=== PATIENT | female | born 1950 | race Caucasian/White ===

== ENCOUNTER 2018-03-18 13:23 | Inpatient (IN) | payer OTHER ==
[~2018-03-18] VITALS: Ht 162.6 cm; Wt 73.0 kg
[2018-03-18 13:26] VITALS: Ht 162.6 cm; Wt 73.0 kg
[2018-03-18] MEDS ORDERED: ASPI-903 PO (14:13)
[2018-03-18] MEDS ORDERED: ISOS5TAB2 PO (14:13)
[2018-03-18] MEDS ORDERED: CLOP75TA27 PO (14:14)
[2018-03-18] MEDS ORDERED: CARV3.12 PO (14:14)
[2018-03-18] MEDS ORDERED: ATOR40TA68 PO (14:14)
[2018-03-18] MEDS ORDERED: ALDS PO (14:15)
[2018-03-18] MEDS ORDERED: LISI-313 PO (14:15)
[2018-03-18] MEDS ORDERED: NITR0.4T32 SL (14:15)
[2018-03-18] MEDS ORDERED: FURO40TA4 PO (14:16)
[2018-03-18] MEDS ORDERED: CEFTRIAXONE 1 GM/50 ML (PMX) 50 ML IVPB STA (14:26)
[2018-03-18] MEDS ORDERED: SODIUM CHLORIDE 0.9% 1L BAG IV* STA (14:26)
[2018-03-18] MEDS ORDERED: ASPIRIN 300 MG SUPP PR ONE ×2 (15:25→15:30)
[2018-03-18] MEDS ORDERED: ONDANSETRON 4 MG INJ IV PRN ×2 (16:30→17:00)
[2018-03-18] MEDS ORDERED: NITROGLYCERIN (SL) 0.4 MG TAB SL PRN (16:30)
[2018-03-18] MEDS ORDERED: ACETAMINOPHEN 325 MG TAB PO PRN ×2 (16:30→17:00)
[2018-03-18] MEDS ORDERED: MAGNESIUM HYDROXIDE 30ML CUP PO PRN (17:00)
[2018-03-18] MEDS ORDERED: NACL 0.9% 3 ML SYG IV SCH (17:00)
[2018-03-18] MEDS ORDERED: DOCUSATE SODIUM 100 MG CAP PO PRN (17:00)
--- NOTE | 2018-03-18 17:08 | HP ---
Date/Time of Note Date/Time of Note DATE: 03/18/18 TIME: 16:50 Assessment/Plan VTE Prophylaxis SCD applied (from Nsg): Yes Pharmacological prophylaxis: LMWH Lines/Catheters IV Catheter Type (from Nrsg): Saline Lock Assessment/Plan Assessment/Plan 1. Acute encephalopathy - unsure etiology at this time. Will workup for infectious cause given lactic acid elevated but urine studies negative for UTI. pancultures ordered - Neurology consulted for recommendations - CT head with chronic changes as well as central volume loss vs NPH - Will order MRI/MRA brain to further assess - will check speech evaluation 2. Chest pain - Noted per daughter but patient unable to express if currently experiencing - Cardiology consult placed given elevated troponin - Will continue trending trops - will place on full dose lovenox for now - EKG negative for acute ST changes - ECHO ordered 3. CHF - ECHO to assess EF - on lasix and spironolactone as outpatient - will check BNP - CXR with cardiomegaly 4. CAD s/p PCI 09/2017 - continue all medications as tolerated 5. DM - initial sugar elevated - will check A1c - ISS and accuchecks - no DM on med rec 6. Diet - NPO until more awake 7. DVT ppx - LMWH 8. Code status - Full 9. Disposition - Admit for workup of acute chest pain and altered mental status Result Diagram: 03/18/18 1414 03/18/18 1414 Results 24hrs Laboratory Tests Test 03/18/18 14:00 03/18/18 14:14 03/18/18 14:16 Urine Color TRAVIS Urine Clarity SLIGHTLY CLOUDY A Urine pH 5.0 Urine Specific [place] 1.030 Urine Ketones TRACE A Urine Nitrite NEGATIVE Urine Bilirubin NEGATIVE Urine Urobilinogen 1+ H Urine Leukocyte Esterase NEGATIVE Urine Microscopic RBC 1 Urine Microscopic WBC 2 Urine Squamous Epithelial Cells FEW Urine Bacteria FEW A Urine Hyaline Casts FEW A Urine Hemoglobin 2+ H Urine Glucose 3+ H Urine Total Protein 3+ H White Blood Count 6.0 Red Blood Count 5.11 Hemoglobin 13.6 Hematocrit 43.3 Mean Corpuscular Volume 84.7 Mean Corpuscular Hemoglobin 26.6 L Mean Corpuscular 31.4 L Hemoglobin Concent Red Cell Distribution Width 14.1 Platelet Count 277 Mean Platelet Volume 11.1 H Immature Granulocytes % 0.300 Neutrophils % 64.7 Lymphocytes % 25.6 Monocytes % 7.9 Eosinophils % 0.7 Basophils % 0.8 Nucleated Red Blood Cells % 0.0 Immature Granulocytes # 0.020 Neutrophils # 3.9 Lymphocytes # 1.5 Monocytes # 0.5 Eosinophils # 0.0 Basophils # 0.1 Nucleated Red Blood Cells # 0.0 Sodium Level 138 Potassium Level 4.3 Chloride Level 101 Carbon Dioxide Level 24 Anion Gap 13 Blood Urea Nitrogen 15 Creatinine 0.85 Est Glomerular Filtrat > 60 Rate mL/min Glucose Level 328 H Calcium Level 9.1 Troponin I 0.262 *H POC Venous Lactate 3.0 *H HPI/ROS Admit Date/Time Admit Date/Time 03/18/18 at 1600 Hx of Present Illness 67 yo F with PMH Diabetes mellitus, CAD s/p PCI 09/2017, dementia, and CHF presented to ED due to chest pain and altered mental status. Patient is currently nonverbal and history obtained from ED physician and patients daughter. Per daughter, patient was in her normal state of health 2 days ago but has not been talking, moving, or eating for the past 2 days. Patient usually is able to ambulate and feeds herself. Daughter recently moved patient out to [place] from [place] and has not established care with a physician yet. She has not been complaining of any shortness of breath, urinary, or GI issues. No evidence of recent illness and no sick contact. In ED, patient found with elevated trop 0.26 but no signs of distress of pain. ROS All 12 systems reviewed and pertinent positives as per HPI. All others negative. Unable to obtain full ROS given patients altered mental status. Subjective hx not possible: pt non-verbal Constitutional: disoriented Psychological: confusion PMH/Family/Social Past Medical History Medical History: congestive heart failure, coronary artery disease, diabetes, other (dementia) Medications Current Medications Ondansetron HCl (Zofran Inj) 4 mg ER BRIDGE PRN IV NAUSEA/VOMITING; Start 03/18/18 at 16:30; Stop 03/19/18 at 16:29 Acetaminophen (Tylenol Tab) 650 mg ER BRIDGE PRN PO .MILD PAIN 1-3 OR TEMP; Start 03/18/18 at 16:30; Stop 03/19/18 at 16:29 Coded Allergies: No Known Allergy (Unverified , 03/18/18) Past Surgical History Past Surgical Hx: cholecystectomy Family History Significant Family History: no pertinent family hx Social History Alcohol Use: none Smoking Status: Never smoker Drug Use: none Exam/Review of Systems Vital Signs Vitals Vital Signs Date Temp Pulse Resp B/P (MAP) Pulse Ox O2 O2 Flow FiO2 Time Delivery Rate 03/18/18 91 16 117/102 99 Room Air 15:37 (107) 03/18/18 2 14:22 03/18/18 98.3 13:26 Exam Exam General: Patient is currently lying in bed, no acute distress, moving around but not opening eyes or responding to commands HEENT: Atraumatic, normocephalic. The pupils are equal, round and reactive. Extraocular motor are intact Neck: Supple with full range of motion. No rigidity or meningismus Chest: Nontender Lungs: Clear to auscultation bilaterally, diminished, no wheezing appreciated Heart: Normal S1-S2, Regular rhythm and rate. No murmur, S3, or S4 Abdomen: Soft , nontender, nondistended , bowel sounds are present. No guarding no rebound tenderness , No masses or organomegaly. No costovertebral temporal angle mass Extremities: Normal to inspection, no edema no cyanosis Neurologic:unable to assess but moving all extremities Skin: no rashes or lesions appreciated Additional Comments Home medications reviewed. Imaging PROCEDURE: CT Brain without contrast. CLINICAL INDICATION: Acute mental status changes TECHNIQUE: A CT of the brain was performed on a [employer] CT scanner utilizing axial imaging from the skull base through the vertex without IV contrast. Multiplanar reformatted images were made. Images were reviewed on a PACS workstation. The CTDIvol is 48.02 mGy and the DLP is 819.37 mGycm. DICOM images are available. One of the following 3 dose reduction techniques were used during this CT examination: 1) Automated exposure control 2) Adjustment of the mA +/- kV according to patient size or 3) Use of iterative reconstruction technique COMPARISON: None available FINDINGS: There is no intracranial hemorrhage, mass effect, or midline shift. No extra- axial fluid collection is seen. The ventricles and sulci are age appropriate. Mild to moderate diffuse volume loss is present. Decreased attenuation is noted in the bilateral subcortical white matter, bilateral centrum semiovale and bilateral periventricular white matter compatible with mild to moderate chronic microvascular ischemic disease. Ventricular dilatation is present with the bifrontal horn diameter approximately 4.1 cm. This may be secondary to central volume loss however mild ventriculomegaly may reflect normal pressure hydrocephalus. Moderate vascular calcifications are present of the intracranial internal carotid arteries. The visualized scalp and calvarium are normal. The bilateral orbits are normal. The bilateral paranasal sinuses, mastoid air cells and middle ear cavities are clear. IMPRESSION: 1. No evidence of acute intracranial hemorrhage, infarcts, or acute intracranial pathology. 2. Mild to moderate chronic microvascular ischemic disease and diffuse volume loss. 3. Mild to moderate ventriculomegaly. While this most likely represent central volume loss normal pressure hydrocephalus is a consideration . 4. Moderate atherosclerotic vascular disease RPTAT: HDC .Kate Warren MD, MD Date Time Electronically viewed and signed by .Kate Warren MD, on 03/18/2018 14:44 PROCEDURE: XR Chest. CLINICAL INDICATION: Chest pain TECHNIQUE: Single portable view of the chest was obtained COMPARISON: None FINDINGS: The heart is enlarged. There are left lower lobe linear atelectatic changes. There is no pleural effusion or pneumothorax. RPTAT: AA IMPRESSION: Moderate to marked Cardiomegaly. Left lower lobe linear atelectatic changes. .Demarcus Santos MD, Date Time Electronically viewed and signed by .Demarcus Santos MD, on 03/18/2018 14:17 WARREN BUTLER MD Mar 18, 2018 17:08
--- NOTE | 2018-03-18 17:49 | ERD ---
ER Documentation Chief Complaint Chief Complaint DEMENTIA PT WITH FAMILY REPORTS PT GRIMACING & TACHYPNIA, HX OF STENTS HPI Patient is a 67-year-old female with coronary disease, dementia, and asthma as well as diabetes who presents with altered mental status. Please note the history and physical exam is limited secondary to the patient's altered mental status. The patient has been altered for the past 48 hours per the daughter. She is grimacing with chest pain and is having shortness of breath. The patient started acting differently yesterday but it was worse today. This is an acute change per her daughter who said that she normally is able to answer questions and ambulate on her own. She is not responding to questions today and is not getting out of bed. Upon review of old medical records this is the patient's fi rst visit to the emergency department. She does not currently have a primary doctor. ROS All systems reviewed and are negative except as per history of present illness. Medications Home Meds Reported Medications Furosemide* (Furosemide*) 40 Mg Tablet, 40 MG PO BID, TAB 03/18/18 Nitroglycerin* (Nitroglycerin* SL) 0.4 Mg Tab.subl, 0.4 MG SL Q5MIN PRN for CHEST PAIN, BOTTLE 03/18/18 Spironolactone* (Aldactone*) 5 Mg/Ml (COMPOUNDED) Susp, 12.5 MG PO DAILY for 30 Days, ML (COMPOUNDED) 03/18/18 Lisinopril* (Lisinopril*) 5 Mg Tablet, 5 MG PO DAILY, #30 TAB 03/18/18 Clopidogrel Bisulfate (Clopidogrel) 75 Mg Tablet, 75 MG PO DAILY, #30 TAB 03/18/18 Atorvastatin* (Atorvastatin*) 40 Mg Tablet, 40 MG PO QHS, #30 TAB 03/18/18 Carvedilol* (Coreg*) 3.125 Mg Tablet, 3.125 MG PO BID, #60 TAB 03/18/18 Aspirin* (Aspirin* Chew) 81 Mg Tab.chew, 81 MG PO DAILY, TAB.CHEW 03/18/18 Isosorbide Dinitrate* (Isosorbide Dinitrate*) 5 Mg Tablet, 5 MG PO BID, TAB 03/18/18 Allergies Allergies: Coded Allergies: No Known Allergy (Unverified , 03/18/18) PMhx/Soc Hx Psychiatric Problems: Yes (DEMTENTIA) Hx Alcohol Use: No Hx Substance Use: No Hx Tobacco Use: No Smoking Status: Never smoker FmHx Family History: No diabetes Physical Exam Vitals Vital Signs Date Temp Pulse Resp B/P (MAP) Pulse Ox O2 O2 Flow FiO2 Time Delivery Rate 03/18/18 97.3 83 17 157/89 100 Room Air 17:08 (111) 03/18/18 91 16 117/102 99 Room Air 15:37 (107) 03/18/18 Nasal 2 14:22 Cannula 03/18/18 98.3 91 18 154/102 94 13:26 (119) Physical Exam Const: Altered Head: Atraumatic Eyes: Normal Conjunctiva ENT: Normal External Ears, Nose and Mouth. Neck: Full range of motion. No meningismus. Resp: Tachypnea with shallow breathing Cardio: Regular rate and rhythm, no murmurs Abd: Soft, non tender, non distended. Normal bowel sounds Skin: No petechiae or rashes Back: No midline or flank tenderness Ext: No cyanosis, or edema Neur: Awake but not answering questions Result Diagram: 03/18/18 1414 03/18/18 1414 Results 24 hrs Laboratory Tests Test 03/18/18 14:00 03/18/18 14:14 03/18/18 14:16 Urine Color TRAVIS Urine Clarity SLIGHTLY CLOUDY Urine pH 5.0 Urine Specific [place] 1.030 Urine Ketones TRACE mg/dL Urine Nitrite NEGATIVE mg/dL Urine Bilirubin NEGATIVE mg/dL Urine Urobilinogen 1+ mg/dL Urine Leukocyte Esterase NEGATIVE Daphnie/ul Urine Microscopic RBC 1 /HPF Urine Microscopic WBC 2 /HPF Urine Squamous Epithelial Cells FEW /HPF Urine Bacteria FEW /HPF Urine Hyaline Casts FEW /HPF Urine Hemoglobin 2+ mg/dL Urine Glucose 3+ mg/dL Urine Total Protein 3+ mg/dl White Blood Count 6.0 10^3/ul Red Blood Count 5.11 10^6/ul Hemoglobin 13.6 g/dl Hematocrit 43.3 % Mean Corpuscular Volume 84.7 fl Mean Corpuscular Hemoglobin 26.6 pg Mean Corpuscular 31.4 g/dl Hemoglobin Concent Red Cell Distribution Width 14.1 % Platelet Count 277 10^3/UL Mean Platelet Volume 11.1 fl Immature Granulocytes % 0.300 % Neutrophils % 64.7 % Lymphocytes % 25.6 % Monocytes % 7.9 % Eosinophils % 0.7 % Basophils % 0.8 % Nucleated Red Blood Cells % 0.0 /100WBC Immature Granulocytes # 0.020 10^3/ul Neutrophils # 3.9 10^3/ul Lymphocytes # 1.5 10^3/ul Monocytes # 0.5 10^3/ul Eosinophils # 0.0 10^3/ul Basophils # 0.1 10^3/ul Nucleated Red Blood Cells # 0.0 10^3/ul Sodium Level 138 mmol/L Potassium Level 4.3 mmol/L Chloride Level 101 mmol/L Carbon Dioxide Level 24 mmol/L Anion Gap 13 Blood Urea Nitrogen 15 mg/dl Creatinine 0.85 mg/dl Est Glomerular Filtrat > 60 mL/min Rate mL/min Glucose Level 328 mg/dl Calcium Level 9.1 mg/dl Troponin I 0.262 ng/ml B-Type Natriuretic Peptide 06780 PG/ML POC Venous Lactate 3.0 mmol/L Current Medications Medications Dose Sig/Chivo Start Time Status Last (Trade) Ordered Route PRN Stop Time Admin Dose Reason Admin Sodium 2,180 ml BOLUS OVER 2 03/18/18 DC 03/18/18 Chloride HOURS STAT 14:26 03/18/18 14:36 (NS) IV* 14:27 Ceftriaxone 50 ml @ ONCE STAT 03/18/18 DC 03/18/18 Sodium 100 mls/hr IVPB 14:26 03/18/18 14:35 14:56 Aspirin 300 mg STK-MED 03/18/18 DC (Aspirin) ONCE NE 15:25 03/18/18 15:26 Aspirin 300 mg ONCE ONCE 03/18/18 DC 03/18/18 (Aspirin) NE 15:30 03/18/18 15:35 15:31 Ondansetron 4 mg ER BRIDGE 03/18/18 HCl (Zofran PRN IV 16:30 03/19/18 Inj) NAUSEA/VOMITI 16:29 NG 650 mg ER BRIDGE 03/18/18 Acetaminophen PRN PO 16:30 03/19/18 (Tylenol .MILD PAIN 16:29 Tab) 1-3 OR TEMP Aspirin 81 mg DAILY PO 03/19/18 (Aspirin) 09:00 40 mg QHS PO 03/18/18 UNV Atorvastatin 21:00 Calcium (Lipitor) Carvedilol 3.125 mg BID PO 03/18/18 UNV (Coreg) 21:00 Clopidogrel 75 mg DAILY PO 03/19/18 Bisulfate 09:00 (plaVIX) Isosorbide 5 mg BID PO 03/18/18 UNV Dinitrate 21:00 (Isordil) Lisinopril 5 mg DAILY PO 03/19/18 UNV (Zestril) 09:00 1 tab [id number] 03/18/18 Nitroglycerin PRN SL 16:30 CHEST PAIN (Nitroglyceri n (Sl Tab) 0.4 Mg) 12.5 mg DAILY PO 03/19/18 DC Spironolacton 09:00 03/19/18 e 09:00 (Aldactone Susp (Ped)) Furosemide 20 mg DAILY IV 03/19/18 (Lasix) 09:00 IV Flush 3 ml PER 03/18/18 (NS 3 ml) PROTOCOL IV 17:00 Ondansetron 4 mg Q6H PRN 03/18/18 HCl (Zofran IV 17:00 Inj) NAUSEA/VOMITI NG 650 mg Q6H PRN 03/18/18 Acetaminophen PO .PAIN 1-3 17:00 (Tylenol OR TEMP Tab) Docusate 100 mg Q12H PRN 03/18/18 Sodium PO 17:00 (Colace) .CONSTIPATION Magnesium 30 ml DAILY PRN 03/18/18 Hydroxide PO 17:00 (Milk Of Mag) .CONSTIPATION Enoxaparin 75 mg Q12 SC 03/18/18 DC Sodium 21:00 03/18/18 (Lovenox) 21:00 Discontinue ONCE ONCE 03/18/18 UNV Miscellaneous current oral XX 17:30 03/18/18 sulfonylur... 17:31 Information (* Miscellaneous Pharmacy Order) ONCE ONCE 03/18/18 UNV Miscellaneous HYPOGLYCEMIA XX 17:30 03/18/18 PROTOCOL 17:31 Information w... (* Miscellaneous Pharmacy Order) Insulin NOVOLOG Q4 SC 03/18/18 UNV Aspart *MILD* 21:00 (Novolog ALGORI... Insulin Pen) Discontinue ONCE ONCE 03/18/18 UNV Miscellaneous all previ... XX 17:30 03/18/18 17:31 Information (* Miscellaneous Pharmacy Order) Enoxaparin 75 mg Q12 SC 03/18/18 UNV Sodium 21:00 (Lovenox) 12.5 mg DAILY PO 03/19/18 UNV Spironolacton 09:00 e (Aldactone) Procedures/MDM EKG #1 read by me: Rate/Rhythm: Regular rate and rhythm at a normal rate Intervals: Normal Impression: LVH EKG #2 read by me: Rate/Rhythm: Regular rate and rhythm at a normal rate Intervals: Normal Impression: LVH Chest x-ray read by radiology. CT brain read by radiology. Patient is a 67-year-old female who presents altered. She was found to have a positive troponin. Her lactic acid was elevated as well and she was initially given ceftriaxone empirically after cultures were done. However there is no infection at this time and I doubt sepsis. I believe her symptoms may be related to NSTEMI. The patient will be admitted to the care of Dr. Gamboa from the panel team. Prognosis is poor given her age and comorbidities. I discussed with family regarding goals of care may be appropriate. I doubt intra-cranial hemorrhage or mass. I doubt stroke at this time. The patient was given aspirin per rectum. Critical Care: Time: 35 minutes excluding all billable procedures. Treatments/Evaluations: Close monitoring and treatment of unstable vital signs, cardiorespiratory, and neurologic status, while maintaining tight balance of fluid, respiratory, and cardiac interventions. Departure Diagnosis: Primary Impression: NSTEMI (non-ST elevated myocardial infarction) Additional Impressions: Delirium Chest pain Chest pain type: unspecified Qualified Codes: R07.9 - Chest pain, unspecified Condition: Serious FATEMEH RUBIN MD Mar 18, 2018 17:48
[2018-03-18 18:15] VITALS: BP 148/96; PULSE 89; RESP 18
[2018-03-18] MEDS ORDERED: DEXTROSE 50% 50 ML SYRINGE IV PRN ×2 (18:30)
[2018-03-18] MEDS ORDERED: GLUCOSE GEL 15 GRAM TUBE PO PRN ×2 (18:30)
[2018-03-18] MEDS ORDERED: GLUCAGON 1 MG INJ IM PRN (18:30)
--- NOTE | 2018-03-18 19:08 | CONS ---
DATE OF ADMISSION: 03/18/2018 DATE OF CONSULTATION: 03/18/2018 REASON FOR CONSULTATION: Positive troponin. REQUESTING PHYSICIAN: Dr. Gamboa from the hospitalist service HISTORY OF PRESENT ILLNESS: Ms. 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 Upon arrival, temperature 98.3, blood pressure 154/102, pulse 91, respiratory rate 18, satting 94%. The patient's labs are notable for white cell count of 6, hemoglobin of 13.6, platelet count of 277; sodium 138, potassium 4.3, creatinine 0.85, BU N of 15; troponin 0.262, BNP of 18,100; UA borderline. The patient underwent a chest x-ray revealing moderate to marked cardiomegaly, left lower lobe linear atelectatic changes, and a head CT that reve aled no evidence of acute intracranial hemorrhage, infarcts or acute intracranial pathology, mild to moderate chronic microvascular ischemic disease, and diffuse volume loss. The patient's electrocardi ogram revealed sinus rhythm at a rate of 86, left axis deviation, left ventricular hypertrophy, secon zeenat repolarization abnormalities. The patient subsequently at this time awaits [facility] or and does not respond to questions pertaining to chest pain or shortness of breath. PAST MEDICAL HISTORY: As above in the HPI with the patient having a history of stent 09/2017 per rep ort. MEDICATIONS CURRENTLY IN THE HOSPITAL: 1. Aspirin 81 mg daily. 2. Plavix 75 mg daily. 3. Zestril 5 mg daily. 4. Lasix 20 mg IV daily. 5. Aldactone 12.5 mg daily. 6. Lipitor 40 mg at bedtime . 7. Carvedilol 3.125 mg p.o. b.i.d. 8. Isordil 5 mg b.i.d. 9. Lovenox 75 mg subQ q.12. 10. PRN Tylenol. 11. PRN Colace. 12. PRN Zofran. ALLERGIES: NO KNOWN DRUG ALLERGIES. SOCIAL HISTORY: No current tobacco, EtOH, illicit drug use. FAMILY HISTORY: No history of sudden cardiac or early CAD. REVIEW OF SYSTEMS: As above in the HPI. CONSTITUTIONAL: No fevers or chills. PULMONARY: No current shortness of breath. CARDIOVASCULAR: No current signs of chest pain. GASTROINTESTINAL: No vomiting. GENITOURINARY: No hematuria. MUSCULOSKELETAL: Degenerative joint disease. PSYCHIATRIC: No documented psych history. NEUROLOGIC: Encephalopathy. PHYSICAL EXAMINATION: VITAL SIGNS: Temperature 97.3, blood pressure most recently 157/89, pulse 83, respiratory rate 17, s atting 100%. GENERAL: The patient is alert, awake, noncommunicative. NECK: JVP of approximately 8 to 9 cm of water. CHEST: Fair air movement throughout. Mildly decreased breath sounds at bases bilaterally. HEART: Regular rate and rhythm. Normal S1, S2. A I/ systolic murmur. Nondisplaced PMI. ABDOMEN: Positive bowel sounds. Soft. EXTREMITIES: No significant pitting edema. With 1+ pulses bilateral posterior tibial. LABORATORY DATA: As above in the HPI. No further labs for my review at this time. IMAGING STUDIES: As above in the HPI. No further imaging studies for my review at this time. ELECTROCARDIOGRAM: As above in the HPI. No further electrocardiograms for review at this time. IMPRESSION: 1. Positive troponin, assess significance. Patient not able to comment on chest pain. 2. Abnormal electrocardiogram, nonspecific ST-T abnormalities, borderline intraventricular conductio n delay. 3. Hypertension, uncontrolled. 4. History of stent placement 09/2017. 5. Encephalopathy. 6. Dyslipidemia. RECOMMENDATIONS: 1. At this time, we would admit the patient to telemetry monitoring to follow rhythm and rate contro l closely. 2. Check a 2D echo to further assess patient's ejection fraction, wall motion or any major abnormali ties. 3. We will continue to trend the patient's cardiac enzymes and assess for any significant ongoing ca rdiac damage. 4. We will continue the patient's dual antiplatelet therapy with aspirin and Plavix at this time. 5. Okay to continue the patient's Lovenox at this time, but if the patient's troponins all trend up, then we will change the patient's Lovenox back to prophylactic doses for DVT. 6. Continue the patient's current statin. 7. Continue the patient's current carvedilol and Zestril with up-titration as necessary. We will co ntinue the patient's Isordil at this time. 8. We will at this time continue to check serial EKGs to assess for any significant ongoing changes, thus, an EKG in the morning, EKG for any complaints of chest pain or change in rhythm. Thank you for allowing me to take part in the care of this patient. I will continue to follow very c losely with you, with further recommendations to be made as the patient progresses through her incritical access hospital hospital clinical course. Dictated By: JANEEN VILLAFUERTE/YESICA Conf#: [id number] DID#: [id number] CC: WARREN GAMBOA MD;*EndCC*
[2018-03-18 20:00] VITALS: BP 116/88; PULSE 78; PULSE 80; RESP 20
[2018-03-18] MEDS: ATORVASTATIN 40 MG TAB PO SCH ×2 (20:39→20:54)
[2018-03-18] MEDS: CEFEPIME 1GM/50 ML (PMX) 50 ML IVPB SCH (20:39)
[2018-03-18] MEDS: ISOSORBIDE DINITRATE 5 MG TAB PO SCH ×2 (20:40→20:54)
[2018-03-18] MEDS: INSULIN ASPART [NOVOLOG] 3 ML PEN SC SCH (20:50)
[2018-03-18] MEDS: ENOXAPARIN 80 MG/0.8 ML SYG SC SCH (20:50)
[2018-03-18] MEDS ORDERED: ENOXAPARIN 100 MG/ML SYG SC SCH (21:00)
[2018-03-18] MEDS ORDERED: LORAZEPAM 2 MG INJ IM ONE (22:30)
[2018-03-19] VITALS (10 sets, daily range): BP systolic 126–145; BP diastolic 75–89; PULSE 59–88; RESP 17–20
[2018-03-19] MEDS: INSULIN ASPART [NOVOLOG] 3 ML PEN SC SCH ×6 (01:21→23:51)
[2018-03-19] MEDS: CEFEPIME 1GM/50 ML (PMX) 50 ML IVPB SCH ×2 (08:42→23:50)
[2018-03-19] MEDS: FUROSEMIDE 20 MG INJ IV SCH (08:42)
[2018-03-19] MEDS: INSULIN GLARGINE [LANTus] (100 UNITS/ML) SYG SC SCH (08:48)
[2018-03-19] MEDS: ENOXAPARIN 80 MG/0.8 ML SYG SC SCH (08:59)
[2018-03-19] MEDS: CLOPIDOGREL 75 MG TAB PO SCH ×2 (09:00→11:51)
[2018-03-19] MEDS ORDERED: SPIRONOLACTONE (5 MG/ML PO SYG) PO SCH (09:00)
[2018-03-19] MEDS: SPIRONOLACTONE 25 MG TAB PO SCH ×2 (09:00→11:52)
[2018-03-19] MEDS: ISOSORBIDE DINITRATE 5 MG TAB PO SCH ×4 (09:00→23:51)
[2018-03-19] MEDS: ASPIRIN 81 MG TAB PO SCH ×2 (09:00→11:51)
[2018-03-19] MEDS: LISINOPRIL 5 MG TAB PO SCH ×2 (09:00→11:52)
[2018-03-19] MEDS ORDERED: MAGNESIUM SULFATE 4 GM/100 ML 100 ML IVPB ONE (09:30)
--- NOTE | 2018-03-19 15:49 | CONS ---
Assessment/Plan Assessment/Plan Hospital Course 67 yo F with hx of multiple cerebrovascular risk factors who presents with ams and other sx... for which neurology is consulted. STACIE + Most clinically consistent with an acute toxic-metabolic encephalopathy. Stroke is additionally considered. Seizure is unlikely. CTH is without acute intracranial pathology. P: Await MRI/MRA brain for further characterization Agree with antiplatelet therapy/lipitor pending the above Add UDS, B12, ammonia Cont medical management per primary Reorient as necessary Limit sedating medications where possible PT/OT/ST as necessary Will follow clinically Consultation Date/Type/Reason Admit Date/Time 03/18/18 at 1600 Type of Consult Neurology Reason for Consultation ams Requesting Provider: WARREN BUTLER MD Date/Time of Note DATE: 03/19/18 TIME: 15:49 Hx of Present Illness 67 yo F with hx of HTN, DM, and multiple other comorbidities who presented to the ED for evaluation of chest pain and ams. History was obtained from chart review as pt is a poor historian. It is elsewhere noted: Hx of Present Illness 67 yo F with PMH Diabetes mellitus, CAD s/p PCI 09/2017, dementia, and CHF presen pankaj to ED due to chest pain and altered mental status. Patient is currently nonverbal and history obtained from ED physician and patients daughter. Per daughter, patient was in her normal state of health 2 days ago but has not been talking, moving, or eating for the past 2 days. Patient usually is able to ambulate and feeds herself. Daughter recently moved patient out to [place] and has not established care with a physician yet. She has not been complaining of any shortness of breath, urinary, or GI issues. No evidence of recent illness and no sick contact. In ED, patient found with elevated trop 0.26 but no signs of distress of pain. unable to obtain d/t ams Exam/Review of Systems Exam Vitals Vital Signs Date Temp Pulse Resp B/P (MAP) Pulse Ox O2 O2 Flow FiO2 Time Delivery Rate 03/19/18 98.0 72 19 128/86 95 15:14 (100) 03/18/18 Room Air 18:15 03/18/18 2 14:22 Exam PE: Gen Appearance: No Apparent Distress HEENT: Normocephalic Cardiovascular: Regular rate Abdomen: Soft Extremities: Dry NE: The patient was lethargic, though arousable to light touch. Disoriented. Sparsely verbal. Speech clear. Very difficult to direct/redirect. Able to follow simple appendicular commands only. Cranial nerve examination was limited by mental status. Pupils were equal and reactive to light. There was no afferent pupillary defect. Funduscopic examination was limited. Face was grossly symmetric, w/ present corneal and cough reflexes. Tone was normal. Muscle bulk was normal. I did not see fasciculations. The patient had spontaneous and symmetric movement of her extremities. Coordination and gait testing was limited by mental status. Arm and leg reflexes were within normal limits and symmetric. Powell's sign was absent. Plantar responses were flexor. Results Result Diagram: 03/19/18 0702 03/19/18 0702 Results 24hrs Laboratory Tests Test 03/18/18 17:50 03/18/18 20:43 03/19/18 01:20 03/19/18 01:41 Lactic Acid Level 2.9 *H Creatine Kinase 93 77 Creatine Kinase Index 2.0 2.3 Creatinine Kinase MB 1.88 1.80 (Mass) Troponin I 0.252 *H 0.352 *H Bedside Glucose 228 H 169 Test 03/19/18 05:24 03/19/18 07:02 03/19/18 08:39 03/19/18 12:31 Bedside Glucose 155 146 126 White Blood Count 4.7 #L Red Blood Count 5.14 Hemoglobin 13.9 Hematocrit 43.8 Mean Corpuscular Volume 85.2 Mean Corpuscular 27.0 L Hemoglobin Mean Corpuscular 31.7 L Hemoglobin Concent Red Cell Distribution 14.1 Width Platelet Count 277 Mean Platelet Volume 10.9 H Immature Granulocytes % 0.200 Neutrophils % 52.8 Lymphocytes % 35.7 Monocytes % 9.1 Eosinophils % 1.1 Basophils % 1.1 Nucleated Red Blood 0.0 Cells % Immature Granulocytes # 0.010 Neutrophils # 2.5 Lymphocytes # 1.7 Monocytes # 0.4 Eosinophils # 0.1 Basophils # 0.1 Nucleated Red Blood 0.0 Cells # Sodium Level 143 Potassium Level 3.8 Chloride Level 109 Carbon Dioxide Level 25 Anion Gap 9 Blood Urea Nitrogen 16 Creatinine 1.02 H Est Glomerular Filtrat 54 L Rate mL/min Glucose Level 190 # Calcium Level 9.5 Magnesium Level 1.3 L Troponin I 0.360 *H Triglycerides Level 130 Cholesterol Level 257 H LDL Cholesterol, 175 Calculated HDL Cholesterol 56 Cholesterol/HDL Ratio 4.5 Medications Medication Current Medications Ondansetron HCl (Zofran Inj) 4 mg ER BRIDGE PRN IV NAUSEA/VOMITING; Start 03/18/18 at 16:30; Stop 03/19/18 at 16:29 Aspirin (Aspirin) 81 mg DAILY PO Last administered on 03/19/18 11:51; Admin Dose 81 MG; Start 03/19/18 at 09:00 Atorvastatin Calcium (Lipitor) 40 mg QHS PO ; Start 03/18/18 at 21:00 Carvedilol (Coreg) 3.125 mg BID PO Last administered on 03/19/18 11:52; Admin Dose 3.125 MG; Start 03/18/18 at 21:00 Clopidogrel Bisulfate (plaVIX) 75 mg DAILY PO Last administered on 03/19/18 11:51; Admin Dose 75 MG; Start 03/19/18 at 09:00 Isosorbide Dinitrate (Isordil) 5 mg BID PO Last administered on 03/19/18 11:51; Admin Dose 5 MG; Start 03/18/18 at 21:00 Lisinopril (Zestril) 5 mg DAILY PO Last administered on 03/19/18 11:52; Admin Dose 5 MG; Start 03/19/18 at 09:00 Nitroglycerin (Nitroglycerin (Sl Tab) 0.4 Mg) 1 tab [id number] PRN SL CHEST PAIN; Start 03/18/18 at 16:30 Furosemide (Lasix) 20 mg DAILY IV Last administered on 03/19/18at 08:42; Admin Dose 20 MG; Start 03/19/18 at 09:00 IV Flush (NS 3 ml) 3 ml PER PROTOCOL IV ; Start 03/18/18 at 17:00 Ondansetron HCl (Zofran Inj) 4 mg Q6H PRN IV NAUSEA/VOMITING; Start 03/18/18 at 17:00 Acetaminophen (Tylenol Tab) 650 mg Q6H PRN PO .PAIN 1-3 OR TEMP; Start 03/18/18 at 17:00 Docusate Sodium (Colace) 100 mg Q12H PRN PO .CONSTIPATION; Start 03/18/18 at 17:00 Magnesium Hydroxide (Milk Of Mag) 30 ml DAILY PRN PO .CONSTIPATION; Start 03/18/18 at 17:00 Insulin Aspart (Novolog Insulin Pen) NOVOLOG *MILD* ALGORI... Q4 SC Last administered on 03/19/18at 08:59; Admin Dose 1 UNIT; Start 03/18/18 at 21:00 Enoxaparin Sodium (Lovenox) 75 mg Q12 SC Last administered on 03/19/18at 08:59; Admin Dose 75 MG; Start 03/18/18 at 21:00 Spironolactone (Aldactone) 12.5 mg DAILY PO Last administered on 03/19/18at 11:52; Admin Dose 12.5 MG; Start 03/19/18 at 09:00 Miscellaneous Information 1 ea NOTE XX ; Start 03/18/18 at 18:30 Glucose (Glutose) 15 gm Q15M PRN PO DECREASED GLUCOSE; Start 03/18/18 at 18:30 Glucose (Glutose) 22.5 gm Q15M PRN PO DECREASED GLUCOSE; Start 03/18/18 at 18:30 Dextrose (D50w Syringe) 25 ml Q15M PRN IV DECREASED GLUCOSE; Start 03/18/18 at 18:30 Dextrose (D50w Syringe) 50 ml Q15M PRN IV DECREASED GLUCOSE; Start 03/18/18 at 18:30 Glucagon (Glucagen) 1 mg Q15M PRN IM DECREASED GLUCOSE; Start 03/18/18 at 18:30 Glucose (Glutose) 15 gm Q15M PRN BUCCAL DECREASED GLUCOSE; Start 03/18/18 at 18:30 Cefepime HCl 50 ml @ 100 mls/hr Q12 IVPB Last administered on 03/19/18at 08:42; Admin Dose 100 MLS/HR; Start 03/18/18 at 21:00 Insulin Glargine (Lantus) 18 units DAILY@0800 SC Last administered on 03/19/18at 08:48; Admin Dose 18 UNITS; Start 03/19/18 at 08:00 Lorazepam (Ativan) 0.5 mg DAILY PRN IV AGITATION/ANXIETY; Start 03/19/18 at 01:00 Past Medical History reviewed Medical History: congestive heart failure, coronary artery disease, diabetes, other (dementia) Home Meds Reported Medications Furosemide* (Furosemide*) 40 Mg Tablet, 40 MG PO BID, TAB 03/18/18 Nitroglycerin* (Nitroglycerin* SL) 0.4 Mg Tab.subl, 0.4 MG SL Q5MIN PRN for CHEST PAIN, BOTTLE 03/18/18 Spironolactone* (Aldactone*) 5 Mg/Ml (COMPOUNDED) Susp, 12.5 MG PO DAILY for 30 Days, ML (COMPOUNDED) 03/18/18 Lisinopril* (Lisinopril*) 5 Mg Tablet, 5 MG PO DAILY, #30 TAB 03/18/18 Clopidogrel Bisulfate (Clopidogrel) 75 Mg Tablet, 75 MG PO DAILY, #30 TAB 03/18/18 Atorvastatin* (Atorvastatin*) 40 Mg Tablet, 40 MG PO QHS, #30 TAB 03/18/18 Carvedilol* (Coreg*) 3.125 Mg Tablet, 3.125 MG PO BID, #60 TAB 03/18/18 Aspirin* (Aspirin* Chew) 81 Mg Tab.chew, 81 MG PO DAILY, TAB.CHEW 03/18/18 Isosorbide Dinitrate* (Isosorbide Dinitrate*) 5 Mg Tablet, 5 MG PO BID, TAB 03/18/18 Medications Current Medications Ondansetron HCl (Zofran Inj) 4 mg ER BRIDGE PRN IV NAUSEA/VOMITING; Start 03/18/18 at 16:30; Stop 03/19/18 at 16:29 Aspirin (Aspirin) 81 mg DAILY PO Last administered on 03/19/18 11:51; Admin Dose 81 MG; Start 03/19/18 at 09:00 Atorvastatin Calcium (Lipitor) 40 mg QHS PO ; Start 03/18/18 at 21:00 Carvedilol (Coreg) 3.125 mg BID PO Last administered on 03/19/18 11:52; Admin Dose 3.125 MG; Start 03/18/18 at 21:00 Clopidogrel Bisulfate (plaVIX) 75 mg DAILY PO Last administered on 03/19/18 11:51; Admin Dose 75 MG; Start 03/19/18 at 09:00 Isosorbide Dinitrate (Isordil) 5 mg BID PO Last administered on 03/19/18 11:51; Admin Dose 5 MG; Start 03/18/18 at 21:00 Lisinopril (Zestril) 5 mg DAILY PO Last administered on 03/19/18 11:52; Admin Dose 5 MG; Start 03/19/18 at 09:00 Nitroglycerin (Nitroglycerin (Sl Tab) 0.4 Mg) 1 tab [id number] PRN SL CHEST PAIN; Start 03/18/18 at 16:30 Furosemide (Lasix) 20 mg DAILY IV Last administered on 03/19/18at 08:42; Admin Dose 20 MG; Start 03/19/18 at 09:00 IV Flush (NS 3 ml) 3 ml PER PROTOCOL IV ; Start 03/18/18 at 17:00 Ondansetron HCl (Zofran Inj) 4 mg Q6H PRN IV NAUSEA/VOMITING; Start 03/18/18 at 17:00 Acetaminophen (Tylenol Tab) 650 mg Q6H PRN PO .PAIN 1-3 OR TEMP; Start 03/18/18 at 17:00 Docusate Sodium (Colace) 100 mg Q12H PRN PO .CONSTIPATION; Start 03/18/18 at 17:00 Magnesium Hydroxide (Milk Of Mag) 30 ml DAILY PRN PO .CONSTIPATION; Start 03/18/18 at 17:00 Insulin Aspart (Novolog Insulin Pen) NOVOLOG *MILD* ALGORI... Q4 SC Last administered on 03/19/18at 08:59; Admin Dose 1 UNIT; Start 03/18/18 at 21:00 Enoxaparin Sodium (Lovenox) 75 mg Q12 SC Last administered on 03/19/18at 08:59; Admin Dose 75 MG; Start 03/18/18 at 21:00 Spironolactone (Aldactone) 12.5 mg DAILY PO Last administered on 03/19/18at 11:52; Admin Dose 12.5 MG; Start 03/19/18 at 09:00 Miscellaneous Information 1 ea NOTE XX ; Start 03/18/18 at 18:30 Glucose (Glutose) 15 gm Q15M PRN PO DECREASED GLUCOSE; Start 03/18/18 at 18:30 Glucose (Glutose) 22.5 gm Q15M PRN PO DECREASED GLUCOSE; Start 03/18/18 at 18:30 Dextrose (D50w Syringe) 25 ml Q15M PRN IV DECREASED GLUCOSE; Start 03/18/18 at 18:30 Dextrose (D50w Syringe) 50 ml Q15M PRN IV DECREASED GLUCOSE; Start 03/18/18 at 18:30 Glucagon (Glucagen) 1 mg Q15M PRN IM DECREASED GLUCOSE; Start 03/18/18 at 18:30 Glucose (Glutose) 15 gm Q15M PRN BUCCAL DECREASED GLUCOSE; Start 03/18/18 at 18:30 Cefepime HCl 50 ml @ 100 mls/hr Q12 IVPB Last administered on 03/19/18at 08:42; Admin Dose 100 MLS/HR; Start 03/18/18 at 21:00 Insulin Glargine (Lantus) 18 units DAILY@0800 SC Last administered on 03/19/18at 08:48; Admin Dose 18 UNITS; Start 03/19/18 at 08:00 Lorazepam (Ativan) 0.5 mg DAILY PRN IV AGITATION/ANXIETY; Start 03/19/18 at 01:00 Allergies: Coded Allergies: No Known Allergy (Unverified , 03/18/18) Past Surgical History reviewed Past Surgical Hx: cholecystectomy Social History reviewed Alcohol Use: none Smoking Status: Unknown if ever smoked Drug Use: none SANDRA TORRES NP Mar 19, 2018 15:49
[2018-03-19] MEDS: LORAZEPAM 2 MG INJ IV PRN (16:04)
--- NOTE | 2018-03-19 16:27 | PN ---
Date/Time of Note Date/Time of Note DATE: 03/19/18 TIME: 16:21 Assessment/Plan VTE Prophylaxis Risk score (from Ns)>0 risk: 3 [place] [facility] [place] contraindicated: patient refusal Pharmacological prophylaxis: LMWH Lines/Catheters IV [facility]from [facility] Saline Lock Urinary Cath still in place: No Assessment/Plan Assessment/Plan 1. Acute encephalopathy - Patient more awake today and interactive. Follows commands but not verbalizi ng. - No signs of infection to cause AMS and MRI/MRA pending - Neurology consulted for recommendations - CT head with chronic changes as well as central volume loss vs NPH - Speech consulted 2. NSTEMI - Cardiology on board and appreciate recommendations. Trops still elevated and will continue LMWH. Concern is if patient did have stroke, will need to d/c due to risk of hemorrhagic conversion - EKG negative for acute ST changes - ECHO results pending 3. CHF - ECHO to assess EF - on lasix and spironolactone as outpatient - BNP elevated - CXR with cardiomegaly 4. CAD s/p PCI 09/2017 - continue all medications as tolerated 5. Uncontrolled DM - A1c noted - Diabetic education consultation placed - ISS and accuchecks 6. Disposition - Awaiting MRI/MRA and neurology input Result Diagram: 03/19/18 0702 03/19/18 0702 Results 24hrs Laboratory Tests Test 03/18/18 17:50 03/18/18 20:43 03/19/18 01:20 03/19/18 01:41 Lactic Acid Level 2.9 *H Creatine Kinase 93 77 Creatine Kinase Index 2.0 2.3 Creatinine Kinase MB 1.88 1.80 (Mass) Troponin I 0.252 *H 0.352 *H Bedside Glucose 228 H 169 Test 03/19/18 05:24 03/19/18 07:02 03/19/18 08:39 03/19/18 12:31 Bedside Glucose 155 146 126 White Blood Count 4.7 #L Red Blood Count 5.14 Hemoglobin 13.9 Hematocrit 43.8 Mean Corpuscular Volume 85.2 Mean Corpuscular 27.0 L Hemoglobin Mean Corpuscular 31.7 L Hemoglobin Concent Red Cell Distribution 14.1 Width Platelet Count 277 Mean Platelet Volume 10.9 H Immature Granulocytes % 0.200 Neutrophils % 52.8 Lymphocytes % 35.7 Monocytes % 9.1 Eosinophils % 1.1 Basophils % 1.1 Nucleated Red Blood 0.0 Cells % Immature Granulocytes # 0.010 Neutrophils # 2.5 Lymphocytes # 1.7 Monocytes # 0.4 Eosinophils # 0.1 Basophils # 0.1 Nucleated Red Blood 0.0 Cells # Sodium Level 143 Potassium Level 3.8 Chloride Level 109 Carbon Dioxide Level 25 Anion Gap 9 Blood Urea Nitrogen 16 Creatinine 1.02 H Est Glomerular Filtrat 54 L Rate mL/min Glucose Level 190 # Calcium Level 9.5 Magnesium Level 1.3 L Troponin I 0.360 *H Triglycerides Level 130 Cholesterol Level 257 H LDL Cholesterol, 175 Calculated HDL Cholesterol 56 Cholesterol/HDL Ratio 4.5 Subjective 24 Hr Interval Summary Free Text/Dictation Patient more interactive this am and able to follow commands but not verbally responding to questions. Per nursing patient continues to try to get out of bed. Exam/Review of Systems Exam Vitals Vital Signs Date Temp Pulse Resp B/P (MAP) Pulse Ox O2 O2 Flow FiO2 Time Delivery Rate 03/19/18 98.0 72 19 128/86 95 15:14 (100) 03/18/18 Room Air 18:15 03/18/18 2 14:22 Exam General: Patient sitting up in bed. following commands. not responding to questions Neck: Supple Chest: Nontender Lungs: Clear to auscultation bilaterally, diminished, no wheezing appreciated Heart: Normal S1-S2, Regular rhythm and rate. No murmur, S3, or S4 Abdomen: Soft , nontender, nondistended , bowel sounds are present. No guarding no rebound tenderness Extremities: Normal to inspection, no edema no cyanosis Neurologic: following command, strength intact. not verbalizing Results Results 24hrs Laboratory Tests Test 03/18/18 17:50 03/18/18 20:43 03/19/18 01:20 03/19/18 01:41 Lactic Acid Level 2.9 *H Creatine Kinase 93 77 Creatine Kinase Index 2.0 2.3 Creatinine Kinase MB 1.88 1.80 (Mass) Troponin I 0.252 *H 0.352 *H Bedside Glucose 228 H 169 Test 03/19/18 05:24 03/19/18 07:02 03/19/18 08:39 03/19/18 12:31 Bedside Glucose 155 146 126 White Blood Count 4.7 #L Red Blood Count 5.14 Hemoglobin 13.9 Hematocrit 43.8 Mean Corpuscular Volume 85.2 Mean Corpuscular 27.0 L Hemoglobin Mean Corpuscular 31.7 L Hemoglobin Concent Red Cell Distribution 14.1 Width Platelet Count 277 Mean Platelet Volume 10.9 H Immature Granulocytes % 0.200 Neutrophils % 52.8 Lymphocytes % 35.7 Monocytes % 9.1 Eosinophils % 1.1 Basophils % 1.1 Nucleated Red Blood 0.0 Cells % Immature Granulocytes # 0.010 Neutrophils # 2.5 Lymphocytes # 1.7 Monocytes # 0.4 Eosinophils # 0.1 Basophils # 0.1 Nucleated Red Blood 0.0 Cells # Sodium Level 143 Potassium Level 3.8 Chloride Level 109 Carbon Dioxide Level 25 Anion Gap 9 Blood Urea Nitrogen 16 Creatinine 1.02 H Est Glomerular Filtrat 54 L Rate mL/min Glucose Level 190 # Calcium Level 9.5 Magnesium Level 1.3 L Troponin I 0.360 *H Triglycerides Level 130 Cholesterol Level 257 H LDL Cholesterol, 175 Calculated HDL Cholesterol 56 Cholesterol/HDL Ratio 4.5 Medications Medication Current Medications Ondansetron HCl (Zofran Inj) 4 mg ER BRIDGE PRN IV NAUSEA/VOMITING; Start 03/18/18 at 16:30; Stop 03/19/18 at 16:29 Aspirin (Aspirin) 81 mg DAILY PO Last administered on 03/19/18 11:51; Admin Dose 81 MG; Start 03/19/18 at 09:00 Atorvastatin Calcium (Lipitor) 40 mg QHS PO ; Start 03/18/18 at 21:00 Carvedilol (Coreg) 3.125 mg BID PO Last administered on 03/19/18 11:52; Admin Dose 3.125 MG; Start 03/18/18 at 21:00 Clopidogrel Bisulfate (plaVIX) 75 mg DAILY PO Last administered on 03/19/18 11:51; Admin Dose 75 MG; Start 03/19/18 at 09:00 Isosorbide Dinitrate (Isordil) 5 mg BID PO Last administered on 03/19/18 11:51; Admin Dose 5 MG; Start 03/18/18 at 21:00 Lisinopril (Zestril) 5 mg DAILY PO Last administered on 03/19/18 11:52; Admin Dose 5 MG; Start 03/19/18 at 09:00 Nitroglycerin (Nitroglycerin (Sl Tab) 0.4 Mg) 1 tab [id number] PRN SL CHEST PAIN; Start 03/18/18 at 16:30 Furosemide (Lasix) 20 mg DAILY IV Last administered on 03/19/18at 08:42; Admin Dose 20 MG; Start 03/19/18 at 09:00 IV Flush (NS 3 ml) 3 ml PER PROTOCOL IV ; Start 03/18/18 at 17:00 Ondansetron HCl (Zofran Inj) 4 mg Q6H PRN IV NAUSEA/VOMITING; Start 03/18/18 at 17:00 Acetaminophen (Tylenol Tab) 650 mg Q6H PRN PO .PAIN 1-3 OR TEMP; Start 03/18/18 at 17:00 Docusate Sodium (Colace) 100 mg Q12H PRN PO .CONSTIPATION; Start 03/18/18 at 17:00 Magnesium Hydroxide (Milk Of Mag) 30 ml DAILY PRN PO .CONSTIPATION; Start 03/18/18 at 17:00 Insulin Aspart (Novolog Insulin Pen) NOVOLOG *MILD* ALGORI... Q4 SC Last administered on 03/19/18at 08:59; Admin Dose 1 UNIT; Start 03/18/18 at 21:00 Enoxaparin Sodium (Lovenox) 75 mg Q12 SC Last administered on 03/19/18at 08:59; Admin Dose 75 MG; Start 03/18/18 at 21:00 Spironolactone (Aldactone) 12.5 mg DAILY PO Last administered on 03/19/18at 11:52; Admin Dose 12.5 MG; Start 03/19/18 at 09:00 Miscellaneous Information 1 ea NOTE XX ; Start 03/18/18 at 18:30 Glucose (Glutose) 15 gm Q15M PRN PO DECREASED GLUCOSE; Start 03/18/18 at 18:30 Glucose (Glutose) 22.5 gm Q15M PRN PO DECREASED GLUCOSE; Start 03/18/18 at 18:30 Dextrose (D50w Syringe) 25 ml Q15M PRN IV DECREASED GLUCOSE; Start 03/18/18 at 18:30 Dextrose (D50w Syringe) 50 ml Q15M PRN IV DECREASED GLUCOSE; Start 03/18/18 at 18:30 Glucagon (Glucagen) 1 mg Q15M PRN IM DECREASED GLUCOSE; Start 03/18/18 at 18:30 Glucose (Glutose) 15 gm Q15M PRN BUCCAL DECREASED GLUCOSE; Start 03/18/18 at 18:30 Cefepime HCl 50 ml @ 100 mls/hr Q12 IVPB Last administered on 03/19/18 08:42; Admin Dose 100 MLS/HR; Start 03/18/18 at 21:00 Insulin Glargine (Lantus) 18 units DAILY@0800 SC Last administered on 03/19/18 08:48; Admin Dose 18 UNITS; Start 03/19/18 at 08:00 Lorazepam (Ativan) 0.5 mg DAILY PRN IV AGITATION/ANXIETY Last administered on 03/19/18 16:04; Admin Dose 0.5 MG; Start 03/19/18 at 01:00 WARREN BUTLER MD Mar 19, 2018 16:27
[2018-03-19] MEDS ORDERED: LORAZEPAM 2 MG INJ IV ONE (16:30)
--- NOTE | 2018-03-19 18:03 | CONS ---
Assessment/Plan Assessment/Plan Hospital Course (Demo Recall) IMPRESSION: 1. Positive troponin, assess significance. Patient not able to comment on chest pain.-mild uptrend in cardiac enzymes 2. Abnormal electrocardiogram, nonspecific ST-T abnormalities, borderline intraventricular conduction delay. 3. Hypertension, uncontrolled. 4. History of stent placement 09/2017. 5. Encephalopathy. 6. Dyslipidemia-LDL 175 HDL 56 Recc: -Tele -serial ecg's -Continmue asa/plavix -Continue coreg/zestril -continue isordil -Continue aldactone -decrease dose of lovenox to prohylaxis doses -will f/u echo -increase statin given significantly elevated LDL -ongoing neuro eval Consultation Date/Type/Reason Admit Date/Time Mar 18, 2018 at 16:08 Initial Consult Date 03/18/17 Type of Consult Cardiology Reason for Consultation poistive troponin Requesting Provider: WARREN BUTLER MD Date/Time of Note DATE: 03/19/18 TIME: 17:58 Exam/Review of Systems Vital Signs Vitals Vital Signs Date Temp Pulse Resp B/P (MAP) Pulse Ox O2 O2 Flow FiO2 Time Delivery Rate 03/19/18 74 16:29 03/19/18 98.0 19 128/86 95 15:14 (100) 03/18/18 Room Air 18:15 03/18/18 2 14:22 Exam Exam Review of Systems: CONSTITUTIONAL: No fevers, chills. PULMONARY: No sob CARDIOVASCULAR: No chest pain/palpitations GASTROINTESTINAL: No nausea/vomiting. GENITOURINARY: No hematuria/dysuria. MUSCULOSKELETAL: No myagias/arthalgias. PSYCHIATRIC: The patient denies depression. NEUROLOGIC: No weakness Constitutional: alert Psych: no complaints Head: normocephalic ENMT: mucosa pink and moist Neck: supple, jvd (9 cm water) Respiratory: diminished breath sounds Cardiovascular: regular rate and rhythm Gastrointestinal: soft, non-tender Musculoskeletal: muscle tone (normal) Extremities: edema (none) 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: confused Labs Result Diagram: 03/19/18 0702 03/19/18 0702 Results 24hrs Laboratory Tests Test 03/18/18 20:43 03/19/18 01:20 03/19/18 01:41 03/19/18 05:24 Bedside Glucose 228 H 169 155 Creatine Kinase 77 Creatine Kinase Index 2.3 Creatinine Kinase MB 1.80 (Mass) Troponin I 0.352 *H Test 03/19/18 07:02 03/19/18 08:39 03/19/18 12:31 03/19/18 17:15 White Blood Count 4.7 #L Red Blood Count 5.14 Hemoglobin 13.9 Hematocrit 43.8 Mean Corpuscular Volume 85.2 Mean Corpuscular 27.0 L Hemoglobin Mean Corpuscular 31.7 L Hemoglobin Concent Red Cell Distribution 14.1 Width Platelet Count 277 Mean Platelet Volume 10.9 H Immature Granulocytes % 0.200 Neutrophils % 52.8 Lymphocytes % 35.7 Monocytes % 9.1 Eosinophils % 1.1 Basophils % 1.1 Nucleated Red Blood 0.0 Cells % Immature Granulocytes # 0.010 Neutrophils # 2.5 Lymphocytes # 1.7 Monocytes # 0.4 Eosinophils # 0.1 Basophils # 0.1 Nucleated Red Blood 0.0 Cells # Sodium Level 143 Potassium Level 3.8 Chloride Level 109 Carbon Dioxide Level 25 Anion Gap 9 Blood Urea Nitrogen 16 Creatinine 1.02 H Est Glomerular Filtrat 54 L Rate mL/min Glucose Level 190 # Calcium Level 9.5 Magnesium Level 1.3 L Troponin I 0.360 *H Triglycerides Level 130 Cholesterol Level 257 H LDL Cholesterol, 175 Calculated HDL Cholesterol 56 Cholesterol/HDL Ratio 4.5 Bedside Glucose 146 126 127 Medications Medications Current Medications Aspirin (Aspirin) 81 mg DAILY PO Last administered on 03/19/18 11:51; Admin Do se 81 MG; Start 03/19/18 at 09:00 Atorvastatin Calcium (Lipitor) 40 mg QHS PO ; Start 03/18/18 at 21:00 Carvedilol (Coreg) 3.125 mg BID PO Last administered on 03/19/18 11:52; Admin Dose 3.125 MG; Start 03/18/18 at 21:00 Clopidogrel Bisulfate (plaVIX) 75 mg DAILY PO Last administered on 03/19/18 11:51; Admin Dose 75 MG; Start 03/19/18 at 09:00 Isosorbide Dinitrate (Isordil) 5 mg BID PO Last administered on 03/19/18 11:51; Admin Dose 5 MG; Start 03/18/18 at 21:00 Lisinopril (Zestril) 5 mg DAILY PO Last administered on 03/19/18 11:52; Admin Dose 5 MG; Start 03/19/18 at 09:00 Nitroglycerin (Nitroglycerin (Sl Tab) 0.4 Mg) 1 tab [id number] PRN SL CHEST PAIN; Start 03/18/18 at 16:30 Furosemide (Lasix) 20 mg DAILY IV Last administered on 03/19/18at 08:42; Admin Dose 20 MG; Start 03/19/18 at 09:00 IV Flush (NS 3 ml) 3 ml PER PROTOCOL IV ; Start 03/18/18 at 17:00 Ondansetron HCl (Zofran Inj) 4 mg Q6H PRN IV NAUSEA/VOMITING; Start 03/18/18 at 17:00 Acetaminophen (Tylenol Tab) 650 mg Q6H PRN PO .PAIN 1-3 OR TEMP; Start 03/18/18 at 17:00 Docusate Sodium (Colace) 100 mg Q12H PRN PO .CONSTIPATION; Start 03/18/18 at 17:00 Magnesium Hydroxide (Milk Of Mag) 30 ml DAILY PRN PO .CONSTIPATION; Start 03/18/18 at 17:00 Insulin Aspart (Novolog Insulin Pen) NOVOLOG *MILD* ALGORI... Q4 SC Last administered on 03/19/18at 08:59; Admin Dose 1 UNIT; Start 03/18/18 at 21:00 Enoxaparin Sodium (Lovenox) 75 mg Q12 SC Last administered on 03/19/18at 08:59; Admin Dose 75 MG; Start 03/18/18 at 21:00 Spironolactone (Aldactone) 12.5 mg DAILY PO Last administered on 03/19/18at 11:52; Admin Dose 12.5 MG; Start 03/19/18 at 09:00 Miscellaneous Information 1 ea NOTE XX ; Start 03/18/18 at 18:30 Glucose (Glutose) 15 gm Q15M PRN PO DECREASED GLUCOSE; Start 03/18/18 at 18:30 Glucose (Glutose) 22.5 gm Q15M PRN PO DECREASED GLUCOSE; Start 03/18/18 at 18:30 Dextrose (D50w Syringe) 25 ml Q15M PRN IV DECREASED GLUCOSE; Start 03/18/18 at 18:30 Dextrose (D50w Syringe) 50 ml Q15M PRN IV DECREASED GLUCOSE; Start 03/18/18 at 18:30 Glucagon (Glucagen) 1 mg Q15M PRN IM DECREASED GLUCOSE; Start 03/18/18 at 18:30 Glucose (Glutose) 15 gm Q15M PRN BUCCAL DECREASED GLUCOSE; Start 03/18/18 at 18:30 Cefepime HCl 50 ml @ 100 mls/hr Q12 IVPB Last administered on 03/19/18at 08:42; Admin Dose 100 MLS/HR; Start 03/18/18 at 21:00 Insulin Glargine (Lantus) 18 units DAILY@0800 SC Last administered on 03/19/18at 08:48; Admin Dose 18 UNITS; Start 03/19/18 at 08:00 Lorazepam (Ativan) 0.5 mg DAILY PRN IV AGITATION/ANXIETY Last administered on 03/19/18 16:04; Admin Dose 0.5 MG; Start 03/19/18 at 01:00 JANEEN KEENAN Mar 19, 2018 18:03
--- NOTE | 2018-03-19 20:57 | RADRPT ---
Echocardiogram Report Patient Name: CURTIS FLOODPatient ID: [id number] : 1950 (67y 11m)Study Date: 03/19/2018 8:58:44 AM Gender: FAccession #: [id number] Tech: TB Location: Ref.Physician: WARREN BUTLER Height(Cm): BSA: Weight(Kg): Quality: GoodAccount #: Procedures: Echocardiographic Report: Transthoracic echocardiogram with complete 2D, M-Mode, and doppler examination. Indications: Evaluate Left Ventricular function. Measurements: 2D/M Mode Doppler Measurement Value Normal Range Measurement Value Normal Range LVIDd 2D 5.7 [ 3.8 - 5.2 ] cm AV Mean Nickolas 0.7 [ 70.0 - 90.0 ] cm/sec LVIDs 2D 5.1 [ 2.2 - 3.5 ] cm AV Mean PG 3.0 [ 2.0 - 4.0 ] mmHg LVPWd 2D 1.3 [ 0.6 - 0.9 ] cm AV Peak Nickolas 1.2 [ 100.0 - 170.0 ] cm/se c IVSd 2D 1.7 [ 0.6 - 0.9 ] cm AV Peak PG 5.0 [ 2.0 - 9.0 ] mmHg AoR Diam 2D 3.2 [ 2.3 - 3.1 ] cm AV VTI 19.3 cm EF 2D 22.6 [ 54.0 - 74.0 ] percent AI Peak PG 71.0 mmHg LA Dimen 2D 2.9 [ 2.7 - 3.8 ] cm AI Peak Nickolas 4.2 cm/sec AI PHT 968.0 msec LVOT Mean Nickolas 0.4 [ 60.0 - 80.0 ] cm/sec LVOT Mean PG 1.0 [ 1.0 - 3.0 ] mmHg LVOT Peak Nickolas 0.6 [ 70.0 - 110.0 ] cm/sec LVOT Peak PG 1.0 [ 2.0 - 6.0 ] mmHg LVOT VTI 8.1 [ 20.0 - 30.0 ] cm MV E Peak Nickolas 0.8 [ 60.0 - 130.0 ] cm/sec MV A Peak Nickolas 0.4 [ 100.0 - 120.0 ] cm/se c MV E/A 1.9 [ 0.8 - 1.5 ] ratio MV PHT 50.0 [ 20.0 - 100.0 ] msec MV Decel Time 169 [ 104 - 258 ] msec MV Decel [place] 5 MV E/A 1.9 [ 0.8 - 1.5 ] ratio MVA PHT 4.4 [ 2.0 - 4.0 ] cm2 TR Peak Nickolas 3.3 [ 100.0 - 280.0 ] cm/se c TR Peak PG 44.0 mmHg RVSP 59.0 [ 10.0 - 36.0 ] mmHg RA Pressure 15.0 mmHg Findings: Left Ventricle: Normal left ventricular cavity size. Severe asymmetric septal hypertrophy. Severe global left ventricular systolic dysfunction. Ejection fraction is visually estimated at 20 %. Tissue Doppler/Mitral Doppler indices are consistent with restrictive physiology with markedly elevated left atrial pressure (Stage III-IV diastolic dysfunction). Right Ventricle: Normal right ventricular size. Moderate right ventricular systolic dysfunction. Left Atrium: The left atrium is normal in size. Right Atrium: The right atrium is normal in size. Mitral Valve: Mitral valve leaflets appear mildly thickened. Mild mitral annular calcification. Mild mitral valve regurgitation. Aortic Valve: No significant aortic stenosis or insufficiency. Aortic cusps appear mildly calcified. Mild aortic valve regurgitation. Tricuspid Valve: Normal appearance of the tricuspid valve. Estimated peak PA systolic pressure 59 mmHg. There is mild tricuspid regurgitation. Pulmonic Valve: Normal pulmonic valve appearance. There is trace pulmonic regurgitation. Pericardium: Normal pericardium with no significant pericardial effusion. Aorta: Normal aortic root. IVC: Normal size and normal respiratory collapse consistent with normal right atrial pressure. Dilated IVC without respiratory collapse consistent with elevated right atrial pressure. Conclusions: Normal left ventricular cavity size. Severe asymmetric septal hypertrophy. Severe global left ventricular systolic dysfunction. Ejection fraction is visually estimated at 20 %. Tissue Doppler/Mitral Doppler indices are consistent with restrictive physiology with markedly elevated left atrial pressure (Stage III-IV diastolic dysfunction). Normal right ventricular size. Moderate right ventricular systolic dysfunction. Mitral valve leaflets appear mildly thickened. Mild mitral annular calcification. Mild mitral valve regurgitation. No significant aortic stenosis or insufficiency. Aortic cusps appear mildly calcified. Mild aortic valve regurgitation. Normal appearance of the tricuspid valve. Estimated peak PA systolic pressure 59 mmHg. There is mild tricuspid regurgitation. Normal pulmonic valve appearance. There is trace pulmonic regurgitation. Electronically Signed By: Isiah Rowan 2018-03-19 20:56:52 PST
[2018-03-19] MEDS: ATORVASTATIN 20 MG TAB PO SCH (22:03)
[2018-03-20] VITALS (8 sets, daily range): BP systolic 122–146; BP diastolic 63–95; PULSE 53–75; RESP 17–22
[2018-03-20] MEDS ORDERED: SOD CHLORIDE 0.9% 1,000 ML IV SCH
[2018-03-20] MEDS: INSULIN ASPART [NOVOLOG] 3 ML PEN SC SCH ×6 (02:40→20:56)
[2018-03-20] MEDS: DEXTROSE 5%-0.45% NACL 1,000 ML IV SCH (05:59)
[2018-03-20] MEDS: GLUCOSE GEL 15 GRAM TUBE BUCCAL PRN (06:14)
[2018-03-20] MEDS: ASPIRIN 81 MG TAB PO SCH (09:00)
[2018-03-20] MEDS ORDERED: ENOXAPARIN 40 MG/0.4 ML SYG SC SCH (09:00)
[2018-03-20] MEDS: LISINOPRIL 5 MG TAB PO SCH (09:00)
[2018-03-20] MEDS ORDERED: POTASSIUM CHLORIDE 100 ML IVPB SCH ×2 (09:00→13:30)
[2018-03-20] MEDS: SPIRONOLACTONE 25 MG TAB PO SCH (09:00)
[2018-03-20] MEDS: CLOPIDOGREL 75 MG TAB PO SCH (09:00)
[2018-03-20] MEDS: FUROSEMIDE 20 MG INJ IV SCH ×2 (09:26→18:35)
[2018-03-20] MEDS: INSULIN GLARGINE [LANTus] (100 UNITS/ML) SYG SC SCH (09:48)
--- NOTE | 2018-03-20 14:28 | CONS ---
Assessment/Plan Assessment/Plan Hospital Course (Demo Recall) IMPRESSION: 1. Positive troponin, assess significance. Patient not able to comment on chest pain.- now downtrending and likely a marker of CV disease and not true Nstemi 2. Abnormal electrocardiogram, nonspecific ST-T abnormalities, borderline intraventricular conduction delay. 3. Hypertension, uncontrolled. 4. History of stent placement 09/2017. 5. Encephalopathy. 6. Dyslipidemia-LDL 175 HDL 56 7. Cardiomyopathy-severely depressed LVEF 20% Recc: -Tele -serial ecg's -Continmue asa/plavix -Continue coreg/zestril -continue isordil -Continue aldactone -Continue lovenox now at prophylaxis doses -Continue statin -Continue lasix and follow volume status -ongoing neuro eval Consultation Date/Type/Reason Admit Date/Time Mar 18, 2018 at 16:08 Initial Consult Date 03/18/17 Type of Consult Cardiology Reason for Consultation CHF Requesting Provider: WARREN BUTLER MD Date/Time of Note DATE: 03/20/18 TIME: 14:24 Exam/Review of Systems Vital Signs Vitals Vital Signs Date Temp Pulse Resp B/P (MAP) Pulse Ox O2 O2 Flow FiO2 Time Delivery Rate 03/20/18 97.6 75 22 136/83 96 Room Air 12:52 (100) 03/18/18 2 14:22 Intake and Output 03/19/18 03/19/18 03/20/18 1515:00 23:00 07:00 IntakeIntake Total 100 ml 220 ml 200 ml BalanceBalance 100 ml 220 ml 200 ml Exam Exam Review of Systems: CONSTITUTIONAL: No fevers, chills. PULMONARY: No sob CARDIOVASCULAR: No chest pain/palpitations GASTROINTESTINAL: No nausea/vomiting. GENITOURINARY: No hematuria/dysuria. MUSCULOSKELETAL: No myagias/arthalgias. PSYCHIATRIC: The patient denies depression. NEUROLOGIC: No weakness Constitutional: other (awake but noncommunicative) Psych: no complaints Head: normocephalic ENMT: mucosa pink and moist Neck: supple, jvd (9 cm water) Respiratory: diminished breath sounds (at bases/B) Cardiovascular: regular rate and rhythm Gastrointestinal: soft, non-tender Musculoskeletal: muscle weakness (generalized) Extremities: edema (none) Labs Result Diagram: 03/20/18 0554 03/20/18 0554 Results 24hrs Laboratory Tests Test 03/19/18 17:15 03/19/18 23:36 03/20/18 02:42 03/20/18 05:27 Bedside Glucose 127 85 79 60 L Test 03/20/18 05:54 03/20/18 06:48 03/20/18 07:10 03/20/18 09:15 White Blood Count 3.9 L Red Blood Count 4.51 Hemoglobin 12.0 Hematocrit 38.2 Mean Corpuscular Volume 84.7 Mean Corpuscular 26.6 L Hemoglobin Mean Corpuscular 31.4 L Hemoglobin Concent Red Cell Distribution 14.0 Width Platelet Count 219 # Mean Platelet Volume 10.8 H Immature Granulocytes % 0.500 H Neutrophils % 46.1 Lymphocytes % 38.1 Monocytes % 10.5 Eosinophils % 3.3 Basophils % 1.5 Nucleated Red Blood 0.0 Cells % Immature Granulocytes # 0.020 Neutrophils # 1.8 Lymphocytes # 1.5 Monocytes # 0.4 Eosinophils # 0.1 Basophils # 0.1 Nucleated Red Blood 0.0 Cells # Sodium Level 141 Potassium Level 3.2 L Chloride Level 108 Carbon Dioxide Level 27 Anion Gap 6 Blood Urea Nitrogen 17 Creatinine 1.11 H Glucose Level 65 #L Lactic Acid Level 1.3 Calcium Level 8.9 Phosphorus Level 4.6 Magnesium Level 2.2 Ammonia < 9 L Creatine Kinase 61 Creatine Kinase Index 3.1 Creatinine Kinase MB 1.87 (Mass) Troponin I 0.273 *H Albumin 2.8 #L Vitamin B12 Level 765 Bedside Glucose 142 125 116 Test 03/20/18 12:58 Bedside Glucose 89 Medications Medications Current Medications Aspirin (Aspirin) 81 mg DAILY PO Last administered on 03/19/18 11:51; Admin Dose 81 MG; Start 03/19/18 at 09:00 Carvedilol (Coreg) 3.125 mg BID PO Last administered on 03/19/18 23:51; Admin Dose 3.125 MG; Start 03/18/18 at 21:00 Clopidogrel Bisulfate (plaVIX) 75 mg DAILY PO Last administered on 03/19/18 11:51; Admin Dose 75 MG; Start 03/19/18 at 09:00 Isosorbide Dinitrate (Isordil) 5 mg BID PO Last administered on 03/19/18 23:51; Admin Dose 5 MG; Start 03/18/18 at 21:00 Lisinopril (Zestril) 5 mg DAILY PO Last administered on 03/19/18at 11:52; Admin Dose 5 MG; Start 03/19/18 at 09:00 Nitroglycerin (Nitroglycerin (Sl Tab) 0.4 Mg) 1 tab [id number] PRN SL CHEST PAIN; Start 03/18/18 at 16:30 Furosemide (Lasix) 20 mg DAILY IV Last administered on 03/20/18at 09:26; Admin Dose 20 MG; Start 03/19/18 at 09:00 IV Flush (NS 3 ml) 3 ml PER PROTOCOL IV ; Start 03/18/18 at 17:00 Ondansetron HCl (Zofran Inj) 4 mg Q6H PRN IV NAUSEA/VOMITING; Start 03/18/18 at 17:00 Acetaminophen (Tylenol Tab) 650 mg Q6H PRN PO .PAIN 1-3 OR TEMP; Start 03/18/18 at 17:00 Docusate Sodium (Colace) 100 mg Q12H PRN PO .CONSTIPATION; Start 03/18/18 at 17:00 Magnesium Hydroxide (Milk Of Mag) 30 ml DAILY PRN PO .CONSTIPATION; Start 03/18/18 at 17:00 Insulin Aspart (Novolog Insulin Pen) NOVOLOG *MILD* ALGORI... Q4 SC Last administered on 03/19/18at 08:59; Admin Dose 1 UNIT; Start 03/18/18 at 21:00 Spironolactone (Aldactone) 12.5 mg DAILY PO Last administered on 03/19/18at 11:52; Admin Dose 12.5 MG; Start 03/19/18 at 09:00 Miscellaneous Information 1 ea NOTE XX ; Start 03/18/18 at 18:30 Glucose (Glutose) 15 gm Q15M PRN PO DECREASED GLUCOSE; Start 03/18/18 at 18:30 Glucose (Glutose) 22.5 gm Q15M PRN PO DECREASED GLUCOSE; Start 03/18/18 at 18:30 Dextrose (D50w Syringe) 25 ml Q15M PRN IV DECREASED GLUCOSE; Start 03/18/18 at 18:30 Dextrose (D50w Syringe) 50 ml Q15M PRN IV DECREASED GLUCOSE; Start 03/18/18 at 18:30 Glucagon (Glucagen) 1 mg Q15M PRN IM DECREASED GLUCOSE; Start 03/18/18 at 18:30 Glucose (Glutose) 15 gm Q15M PRN BUCCAL DECREASED GLUCOSE Last administered on 03/20/18 06:14; Admin Dose 15 GM; Start 03/18/18 at 18:30 Insulin Glargine (Lantus) 18 units DAILY@0800 SC Last administered on 03/20/18 09:48; Admin Dose 18 UNITS; Start 03/19/18 at 08:00 Lorazepam (Ativan) 0.5 mg DAILY PRN IV AGITATION/ANXIETY Last administered on 03/19/18 16:04; Admin Dose 0.5 MG; Start 03/19/18 at 01:00 Atorvastatin Calcium (Lipitor) 60 mg QHS PO ; Start 03/19/18 at 21:00 Enoxaparin Sodium (Lovenox) 40 mg DAILY SC Last administered on 03/20/18 09:48; Admin Dose 40 MG; Start 03/20/18 at 09:00 Dextrose/Sodium Chloride 1,000 ml @ 60 mls/hr [id number] Last administered on 03/20/18 05:59; Admin Dose 60 MLS/HR; Start 03/20/18 at 06:00 Potassium Chloride 100 ml @ 50 mls/hr Q2H IVPB Last administered on 03/20/18 13:25; Admin Dose 50 MLS/HR; Start 03/20/18 at 13:30; Stop 03/20/18 at 15:29 JANEEN KEENAN Mar 20, 2018 14:28
--- NOTE | 2018-03-20 17:09 | PN ---
Date/Time of Note Date/Time of Note DATE: 03/20/18 TIME: 16:59 Assessment/Plan VTE Prophylaxis Risk score (from Ns)>0 risk: 4 SCD applied (from [facility]): No SCD contraindicated: patient refusal Pharmacological prophylaxis: NA/contraindicated Pharm contraindication: other Lines/Catheters IV [facility] Type [facility]from [facility] Saline Lock Urinary Cath still in place: No Assessment/Plan Assessment/Plan 1. 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 Discussed MRI/MRA findings and patient has occipital as well as R MINE TECHNICIAN strokes which is most likely etiology of AMS. Unable to determine patients deficits since she is not cooperating or verbalizing. - CT head with chronic changes as well as central volume loss vs NPH - Speech consulted and recommending to continue NPO status - anticoagulation d/c given risk for hemorrhagic conversion in setting of acute CVA 2. Acute on chronic severe systolic heart failure - Cardiology on board and appreciate recommendations. patient has a severely diminished EF. Discussed in setting of neurological deficits, pursuing full cardiac workup which includes stress, PCI, and evaluation for AICD may be more overwhelming than the patient may be able to tolerate at this time. Discussion was held with patients daughter regarding neurological and cardiac findings and perspective quality of life. She has not had a chance to come visit her mother in the hospital and would like to think about how to proceed in terms of goals of care - EKG negative for acute ST changes - ECHO results noted with EF 20% 3. CAD s/p PCI 09/2017 - continue all medications as tolerated 4. Uncontrolled DM - A1c noted - Diabetic education consultation placed - ISS and accuchecks 5. Dysphagia - speech on board and appreciate recommendations 6. Disposition - Continue current treatment and patients daughter updated regarding medical findings and overall prognosis. Would like to process all information and visit her mother before making any decisions - PT/OT/Speech on board for discharge planning Result Diagram: 03/20/18 0554 03/20/18 0554 Results 24hrs Laboratory Tests Test 03/19/18 17:15 03/19/18 23:36 03/20/18 02:42 03/20/18 05:27 Bedside Glucose 127 85 79 60 L Test 03/20/18 05:54 03/20/18 06:48 03/20/18 07:10 03/20/18 09:15 White Blood Count 3.9 L Red Blood Count 4.51 Hemoglobin 12.0 Hematocrit 38.2 Mean Corpuscular Volume 84.7 Mean Corpuscular 26.6 L Hemoglobin Mean Corpuscular 31.4 L Hemoglobin Concent Red Cell Distribution 14.0 Width Platelet Count 219 # Mean Platelet Volume 10.8 H Immature Granulocytes % 0.500 H Neutrophils % 46.1 Lymphocytes % 38.1 Monocytes % 10.5 Eosinophils % 3.3 Basophils % 1.5 Nucleated Red Blood 0.0 Cells % Immature Granulocytes # 0.020 Neutrophils # 1.8 Lymphocytes # 1.5 Monocytes # 0.4 Eosinophils # 0.1 Basophils # 0.1 Nucleated Red Blood 0.0 Cells # Sodium Level 141 Potassium Level 3.2 L Chloride Level 108 Carbon Dioxide Level 27 Anion Gap 6 Blood Urea Nitrogen 17 Creatinine 1.11 H Glucose Level 65 #L Lactic Acid Level 1.3 Calcium Level 8.9 Phosphorus Level 4.6 Magnesium Level 2.2 Ammonia < 9 L Creatine Kinase 61 Creatine Kinase Index 3.1 Creatinine Kinase MB 1.87 (Mass) Troponin I 0.273 *H Albumin 2.8 #L Vitamin B12 Level 765 Bedside Glucose 142 125 116 Test 03/20/18 12:58 03/20/18 16:53 Bedside Glucose 89 91 Subjective 24 Hr Interval Summary Free Text/Dictation Patient more awake and continues with restlessness. Trying to answer questions but still not verbalizes. Per nursing, she has been refusing food and therapy. Exam/Review of Systems Exam Vitals Vital Signs Date Temp Pulse Resp B/P (MAP) Pulse Ox O2 O2 Flow FiO2 Time Delivery Rate 03/20/18 97.6 75 22 136/83 96 Room Air 12:52 (100) 03/18/18 2 14:22 Intake and Output 03/19/18 03/19/18 03/20/18 1515:00 23:00 07:00 IntakeIntake Total 100 ml 220 ml 200 ml BalanceBalance 100 ml 220 ml 200 ml Exam General: Patient sitting up in bed. following some simple commands. not answering questions Neck: Supple Chest: Nontender Lungs: Clear to auscultation bilaterally, diminished, no wheezing appreciated Heart: Normal S1-S2, Regular rhythm and rate. No murmur, S3, or S4 Abdomen: Soft , nontender, nondistended , bowel sounds are present. No guarding no rebound tenderness Extremities: Normal to inspection, no edema no cyanosis Neurologic: following command, strength intact. not verbalizing Results Results 24hrs Laboratory Tests Test 03/19/18 17:15 03/19/18 23:36 03/20/18 02:42 03/20/18 05:27 Bedside Glucose 127 85 79 60 L Test 03/20/18 05:54 03/20/18 06:48 03/20/18 07:10 03/20/18 09:15 White Blood Count 3.9 L Red Blood Count 4.51 Hemoglobin 12.0 Hematocrit 38.2 Mean Corpuscular Volume 84.7 Mean Corpuscular 26.6 L Hemoglobin Mean Corpuscular 31.4 L Hemoglobin Concent Red Cell Distribution 14.0 Width Platelet Count 219 # Mean Platelet Volume 10.8 H Immature Granulocytes % 0.500 H Neutrophils % 46.1 Lymphocytes % 38.1 Monocytes % 10.5 Eosinophils % 3.3 Basophils % 1.5 Nucleated Red Blood 0.0 Cells % Immature Granulocytes # 0.020 Neutrophils # 1.8 Lymphocytes # 1.5 Monocytes # 0.4 Eosinophils # 0.1 Basophils # 0.1 Nucleated Red Blood 0.0 Cells # Sodium Level 141 Potassium Level 3.2 L Chloride Level 108 Carbon Dioxide Level 27 Anion Gap 6 Blood Urea Nitrogen 17 Creatinine 1.11 H Glucose Level 65 #L Lactic Acid Level 1.3 Calcium Level 8.9 Phosphorus Level 4.6 Magnesium Level 2.2 Ammonia < 9 L Creatine Kinase 61 Creatine Kinase Index 3.1 Creatinine Kinase MB 1.87 (Mass) Troponin I 0.273 *H Albumin 2.8 #L Vitamin B12 Level 765 Bedside Glucose 142 125 116 Test 03/20/18 12:58 03/20/18 16:53 Bedside Glucose 89 91 Medications Medication Current Medications Aspirin (Aspirin) 81 mg DAILY PO Last administered on 03/19/18at 11:51; Admin Dose 81 MG; Start 03/19/18 at 09:00 Carvedilol (Coreg) 3.125 mg BID PO Last administered on 03/19/18at 23:51; Admin Dose 3.125 MG; Start 03/18/18 at 21:00 Clopidogrel Bisulfate (plaVIX) 75 mg DAILY PO Last administered on 03/19/18at 11:51; Admin Dose 75 MG; Start 03/19/18 at 09:00 Isosorbide Dinitrate (Isordil) 5 mg BID PO Last administered on 03/19/18at 23:51; Admin Dose 5 MG; Start 03/18/18 at 21:00 Lisinopril (Zestril) 5 mg DAILY PO Last administered on 03/19/18at 11:52; Admin Dose 5 MG; Start 03/19/18 at 09:00 Nitroglycerin (Nitroglycerin (Sl Tab) 0.4 Mg) 1 tab [id number] PRN SL CHEST PAIN; Start 03/18/18 at 16:30 IV Flush (NS 3 ml) 3 ml PER PROTOCOL IV ; Start 03/18/18 at 17:00 Ondansetron HCl (Zofran Inj) 4 mg Q6H PRN IV NAUSEA/VOMITING; Start 03/18/18 at 17:00 Acetaminophen (Tylenol Tab) 650 mg Q6H PRN PO .PAIN 1-3 OR TEMP; Start 03/18/18 at 17:00 Docusate Sodium (Colace) 100 mg Q12H PRN PO .CONSTIPATION; Start 03/18/18 at 17:00 Magnesium Hydroxide (Milk Of Mag) 30 ml DAILY PRN PO .CONSTIPATION; Start 03/18/18 at 17:00 Insulin Aspart (Novolog Insulin Pen) NOVOLOG *MILD* ALGORI... Q4 SC Last administered on 03/19/18at 08:59; Admin Dose 1 UNIT; Start 03/18/18 at 21:00 Spironolactone (Aldactone) 12.5 mg DAILY PO Last administered on 03/19/18at 11:52; Admin Dose 12.5 MG; Start 03/19/18 at 09:00 Miscellaneous Information 1 ea NOTE XX ; Start 03/18/18 at 18:30 Glucose (Glutose) 15 gm Q15M PRN PO DECREASED GLUCOSE; Start 03/18/18 at 18:30 Glucose (Glutose) 22.5 gm Q15M PRN PO DECREASED GLUCOSE; Start 03/18/18 at 18:30 Dextrose (D50w Syringe) 25 ml Q15M PRN IV DECREASED GLUCOSE; Start 03/18/18 at 18:30 Dextrose (D50w Syringe) 50 ml Q15M PRN IV DECREASED GLUCOSE; Start 03/18/18 at 18:30 Glucagon (Glucagen) 1 mg Q15M PRN IM DECREASED GLUCOSE; Start 03/18/18 at 18:30 Glucose (Glutose) 15 gm Q15M PRN BUCCAL DECREASED GLUCOSE Last administered on 03/20/18 06:14; Admin Dose 15 GM; Start 03/18/18 at 18:30 Insulin Glargine (Lantus) 18 units DAILY@0800 SC Last administered on 03/20/18 09:48; Admin Dose 18 UNITS; Start 03/19/18 at 08:00 Lorazepam (Ativan) 0.5 mg DAILY PRN IV AGITATION/ANXIETY Last administered on 03/19/18at 16:04; Admin Dose 0.5 MG; Start 03/19/18 at 01:00 Atorvastatin Calcium (Lipitor) 60 mg QHS PO ; Start 03/19/18 at 21:00 Dextrose/Sodium Chloride 1,000 ml @ 60 mls/hr [id number] IV Last administered on 03/20/18at 05:59; Admin Dose 60 MLS/HR; Start 03/20/18 at 06:00 Furosemide (Lasix) 20 mg BID DIURETICS IV ; Start 03/20/18 at 18:00 WARREN BUTLER MD Mar 20, 2018 17:09
--- NOTE | 2018-03-20 17:51 | CONS ---
Assessment/Plan Assessment/Plan Hospital Course 67 yo F with hx of multiple cerebrovascular risk factors who presents with ams and other sx... for which neurology is consulted. MRI brain is most notable for small acute subcortical occipital strokes. A superimposed acute toxic-metabolic encephalopathy is additionally considered. Seizure is less likely, though not entirely excluded.. MRA brain is most notable for a 50% L P2 segment stenosis Echo is notable for EF 20% STACIE + P: Add EEG to evaluate for epileptiform activity Add ESR, RPR Cont antiplatelet therapy/lipitor Cont medical management per primary Reorient as necessary Limit sedating medications where possible PT/OT/ST as necessary Will follow clinically Consultation Date/Type/Reason Admit Date/Time Mar 18, 2018 at 16:08 Type of Consult Neurology Reason for Consultation ams Requesting Provider: WARREN BUTLER MD Date/Time of Note DATE: 03/20/18 TIME: 17:51 24 HR Interval Summary Free Text/Dictation Continues medsurg monitoring. S/p MRI, MRA H/N. Pt remains unable to contribute at this time. Subjective hx not possible: pt non-verbal Exam Vital Signs Vitals Vital Signs Date Temp Pulse Resp B/P (MAP) Pulse Ox O2 O2 Flow FiO2 Time Delivery Rate 03/20/18 97.6 75 22 136/83 96 Room Air 12:52 (100) 03/18/18 2 14:22 Intake and Output 03/19/18 03/19/18 03/20/18 1515:00 23:00 07:00 IntakeIntake Total 100 ml 220 ml 200 ml BalanceBalance 100 ml 220 ml 200 ml Exam PE: Gen Appearance: No Apparent Distress HEENT: Normocephalic Cardiovascular: Regular rate Abdomen: Soft Extremities: Dry NE: The patient was awake and alert. Nonverbal today. Very difficult to direct/redirect. Unable to follow any commands today. Cranial nerve examination was limited by mental status. Pupils were equal and reactive to light. There was no afferent pupillary defect. Funduscopic examination was limited. Face was grossly symmetric, w/ present corneal and cough reflexes. Tone was normal. Muscle bulk was normal. I did not see fasciculations. The patient had spontaneous and symmetric movement of her extremities. Coordination and gait testing was limited by mental status. Arm and leg reflexes were within normal limits and symmetric. Powell's sign was absent. Plantar responses were flexor. SANDRA TORRES NP Mar 20, 2018 17:51
[2018-03-20] MEDS: ATORVASTATIN 20 MG TAB PO SCH (20:54)
[2018-03-20] MEDS: ISOSORBIDE DINITRATE 5 MG TAB PO SCH (20:55)
[2018-03-21] MEDS: DEXTROSE 5%-0.45% NACL 1,000 ML IV SCH ×3 (00:30→18:27)
[2018-03-21] MEDS: INSULIN ASPART [NOVOLOG] 3 ML PEN SC SCH ×6 (01:00→20:49)
[2018-03-21] MEDS ORDERED: ACCU-CHEK XX SCH (02:00)
[2018-03-21 02:12] VITALS: BP 124/59; PULSE 59; RESP 19
[2018-03-21] MEDS: FUROSEMIDE 20 MG INJ IV SCH ×2 (05:21→17:04)
--- NOTE | 2018-03-21 07:27 | EEG ---
EEG NOTE Report Details DATE OF TEST: 03/20/18 HISTORY: The patient is a 67-year-old F who presents with altered mental status. This EEG is requested to rule out nonconvulsive status epilepticus. SEDATION: None. CONDITIONS OF RECORDING: This EEG was recorded digitally on the [employer] machine, using the [employer] 10-20 System of electrodes plus anterior temporals and [place]. STATES SAMPLED: Lethargic. FINDINGS: The background is continuous and grossly symmetric...predominated by polymorphic theta and delta activity. The normal [id number] frequency-amplitude gradient was absent. Photic stimulation does not elicit any definite driving responses or epileptiform discharges. Hyperventilation was not performed. No asymmetries, focal abnormalities or epileptiform discharges were seen. IMPRESSION: Abnormal electroencephalogram due to: severe diffuse slowing. COMMENT: The slowing of the background indicates severe, diffuse cortical dysfunction of nonspecific etiology. GARRY BURRELL Mar 21, 2018 07:27
[2018-03-21 08:00] VITALS: BP 138/97; PULSE 64; RESP 18
[2018-03-21] MEDS: ASPIRIN 81 MG TAB PO SCH (08:10)
[2018-03-21] MEDS: ISOSORBIDE DINITRATE 5 MG TAB PO SCH ×2 (08:11→20:46)
[2018-03-21] MEDS: CLOPIDOGREL 75 MG TAB PO SCH (08:11)
[2018-03-21] MEDS: LISINOPRIL 5 MG TAB PO SCH (08:11)
[2018-03-21] MEDS: SPIRONOLACTONE 25 MG TAB PO SCH (08:11)
--- NOTE | 2018-03-21 08:44 | PN ---
Date/Time of Note Date/Time of Note DATE: 03/21/18 TIME: 08:43 Assessment/Plan VTE Prophylaxis Risk score (from Ns)>0 risk: 4 SCD applied (from Ns): No SCD contraindicated: patient refusal Pharmacological prophylaxis: NA/contraindicated Pharm contraindication: other (risk of conversion) Lines/Catheters IV [facility]ter Type (from [email or web address] Peripheral IV Urinary Cath still in place: No Assessment/Plan Assessment/Plan 1. 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 Patient has occipital st rokes as well as R FAMILY MANAGER is affected. Patient more talkative this am but still limited with responses. - Pleasantly confused - CT head with chronic changes as well as central volume loss vs NPH. MRI/MRA brain results noted - Speech consulted and recommending to continue NPO status - hold off on all anticoagulation 2. Acute on chronic severe systolic heart failure - Cardiology on board and appreciate recommendations. Patient has a severely diminished EF 20%. Will need cardiac workup and evaluation for AICD placement, but will need to determine her chances for neurological recovery. - EKG negative for acute ST changes - ECHO results noted with EF 20% 3. CAD s/p PCI 09/2017 - continue all medications as tolerated 4. Uncontrolled DM - A1c noted - Diabetic education consultation placed - ISS and accuchecks 5. Dysphagia - speech on board and appreciate recommendations 6. Disposition - Continue current care with PT/OT/Speech for discharge planning - Will touch base with daughter to determine plan of care Result Diagram: 03/20/18 0554 03/20/18 0554 Results 24hrs Laboratory Tests Test 03/20/18 09:15 03/20/18 12:58 03/20/18 16:53 03/20/18 20:52 Bedside Glucose 116 89 91 104 Test 03/21/18 01:39 03/21/18 05:17 03/21/18 08:06 Bedside Glucose 92 77 89 Subjective 24 Hr Interval Summary Free Text/Dictation Patient is more communicative this am. States shes "doing good" and saying hello and good bye. She did nod her head when asked if she could see me as well as if she was hungry. She still has limited speech and with confusion since only following some simple commands. Exam/Review of Systems Exam Vitals Vital Signs Date Temp Pulse Resp B/P (MAP) Pulse Ox O2 O2 Flow FiO2 Time Delivery Rate 2/9/19 98.9 64 18 138/97 98 Room Air 08:00 (111) 03/18/18 2 14:22 Intake and Output 03/20/18 03/20/18 03/21/18 1515:00 23:00 07:00 IntakeIntake Total 1350 ml BalanceBalance 1350 ml Exam General: Moving around in bed, Only saying a limited amount of words, following a few simple commands Neck: Supple Chest: Nontender Lungs: Clear to auscultation bilaterally, diminished, no wheezing appreciated Heart: Normal S1-S2, Regular rhythm and rate. No murmur, S3, or S4 Abdomen: Soft , nontender, nondistended , bowel sounds are present. No guarding no rebound tenderness Extremities: Normal to inspection, no edema no cyanosis Neurologic: following command, strength intact. not verbalizing Results Results 24hrs Laboratory Tests Test 03/20/18 09:15 03/20/18 12:58 03/20/18 16:53 03/20/18 20:52 Bedside Glucose 116 89 91 104 Test 03/21/18 01:39 03/21/18 05:17 03/21/18 08:06 Bedside Glucose 92 77 89 Medications Medication Current Medications Aspirin (Aspirin) 81 mg DAILY PO Last administered on 03/21/18 08:10; Admin Dose 81 MG; Start 03/19/18 at 09:00 Carvedilol (Coreg) 3.125 mg BID PO Last administered on 03/21/18 08:11; Admin Dose 3.125 MG; Start 03/18/18 at 21:00 Clopidogrel Bisulfate (plaVIX) 75 mg DAILY PO Last administered on 03/21/18 08:11; Admin Dose 75 MG; Start 03/19/18 at 09:00 Isosorbide Dinitrate (Isordil) 5 mg BID PO Last administered on 03/21/18 08:11; Admin Dose 5 MG; Start 03/18/18 at 21:00 Lisinopril (Zestril) 5 mg DAILY PO Last administered on 03/21/18 08:11; Admin Dose 5 MG; Start 03/19/18 at 09:00 Nitroglycerin (Nitroglycerin (Sl Tab) 0.4 Mg) 1 tab [id number] PRN SL CHEST PAIN; Start 03/18/18 at 16:30 IV Flush (NS 3 ml) 3 ml PER PROTOCOL IV ; Start 03/18/18 at 17:00 Ondansetron HCl (Zofran Inj) 4 mg Q6H PRN IV NAUSEA/VOMITING; Start 03/18/18 at 17:00 Acetaminophen (Tylenol Tab) 650 mg Q6H PRN PO .PAIN 1-3 OR TEMP; Start 03/18/18 at 17:00 Docusate Sodium (Colace) 100 mg Q12H PRN PO .CONSTIPATION; Start 03/18/18 at 17:00 Magnesium Hydroxide (Milk Of Mag) 30 ml DAILY PRN PO .CONSTIPATION; Start 03/18/18 at 17:00 Insulin Aspart (Novolog Insulin Pen) NOVOLOG *MILD* ALGORI... Q4 SC Last administered on 03/19/18at 08:59; Admin Dose 1 UNIT; Start 03/18/18 at 21:00 Spironolactone (Aldactone) 12.5 mg DAILY PO Last administered on 03/21/18at 08:11; Admin Dose 12.5 MG; Start 03/19/18 at 09:00 Miscellaneous Information 1 ea NOTE XX ; Start 03/18/18 at 18:30 Glucose (Glutose) 15 gm Q15M PRN PO DECREASED GLUCOSE; Start 03/18/18 at 18:30 Glucose (Glutose) 22.5 gm Q15M PRN PO DECREASED GLUCOSE; Start 03/18/18 at 18:30 Dextrose (D50w Syringe) 25 ml Q15M PRN IV DECREASED GLUCOSE; Start 03/18/18 at 18:30 Dextrose (D50w Syringe) 50 ml Q15M PRN IV DECREASED GLUCOSE; Start 03/18/18 at 18:30 Glucagon (Glucagen) 1 mg Q15M PRN IM DECREASED GLUCOSE; Start 03/18/18 at 18:30 Glucose (Glutose) 15 gm Q15M PRN BUCCAL DECREASED GLUCOSE Last administered on 03/20/18at 06:14; Admin Dose 15 GM; Start 03/18/18 at 18:30 Insulin Glargine (Lantus) 18 units DAILY@0800 SC Last administered on 03/20/18at 09:48; Admin Dose 18 UNITS; Start 03/19/18 at 08:00 Lorazepam (Ativan) 0.5 mg DAILY PRN IV AGITATION/ANXIETY Last administered on 03/19/18 16:04; Admin Dose 0.5 MG; Start 03/19/18 at 01:00 Atorvastatin Calcium (Lipitor) 60 mg QHS PO Last administered on 03/20/18at 20:54; Admin Dose 60 MG; Start 03/19/18 at 21:00 Dextrose/Sodium Chloride 1,000 ml @ 60 mls/hr [id number] IV Last administered on 03/21/18 00:30; Admin Dose 60 MLS/HR; Start 03/20/18 at 06:00 Furosemide (Lasix) 20 mg BID DIURETICS IV Last administered on 03/21/18 05:21; Admin Dose 20 MG; Start 03/20/18 at 18:00 WARREN BUTLER MD Mar 21, 2018 08:44
[2018-03-21] MEDS: INSULIN GLARGINE [LANTus] (100 UNITS/ML) SYG SC SCH (11:07)
[2018-03-21 14:00] VITALS: BP 115/70; PULSE 61; RESP 18
--- NOTE | 2018-03-21 15:09 | CONS ---
Assessment/Plan Assessment/Plan Hospital Course 67 yo F with hx of multiple cerebrovascular risk factors who presents with ams and other sx... for which neurology is consulted. MRI brain is most notable for small acute subcortical occipital strokes. A superimposed acute toxic-metabolic encephalopathy is additionally considered. MRA brain is most notable for a 50% L P2 segment stenosis EEG is without epileptiform activity. Echo is notable for EF 20% STACIE + P: Add HIV, B1 Cont antiplatelet therapy/lipitor Cont medical management per primary Reorient as necessary Limit sedating medications where possible PT/OT/ST as necessary Will follow clinically Consultation Date/Type/Reason Admit Date/Time Mar 18, 2018 at 16:08 Type of Consult Neurology Reason for Consultation ams Requesting Provider: WARREN BUTLER MD Date/Time of Note DATE: 03/21/18 TIME: 15:09 24 HR Interval Summary Free Text/Dictation Continues medsurg monitoring. Pt reportedly doing better today. Daughter at bedside states that the pt is more alert today, able to say a few words and got up to walk and take a shower (with assistance). Stated that her baseline is awake, alert, and somewhat disoriented d/t her dementia. Able to walk slowly without assistance. Needs constant monitoring at home as pt frequently tries to leave the house Exam Vital Signs Vitals Vital Signs Date Temp Pulse Resp B/P (MAP) Pulse Ox O2 O2 Flow FiO2 Time Delivery Rate 03/21/18 98.0 61 18 115/70 98 Room Air 14:00 (85) 03/18/18 2 14:22 Intake and Output 03/20/18 03/20/18 03/21/18 1515:00 23:00 07:00 IntakeIntake Total 1350 ml BalanceBalance 1350 ml Exam PE: Gen Appearance: No Apparent Distress HEENT: Normocephalic Cardiovascular: Regular rate Abdomen: Soft Extremities: Dry NE: The patient was awake and alert, and oriented to self. Able to state her name only. Very difficult to direct/redirect. Able to intermittently follow simple appendicular commands today. Cranial nerve examination was limited by mental status. Pupils were equal and reactive to light. There was no afferent pupillary defect. Funduscopic examination was limited. Face was grossly symmetric, w/ present corneal and cough reflexes. Tone was normal. Muscle bulk was normal. I did not see fasciculations. The patient had spontaneous and symmetric movement of her extremities. Coordination and gait testing was limited by mental status. Arm and leg reflexes were within normal limits and symmetric. Powell's sign was absent. Plantar responses were flexor. SANDRA TORRES NP Mar 21, 2018 15:09 GARRY BURRELL Mar 22, 2018 06:35
--- NOTE | 2018-03-21 16:34 | CONS ---
Assessment/Plan Assessment/Plan Hospital Course (Demo Recall) IMPRESSION: 1. Positive troponin, assess significance. Patient not able to comment on chest pain.- now downtrending and likely a marker of CV disease and not true Nstemi 2. Abnormal electrocardiogram, nonspecific ST-T abnormalities, borderline intraventricular conduction delay. 3. Hypertension, uncontrolled. 4. History of stent placement 09/2017. 5. Encephalopathy. 6. Dyslipidemia-LDL 175 HDL 56 7. Cardiomyopathy-severely depressed LVEF 20% Recc: -Now on med-surg -serial ecg's -Continmue asa/plavix -Continue coreg/zestril -continue isordil -Continue aldactone -Continue statin -Continue lasix and follow volume status on D5 IVF -ongoing neuro eval -s/p D/C lovenox Consultation Date/Type/Reason Admit Date/Time Mar 18, 2018 at 16:08 Initial Consult Date 03/18/17 Type of Consult Cardiology Reason for Consultation positive troponin Requesting Provider: WARREN BUTLER MD Date/Time of Note DATE: 03/21/18 TIME: 16:31 Exam/Review of Systems Vital Signs Vitals Vital Signs Date Temp Pulse Resp B/P (MAP) Pulse Ox O2 O2 Flow FiO2 Time Delivery Rate 03/21/18 98.0 61 18 115/70 98 Room Air 14:00 (85) 03/18/18 2 14:22 Intake and Output 03/20/18 03/20/18 03/21/18 1515:00 23:00 07:00 IntakeIntake Total 1350 ml BalanceBalance 1350 ml Exam Exam Review of Systems: CONSTITUTIONAL: No fevers, chills. PULMONARY: No sob CARDIOVASCULAR: No chest pain/palpitations GASTROINTESTINAL: No nausea/vomiting. GENITOURINARY: No hematuria/dysuria. MUSCULOSKELETAL: No myagias/arthalgias. PSYCHIATRIC: The patient denies depression. NEUROLOGIC: lethargic Constitutional: alert, other (noncommunicative) ENMT: mucosa pink and moist Neck: supple, jvd (9 cm water) Respiratory: clear to auscultation Cardiovascular: regular rate and rhythm Gastrointestinal: soft, non-tender Musculoskeletal: muscle weakness (generalized) Extremities: other (None) Labs Result Diagram: 03/20/18 0554 03/20/18 0554 Results 24hrs Laboratory Tests Test 03/20/18 16:53 03/20/18 20:52 03/21/18 01:39 03/21/18 05:17 Bedside Glucose 91 104 92 77 Test 03/21/18 07:57 03/21/18 07:58 03/21/18 08:06 03/21/18 12:20 HIV (1&2) Antibody NEGATIVE Erythrocyte 10 Sedimentation Rate Bedside Glucose 89 72 Medications Medications Current Medications Aspirin (Aspirin) 81 mg DAILY PO Last administered on 03/21/18at 08:10; Admin Dose 81 MG; Start 03/19/18 at 09:00 Carvedilol (Coreg) 3.125 mg BID PO Last administered on 03/21/18at 08:11; Admin Dose 3.125 MG; Start 03/18/18 at 21:00 Clopidogrel Bisulfate (plaVIX) 75 mg DAILY PO Last administered on 03/21/18at 08:11; Admin Dose 75 MG; Start 03/19/18 at 09:00 Isosorbide Dinitrate (Isordil) 5 mg BID PO Last administered on 03/21/18at 08:11; Admin Dose 5 MG; Start 03/18/18 at 21:00 Lisinopril (Zestril) 5 mg DAILY PO Last administered on 03/21/18at 08:11; Admin Dose 5 MG; Start 03/19/18 at 09:00 Nitroglycerin (Nitroglycerin (Sl Tab) 0.4 Mg) 1 tab [id number] PRN SL CHEST PAIN; Start 03/18/18 at 16:30 IV Flush (NS 3 ml) 3 ml PER PROTOCOL IV ; Start 03/18/18 at 17:00 Ondansetron HCl (Zofran Inj) 4 mg Q6H PRN IV NAUSEA/VOMITING; Start 03/18/18 at 17:00 Acetaminophen (Tylenol Tab) 650 mg Q6H PRN PO .PAIN 1-3 OR TEMP; Start 03/18/18 at 17:00 Docusate Sodium (Colace) 100 mg Q12H PRN PO .CONSTIPATION; Start 03/18/18 at 17:00 Magnesium Hydroxide (Milk Of Mag) 30 ml DAILY PRN PO .CONSTIPATION; Start at 17:00 Insulin Aspart (Novolog Insulin Pen) NOVOLOG *MILD* ALGORI... Q4 SC Last administered on 03/19/18at 08:59; Admin Dose 1 UNIT; Start 03/18/18 at 21:00 Spironolactone (Aldactone) 12.5 mg DAILY PO Last administered on 03/21/18 08:11; Admin Dose 12.5 MG; Start 03/19/18 at 09:00 Miscellaneous Information 1 ea NOTE XX ; Start 03/18/18 at 18:30 Glucose (Glutose) 15 gm Q15M PRN PO DECREASED GLUCOSE; Start 03/18/18 at 18:30 Glucose (Glutose) 22.5 gm Q15M PRN PO DECREASED GLUCOSE; Start 03/18/18 at 18:30 Dextrose (D50w Syringe) 25 ml Q15M PRN IV DECREASED GLUCOSE; Start 03/18/18 at 18:30 Dextrose (D50w Syringe) 50 ml Q15M PRN IV DECREASED GLUCOSE; Start 03/18/18 at 18:30 Glucagon (Glucagen) 1 mg Q15M PRN IM DECREASED GLUCOSE; Start 03/18/18 at 18:30 Glucose (Glutose) 15 gm Q15M PRN BUCCAL DECREASED GLUCOSE Last administered on 03/20/18at 06:14; Admin Dose 15 GM; Start 03/18/18 at 18:30 Insulin Glargine (Lantus) 18 units DAILY@0800 SC Last administered on 03/21/18 11:07; Admin Dose 18 UNITS; Start 03/19/18 at 08:00 Lorazepam (Ativan) 0.5 mg DAILY PRN IV AGITATION/ANXIETY Last administered on 03/19/18 16:04; Admin Dose 0.5 MG; Start 03/19/18 at 01:00 Atorvastatin Calcium (Lipitor) 60 mg QHS PO Last administered on 03/20/18 20:54; Admin Dose 60 MG; Start 03/19/18 at 21:00 Dextrose/Sodium Chloride 1,000 ml @ 60 mls/hr [id number] IV Last administered on 03/21/18 00:30; Admin Dose 60 MLS/HR; Start 03/20/18 at 06:00 Furosemide (Lasix) 20 mg BID DIURETICS IV Last administered on 03/21/18 05:21; Admin Dose 20 MG; Start 03/20/18 at 18:00 JANEEN KEENAN Mar 21, 2018 16:34
[2018-03-21 19:28] VITALS: BP 120/78; PULSE 64; RESP 20
[2018-03-21] MEDS: ATORVASTATIN 20 MG TAB PO SCH (20:45)
[2018-03-22] MEDS: INSULIN ASPART [NOVOLOG] 3 ML PEN SC SCH ×3 (01:00→08:26)
[2018-03-22 02:43] VITALS: BP 140/79; PULSE 70; RESP 18
[2018-03-22] MEDS: FUROSEMIDE 20 MG INJ IV SCH ×2 (06:14→17:09)
[2018-03-22 07:30] VITALS: BP 133/68; PULSE 68; RESP 20
[2018-03-22] MEDS: DEXTROSE 5%-0.45% NACL 1,000 ML IV SCH (08:00)
[2018-03-22] MEDS: ASPIRIN 81 MG TAB PO SCH (08:37)
[2018-03-22] MEDS: CLOPIDOGREL 75 MG TAB PO SCH (08:37)
[2018-03-22] MEDS: ISOSORBIDE DINITRATE 5 MG TAB PO SCH ×2 (08:37→20:35)
[2018-03-22] MEDS: SPIRONOLACTONE 25 MG TAB PO SCH (08:37)
[2018-03-22] MEDS: LISINOPRIL 5 MG TAB PO SCH (08:38)
[2018-03-22] MEDS: INSULIN GLARGINE [LANTus] (100 UNITS/ML) SYG SC SCH (08:41)
--- NOTE | 2018-03-22 08:49 | PN ---
Date/Time of Note Date/Time of Note DATE: 03/22/18 TIME: 08:49 Assessment/Plan VTE Prophylaxis Risk score (from [facility])>0 risk: 5 SCD applied (from [facility]): No SCD contraindicated: patient refusal Pharmacological prophylaxis: NA/contraindicated Pharm contraindication: other (risk of hemorrhagic conversion given recent stroke) Lines/Catheters IV Catheter Type (from [facility]): Saline Lock Urinary Cath still in place: No Assessment/Plan Assessment/Plan 1. 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 Continue current treatment and limit sedating medications - CT head with chronic changes as well as central volume loss vs NPH. MRI/MRA brain results noted - Speech consulted and doing well on pureed diet - hold off on all anticoagulation 2. Acute on chronic severe systolic heart failure - Cardiology on board and appreciate recommendations. Continue current medical management - EKG negative for acute ST changes - ECHO results noted with EF 20% 3. CAD s/p PCI 09/2017 - continue all medications as tolerated 4. Uncontrolled DM - A1c noted - Diabetic education consultation placed - ISS and accuchecks 5. Dysphagia - speech on board and appreciate recommendations 6. Hypokalemia - replacing 7. Disposition - PT/OT for discharge planning - continue current management Result Diagram: 03/22/18 0646 03/22/18 0646 Results 24hrs Laboratory Tests Test 03/21/18 12:20 03/21/18 17:01 03/21/18 20:48 03/22/18 01:24 Bedside Glucose 72 101 154 119 Test 03/22/18 06:12 03/22/18 06:46 03/22/18 08:25 Bedside Glucose 94 113 White Blood Count 4.2 L Red Blood Count 4.65 Hemoglobin 12.2 Hematocrit 39.5 Mean Corpuscular 84.9 Volume Mean Corpuscular 26.2 L Hemoglobin Mean Corpuscular 30.9 L Hemoglobin Concent Red Cell 14.3 Distribution Width Platelet Count 251 Mean Platelet Volume 11.1 H Immature 0.200 Granulocytes % Neutrophils % 40.7 Lymphocytes % 44.3 Monocytes % 10.2 Eosinophils % 3.6 Basophils % 1.0 Nucleated Red Blood 0.0 Cells % Immature 0.010 Granulocytes # Neutrophils # 1.7 Lymphocytes # 1.9 Monocytes # 0.4 Eosinophils # 0.2 Basophils # 0.0 Nucleated Red Blood 0.0 Cells # Sodium Level 139 Potassium Level 2.9 *L Chloride Level 107 Carbon Dioxide Level 27 Anion Gap 5 Blood Urea Nitrogen 13 Creatinine 0.89 Est Glomerular > 60 Filtrat Rate mL/min Glucose Level 116 Calcium Level 8.5 Magnesium Level 1.4 L Total Bilirubin 1.1 Direct Bilirubin 0.00 Indirect Bilirubin 1.1 Aspartate Amino 46 Transf (AST/SGOT) Alanine 50 Aminotransferase (AL T/SGPT) Alkaline Phosphatase 149 H Total Protein 6.4 Albumin 3.1 L Globulin 3.30 H Albumin/Globulin 0.93 Ratio Subjective 24 Hr Interval Summary Free Text/Dictation Patient complaining of nasal congestion this am. Less talkative but still answering simple questions. Able to feed self and tolerating current diet. Exam/Review of Systems Exam Vitals Vital Signs Date Temp Pulse Resp B/P (MAP) Pulse Ox O2 O2 Flow FiO2 Time Delivery Rate 03/22/18 97.4 68 20 133/68 97 Room Air 07:30 (89) 03/18/18 2 14:22 Intake and Output 03/21/18 03/21/18 03/22/18 1515:00 23:00 07:00 IntakeIntake Total 1240 ml 700 ml BalanceBalance 1240 ml 700 ml Exam General: Restless, answering simple questions Neck: Supple Chest: Nontender Lungs: Clear to auscultation bilaterally, diminished, no wheezing appreciated Heart: Normal S1-S2, Regular rhythm and rate. No murmur, S3, or S4 Abdomen: Soft , nontender, nondistended , bowel sounds are present. No guarding no rebound tenderness Extremities: Normal to inspection, no edema no cyanosis Neurologic: following command, strength intact. Results Results 24hrs Laboratory Tests Test 03/21/18 12:20 03/21/18 17:01 03/21/18 20:48 03/22/18 01:24 Bedside Glucose 72 101 154 119 Test 03/22/18 06:12 03/22/18 06:46 03/22/18 08:25 Bedside Glucose 94 113 White Blood Count 4.2 L Red Blood Count 4.65 Hemoglobin 12.2 Hematocrit 39.5 Mean Corpuscular 84.9 Volume Mean Corpuscular 26.2 L Hemoglobin Mean Corpuscular 30.9 L Hemoglobin Concent Red Cell 14.3 Distribution Width Platelet Count 251 Mean Platelet Volume 11.1 H Immature 0.200 Granulocytes % Neutrophils % 40.7 Lymphocytes % 44.3 Monocytes % 10.2 Eosinophils % 3.6 Basophils % 1.0 Nucleated Red Blood 0.0 Cells % Immature 0.010 Granulocytes # Neutrophils # 1.7 Lymphocytes # 1.9 Monocytes # 0.4 Eosinophils # 0.2 Basophils # 0.0 Nucleated Red Blood 0.0 Cells # Sodium Level 139 Potassium Level 2.9 *L Chloride Level 107 Carbon Dioxide Level 27 Anion Gap 5 Blood Urea Nitrogen 13 Creatinine 0.89 Est Glomerular > 60 Filtrat Rate mL/min Glucose Level 116 Calcium Level 8.5 Magnesium Level 1.4 L Total Bilirubin 1.1 Direct Bilirubin 0.00 Indirect Bilirubin 1.1 Aspartate Amino 46 Transf (AST/SGOT) Alanine 50 Aminotransferase (AL T/SGPT) Alkaline Phosphatase 149 H Total Protein 6.4 Albumin 3.1 L Globulin 3.30 H Albumin/Globulin 0.93 Ratio Medications Medication Current Medications Aspirin (Aspirin) 81 mg DAILY PO Last administered on 03/22/18 08:37; Admin Dose 81 MG; Start 03/19/18 at 09:00 Carvedilol (Coreg) 3.125 mg BID PO Last administered on 03/22/18 08:38; Admin Dose 3.125 MG; Start 03/18/18 at 21:00 Clopidogrel Bisulfate (plaVIX) 75 mg DAILY PO Last administered on 03/22/18 08:37; Admin Dose 75 MG; Start 03/19/18 at 09:00 Isosorbide Dinitrate (Isordil) 5 mg BID PO Last administered on 03/22/18 08:37; Admin Dose 5 MG; Start 03/18/18 at 21:00 Lisinopril (Zestril) 5 mg DAILY PO Last administered on 03/22/18at 08:38; Admin Dose 5 MG; Start 03/19/18 at 09:00 Nitroglycerin (Nitroglycerin (Sl Tab) 0.4 Mg) 1 tab [id number] PRN SL CHEST PAIN; Start 03/18/18 at 16:30 IV Flush (NS 3 ml) 3 ml PER PROTOCOL IV ; Start 03/18/18 at 17:00 Ondansetron HCl (Zofran Inj) 4 mg Q6H PRN IV NAUSEA/VOMITING; Start 03/18/18 at 17:00 Acetaminophen (Tylenol Tab) 650 mg Q6H PRN PO .PAIN 1-3 OR TEMP; Start 03/18/18 at 17:00 Docusate Sodium (Colace) 100 mg Q12H PRN PO .CONSTIPATION; Start 03/18/18 at 17:00 Magnesium Hydroxide (Milk Of Mag) 30 ml DAILY PRN PO .CONSTIPATION; Start 03/18/18 at 17:00 Insulin Aspart (Novolog Insulin Pen) NOVOLOG *MILD* ALGORI... Q4 SC Last administered on 03/19/18at 08:59; Admin Dose 1 UNIT; Start 03/18/18 at 21:00 Spironolactone (Aldactone) 12.5 mg DAILY PO Last administered on 03/22/18 08 :37; Admin Dose 12.5 MG; Start 03/19/18 at 09:00 Miscellaneous Information 1 ea NOTE XX ; Start 03/18/18 at 18:30 Glucose (Glutose) 15 gm Q15M PRN PO DECREASED GLUCOSE; Start 03/18/18 at 18:30 Glucose (Glutose) 22.5 gm Q15M PRN PO DECREASED GLUCOSE; Start 03/18/18 at 18:30 Dextrose (D50w Syringe) 25 ml Q15M PRN IV DECREASED GLUCOSE; Start 03/18/18 at 18:30 Dextrose (D50w Syringe) 50 ml Q15M PRN IV DECREASED GLUCOSE; Start 03/18/18 at 18:30 Glucagon (Glucagen) 1 mg Q15M PRN IM DECREASED GLUCOSE; Start 03/18/18 at 18:30 Glucose (Glutose) 15 gm Q15M PRN BUCCAL DECREASED GLUCOSE Last administered on 03/20/18at 06:14; Admin Dose 15 GM; Start 03/18/18 at 18:30 Insulin Glargine (Lantus) 18 units DAILY@0800 SC Last administered on 03/22/18at 08:41; Admin Dose 18 UNITS; Start 03/19/18 at 08:00 Lorazepam (Ativan) 0.5 mg DAILY PRN IV AGITATION/ANXIETY Last administered on 03/19/18at 16:04; Admin Dose 0.5 MG; Start 03/19/18 at 01:00 Atorvastatin Calcium (Lipitor) 60 mg QHS PO Last administered on 03/21/18at 20:45; Admin Dose 60 MG; Start 03/19/18 at 21:00 Dextrose/Sodium Chloride 1,000 ml @ 60 mls/hr [id number] IV Last administered on 03/21/18at 18:27; Admin Dose 60 MLS/HR; Start 03/20/18 at 06:00 Furosemide (Lasix) 20 mg BID DIURETICS IV Last administered on 03/22/18at 06:14; Admin Dose 20 MG; Start 03/20/18 at 18:00 Potassium Chloride (Potassium Chloride Pwd/Soln) 40 meq ONCE ONCE PO ; Start 03/22/18 at 09:00; Stop 03/22/18 at 09:01; Status UNV Potassium Chloride 100 ml @ 50 mls/hr Q2H IVPB ; Start 03/22/18 at 09:00; Stop 03/22/18 at 12:59; Status UNV Magnesium Sulfate 50 ml @ 25 mls/hr ONCE ONCE IVPB ; Start 03/22/18 at 09:00; Stop 03/22/18 at 10:59; Status UNV WARREN BUTLER MD Mar 22, 2018 08:49
[2018-03-22] MEDS ORDERED: MAGNESIUM SULFATE 2 GM/50 ML 50 ML IVPB ONE (09:00)
[2018-03-22] MEDS ORDERED: POTASSIUM CHLORIDE 20 MEQ POWDER FOR ORAL SOLN PO ONE (09:00)
--- NOTE | 2018-03-22 09:59 | CONS ---
Assessment/Plan Assessment/Plan Hospital Course 67 yo F with hx of multiple cerebrovascular risk factors who presents with ams and other sx... for which neurology is consulted. MRI brain is most notable for small acute subcortical occipital strokes. A superimposed acute toxic-metabolic encephalopathy is additionally considered. MRA brain is most notable for a 50% L P2 segment stenosis EEG is without epileptiform activity. Echo is notable for EF 20% STACIE + P: Await B1 Cont antiplatelet therapy/lipitor Cont medical management per primary Reorient as necessary Limit sedating medications where possible PT/OT/ST as necessary Will follow clinically Consultation Date/Type/Reason Admit Date/Time Mar 18, 2018 at 16:08 Type of Consult Neurology Requesting Provider: WARREN BUTLER MD Date/Time of Note DATE: 03/22/18 TIME: 09:58 24 HR Interval Summary Free Text/Dictation Continues acute care Exam Vital Signs Vitals Vital Signs Date Temp Pulse Resp B/P (MAP) Pulse Ox O2 O2 Flow FiO2 Time Delivery Rate 03/22/18 97.4 68 20 133/68 97 Room Air 07:30 (89) 03/18/18 2 14:22 Intake and Output 03/21/18 03/21/18 03/22/18 1515:00 23:00 07:00 IntakeIntake Total 1240 ml 700 ml BalanceBalance 1240 ml 700 ml Exam Comprehensive completed; stable from prior GARRY BURRELL Mar 22, 2018 09:59
[2018-03-22] MEDS: POTASSIUM CHLORIDE 100 ML IVPB SCH ×2 (11:00→13:08)
[2018-03-22] MEDS: Insulin NOVOLOG SS MILD Algorithm (SS with meals and bedtime) SC SCH ×3 (11:30→20:40)
[2018-03-22] MEDS ORDERED: INSULIN ASPART [NOVOLOG] 3 ML PEN SC SCH (11:30)
[2018-03-22 14:00] VITALS: BP 121/83; PULSE 68; RESP 18
[2018-03-22] MEDS ORDERED: SALINE 0.65% 45 ML NAS SPRAY NASAL PRN (14:00)
[2018-03-22] MEDS: LORATADINE 10 MG TAB PO SCH (14:22)
--- NOTE | 2018-03-22 14:43 | CONS ---
Assessment/Plan Assessment/Plan Hospital Course (Demo Recall) IMPRESSION: 1. Positive troponin, assess significance. Patient not able to comment on chest pain.- now downtrending and likely a marker of CV disease and not true Nstemi 2. Abnormal electrocardiogram, nonspecific ST-T abnormalities, borderline intraventricular conduction delay. 3. Hypertension, uncontrolled. 4. History of stent placement 09/2017. 5. Encephalopathy. 6. Dyslipidemia-LDL 175 HDL 56 7. Cardiomyopathy-severely depressed LVEF 20% Recc: -Now on med-surg -serial ecg's -Continmue asa/plavix -Continue coreg/zestril -continue isordil -Continue aldactone -Continue statin -Continue lasix diuresis and follow volume status closely -ongoing neuro eval -s/p D/C lovenox Consultation Date/Type/Reason Admit Date/Time Mar 18, 2018 at 16:08 Initial Consult Date 03/18/17 Type of Consult Cardiology Reason for Consultation cardiomyopathy Requesting Provider: WARREN BUTLER MD Date/Time of Note DATE: 03/22/18 TIME: 14:41 Exam/Review of Systems Vital Signs Vitals Vital Signs Date Temp Pulse Resp B/P (MAP) Pulse Ox O2 O2 Flow FiO2 Time Delivery Rate 03/22/18 96.5 68 18 121/83 95 Room Air 14:00 (96) 03/18/18 2 14:22 Intake and Output 03/21/18 03/21/18 03/22/18 1515:00 23:00 07:00 IntakeIntake Total 1240 ml 700 ml BalanceBalance 1240 ml 700 ml Exam Exam Review of Systems: CONSTITUTIONAL: No fevers, chills. PULMONARY: No sob CARDIOVASCULAR: No chest pain/palpitations GASTROINTESTINAL: No nausea/vomiting. GENITOURINARY: No hematuria/dysuria. MUSCULOSKELETAL: No myagias/arthalgias. PSYCHIATRIC: no documented depression NEUROLOGIC: lethargic Constitutional: alert, other (minimally communicative) Head: normocephalic ENMT: mucosa pink and moist Neck: supple, jvd (9 cm water) Respiratory: clear to auscultation Cardiovascular: regular rate and rhythm Gastrointestinal: soft, non-tender Musculoskeletal: muscle weakness (generalized) Extremities: edema (none) 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: other (No focal deficicts) Labs Result Diagram: 03/22/1846 03/22/1846 Results 24hrs Laboratory Tests Test 03/21/18 17:01 03/21/18 20:48 03/22/18 01:24 03/22/18 06:12 Bedside Glucose 101 154 119 94 Test 03/22/18 06:46 03/22/18 08:25 03/22/18 12:32 White Blood Count 4.2 L Red Blood Count 4.65 Hemoglobin 12.2 Hematocrit 39.5 Mean Corpuscular 84.9 Volume Mean Corpuscular 26.2 L Hemoglobin Mean Corpuscular 30.9 L Hemoglobin Concent Red Cell 14.3 Distribution Width Platelet Count 251 Mean Platelet Volume 11.1 H Immature 0.200 Granulocytes % Neutrophils % 40.7 Lymphocytes % 44.3 Monocytes % 10.2 Eosinophils % 3.6 Basophils % 1.0 Nucleated Red Blood 0.0 Cells % Immature 0.010 Granulocytes # Neutrophils # 1.7 Lymphocytes # 1.9 Monocytes # 0.4 Eosinophils # 0.2 Basophils # 0.0 Nucleated Red Blood 0.0 Cells # Sodium Level 139 Potassium Level 2.9 *L Chloride Level 107 Carbon Dioxide Level 27 Anion Gap 5 Blood Urea Nitrogen 13 Creatinine 0.89 Est Glomerular > 60 Filtrat Rate mL/min Glucose Level 116 Calcium Level 8.5 Magnesium Level 1.4 L Total Bilirubin 1.1 Direct Bilirubin 0.00 Indirect Bilirubin 1.1 Aspartate Amino 46 Transf (AST/SGOT) Alanine 50 Aminotransferase (AL T/SGPT) Alkaline Phosphatase 149 H Total Protein 6.4 Albumin 3.1 L Globulin 3.30 H Albumin/Globulin 0.93 Ratio Bedside Glucose 113 130 Medications Medications Current Medications Aspirin (Aspirin) 81 mg DAILY PO Last administered on 03/22/18 08:37; Admin Dose 81 MG; Start 03/19/18 at 09:00 Carvedilol (Coreg) 3.125 mg BID PO Last administered on 03/22/18 08:38; Admin Dose 3.125 MG; Start 03/18/18 at 21:00 Clopidogrel Bisulfate (plaVIX) 75 mg DAILY PO Last administered on 03/22/18 08:37; Admin Dose 75 MG; Start 03/19/18 at 09:00 Isosorbide Dinitrate (Isordil) 5 mg BID PO Last administered on 03/22/18 08:37; Admin Dose 5 MG; Start 03/18/18 at 21:00 Lisinopril (Zestril) 5 mg DAILY PO Last administered on 03/22/18at 08:38; Admin Dose 5 MG; Start 03/19/18 at 09:00 Nitroglycerin (Nitroglycerin (Sl Tab) 0.4 Mg) 1 tab [id number] PRN SL CHEST PAIN; Start 03/18/18 at 16:30 IV Flush (NS 3 ml) 3 ml PER PROTOCOL IV ; Start 03/18/18 at 17:00 Ondansetron HCl (Zofran Inj) 4 mg Q6H PRN IV NAUSEA/VOMITING; Start 03/18/18 at 17:00 Acetaminophen (Tylenol Tab) 650 mg Q6H PRN PO .PAIN 1-3 OR TEMP; Start 03/18/18 at 17:00 Docusate Sodium (Colace) 100 mg Q12H PRN PO .CONSTIPATION; Start 03/18/18 at 17:00 Magnesium Hydroxide (Milk Of Mag) 30 ml DAILY PRN PO .CONSTIPATION; Start 03/18/18 at 17:00 Spironolactone (Aldactone) 12.5 mg DAILY PO Last administered on 03/22/18at 08:37; Admin Dose 12.5 MG; Start 03/19/18 at 09:00 Miscellaneous Information 1 ea NOTE XX ; Start 03/18/18 at 18:30 Glucose (Glutose) 15 gm Q15M PRN PO DECREASED GLUCOSE; Start 03/18/18 at 18:30 Glucose (Glutose) 22.5 gm Q15M PRN PO DECREASED GLUCOSE; Start 03/18/18 at 18:30 Dextrose (D50w Syringe) 25 ml Q15M PRN IV DECREASED GLUCOSE; Start 03/18/18 at 18:30 Dextrose (D50w Syringe) 50 ml Q15M PRN IV DECREASED GLUCOSE; Start 03/18/18 at 18:30 Glucagon (Glucagen) 1 mg Q15M PRN IM DECREASED GLUCOSE; Start 03/18/18 at 18:30 Glucose (Glutose) 15 gm Q15M PRN BUCCAL DECREASED GLUCOSE Last administered on 03/20/18at 06:14; Admin Dose 15 GM; Start 03/18/18 at 18:30 Insulin Glargine (Lantus) 18 units DAILY@0800 SC Last administered on 03/22/18at 08:41; Admin Dose 18 UNITS; Start 03/19/18 at 08:00 Lorazepam (Ativan) 0.5 mg DAILY PRN IV AGITATION/ANXIETY Last administered on 03/19/18at 16:04; Admin Dose 0.5 MG; Start 03/19/18 at 01:00 Atorvastatin Calcium (Lipitor) 60 mg QHS PO Last administered on 03/21/18at 20:45; Admin Dose 60 MG; Start 03/19/18 at 21:00 Furosemide (Lasix) 20 mg BID DIURETICS IV Last administered on 03/22/18at 06:14; Admin Dose 20 MG; Start 03/20/18 at 18:00 Insulin Aspart (Novolog Insulin Pen) (Adult SC Insulin - Mild Algorithm)... AC MEALS AND BEDTIME SC ; Start 03/22/18 at 11:30 Loratadine (Claritin) 10 mg DAILY PO Last administered on 03/22/18at 14:22; Admin Dose 10 MG; Start 03/22/18 at 14:00 Sodium Chloride (Deep Sea) 2 spray Q4H PRN NASAL congestion Last administered on 03/22/18at 14:25; Admin Dose 2 SPRAY; Start 03/22/18 at 14:00 JANEEN KEENAN Mar 22, 2018 14:43
[2018-03-22 19:44] VITALS: BP 128/83; PULSE 73; RESP 16
[2018-03-22] MEDS: ATORVASTATIN 20 MG TAB PO SCH (20:35)
[2018-03-23 01:36] VITALS: BP 133/84; PULSE 62; RESP 18
[2018-03-23] MEDS: FUROSEMIDE 20 MG INJ IV SCH (05:20)
[2018-03-23] MEDS: Insulin NOVOLOG SS MILD Algorithm (SS with meals and bedtime) SC SCH ×4 (07:00→20:39)
[2018-03-23 07:22] VITALS: BP 133/87; PULSE 71; RESP 20
[2018-03-23] MEDS: LORATADINE 10 MG TAB PO SCH (08:28)
[2018-03-23] MEDS: ASPIRIN 81 MG TAB PO SCH (08:28)
[2018-03-23] MEDS: SPIRONOLACTONE 25 MG TAB PO SCH (08:28)
[2018-03-23] MEDS: LISINOPRIL 5 MG TAB PO SCH (08:29)
[2018-03-23] MEDS: ISOSORBIDE DINITRATE 5 MG TAB PO SCH ×2 (08:29→20:39)
[2018-03-23] MEDS: CLOPIDOGREL 75 MG TAB PO SCH (08:29)
[2018-03-23] MEDS: INSULIN GLARGINE [LANTus] (100 UNITS/ML) SYG SC SCH (08:34)
--- NOTE | 2018-03-23 09:13 | PN ---
Date/Time of Note Date/Time of Note DATE: 03/23/18 TIME: 09:13 Assessment/Plan VTE Prophylaxis Risk score (from Ns)>0 risk: 4 SCD applied (from Ns): No SCD contraindicated: patient refusal Pharmacological prophylaxis: NA/contraindicated Pharm contraindication: other (risk for hemorrhagic conversion) Lines/Catheters [facility] Peripheral IV Urinary Cath still in place: No Assessment/Plan Assessment/Plan 1. 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 Continue current treatment and limit sedating medications - CT head with chronic changes as well as central volume loss vs NPH. MRI/MRA brain results noted - Speech consulted and doing well on pureed diet. will continue trials to see if able to advance - hold off on all anticoagulation due to risk of conversion following recent stroke 2. Acute on chronic severe systolic heart failure- stable - Cardiology on board and appreciate recommendations. Continue current medical management - EKG negative for acute ST changes - ECHO results noted with EF 20% 3. CAD s/p PCI 09/2017 - continue all medications as tolerated 4. Uncontrolled DM - A1c noted - Diabetic education consultation placed - ISS and accuchecks 5. Expressive aphasia - speech on board 6. STACIE - will decrease Lasix dose - monitor for improvement - avoid nephrotoxic agents and renally dose all medications 7. Disposition - PT/OT for discharge planning - continue current management - Monitor renal function given STACIE Result Diagram: 03/22/18 0646 03/23/18 0555 Results 24hrs Laboratory Tests Test 03/22/18 12:32 03/22/18 14:23 03/22/18 17:08 03/22/18 20:38 Bedside Glucose 130 158 150 Potassium Level 4.4 Test 03/23/18 05:55 03/23/18 08:30 Sodium Level 138 Potassium Level 4.1 Chloride Level 102 Carbon Dioxide Level 26 Anion Gap 10 # Blood Urea Nitrogen 22 H Creatinine 1.13 H Est Glomerular 48 L Filtrat Rate mL/min Glucose Level 115 Calcium Level 9.6 Total Bilirubin 0.7 Direct Bilirubin 0.00 Indirect Bilirubin 0.7 Aspartate Amino 60 H Transf (AST/SGOT) Alanine 53 Aminotransferase (AL T/SGPT) Alkaline Phosphatase 169 H Total Protein 6.9 Albumin 3.5 Globulin 3.40 H Albumin/Globulin 1.02 Ratio Bedside Glucose 98 Subjective 24 Hr Interval Summary Free Text/Dictation Patient found staring at the wall but in no acute distress. Still displaying expressive aphasia and per bedside sitter, she has been grabbing object in the air. No acute overnight events. Exam/Review of Systems Exam Vitals Vital Signs Date Temp Pulse Resp B/P (MAP) Pulse Ox O2 O2 Flow FiO2 Time Delivery Rate 03/23/18 97.4 71 20 133/87 96 07:22 (102) 03/22/18 Room Air 14:00 Intake and Output 03/22/18 03/22/18 03/23/18 1515:00 23:00 07:00 IntakeIntake Total 330 ml 940 ml 120 ml BalanceBalance 330 ml 940 ml 120 ml Exam General: No acute distress, expressive aphasia and trying to answer simple questions Neck: Supple Chest: Nontender Lungs: Clear to auscultation bilaterally, diminished, no wheezing appreciated Heart: Normal S1-S2, Regular rhythm and rate. No murmur, S3, or S4 Abdomen: Soft , nontender, nondistended , bowel sounds are present. No guarding no rebound tenderness Extremities: Normal to inspection, no edema no cyanosis Neurologic: following command, strength intact. Results Results 24hrs Laboratory Tests Test 03/22/18 12:32 03/22/18 14:23 03/22/18 17:08 03/22/18 20:38 Bedside Glucose 130 158 150 Potassium Level 4.4 Test 03/23/18 05:55 03/23/18 08:30 Sodium Level 138 Potassium Level 4.1 Chloride Level 102 Carbon Dioxide Level 26 Anion Gap 10 # Blood Urea Nitrogen 22 H Creatinine 1.13 H Est Glomerular 48 L Filtrat Rate mL/min Glucose Level 115 Calcium Level 9.6 Total Bilirubin 0.7 Direct Bilirubin 0.00 Indirect Bilirubin 0.7 Aspartate Amino 60 H Transf (AST/SGOT) Alanine 53 Aminotransferase (AL T/SGPT) Alkaline Phosphatase 169 H Total Protein 6.9 Albumin 3.5 Globulin 3.40 H Albumin/Globulin 1.02 Ratio Bedside Glucose 98 Medications Medication Current Medications Aspirin (Aspirin) 81 mg DAILY PO Last administered on 03/23/18at 08:28; Admin Dose 81 MG; Start 03/19/18 at 09:00 Carvedilol (Coreg) 3.125 mg BID PO Last administered on 03/23/18at 08:29; Admin Dose 3.125 MG; Start 03/18/18 at 21:00 Clopidogrel Bisulfate (plaVIX) 75 mg DAILY PO Last administered on 03/23/18at 08:29; Admin Dose 75 MG; Start 03/19/18 at 09:00 Isosorbide Dinitrate (Isordil) 5 mg BID PO Last administered on 03/23/18at 08:29; Admin Dose 5 MG; Start 03/18/18 at 21:00 Lisinopril (Zestril) 5 mg DAILY PO Last administered on 03/23/18at 08:29; Admin Dose 5 MG; Start 03/19/18 at 09:00 Nitroglycerin (Nitroglycerin (Sl Tab) 0.4 Mg) 1 tab [id number] PRN SL CHEST PAIN; Start 03/18/18 at 16:30 IV Flush (NS 3 ml) 3 ml PER PROTOCOL IV ; Start 03/18/18 at 17:00 Ondansetron HCl (Zofran Inj) 4 mg Q6H PRN IV NAUSEA/VOMITING; Start 03/18/18 at 17:00 Acetaminophen (Tylenol Tab) 650 mg Q6H PRN PO .PAIN 1-3 OR TEMP; Start 03/18/18 at 17:00 Docusate Sodium (Colace) 100 mg Q12H PRN PO .CONSTIPATION; Start 03/18/18 at 17:00 Magnesium Hydroxide (Milk Of Mag) 30 ml DAILY PRN PO .CONSTIPATION; Start 03/18/18 at 17:00 Spironolactone (Aldactone) 12.5 mg DAILY PO Last administered on 03/23/18at 08:28; Admin Dose 12.5 MG; Start 03/19/18 at 09:00 Miscellaneous Information 1 ea NOTE XX ; Start 03/18/18 at 18:30 Glucose (Glutose) 15 gm Q15M PRN PO DECREASED GLUCOSE; Start 03/18/18 at 18:30 Glucose (Glutose) 22.5 gm Q15M PRN PO DECREASED GLUCOSE; Start 03/18/18 at 18:30 Dextrose (D50w Syringe) 25 ml Q15M PRN IV DECREASED GLUCOSE; Start 03/18/18 at 18:30 Dextrose (D50w Syringe) 50 ml Q15M PRN IV DECREASED GLUCOSE; Start 03/18/18 at 18:30 Glucagon (Glucagen) 1 mg Q15M PRN IM DECREASED GLUCOSE; Start 03/18/18 at 18:30 Glucose (Glutose) 15 gm Q15M PRN BUCCAL DECREASED GLUCOSE Last administered on 03/20/18 06:14; Admin Dose 15 GM; Start 03/18/18 at 18:30 Insulin Glargine (Lantus) 18 units DAILY@0800 SC Last administered on 03/23/18 08:34; Admin Dose 18 UNITS; Start 03/19/18 at 08:00 Lorazepam (Ativan) 0.5 mg DAILY PRN IV AGITATION/ANXIETY Last administered on 03/19/18 16:04; Admin Dose 0.5 MG; Start 03/19/18 at 01:00 Atorvastatin Calcium (Lipitor) 60 mg QHS PO Last administered on 03/22/18 20:35; Admin Dose 60 MG; Start 03/19/18 at 21:00 Furosemide (Lasix) 20 mg BID DIURETICS IV Last administered on 03/23/18 05:20; Admin Dose 20 MG; Start 03/20/18 at 18:00 Insulin Aspart (Novolog Insulin Pen) (Adult SC Insulin - Mild Algorithm)... AC MEALS AND BEDTIME SC Last administered on 03/22/18 17:11; Admin Dose 1 UNIT; Start 03/22/18 at 11:30 Loratadine (Claritin) 10 mg DAILY PO Last administered on 03/23/18 08:28; Admin Dose 10 MG; Start 03/22/18 at 14:00 Sodium Chloride (Deep Sea) 2 spray Q4H PRN NASAL congestion Last administered on 03/22/18 14:25; Admin Dose 2 SPRAY; Start 03/22/18 at 14:00 WARREN BUTLER MD Mar 23, 2018 09:13
--- NOTE | 2018-03-23 13:36 | CONS ---
Assessment/Plan Assessment/Plan Hospital Course 67 yo F with hx of multiple cerebrovascular risk factors who presents with ams and other sx... for which neurology is consulted. MRI brain is most notable for 2 tiny acute R occipital infarcts.. A superimposed acute toxic-metabolic encephalopathy is additionally considered. MRA brain is most notable for a 50% L P2 segment stenosis EEG is without epileptiform activity. Echo is notable for EF 20% STACIE + P: Cont antiplatelet therapy/lipitor Cont medical management per primary Reorient as necessary Limit sedating medications where possible PT/OT/ST as necessary Will follow clinically Consultation Date/Type/Reason Admit Date/Time Mar 18, 2018 at 16:08 Type of Consult Neurology Requesting Provider: WARREN BUTLER MD Date/Time of Note DATE: 03/23/18 TIME: 13:34 24 HR Interval Summary Free Text/Dictation Continues acute care Exam Vital Signs Vitals Vital Signs Date Temp Pulse Resp B/P (MAP) Pulse Ox O2 O2 Flow FiO2 Time Delivery Rate 03/23/18 97.4 71 20 133/87 96 07:22 (102) 03/22/18 Room Air 14:00 Intake and Output 03/22/18 03/22/18 03/23/18 1515:00 23:00 07:00 IntakeIntake Total 330 ml 940 ml 120 ml BalanceBalance 330 ml 940 ml 120 ml Exam PE: Gen Appearance: No Apparent Distress; Some increased work of breathing HEENT: Normocephalic Cardiovascular: Regular rate Abdomen: Soft Extremities: Dry NE: The patient was alert, disoriented...slow to respond...though able to follow commands. Pupils were equal and reactive to light. There was no afferent pupillary defect. Visual linda were normal. Funduscopic examination was limited. Extra-ocular movements were full. Ptosis was absent. There was no nystagmus. Facial sensation was normal. Face was symmetric with normal strength. Hearing was intact. Palate movements were normal. Neck strength was normal. There was normal tongue bulk and speed of movement. Tone was normal. Muscle bulk was normal. I did not see fasciculations. Arms and legs were symmetric. Vibration sensation was reduced distally.. Temperature and pinprick sensation was normal. Rapid alternating movements were normal. There was no dysmetria. There was no intention tremor. Gait was deferred due to bedrest. Arm and leg reflexes were symmetric. Powell's sign was absent. Plantar responses were flexor. GARRY BURRELL Mar 23, 2018 13:36
--- NOTE | 2018-03-23 13:37 | CONS ---
Assessment/Plan Assessment/Plan Hospital Course (Demo Recall) IMPRESSION: 1. Positive troponin, assess significance. Patient not able to comment on chest pain.- now downtrending and likely a marker of CV disease and not true Nstemi 2. Abnormal electrocardiogram, nonspecific ST-T abnormalities, borderline intraventricular conduction delay. 3. Hypertension, uncontrolled. 4. History of stent placement 09/2017. 5. Encephalopathy. 6. Dyslipidemia-LDL 175 HDL 56 7. Cardiomyopathy-severely depressed LVEF 20% Recc: -Now on med-surg -serial ecg's -Continue asa/plavix -Continue coreg/zestril -continue isordil -Continue aldactone -Continue statin -Continue lasix diuresis and follow volume status closely -ongoing neuro eval with improving overall MS and more alert -s/p D/C lovenox -PT Consultation Date/Type/Reason Admit Date/Time Mar 18, 2018 at 16:08 Initial Consult Date 03/18/17 Type of Consult Cardiology Reason for Consultation positive troponin Requesting Provider: WARREN BUTLER MD Date/Time of Note DATE: 03/23/18 TIME: 13:36 Exam/Review of Systems Vital Signs Vitals Vital Signs Date Temp Pulse Resp B/P (MAP) Pulse Ox O2 O2 Flow FiO2 Time Delivery Rate 03/23/18 97.4 71 20 133/87 96 07:22 (102) 03/22/18 Room Air 14:00 Intake and Output 03/22/18 03/22/18 03/23/18 1515:00 23:00 07:00 IntakeIntake Total 330 ml 940 ml 120 ml BalanceBalance 330 ml 940 ml 120 ml Exam Exam Review of Systems: CONSTITUTIONAL: No fevers, chills. PULMONARY: No sob CARDIOVASCULAR: No chest pain/palpitations GASTROINTESTINAL: No nausea/vomiting. GENITOURINARY: No hematuria/dysuria. MUSCULOSKELETAL: No myagias/arthalgias. PSYCHIATRIC: The patient denies depression. NEUROLOGIC: No weakness Constitutional: alert Psych: no complaints Head: normocephalic ENMT: mucosa pink and moist Neck: supple, jvd (9 cm water) Respiratory: diminished breath sounds (at bases) Cardiovascular: regular rate and rhythm Gastrointestinal: soft, non-tender Musculoskeletal: muscle weakness (generalized) Extremities: edema (trace/B) 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: confused (but overall improving MS) Labs Result Diagram: 03/22/18 0646 03/23/18 0555 Results 24hrs Laboratory Tests Test 03/22/18 14:23 03/22/18 17:08 03/22/18 20:38 03/23/18 05:55 Potassium Level 4.4 4.1 Bedside Glucose 158 150 Sodium Level 138 Chloride Level 102 Carbon Dioxide Level 26 Anion Gap 10 # Blood Urea Nitrogen 22 H Creatinine 1.13 H Est Glomerular 48 L Filtrat Rate mL/min Glucose Level 115 Calcium Level 9.6 Total Bilirubin 0.7 Direct Bilirubin 0.00 Indirect Bilirubin 0.7 Aspartate Amino 60 H Transf (AST/SGOT) Alanine 53 Aminotransferase (AL T/SGPT) Alkaline Phosphatase 169 H Total Protein 6.9 Albumin 3.5 Globulin 3.40 H Albumin/Globulin 1.02 Ratio Test 03/23/18 08:30 03/23/18 12:44 Bedside Glucose 98 162 Medications Medications Current Medications Aspirin (Aspirin) 81 mg DAILY PO Last administered on 03/23/18 08:28; Admin Dose 81 MG; Start 03/19/18 at 09:00 Carvedilol (Coreg) 3.125 mg BID PO Last administered on 03/23/18at 08:29; Admin Dose 3.125 MG; Start 03/18/18 at 21:00 Clopidogrel Bisulfate (plaVIX) 75 mg DAILY PO Last administered on 03/23/18 08:29; Admin Dose 75 MG; Start 03/19/18 at 09:00 Isosorbide Dinitrate (Isordil) 5 mg BID PO Last administered on 03/23/18at 08:29; Admin Dose 5 MG; Start 03/18/18 at 21:00 Lisinopril (Zestril) 5 mg DAILY PO Last administered on 03/23/18at 08:29; Admin Dose 5 MG; Start 03/19/18 at 09:00 Nitroglycerin (Nitroglycerin (Sl Tab) 0.4 Mg) 1 tab [id number] PRN SL CHEST PAIN; Start 03/18/18 at 16:30 IV Flush (NS 3 ml) 3 ml PER PROTOCOL IV ; Start 03/18/18 at 17:00 Ondansetron HCl (Zofran Inj) 4 mg Q6H PRN IV NAUSEA/VOMITING; Start 03/18/18 at 17:00 Acetaminophen (Tylenol Tab) 650 mg Q6H PRN PO .PAIN 1-3 OR TEMP; Start 03/18/18 at 17:00 Docusate Sodium (Colace) 100 mg Q12H PRN PO .CONSTIPATION; Start 03/18/18 at 17:00 Magnesium Hydroxide (Milk Of Mag) 30 ml DAILY PRN PO .CONSTIPATION; Start 03/18/18 at 17:00 Spironolactone (Aldactone) 12.5 mg DAILY PO Last administered on 03/23/18at 08:28; Admin Dose 12.5 MG; Start 03/19/18 at 09:00 Miscellaneous Information 1 ea NOTE XX ; Start 03/18/18 at 18:30 Glucose (Glutose) 15 gm Q15M PRN PO DECREASED GLUCOSE; Start 03/18/18 at 18:30 Glucose (Glutose) 22.5 gm Q15M PRN PO DECREASED GLUCOSE; Start 03/18/18 at 18:30 Dextrose (D50w Syringe) 25 ml Q15M PRN IV DECREASED GLUCOSE; Start 03/18/18 at 18:30 Dextrose (D50w Syringe) 50 ml Q15M PRN IV DECREASED GLUCOSE; Start 03/18/18 at 18:30 Glucagon (Glucagen) 1 mg Q15M PRN IM DECREASED GLUCOSE; Start 03/18/18 at 18:30 Glucose (Glutose) 15 gm Q15M PRN BUCCAL DECREASED GLUCOSE Last administered on 03/20/18at 06:14; Admin Dose 15 GM; Start 03/18/18 at 18:30 Insulin Glargine (Lantus) 18 units DAILY@0800 SC Last administered on 03/23/18at 08:34; Admin Dose 18 UNITS; Start 03/19/18 at 08:00 Lorazepam (Ativan) 0.5 mg DAILY PRN IV AGITATION/ANXIETY Last administered on 03/19/18at 16:04; Admin Dose 0.5 MG; Start 03/19/18 at 01:00 Atorvastatin Calcium (Lipitor) 60 mg QHS PO Last administered on 03/22/18at 20:35; Admin Dose 60 MG; Start 03/19/18 at 21:00 Insulin Aspart (Novolog Insulin Pen) (Adult SC Insulin - Mild Algorithm)... AC MEALS AND BEDTIME SC Last administered on 03/23/18at 12:46; Admin Dose 1 UNIT; Start 03/22/18 at 11:30 Loratadine (Claritin) 10 mg DAILY PO Last administered on 03/23/18at 08:28; Admin Dose 10 MG; Start 03/22/18 at 14:00 Sodium Chloride (Deep Sea) 2 spray Q4H PRN NASAL congestion Last administered on 03/22/18at 14:25; Admin Dose 2 SPRAY; Start 03/22/18 at 14:00 Furosemide (Lasix) 20 mg DAILY IV ; Start 03/24/18 at 09:00 JANEEN KEENAN Mar 23, 2018 13:37
[2018-03-23 13:59] VITALS: BP 151/86; PULSE 64; RESP 20
[2018-03-23 19:29] VITALS: BP 134/83; PULSE 79; RESP 18
[2018-03-23] MEDS: ATORVASTATIN 20 MG TAB PO SCH (20:38)
[2018-03-24 02:20] VITALS: BP 128/75; PULSE 57; RESP 18
[2018-03-24] MEDS: Insulin NOVOLOG SS MILD Algorithm (SS with meals and bedtime) SC SCH ×4 (07:00→20:48)
[2018-03-24 08:00] VITALS: BP 120/70; PULSE 61; RESP 18
[2018-03-24] MEDS: CLOPIDOGREL 75 MG TAB PO SCH (08:16)
[2018-03-24] MEDS: ISOSORBIDE DINITRATE 5 MG TAB PO SCH ×2 (08:16→20:47)
[2018-03-24] MEDS: LORATADINE 10 MG TAB PO SCH (08:16)
[2018-03-24] MEDS: SPIRONOLACTONE 25 MG TAB PO SCH (08:16)
[2018-03-24] MEDS: ASPIRIN 81 MG TAB PO SCH (08:16)
[2018-03-24] MEDS: FUROSEMIDE 20 MG INJ IV SCH (08:17)
[2018-03-24] MEDS: LISINOPRIL 5 MG TAB PO SCH (08:17)
[2018-03-24] MEDS: INSULIN GLARGINE [LANTus] (100 UNITS/ML) SYG SC SCH (08:27)
--- NOTE | 2018-03-24 10:23 | PN ---
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 Continue current treatment and limit sedating medications - CT head with chronic changes as well as central volume loss vs NPH. MRI/MRA brain results noted - Speech consulted and doing well on pureed diet. will continue trials to see if able to advance - hold off on all anticoagulation due to risk of conversion following recent stroke 2. Acute on chronic severe systolic heart failure- stable - Cardiology on board and appreciate recommendations. Continue current medical management - EKG negative for acute ST changes - ECHO results noted with EF 20% 3. CAD s/p PCI 09/2017 - continue all medications as tolerated 4. Uncontrolled DM - A1c noted - Diabetic education consultation placed - ISS and accuchecks 5. Expressive aphasia - speech on board 6. STACIE - will decrease Lasix dose - monitor for improvement - avoid nephrotoxic agents and renally dose all medications 7. Disposition - PT/OT for discharge planning - continue current management - Monitor renal function given STACIE Result Diagram: 03/22/18 0646 03/24/18 0807 Results 24hrs Laboratory Tests Test 03/23/18 12:44 03/23/18 17:27 03/23/18 20:34 03/24/18 06:08 Bedside Glucose 162 101 118 70 Test 03/24/18 06:39 03/24/18 08:07 03/24/18 08:12 Bedside Glucose 91 89 Sodium Level 138 Potassium Level 4.0 Chloride Level 105 Carbon Dioxide Level 28 Anion Gap 5 Blood Urea Nitrogen 21 H Creatinine 1.03 H Est Glomerular 53 L Filtrat Rate mL/min Glucose Level 94 Calcium Level 9.0 Total Bilirubin 0.7 Direct Bilirubin 0.00 Indirect Bilirubin 0.7 Aspartate Amino 38 Transf (AST/SGOT) Alanine 47 Aminotransferase (AL T/SGPT) Alkaline Phosphatase 136 H Total Protein 6.5 Albumin 3.3 Globulin 3.20 Albumin/Globulin 1.03 Ratio Subjective 24 Hr Interval Summary Free Text/Dictation Working with PT/OT denies complaints Exam/Review of Systems Exam Vitals Vital Signs Date Temp Pulse Resp B/P (MAP) Pulse Ox O2 O2 Flow FiO2 Time Delivery Rate 03/24/18 97.9 61 18 120/70 98 08:00 (87) 03/22/18 Room Air 14:00 Intake and Output 03/23/18 03/23/18 03/24/18 1515:00 23:00 07:00 IntakeIntake Total 880 ml 480 ml BalanceBalance 880 ml 480 ml Results Results 24hrs Laboratory Tests Test 03/23/18 12:44 03/23/18 17:27 03/23/18 20:34 03/24/18 06:08 Bedside Glucose 162 101 118 70 Test 03/24/18 06:39 03/24/18 08:07 03/24/18 08:12 Bedside Glucose 91 89 Sodium Level 138 Potassium Level 4.0 Chloride Level 105 Carbon Dioxide Level 28 Anion Gap 5 Blood Urea Nitrogen 21 H Creatinine 1.03 H Est Glomerular 53 L Filtrat Rate mL/min Glucose Level 94 Calcium Level 9.0 Total Bilirubin 0.7 Direct Bilirubin 0.00 Indirect Bilirubin 0.7 Aspartate Amino 38 Transf (AST/SGOT) Alanine 47 Aminotransferase (AL T/SGPT) Alkaline Phosphatase 136 H Total Protein 6.5 Albumin 3.3 Globulin 3.20 Albumin/Globulin 1.03 Ratio Medications Medication Current Medications Aspirin (Aspirin) 81 mg DAILY PO Last administered on 03/24/18 08:16; Admin Dose 81 MG; Start 03/19/18 at 09:00 Carvedilol (Coreg) 3.125 mg BID PO Last administered on 03/24/18 08:17; Admin Dose 3.125 MG; Start 03/18/18 at 21:00 Clopidogrel Bisulfate (plaVIX) 75 mg DAILY PO Last administered on 03/24/18 08:16; Admin Dose 75 MG; Start 03/19/18 at 09:00 Isosorbide Dinitrate (Isordil) 5 mg BID PO Last administered on 03/24/18 08:16; Admin Dose 5 MG; Start 03/18/18 at 21:00 Lisinopril (Zestril) 5 mg DAILY PO Last administered on 03/24/18 08:17; Admin Dose 5 MG; Start 03/19/18 at 09:00 Nitroglycerin (Nitroglycerin (Sl Tab) 0.4 Mg) 1 tab [id number] PRN SL CHEST PAIN; Start 03/18/18 at 16:30 IV Flush (NS 3 ml) 3 ml PER PROTOCOL IV ; Start 03/18/18 at 17:00 Ondansetron HCl (Zofran Inj) 4 mg Q6H PRN IV NAUSEA/VOMITING; Start 03/18/18 at 17:00 Acetaminophen (Tylenol Tab) 650 mg Q6H PRN PO .PAIN 1-3 OR TEMP; Start 03/18/18 at 17:00 Docusate Sodium (Colace) 100 mg Q12H PRN PO .CONSTIPATION; Start 03/18/18 at 17:00 Magnesium Hydroxide (Milk Of Mag) 30 ml DAILY PRN PO .CONSTIPATION; Start 03/18/18 at 17:00 Spironolactone (Aldactone) 12.5 mg DAILY PO Last administered on 03/24/18at 08:16; Admin Dose 12.5 MG; Start 03/19/18 at 09:00 Miscellaneous Information 1 ea NOTE XX ; Start 03/18/18 at 18:30 Glucose (Glutose) 15 gm Q15M PRN PO DECREASED GLUCOSE; Start 03/18/18 at 18:30 Glucose (Glutose) 22.5 gm Q15M PRN PO DECREASED GLUCOSE; Start 03/18/18 at 18:30 Dextrose (D50w Syringe) 25 ml Q15M PRN IV DECREASED GLUCOSE; Start 03/18/18 at 18:30 Dextrose (D50w Syringe) 50 ml Q15M PRN IV DECREASED GLUCOSE; Start 03/18/18 at 18:30 Glucagon (Glucagen) 1 mg Q15M PRN IM DECREASED GLUCOSE; Start 03/18/18 at 18:30 Glucose (Glutose) 15 gm Q15M PRN BUCCAL DECREASED GLUCOSE Last administered on 03/20/18at 06:14; Admin Dose 15 GM; Start 03/18/18 at 18:30 Insulin Glargine (Lantus) 18 units DAILY@0800 SC Last administered on 03/24/18at 08:27; Admin Dose 18 UNITS; Start 03/19/18 at 08:00 Lorazepam (Ativan) 0.5 mg DAILY PRN IV AGITATION/ANXIETY Last administered on 03/19/18at 16:04; Admin Dose 0.5 MG; Start 03/19/18 at 01:00 Atorvastatin Calcium (Lipitor) 60 mg QHS PO Last administered on 03/23/18 20:38; Admin Dose 60 MG; Start 03/19/18 at 21:00 Insulin Aspart (Novolog Insulin Pen) (Adult SC Insulin - Mild Algorithm)... AC MEALS AND BEDTIME SC Last administered on 03/23/18 12:46; Admin Dose 1 UNIT; Start 03/22/18 at 11:30 Loratadine (Claritin) 10 mg DAILY PO Last administered on 03/24/18 08:16; Admin Dose 10 MG; Start 03/22/18 at 14:00 Sodium Chloride (Deep Sea) 2 spray Q4H PRN NASAL congestion Last administered o n 03/22/18 14:25; Admin Dose 2 SPRAY; Start 03/22/18 at 14:00 Furosemide (Lasix) 20 mg DAILY IV Last administered on 03/24/18 08:17; Admin Dose 20 MG; Start 03/24/18 at 09:00 LOTUS VILLALPANDO MD Mar 24, 2018 10:23
--- NOTE | 2018-03-24 11:35 | CONS ---
Consult Date/Type/Reason Admit Date/Time Mar 18, 2018 at 16:08 Initial Consult Date Requesting Provider: WARREN BUTLER MD Date/Time of Note DATE: 03/24/18 TIME: 11:33 Subjective No acute evens - BP in good range - more alert - not in CHF by exam. ROS: No fever, no chills, no nausea, no vomiting, no diarrhea/constipation No recent weight changes No chest pain, no PND, no orthopnea - fatigued No dizziness, blurred vision No thirst, no heat or cold intolerance Objective Vitals Vital Signs Date Temp Pulse Resp B/P (MAP) Pulse Ox O2 O2 Flow FiO2 Time Delivery Rate 03/24/18 97.9 61 18 120/70 98 08:00 (87) 03/22/18 Room Air 14:00 Intake and Output 03/23/18 03/23/18 03/24/18 1414:59 22:59 06:59 IntakeIntake Total 880 ml 480 ml BalanceBalance 880 ml 480 ml Exam General: WN/WD/NAD, AOx 2-3 HEENT: Unicetric/atraumatic/EOMI ( follow commands) NECK: JVD elevated, no thyromegaly Lymph: no lymphadenopathy HEART: regular with no S3, II/ systolic murmur at apex, PMI L LUNGS: Coarse sounds ABD: soft, NT, ND, +BS : Intact Neuro: non focal SKIN: chronic changes EXT: trace edema Results/Medications Result Diagram: 03/22/18 0646 03/24/18 0807 Results 24 hrs Laboratory Tests Test 03/23/18 12:44 03/23/18 17:27 03/23/18 20:34 03/24/18 06:08 Bedside Glucose 162 101 118 70 Test 03/24/18 06:39 03/24/18 08:07 03/24/18 08:12 Bedside Glucose 91 89 Sodium Level 138 Potassium Level 4.0 Chloride Level 105 Carbon Dioxide Level 28 Anion Gap 5 Blood Urea Nitrogen 21 H Creatinine 1.03 H Est Glomerular 53 L Filtrat Rate mL/min Glucose Level 94 Calcium Level 9.0 Total Bilirubin 0.7 Direct Bilirubin 0.00 Indirect Bilirubin 0.7 Aspartate Amino 38 Transf (AST/SGOT) Alanine 47 Aminotransferase (AL T/SGPT) Alkaline Phosphatase 136 H Total Protein 6.5 Albumin 3.3 Globulin 3.20 Albumin/Globulin 1.03 Ratio Home Meds Reported Medications Furosemide* (Furosemide*) 40 Mg Tablet, 40 MG PO BID, TAB 03/18/18 Nitroglycerin* (Nitroglycerin* SL) 0.4 Mg Tab.subl, 0.4 MG SL Q5MIN PRN for CHEST PAIN, BOTTLE 03/18/18 Spironolactone* (Aldactone*) 5 Mg/Ml (COMPOUNDED) Susp, 12.5 MG PO DAILY for 30 Days, ML (COMPOUNDED) 03/18/18 Lisinopril* (Lisinopril*) 5 Mg Tablet, 5 MG PO DAILY, #30 TAB 03/18/18 Clopidogrel Bisulfate (Clopidogrel) 75 Mg Tablet, 75 MG PO DAILY, #30 TAB 03/18/18 Atorvastatin* (Atorvastatin*) 40 Mg Tablet, 40 MG PO QHS, #30 TAB 03/18/18 Carvedilol* (Coreg*) 3.125 Mg Tablet, 3.125 MG PO BID, #60 TAB 03/18/18 Aspirin* (Aspirin* Chew) 81 Mg Tab.chew, 81 MG PO DAILY, TAB.CHEW 03/18/18 Isosorbide Dinitrate* (Isosorbide Dinitrate*) 5 Mg Tablet, 5 MG PO BID, TAB 03/18/18 Medications Current Medications Aspirin (Aspirin) 81 mg DAILY PO Last administered on 03/24/18at 08:16; Admin Dose 81 MG; Start 03/19/18 at 09:00 Carvedilol (Coreg) 3.125 mg BID PO Last administered on 03/24/18at 08:17; Admin Dose 3.125 MG; Start 03/18/18 at 21:00 Clopidogrel Bisulfate (plaVIX) 75 mg DAILY PO Last administered on 03/24/18at 08:16; Admin Dose 75 MG; Start 03/19/18 at 09:00 Isosorbide Dinitrate (Isordil) 5 mg BID PO Last administered on 03/24/18at 08:16; Admin Dose 5 MG; Start 03/18/18 at 21:00 Lisinopril (Zestril) 5 mg DAILY PO Last administered on 03/24/18at 08:17; Admin Dose 5 MG; Start 03/19/18 at 09:00 Nitroglycerin (Nitroglycerin (Sl Tab) 0.4 Mg) 1 tab [id number] PRN SL CHEST PAIN; Start 03/18/18 at 16:30 IV Flush (NS 3 ml) 3 ml PER PROTOCOL IV ; Start 03/18/18 at 17:00 Ondansetron HCl (Zofran Inj) 4 mg Q6H PRN IV NAUSEA/VOMITING; Start 03/18/18 at 17:00 Acetaminophen (Tylenol Tab) 650 mg Q6H PRN PO .PAIN 1-3 OR TEMP; Start 03/18/18 at 17:00 Docusate Sodium (Colace) 100 mg Q12H PRN PO .CONSTIPATION; Start 03/18/18 at 17:00 Magnesium Hydroxide (Milk Of Mag) 30 ml DAILY PRN PO .CONSTIPATION; Start 03/18/18 at 17:00 Spironolactone (Aldactone) 12.5 mg DAILY PO Last administered on 03/24/18at 08:16; Admin Dose 12.5 MG; Start 03/19/18 at 09:00 Miscellaneous Information 1 ea NOTE XX ; Start 03/18/18 at 18:30 Glucose (Glutose) 15 gm Q15M PRN PO DECREASED GLUCOSE; Start 03/18/18 at 18:30 Glucose (Glutose) 22.5 gm Q15M PRN PO DECREASED GLUCOSE; Start 03/18/18 at 18:30 Dextrose (D50w Syringe) 25 ml Q15M PRN IV DECREASED GLUCOSE; Start 03/18/18 at 18:30 Dextrose (D50w Syringe) 50 ml Q15M PRN IV DECREASED GLUCOSE; Start 03/18/18 at 18:30 Glucagon (Glucagen) 1 mg Q15M PRN IM DECREASED GLUCOSE; Start 03/18/18 at 18:30 Glucose (Glutose) 15 gm Q15M PRN BUCCAL DECREASED GLUCOSE Last administered on 03/20/18at 06:14; Admin Dose 15 GM; Start 03/18/18 at 18:30 Insulin Glargine (Lantus) 18 units DAILY@0800 SC Last administered on 03/24/18at 08:27; Admin Dose 18 UNITS; Start 03/19/18 at 08:00 Lorazepam (Ativan) 0.5 mg DAILY PRN IV AGITATION/ANXIETY Last administered on 03/19/18at 16:04; Admin Dose 0.5 MG; Start 03/19/18 at 01:00 Atorvastatin Calcium (Lipitor) 60 mg QHS PO Last administered on 03/23/18at 20:38; Admin Dose 60 MG; Start 03/19/18 at 21:00 Insulin Aspart (Novolog Insulin Pen) (Adult SC Insulin - Mild Algorithm)... AC MEALS AND BEDTIME SC Last administered on 03/23/18 12:46; Admin Dose 1 UNIT; Start 03/22/18 at 11:30 Loratadine (Claritin) 10 mg DAILY PO Last administered on 03/24/18 08:16; Admin Dose 10 MG; Start 03/22/18 at 14:00 Sodium Chloride (Deep Sea) 2 spray Q4H PRN NASAL congestion Last administered on 03/22/18 14:25; Admin Dose 2 SPRAY; Start 03/22/18 at 14:00 Furosemide (Lasix) 20 mg DAILY IV Last administered on 03/24/18 08:17; Admin Dose 20 MG; Start 03/24/18 at 09:00 Assessment/Plan Assessment/Plan (Daily) 1. Positive troponin, assess significance. Patient not able to comment on chest pain.- now downtrending and likely a marker of CV disease and not true Nstemi - no intervention currently planned. 2. Abnormal electrocardiogram, nonspecific ST-T abnormalities, borderline intraventricular conduction delay - no CP, med rX 3. Hypertension, uncontrolled - better now - will keep in range. 4. History of stent placement 09/2017 - on therapy now. 5. Encephalopathy - more alert. 6. Dyslipidemia-LDL 175 HDL 56 7. Cardiomyopathy-severely depressed LVEF 20% - ICD eval as outpt. KARENA PINEDO MD Mar 24, 2018 11:35
[2018-03-24 14:00] VITALS: BP 127/80; PULSE 74; RESP 18
--- NOTE | 2018-03-24 16:07 | CONS ---
Assessment/Plan Assessment/Plan Hospital Course 67 yo F with hx of multiple cerebrovascular risk factors who presents with ams and other sx... for which neurology is consulted. MRI brain is most notable for 2 tiny acute R occipital infarcts.. A superimposed acute toxic-metabolic encephalopathy is additionally considered. MRA brain is most notable for a 50% L P2 segment stenosis EEG is without epileptiform activity. Echo is notable for EF 20% STACIE + P: Cont antiplatelet therapy/lipitor Cont medical management per primary Reorient as necessary Limit sedating medications where possible PT/OT/ST as necessary Will follow clinically Consultation Date/Type/Reason Admit Date/Time Mar 18, 2018 at 16:08 Type of Consult Neurology Reason for Consultation ams Requesting Provider: WARREN BUTLER MD Date/Time of Note DATE: 03/24/18 TIME: 16:07 24 HR Interval Summary Free Text/Dictation Continues medsurg monitoring. No acute events reported at this time. Exam Vital Signs Vitals Vital Signs Date Temp Pulse Resp B/P (MAP) Pulse Ox O2 O2 Flow FiO2 Time Delivery Rate 03/24/18 97.9 61 18 120/70 98 08:00 (87) 03/22/18 Room Air 14:00 Intake and Output 03/23/18 03/23/18 03/24/18 1515:00 23:00 07:00 IntakeIntake Total 880 ml 480 ml BalanceBalance 880 ml 480 ml Exam PE: Gen Appearance: No Apparent Distress; Some increased work of breathing HEENT: Normocephalic Cardiovascular: Regular rate Abdomen: Soft Extremities: Dry NE: The patient was alert, disoriented...slow to respond; sparsely verbal...though able to follow commands. Pupils were equal and reactive to light. There was no afferent pupillary defect. Visual linda were normal. Funduscopic examination was limited. Extra-ocular movements were full. Ptosis was absent. There was no nystagmus. Facial sensation was normal. Face was symmetric with normal strength. Hearing was intact. Palate movements were normal. Neck strength was normal. There was normal tongue bulk and speed of movement. Tone was normal. Muscle bulk was normal. I did not see fasciculations. Arms and legs were symmetric. Vibration sensation was reduced distally.. Temperature and pinprick sensation was normal. Rapid alternating movements were normal. There was no dysmetria. There was no i ntention tremor. Gait was deferred due to bedrest. Arm and leg reflexes were symmetric. Powell's sign was absent. Plantar resp onses were flexor. SANDRA TORRES NP Mar 24, 2018 16:07
[2018-03-24 19:32] VITALS: BP 127/84; PULSE 68; RESP 18
[2018-03-24] MEDS: ATORVASTATIN 20 MG TAB PO SCH (20:47)
[2018-03-25 01:40] VITALS: BP 110/79; PULSE 75; RESP 18
[2018-03-25] MEDS: Insulin NOVOLOG SS MILD Algorithm (SS with meals and bedtime) SC SCH ×4 (07:00→21:00)
[2018-03-25 07:25] VITALS: BP 132/89; PULSE 72; RESP 16
[2018-03-25] MEDS: THIAMINE 100 MG TAB PO SCH (08:19)
[2018-03-25] MEDS: ASPIRIN 81 MG TAB PO SCH (08:19)
[2018-03-25] MEDS: LISINOPRIL 5 MG TAB PO SCH (08:19)
[2018-03-25] MEDS: ISOSORBIDE DINITRATE 5 MG TAB PO SCH ×2 (08:19→21:34)
[2018-03-25] MEDS: LORATADINE 10 MG TAB PO SCH (08:20)
[2018-03-25] MEDS: CLOPIDOGREL 75 MG TAB PO SCH (08:20)
[2018-03-25] MEDS: SPIRONOLACTONE 25 MG TAB PO SCH (08:20)
[2018-03-25] MEDS: FUROSEMIDE 20 MG INJ IV SCH (08:21)
[2018-03-25] MEDS: INSULIN GLARGINE [LANTus] (100 UNITS/ML) SYG SC SCH (08:31)
[2018-03-25 13:33] VITALS: BP 124/65; PULSE 80; RESP 16
--- NOTE | 2018-03-25 13:35 | CONS ---
Assessment/Plan Assessment/Plan Hospital Course 67 yo F with hx of multiple cerebrovascular risk factors who presents with ams and other sx... for which neurology is consulted. MRI brain is most notable for 2 tiny acute R occipital infarcts.. A superimposed acute toxic-metabolic encephalopathy is additionally considered. MRA brain is most notable for a 50% L P2 segment stenosis EEG is without epileptiform activity. Echo is notable for EF 20% STACIE + b1 level was a little low P: Start thiamine supplementation, orally.. Cont antiplatelet therapy/lipitor Cont medical management per primary Reorient as necessary Limit sedating medications where possible PT/OT/ST as necessary Will follow clinically Consultation Date/Type/Reason Admit Date/Time Mar 18, 2018 at 16:08 Type of Consult Neurology Requesting Provider: WARREN BUTLER MD Date/Time of Note DATE: 03/25/18 TIME: 13:33 24 HR Interval Summary Free Text/Dictation Continues acute care Exam Vital Signs Vitals Vital Signs Date Temp Pulse Resp B/P (MAP) Pulse Ox O2 O2 Flow FiO2 Time Delivery Rate 03/25/18 97.8 72 16 132/89 94 Room Air 07:25 (103) Intake and Output 03/24/18 03/24/18 03/25/18 1515:00 23:00 07:00 IntakeIntake Total 640 ml 220 ml BalanceBalance 640 ml 220 ml Exam PE: Gen Appearance: No Apparent Distress HEENT: Normocephalic Cardiovascular: Regular rate Lungs: Clear bilaterally Abdomen: Soft Extremities: Dry NE: The patient was alert though disoriented. Language was dysphasic, limited in fluency and comprehension.. Fund of knowledge was limited. Pupils were equal and reactive to light. There was no afferent pupillary defect. Visual linda were normal. Funduscopic examination was limited.. Extra-ocular movements were full. Ptosis was absent. There was no nystagmus. Facial sensation was normal. Face was symmetric with normal strength. Hearing was intact. Palate movements were normal. Neck strength was normal. There was normal tongue bulk and speed of movement. Tone was normal. Muscle bulk was normal. I did not see fasciculations. Arms and legs were symmetric. Vibration sensation was normal. Temperature and pinprick sensation was normal. Rapid alternating movements were normal. There was no dysmetria. There was no intention tremor. Gait was deferred due to bedrest. Arm and leg reflexes were symmetric. Powell's sign was absent. Plantar responses were flexor. GARRY BURRELL Mar 25, 2018 13:35
--- NOTE | 2018-03-25 15:31 | CONS ---
Assessment/Plan Assessment/Plan Hospital Course (Demo Recall) IMPRESSION: 1. Positive troponin, assess significance. Patient not able to comment on chest pain.- now downtrending and likely a marker of CV disease and not true Nstemi 2. Abnormal electrocardiogram, nonspecific ST-T abnormalities, borderline intraventricular conduction delay. 3. Hypertension, uncontrolled. 4. History of stent placement 09/2017. 5. Encephalopathy. 6. Dyslipidemia-LDL 175 HDL 56 7. Cardiomyopathy-severely depressed LVEF 20% Recc: -Now on med-surg -serial ecg's -Continue asa/plavix -Continue coreg/zestril -continue isordil -Continue aldactone -Continue statin -Continue lasix diuresis and follow volume status closely -ongoing neuro eval with improving overall MS and more alert -s/p D/C lovenox -PT Consultation Date/Type/Reason Admit Date/Time Mar 18, 2018 at 16:08 Initial Consult Date 03/18/17 Type of Consult Cardiology Reason for Consultation positive troponin Requesting Provider: WARREN BUTLER MD Date/Time of Note DATE: 03/25/18 TIME: 15:28 Exam/Review of Systems Vital Signs Vitals Vital Signs Date Temp Pulse Resp B/P (MAP) Pulse Ox O2 O2 Flow FiO2 Time Delivery Rate 03/25/18 98.4 80 16 124/65 96 Room Air 13:33 (84) Intake and Output 03/24/18 03/24/18 03/25/18 1515:00 23:00 07:00 IntakeIntake Total 640 ml 220 ml BalanceBalance 640 ml 220 ml Exam Exam Review of Systems: CONSTITUTIONAL: No fevers, chills. PULMONARY: No sob CARDIOVASCULAR: No chest pain/palpitations GASTROINTESTINAL: No nausea/vomiting. GENITOURINARY: No hematuria/dysuria. MUSCULOSKELETAL: No myagias/arthalgias. PSYCHIATRIC: The patient denies depression. NEUROLOGIC: No weakness Constitutional: alert Psych: no complaints Head: normocephalic ENMT: mucosa pink and moist Neck: supple, jvd (9 cm water) Respiratory: diminished breath sounds Cardiovascular: regular rate and rhythm Gastrointestinal: soft, non-tender Musculoskeletal: muscle tone (bnormal) Extremities: edema (none) 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: other (no focal deficits) Labs Result Diagram: 03/22/18 0646 03/24/18 0807 Results 24hrs Laboratory Tests Test 03/24/18 17:38 03/24/18 20:45 03/25/18 08:17 03/25/18 12:25 Bedside Glucose 109 137 74 120 Medications Medications Current Medications Aspirin (Aspirin) 81 mg DAILY PO Last administered on 03/25/18 08:19; Admin Dose 81 MG; Start 03/19/18 at 09:00 Carvedilol (Coreg) 3.125 mg BID PO Last administered on 03/25/18 08:20; Admin Dose 3.125 MG; Start 03/18/18 at 21:00 Clopidogrel Bisulfate (plaVIX) 75 mg DAILY PO Last administered on 03/25/18 08:20; Admin Dose 75 MG; Start 03/19/18 at 09:00 Isosorbide Dinitrate (Isordil) 5 mg BID PO Last administered on 03/25/18 08:19; Admin Dose 5 MG; Start 03/18/18 at 21:00 Lisinopril (Zestril) 5 mg DAILY PO Last administered on 03/25/18 08:19; Admin Dose 5 MG; Start 03/19/18 at 09:00 Nitroglycerin (Nitroglycerin (Sl Tab) 0.4 Mg) 1 tab [id number] PRN SL CHEST PAIN; Start 03/18/18 at 16:30 IV Flush (NS 3 ml) 3 ml PER PROTOCOL IV ; Start 03/18/18 at 17:00 Ondansetron HCl (Zofran Inj) 4 mg Q6H PRN IV NAUSEA/VOMITING; Start 03/18/18 at 17:00 Acetaminophen (Tylenol Tab) 650 mg Q6H PRN PO .PAIN 1-3 OR TEMP; Start 03/18/18 at 17:00 Docusate Sodium (Colace) 100 mg Q12H PRN PO .CONSTIPATION; Start 03/18/18 at 17:00 Magnesium Hydroxide (Milk Of Mag) 30 ml DAILY PRN PO .CONSTIPATION; Start 03/18/18 at 17:00 Spironolactone (Aldactone) 12.5 mg DAILY PO Last administered on 03/25/18 08: 20; Admin Dose 12.5 MG; Start 03/19/18 at 09:00 Miscellaneous Information 1 ea NOTE XX ; Start 03/18/18 at 18:30 Glucose (Glutose) 15 gm Q15M PRN PO DECREASED GLUCOSE; Start 03/18/18 at 18:30 Glucose (Glutose) 22.5 gm Q15M PRN PO DECREASED GLUCOSE; Start 03/18/18 at 18:30 Dextrose (D50w Syringe) 25 ml Q15M PRN IV DECREASED GLUCOSE; Start 03/18/18 at 18:30 Dextrose (D50w Syringe) 50 ml Q15M PRN IV DECREASED GLUCOSE; Start 03/18/18 at 18:30 Glucagon (Glucagen) 1 mg Q15M PRN IM DECREASED GLUCOSE; Start 03/18/18 at 18:30 Glucose (Glutose) 15 gm Q15M PRN BUCCAL DECREASED GLUCOSE Last administered on 03/20/18 06:14; Admin Dose 15 GM; Start 03/18/18 at 18:30 Insulin Glargine (Lantus) 18 units DAILY@0800 SC Last administered on 03/25/18 08:31; Admin Dose 18 UNITS; Start 03/19/18 at 08:00 Lorazepam (Ativan) 0.5 mg DAILY PRN IV AGITATION/ANXIETY Last administered on 03/19/18 16:04; Admin Dose 0.5 MG; Start 03/19/18 at 01:00 Atorvastatin Calcium (Lipitor) 60 mg QHS PO Last administered on 03/24/18 20:47; Admin Dose 60 MG; Start 03/19/18 at 21:00 Insulin Aspart (Novolog Insulin Pen) (Adult SC Insulin - Mild Algorithm)... AC MEALS AND BEDTIME SC Last administered on 03/23/18 12:46; Admin Dose 1 UNIT; Start 03/22/18 at 11:30 Loratadine (Claritin) 10 mg DAILY PO Last administered on 03/25/18 08:20; Admin Dose 10 MG; Start 03/22/18 at 14:00 Sodium Chloride (Deep Sea) 2 spray Q4H PRN NASAL congestion Last administered on 03/22/18 14:25; Admin Dose 2 SPRAY; Start 03/22/18 at 14:00 Furosemide (Lasix) 20 mg DAILY IV Last administered on 03/25/18 08:21; Admin Dose 20 MG; Start 03/24/18 at 09:00 Thiamine HCl (Vitamin B1) 100 mg DAILY PO Last administered on 03/25/18 08:19; Admin Dose 100 MG; Start 03/25/18 at 09:00 JANEEN KEENAN Mar 25, 2018 15:31
--- NOTE | 2018-03-25 15:41 | PN ---
Date/Time of Note Date/Time of Note DATE: 03/25/18 TIME: 15:39 Assessment/Plan VTE Prophylaxis Risk score (from Nsg)>0 risk: 4 SCD applied (from Nsg): Yes Pharmacological prophylaxis: heparin Lines/Catheters IV Catheter Type (from Nrsg): Saline Lock Urinary Cath still in place: No Assessment/Plan Hospital Course 67 yo female with h/o systolic CHF, CAD who presented with CVA 1. 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 Continue current treatment and limit sedating medications - CT head with chronic changes as well as central volume loss vs NPH. MRI/MRA brain results noted - Speech consulted and doing well on pureed diet. will continue trials to see if able to advance - hold off on all anticoagulation due to risk of conversion following recent stroke 2. Acute on chronic severe systolic heart failure- stable - Cardiology on board and appreciate recommendations. Continue current medical management - EKG negative for acute ST changes - ECHO results noted with EF 20% 3. CAD s/p PCI 09/2017 - continue all medications as tolerated 4. Uncontrolled DM - A1c noted - Diabetic education consultation placed - ISS and accuchecks 5. Expressive aphasia - speech on board Diarrhea: - C Diff assay pending Disposition - To SNF Result Diagram: 03/22/18 0646 03/24/18 0807 Results 24hrs Laboratory Tests Test 03/24/18 17:38 03/24/18 20:45 03/25/18 08:17 03/25/18 12:25 Bedside Glucose 109 137 74 120 Subjective 24 Hr Interval Summary Free Text/Dictation Having diarrhea now No complaints. She feels well Exam/Review of Systems Exam Vitals Vital Signs Date Temp Pulse Resp B/P (MAP) Pulse Ox O2 O2 Flow FiO2 Time Delivery Rate 03/25/18 98.4 80 16 124/65 96 Room Air 13:33 (84) Intake and Output 03/24/18 03/24/18 03/25/18 1414:59 22:59 06:59 IntakeIntake Total 640 ml 220 ml BalanceBalance 640 ml 220 ml Constitutional: alert, oriented, well developed Psych: no complaints, nl mood/affect Head: normocephalic, atraumatic Eyes: nl conjunctiva, EOMI, nl lids, nl sclera, PERRL ENMT: nl external ears & nose, nl lips & teeth, nl nasal mucosa & septum Neck: supple, non-tender Respiratory: clear to auscultation, normal air movement Cardiovascular: regular rate and rhythm, nl pulses Gastrointestinal: soft, nl liver, spleen, non-tender Musculoskeletal: nl extremities to inspection, nl gait and stance Extremities: normal pulses 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: 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 FIRER II-XII intact, nl mental status, nl speech, nl strength Skin: nl turgor; No rash or lesions Lymph: nl lymph nodes Results Results 24hrs Laboratory Tests Test 03/24/18 17:38 03/24/18 20:45 03/25/18 08:17 03/25/18 12:25 Bedside Glucose 109 137 74 120 Medications Medication Current Medications Aspirin (Aspirin) 81 mg DAILY PO Last administered on 03/25/18 08:19; Admin Dose 81 MG; Start 03/19/18 at 09:00 Carvedilol (Coreg) 3.125 mg BID PO Last administered on 03/25/18 08:20; Admin Dose 3.125 MG; Start 03/18/18 at 21:00 Clopidogrel Bisulfate (plaVIX) 75 mg DAILY PO Last administered on 03/25/18 08:20; Admin Dose 75 MG; Start 03/19/18 at 09:00 Isosorbide Dinitrate (Isordil) 5 mg BID PO Last administered on 03/25/18 08:19; Admin Dose 5 MG; Start 03/18/18 at 21:00 Lisinopril (Zestril) 5 mg DAILY PO Last administered on 03/25/18 08:19; Admin Dose 5 MG; Start 03/19/18 at 09:00 Nitroglycerin (Nitroglycerin (Sl Tab) 0.4 Mg) 1 tab [id number] PRN SL CHEST PAIN; Start 03/18/18 at 16:30 IV Flush (NS 3 ml) 3 ml PER PROTOCOL IV ; Start 03/18/18 at 17:00 Ondansetron HCl (Zofran Inj) 4 mg Q6H PRN IV NAUSEA/VOMITING; Start 03/18/18 at 17:00 Acetaminophen (Tylenol Tab) 650 mg Q6H PRN PO .PAIN 1-3 OR TEMP; Start 03/18/18 at 17:00 Docusate Sodium (Colace) 100 mg Q12H PRN PO .CONSTIPATION; Start 03/18/18 at 17:00 Magnesium Hydroxide (Milk Of Mag) 30 ml DAILY PRN PO .CONSTIPATION; Start 03/18/18 at 17:00 Spironolactone (Aldactone) 12.5 mg DAILY PO Last administered on 03/25/18 08:20; Admin Dose 12.5 MG; Start 03/19/18 at 09:00 Miscellaneous Information 1 ea NOTE XX ; Start 03/18/18 at 18:30 Glucose (Glutose) 15 gm Q15M PRN PO DECREASED GLUCOSE; Start 03/18/18 at 18:30 Glucose (Glutose) 22.5 gm Q15M PRN PO DECREASED GLUCOSE; Start 03/18/18 at 18:30 Dextrose (D50w Syringe) 25 ml Q15M PRN IV DECREASED GLUCOSE; Start 03/18/18 at 1 8:30 Dextrose (D50w Syringe) 50 ml Q15M PRN IV DECREASED GLUCOSE; Start 03/18/18 at 18:30 Glucagon (Glucagen) 1 mg Q15M PRN IM DECREASED GLUCOSE; Start 03/18/18 at 18:30 Glucose (Glutose) 15 gm Q15M PRN BUCCAL DECREASED GLUCOSE Last administered on 03/20/18 06:14; Admin Dose 15 GM; Start 03/18/18 at 18:30 Insulin Glargine (Lantus) 18 units DAILY@0800 SC Last administered on 03/25/18 08:31; Admin Dose 18 UNITS; Start 03/19/18 at 08:00 Lorazepam (Ativan) 0.5 mg DAILY PRN IV AGITATION/ANXIETY Last administered on 03/19/18 16:04; Admin Dose 0.5 MG; Start 03/19/18 at 01:00 Atorvastatin Calcium (Lipitor) 60 mg QHS PO Last administered on 03/24/18 20:47; Admin Dose 60 MG; Start 03/19/18 at 21:00 Insulin Aspart (Novolog Insulin Pen) (Adult SC Insulin - Mild Algorithm)... AC MEALS AND BEDTIME SC Last administered on 03/23/18at 12:46; Admin Dose 1 UNIT; Start 03/22/18 at 11:30 Loratadine (Claritin) 10 mg DAILY PO Last administered on 03/25/18 08:20; Admin Dose 10 MG; Start 03/22/18 at 14:00 Sodium Chloride (Deep Sea) 2 spray Q4H PRN NASAL congestion Last administered on 03/22/18at 14:25; Admin Dose 2 SPRAY; Start 03/22/18 at 14:00 Furosemide (Lasix) 20 mg DAILY IV Last administered on 03/25/18at 08:21; Admin Dose 20 MG; Start 03/24/18 at 09:00 Thiamine HCl (Vitamin B1) 100 mg DAILY PO Last administered on 03/25/18at 08:19; Admin Dose 100 MG; Start 03/25/18 at 09:00 LOTUS VILLALPANDO MD Mar 25, 2018 15:41
[2018-03-25 20:00] VITALS: BP 119/84; PULSE 79; RESP 17
[2018-03-25] MEDS: ATORVASTATIN 20 MG TAB PO SCH (21:35)
[2018-03-26 02:37] VITALS: BP 125/65; PULSE 78; RESP 18
[2018-03-26] MEDS: Insulin NOVOLOG SS MILD Algorithm (SS with meals and bedtime) SC SCH ×4 (07:00→21:00)
[2018-03-26 07:12] VITALS: BP 121/78; PULSE 60; RESP 16
[2018-03-26] MEDS: ASPIRIN 81 MG TAB PO SCH (08:22)
[2018-03-26] MEDS: SPIRONOLACTONE 25 MG TAB PO SCH (08:22)
[2018-03-26] MEDS: THIAMINE 100 MG TAB PO SCH (08:22)
[2018-03-26] MEDS: LORATADINE 10 MG TAB PO SCH (08:22)
[2018-03-26] MEDS: ISOSORBIDE DINITRATE 5 MG TAB PO SCH ×2 (08:22→21:11)
[2018-03-26] MEDS: LISINOPRIL 5 MG TAB PO SCH (08:23)
[2018-03-26] MEDS: CLOPIDOGREL 75 MG TAB PO SCH (08:23)
[2018-03-26] MEDS: FUROSEMIDE 20 MG INJ IV SCH (08:24)
[2018-03-26] MEDS: INSULIN GLARGINE [LANTus] (100 UNITS/ML) SYG SC SCH (09:00)
--- NOTE | 2018-03-26 12:36 | PN ---
Date/Time of Note Date/Time of Note DATE: 03/26/18 TIME: 12:35 Assessment/Plan VTE Prophylaxis Risk score (from Ns)>0 risk: 4 SCD applied (from Ns): Yes Pharmacological prophylaxis: NA/contraindicated Pharm contraindication: other (risk of hemorrhagic conersion of stroke ) Lines/Catheters IV [facility]from [facility] Saline Lock Urinary Cath still in place: No Assessment/Plan Assessment/Plan 1. 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 Continue current treatment and limit sedating medications - CT head with chronic changes as well as central volume loss vs NPH. MRI/MRA brain results noted - Speech consulted and plan for modified bariums swallow study today - hold off on all anticoagulation due to risk of conversion following recent stroke 2. Acute on chronic severe systolic heart failure- stable - Cardiology on board and appreciate recommendations. Continue current medical management - EKG negative for acute ST changes - ECHO results noted with EF 20% - lasix 20mg IV daily, cardiology has been following pt 3. CAD s/p PCI 09/2017 - continue all medications as tolerated 4. Uncontrolled DM - A1c noted - Diabetic education consultation placed - ISS and accuchecks 5. Expressive aphasia - speech on board- MBSS today Disposition - To SNF when cleared by cardiology Result Diagram: 03/22/18 0646 03/26/18 0507 Results 24hrs Laboratory Tests Test 03/25/18 17:08 03/25/18 21:41 03/26/18 05:07 03/26/18 08:16 Bedside Glucose 108 99 76 Sodium Level 139 Potassium Level 4.4 Chloride Level 103 Carbon Dioxide Level 29 Anion Gap 7 Blood Urea Nitrogen 27 H Creatinine 1.09 H Est Glomerular 50 L Filtrat Rate mL/min Glucose Level 77 Calcium Level 9.2 Test 03/26/18 12:00 Bedside Glucose 115 Subjective 24 Hr Interval Summary Free Text/Dictation plan for barium swallow today, afebirle, BP stable Exam/Review of Systems Exam Vitals Vital Signs Date Temp Pulse Resp B/P (MAP) Pulse Ox O2 O2 Flow FiO2 Time Delivery Rate 03/26/18 98.7 60 16 121/78 96 Room Air 07:12 (92) Intake and Output 03/25/18 03/25/18 03/26/18 1515:00 23:00 07:00 IntakeIntake Total 300 ml 120 ml BalanceBalance 300 ml 120 ml Exam General: alert, awake, no acute distress HEENT: RYAN< EOMI, follows commands NECK: JVD elevated, no thyromegaly HEART: regular with no S3, II/ systolic murmur at apex, PMI L LUNGS: Coarse sounds ABD: soft, NT, ND, +BS Neuro: No focal deficits Results Results 24hrs Laboratory Tests Test 03/25/18 17:08 03/25/18 21:41 03/26/18 05:07 03/26/18 08:16 Bedside Glucose 108 99 76 Sodium Level 139 Potassium Level 4.4 Chloride Level 103 Carbon Dioxide Level 29 Anion Gap 7 Blood Urea Nitrogen 27 H Creatinine 1.09 H Est Glomerular 50 L Filtrat Rate mL/min Glucose Level 77 Calcium Level 9.2 Test 03/26/18 12:00 Bedside Glucose 115 Medications Medication Current Medications Aspirin (Aspirin) 81 mg DAILY PO Last administered on 03/26/18 08:22; Admin Dose 81 MG; Start 03/19/18 at 09:00 Carvedilol (Coreg) 3.125 mg BID PO Last administered on 03/26/18at 08:23; Admin Dose 3.125 MG; Start 03/18/18 at 21:00 Clopidogrel Bisulfate (plaVIX) 75 mg DAILY PO Last administered on 03/26/18at 08:23; Admin Dose 75 MG; Start 03/19/18 at 09:00 Isosorbide Dinitrate (Isordil) 5 mg BID PO Last administered on 03/26/18at 08:22; Admin Dose 5 MG; Start 03/18/18 at 21:00 Lisinopril (Zestril) 5 mg DAILY PO Last administered on 03/26/18at 08:23; Admin Dose 5 MG; Start 03/19/18 at 09:00 Nitroglycerin (Nitroglycerin (Sl Tab) 0.4 Mg) 1 tab [id number] PRN SL CHEST PAIN; Start 03/18/18 at 16:30 IV Flush (NS 3 ml) 3 ml PER PROTOCOL IV ; Start 03/18/18 at 17:00 Ondansetron HCl (Zofran Inj) 4 mg Q6H PRN IV NAUSEA/VOMITING; Start 03/18/18 at 17:00 Acetaminophen (Tylenol Tab) 650 mg Q6H PRN PO .PAIN 1-3 OR TEMP; Start 03/18/18 at 17:00 Docusate Sodium (Colace) 100 mg Q12H PRN PO .CONSTIPATION; Start 03/18/18 at 17:00 Magnesium Hydroxide (Milk Of Mag) 30 ml DAILY PRN PO .CONSTIPATION; Start 03/18/18 at 17:00 Spironolactone (Aldactone) 12.5 mg DAILY PO Last administered on 03/26/18at 08:22; Admin Dose 12.5 MG; Start 03/19/18 at 09:00 Miscellaneous Information 1 ea NOTE XX ; Start 03/18/18 at 18:30 Glucose (Glutose) 15 gm Q15M PRN PO DECREASED GLUCOSE; Start 03/18/18 at 18:30 Glucose (Glutose) 22.5 gm Q15M PRN PO DECREASED GLUCOSE; Start 03/18/18 at 18:30 Dextrose (D50w Syringe) 25 ml Q15M PRN IV DECREASED GLUCOSE; Start 03/18/18 at 18:30 Dextrose (D50w Syringe) 50 ml Q15M PRN IV DECREASED GLUCOSE; Start 03/18/18 at 18:30 Glucagon (Glucagen) 1 mg Q15M PRN IM DECREASED GLUCOSE; Start 03/18/18 at 18:30 Glucose (Glutose) 15 gm Q15M PRN BUCCAL DECREASED GLUCOSE Last administered on 03/20/18at 06:14; Admin Dose 15 GM; Start 03/18/18 at 18:30 Insulin Glargine (Lantus) 18 units DAILY@0800 SC Last administered on 03/26/18at 09:00; Admin Dose 18 UNITS; Start 03/19/18 at 08:00 Lorazepam (Ativan) 0.5 mg DAILY PRN IV AGITATION/ANXIETY Last administered on 03/19/18at 16:04; Admin Dose 0.5 MG; Start 03/19/18 at 01:00 Atorvastatin Calcium (Lipitor) 60 mg QHS PO Last administered on 03/25/18at 21:35; Admin Dose 60 MG; Start 03/19/18 at 21:00 Insulin Aspart (Novolog Insulin Pen) (Adult SC Insulin - Mild Algorithm)... AC MEALS AND BEDTIME SC Last administered on 03/23/18at 12:46; Admin Dose 1 UNIT; Start 03/22/18 at 11:30 Loratadine (Claritin) 10 mg DAILY PO Last administered on 03/26/18 08:22; Admin Dose 10 MG; Start 03/22/18 at 14:00 Sodium Chloride (Deep Sea) 2 spray Q4H PRN NASAL congestion Last administered on 03/22/18 14:25; Admin Dose 2 SPRAY; Start 03/22/18 at 14:00 Furosemide (Lasix) 20 mg DAILY IV Last administered on 03/26/18 08:24; Admin Dose 20 MG; Start 03/24/18 at 09:00 Thiamine HCl (Vitamin B1) 100 mg DAILY PO Last administered on 03/26/18 08:22; Admin Dose 100 MG; Start 03/25/18 at 09:00 CORKY COOMBS MD Mar 26, 2018 12:36
[2018-03-26] MEDS ORDERED: BARIUM SULFATE 135 ML (E-Z HD) PO ONE (12:41)
[2018-03-26 14:09] VITALS: BP 109/73; PULSE 104; RESP 16
--- NOTE | 2018-03-26 14:09 | CONS ---
Assessment/Plan Cardiology NYHA: III Heart Failure Type: Acute on Chronic Heart Failure Type: Systolic Assessment/Plan Hospital Course (Demo Recall) IMPRESSION: 1. Positive troponin, assess significance. Patient not able to comment on chest pain.- now downtrending and likely a marker of CV disease and not true Nstemi 2. Abnormal electrocardiogram, nonspecific ST-T abnormalities, borderline intraventricular conduction delay. 3. Hypertension, uncontrolled. 4. History of stent placement 09/2017. 5. Encephalopathy. 6. Dyslipidemia-LDL 175 HDL 56 7. Cardiomyopathy-severely depressed LVEF 20% 8. CHF-systolic acute on chrnic Recc: -Now on med-surg -serial ecg's -Continue asa/plavix -Continue coreg/zestril -continue isordil -Continue aldactone -Continue statin -Continue lasix diuresis and follow volume status closely -ongoing neuro eval with improving overall MS and more alert but aphasic -s/p D/C lovenox -PT Consultation Date/Type/Reason Admit Date/Time Mar 18, 2018 at 16:08 Initial Consult Date 03/18/17 Type of Consult Cardiology Reason for Consultation CHF Requesting Provider: WARREN BUTLER MD Date/Time of Note DATE: 03/26/18 TIME: 14:07 Exam/Review of Systems Vital Signs Vitals Vital Signs Date Temp Pulse Resp B/P (MAP) Pulse Ox O2 O2 Flow FiO2 Time Delivery Rate 03/26/18 98.7 60 16 121/78 96 Room Air 07:12 (92) Intake and Output 03/25/18 03/25/18 03/26/18 1414:59 22:59 06:59 IntakeIntake Total 300 ml 120 ml BalanceBalance 300 ml 120 ml Exam Exam Review of Systems: CONSTITUTIONAL: No fevers, chills. PULMONARY: No sob CARDIOVASCULAR: No chest pain/palpitations GASTROINTESTINAL: No nausea/vomiting. GENITOURINARY: No hematuria/dysuria. MUSCULOSKELETAL: No myagias/arthalgias. PSYCHIATRIC: The patient denies depression. NEUROLOGIC: aphasic Constitutional: alert Psych: no complaints Head: normocephalic ENMT: mucosa pink and moist Neck: supple, jvd (9 cm water) Respiratory: diminished breath sounds (at bases/B) Cardiovascular: regular rate and rhythm Gastrointestinal: soft Musculoskeletal: muscle weakness (mild generalized) Extremities: edema (none) 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: other (aphasic) Labs Result Diagram: 03/22/18 0646 03/26/18 0507 Results 24hrs Laboratory Tests Test 03/25/18 17:08 03/25/18 21:41 03/26/18 05:07 03/26/18 08:16 Bedside Glucose 108 99 76 Sodium Level 139 Potassium Level 4.4 Chloride Level 103 Carbon Dioxide Level 29 Anion Gap 7 Blood Urea Nitrogen 27 H Creatinine 1.09 H Est Glomerular 50 L Filtrat Rate mL/min Glucose Level 77 Calcium Level 9.2 Test 03/26/18 12:00 Bedside Glucose 115 Medications Medications Current Medications Aspirin (Aspirin) 81 mg DAILY PO Last administered on 03/26/18 08:22; Admin Dose 81 MG; Start 03/19/18 at 09:00 Carvedilol (Coreg) 3.125 mg BID PO Last administered on 03/26/18 08:23; Admin Dose 3.125 MG; Start 03/18/18 at 21:00 Clopidogrel Bisulfate (plaVIX) 75 mg DAILY PO Last administered on 03/26/18 08:23; Admin Dose 75 MG; Start 03/19/18 at 09:00 Isosorbide Dinitrate (Isordil) 5 mg BID PO Last administered on 03/26/18 08:22; Admin Dose 5 MG; Start 03/18/18 at 21:00 Lisinopril (Zestril) 5 mg DAILY PO Last administered on 03/26/18 08:23; Admin Dose 5 MG; Start 03/19/18 at 09:00 Nitroglycerin (Nitroglycerin (Sl Tab) 0.4 Mg) 1 tab [id number] PRN SL CHEST PAIN; Start 03/18/18 at 16:30 IV Flush (NS 3 ml) 3 ml PER PROTOCOL IV ; Start 03/18/18 at 17:00 Ondansetron HCl (Zofran Inj) 4 mg Q6H PRN IV NAUSEA/VOMITING; Start 03/18/18 at 17:00 Acetaminophen (Tylenol Tab) 650 mg Q6H PRN PO .PAIN 1-3 OR TEMP; Start 03/18/18 at 17:00 Docusate Sodium (Colace) 100 mg Q12H PRN PO .CONSTIPATION; Start 03/18/18 at 17:00 Magnesium Hydroxide (Milk Of Mag) 30 ml DAILY PRN PO .CONSTIPATION; Start 03/18/18 at 17:00 Spironolactone (Aldactone) 12.5 mg DAILY PO Last administered on 03/26/18 08:22; Admin Dose 12.5 MG; Start 03/19/18 at 09:00 Miscellaneous Information 1 ea NOTE XX ; Start 03/18/18 at 18:30 Glucose (Glutose) 15 gm Q15M PRN PO DECREASED GLUCOSE; Start 03/18/18 at 18:30 Glucose (Glutose) 22.5 gm Q15M PRN PO DECREASED GLUCOSE; Start 03/18/18 at 18:30 Dextrose (D50w Syringe) 25 ml Q15M PRN IV DECREASED GLUCOSE; Start 03/18/18 at 18:30 Dextrose (D50w Syringe) 50 ml Q15M PRN IV DECREASED GLUCOSE; Start 03/18/18 at 18:30 Glucagon (Glucagen) 1 mg Q15M PRN IM DECREASED GLUCOSE; Start 03/18/18 at 18:30 Glucose (Glutose) 15 gm Q15M PRN BUCCAL DECREASED GLUCOSE Last administered on 03/20/18 06:14; Admin Dose 15 GM; Start 03/18/18 at 18:30 Insulin Glargine (Lantus) 18 units DAILY@0800 SC Last administered on 03/26/18 09:00; Admin Dose 18 UNITS; Start 03/19/18 at 08:00 Lorazepam (Ativan) 0.5 mg DAILY PRN IV AGITATION/ANXIETY Last administered on 03/19/18 16:04; Admin Dose 0.5 MG; Start 03/19/18 at 01:00 Atorvastatin Calcium (Lipitor) 60 mg QHS PO Last administered on 03/25/18at 21:35; Admin Dose 60 MG; Start 03/19/18 at 21:00 Insulin Aspart (Novolog Insulin Pen) (Adult SC Insulin - Mild Algorithm)... AC MEALS AND BEDTIME SC Last administered on 03/23/18 12:46; Admin Dose 1 UNIT; Start 03/22/18 at 11:30 Loratadine (Claritin) 10 mg DAILY PO Last administered on 03/26/18 08:22; Admin Dose 10 MG; Start 03/22/18 at 14:00 Sodium Chloride (Deep Sea) 2 spray Q4H PRN NASAL congestion Last administered on 2/10/19at 14:25; Admin Dose 2 SPRAY; Start 03/22/18 at 14:00 Furosemide (Lasix) 20 mg DAILY IV Last administered on 03/26/18 08:24; Admin D ose 20 MG; Start 03/24/18 at 09:00 Thiamine HCl (Vitamin B1) 100 mg DAILY PO Last administered on 03/26/18 08:22; Admin Dose 100 MG; Start 03/25/18 at 09:00 JANEEN KEENAN Mar 26, 2018 14:09
--- NOTE | 2018-03-26 14:22 | CONS ---
Assessment/Plan Assessment/Plan Hospital Course 67 yo F with hx of multiple cerebrovascular risk factors who presents with ams and other sx... for which neurology is consulted. MRI brain is most notable for 2 tiny acute R occipital infarcts.. A superimposed acute toxic-metabolic encephalopathy is additionally considered. MRA brain is most notable for a 50% L P2 segment stenosis EEG is without epileptiform activity. Echo is notable for EF 20% STACIE + b1 level was a little low P: Cont thiamine supplementation, orally.. Cont antiplatelet therapy/lipitor Cont medical management per primary Reorient as necessary Limit sedating medications where possible PT/OT/ST as necessary Will follow clinically Consultation Date/Type/Reason Admit Date/Time Mar 18, 2018 at 16:08 Type of Consult Neurology Reason for Consultation ams Requesting Provider: WARREN BUTLER MD Date/Time of Note DATE: 03/26/18 TIME: 14:22 24 HR Interval Summary Free Text/Dictation Continues medsurg monitoring. S/p video swallow eval. Pt has no complaints at this time. Exam Vital Signs Vitals Vital Signs Date Temp Pulse Resp B/P (MAP) Pulse Ox O2 O2 Flow FiO2 Time Delivery Rate 03/26/18 98.0 104 16 109/73 99 Room Air 14:09 (85) Intake and Output 03/25/18 03/25/18 03/26/18 1515:00 23:00 07:00 IntakeIntake Total 300 ml 120 ml BalanceBalance 300 ml 120 ml Exam PE: Gen Appearance: No Apparent Distress HEENT: Normocephalic Cardiovascular: Regular rate Lungs: Clear bilaterally Abdomen: Soft Extremities: Dry NE: The patient was alert though disoriented. Language was dysphasic, limited in fluency and comprehension.. Fund of knowledge was limited. Pupils were equal and reactive to light. There was no afferent pupillary defect. Visual linda were normal. Funduscopic examination was limited.. Extra-ocular movements were full. Ptosis was absent. There was no nystagmus. Facial sensation was normal. Face was symmetric with normal strength. Hearing was intact. Palate movements were normal. Neck strength was normal. There was normal tongue bulk and speed of movement. Tone was normal. Muscle bulk was normal. I did not see fasciculations. Arms and legs were symmetric. Vibration sensation was normal. Temperature and pinprick sensation was normal. Rapid alternating movements were normal. There was no dysmetria. There was no intention tremor. Gait was deferred due to bedrest. Arm and leg reflexes were symmetric. Powell's sign was absent. Plantar responses were flexor. SANDRA TORRES NP Mar 26, 2018 14:22
[2018-03-26] MEDS: LORAZEPAM 2 MG INJ IV PRN (16:50)
[2018-03-26 19:43] VITALS: BP 112/74; PULSE 91; RESP 20
[2018-03-26] MEDS: ATORVASTATIN 20 MG TAB PO SCH (21:16)
[2018-03-27 01:32] VITALS: BP 105/68; PULSE 67; RESP 20
[2018-03-27] MEDS: Insulin NOVOLOG SS MILD Algorithm (SS with meals and bedtime) SC SCH ×4 (07:00→20:59)
[2018-03-27 07:27] VITALS: BP 113/70; PULSE 69; RESP 16
[2018-03-27] MEDS: FUROSEMIDE 20 MG INJ IV SCH (08:14)
[2018-03-27] MEDS: CLOPIDOGREL 75 MG TAB PO SCH (08:15)
[2018-03-27] MEDS: ISOSORBIDE DINITRATE 5 MG TAB PO SCH ×2 (08:15→21:01)
[2018-03-27] MEDS: LORATADINE 10 MG TAB PO SCH (08:15)
[2018-03-27] MEDS: ASPIRIN 81 MG TAB PO SCH (08:15)
[2018-03-27] MEDS: THIAMINE 100 MG TAB PO SCH (08:15)
[2018-03-27] MEDS: SPIRONOLACTONE 25 MG TAB PO SCH (08:15)
[2018-03-27] MEDS: LISINOPRIL 5 MG TAB PO SCH (08:16)
[2018-03-27] MEDS: INSULIN GLARGINE [LANTus] (100 UNITS/ML) SYG SC SCH (08:17)
--- NOTE | 2018-03-27 13:28 | CONS ---
Assessment/Plan Assessment/Plan Hospital Course 67 yo F with hx of multiple cerebrovascular risk factors who presents with ams and other sx... for which neurology is consulted. MRI brain is most notable for 2 tiny acute R occipital infarcts.. A superimposed acute toxic-metabolic encephalopathy is additionally considered. MRA brain is most notable for a 50% L P2 segment stenosis EEG is without epileptiform activity. Echo is notable for EF 20% STACIE + B1 level was a little low P: Cont thiamine supplementation, orally.. Cont antiplatelet therapy/lipitor Cont medical management per primary Reorient as necessary Limit sedating medications where possible PT/OT/ST as necessary Will follow clinically Consultation Date/Type/Reason Admit Date/Time Mar 18, 2018 at 16:08 Type of Consult Neurology Reason for Consultation ams Requesting Provider: WARREN BUTLER MD Date/Time of Note DATE: 03/27/18 TIME: 13:28 24 HR Interval Summary Free Text/Dictation Continues medsurg monitoring. Pt reportedly aspirated during barium swallow eval yesterday and appears more tired today. Pt is unable to verbalize needs/concerns at this time. Exam Vital Signs Vitals Vital Signs Date Temp Pulse Resp B/P (MAP) Pulse Ox O2 O2 Flow FiO2 Time Delivery Rate 03/27/18 98.1 69 16 113/70 96 Room Air 07:27 (84) Intake and Output 03/26/18 03/26/18 03/27/18 1515:00 23:00 07:00 IntakeIntake Total 300 ml OutputOutput Total 1 ml BalanceBalance 300 ml -1 ml Exam PE: Gen Appearance: No Apparent Distress HEENT: Normocephalic Cardiovascular: Regular rate Lungs: Clear bilaterally Abdomen: Soft Extremities: Dry NE: The patient was alert though disoriented. Language was dysphasic, limited in fluency and comprehension.. Fund of knowledge was limited. Pupils were equal and reactive to light. There was no afferent pupillary defect. Visual linda were normal. Funduscopic examination was limited.. Extra-ocular movements were full. Ptosis was absent. There was no nystagmus. Facial sensation was normal. Face was symmetric with normal strength. Hearing was intact. Palate movements were normal. Neck strength was normal. There was normal tongue bulk and speed of movement. Tone was normal. Muscle bulk was normal. I did not see fasciculations. Arms and legs were symmetric. Vibration sensation was normal. Temperature and pinprick sensation was normal. Rapid alternating movements were normal. There was no dysmetria. There was no intention tremor. Gait was deferred due to bedrest. Arm and leg reflexes were symmetric. Powell's sign was absent. Plantar responses were flexor. SANDRA TORRES NP Mar 27, 2018 13:28 GARRY BURRELL Mar 27, 2018 20:52
[2018-03-27 14:00] VITALS: BP 98/5; PULSE 68; RESP 18
--- NOTE | 2018-03-27 15:23 | CONS ---
Assessment/Plan Cardiology NYHA: III Heart Failure Type: Acute on Chronic Heart Failure Type: Systolic Assessment/Plan Hospital Course (Demo Recall) IMPRESSION: 1. Positive troponin, assess significance. Patient not able to comment on chest pain.- now downtrending and likely a marker of CV disease and not true Nstemi 2. Abnormal electrocardiogram, nonspecific ST-T abnormalities, borderline intraventricular conduction delay. 3. Hypertension, uncontrolled. 4. History of stent placement 09/2017. 5. Encephalopathy. 6. Dyslipidemia-LDL 175 HDL 56 7. Cardiomyopathy-severely depressed LVEF 20% 8. CHF-systolic acute on chrnic Recc: -Now on med-surg -serial ecg's -Continue asa/plavix -Continue coreg/zestril -continue isordil -Continue aldactone -Continue statin -Continue lasix diuresis and follow volume status closely -ongoing neuro eval with improving overall MS and more alert but aphasic -s/p D/C lovenox -PT Consultation Date/Type/Reason Admit Date/Time Mar 18, 2018 at 16:08 Initial Consult Date 03/18/17 Type of Consult Cardiology Reason for Consultation positive troponin Requesting Provider: WARREN BUTLER MD Date/Time of Note DATE: 03/27/18 TIME: 15:22 Exam/Review of Systems Vital Signs Vitals Vital Signs Date Temp Pulse Resp B/P (MAP) Pulse Ox O2 O2 Flow FiO2 Time Delivery Rate 03/27/18 98.1 68 18 98/5 (36) 96 14:00 03/27/18 Room Air 07:27 Intake and Output 03/26/18 03/26/18 03/27/18 1515:00 23:00 07:00 IntakeIntake Total 300 ml OutputOutput Total 1 ml BalanceBalance 300 ml -1 ml Exam Exam Review of Systems: CONSTITUTIONAL: No fevers, chills. PULMONARY: No sob CARDIOVASCULAR: No chest pain/palpitations GASTROINTESTINAL: No nausea/vomiting. GENITOURINARY: No hematuria/dysuria. MUSCULOSKELETAL: No myagias/arthalgias. PSYCHIATRIC: The patient denies depression. NEUROLOGIC: No weakness Constitutional: alert Psych: no complaints Head: normocephalic ENMT: mucosa pink and moist Neck: supple, jvd (9 cm water) Respiratory: diminished breath sounds (at bases/B) Cardiovascular: regular rate and rhythm Gastrointestinal: soft, non-tender Musculoskeletal: muscle tone (normal) Extremities: edema (none) 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: other (No focal deficits) Labs Result Diagram: 03/27/187 03/27/18 0417 Results 24hrs Laboratory Tests Test 03/26/18 17:25 03/26/18 21:13 03/27/18 04:17 03/27/18 08:11 Bedside Glucose 156 153 82 White Blood Count 5.5 # Red Blood Count 5.02 Hemoglobin 13.3 Hematocrit 42.9 Mean Corpuscular 85.5 Volume Mean Corpuscular 26.5 L Hemoglobin Mean Corpuscular 31.0 L Hemoglobin Concent Red Cell 14.3 Distribution Width Platelet Count 296 Mean Platelet Volume 10.7 H Immature 0.200 Granulocytes % Neutrophils % 39.5 Lymphocytes % 43.4 Monocytes % 11.0 Eosinophils % 4.6 Basophils % 1.3 Nucleated Red Blood 0.0 Cells % Immature 0.010 Granulocytes # Neutrophils # 2.2 Lymphocytes # 2.4 Monocytes # 0.6 Eosinophils # 0.3 Basophils # 0.1 Nucleated Red Blood 0.0 Cells # Prothrombin Time 12.8 Prothrombin Time 1.0 Ratio INR International 0.95 Normalized Ratio Activated 24.5 Partial Thromboplast Time Sodium Level 137 Potassium Level 4.4 Chloride Level 102 Carbon Dioxide Level 27 Anion Gap 8 Blood Urea Nitrogen 35 H Creatinine 1.09 H Est Glomerular 50 L Filtrat Rate mL/min Glucose Level 116 Calcium Level 9.1 Magnesium Level 1.8 Total Bilirubin 0.7 Direct Bilirubin 0.00 Indirect Bilirubin 0.7 Aspartate Amino 65 H Transf (AST/SGOT) Alanine 57 Aminotransferase (AL T/SGPT) Alkaline Phosphatase 137 H Total Protein 6.9 Albumin 3.4 Globulin 3.50 H Albumin/Globulin 0.97 Ratio Test 03/27/18 11:43 03/27/18 12:38 Bedside Glucose 209 190 Medications Medications Current Medications Aspirin (Aspirin) 81 mg DAILY PO Last administered on 03/27/18at 08:15; Admin Dose 81 MG; Start 03/19/18 at 09:00 Carvedilol (Coreg) 3.125 mg BID PO Last administered on 03/27/18at 08:15; Admin Dose 3.125 MG; Start 03/18/18 at 21:00 Clopidogrel Bisulfate (plaVIX) 75 mg DAILY PO Last administered on 03/27/18at 08:15; Admin Dose 75 MG; Start 03/19/18 at 09:00 Isosorbide Dinitrate (Isordil) 5 mg BID PO Last administered on 03/27/18at 08:15; Admin Dose 5 MG; Start 03/18/18 at 21:00 Lisinopril (Zestril) 5 mg DAILY PO Last administered on 03/27/18at 08:16; Admin Dose 5 MG; Start 03/19/18 at 09:00 Nitroglycerin (Nitroglycerin (Sl Tab) 0.4 Mg) 1 tab [id number] PRN SL CHEST PAIN; Start 03/18/18 at 16:30 IV Flush (NS 3 ml) 3 ml PER PROTOCOL IV ; Start 03/18/18 at 17:00 Ondansetron HCl (Zofran Inj) 4 mg Q6H PRN IV NAUSEA/VOMITING; Start 03/18/18 at 17:00 Acetaminophen (Tylenol Tab) 650 mg Q6H PRN PO .PAIN 1-3 OR TEMP; Start 03/18/18 at 17:00 Docusate Sodium (Colace) 100 mg Q12H PRN PO .CONSTIPATION; Start 03/18/18 at 17:00 Magnesium Hydroxide (Milk Of Mag) 30 ml DAILY PRN PO .CONSTIPATION; Start 03/18/18 at 17:00 Spironolactone (Aldactone) 12.5 mg DAILY PO Last administered on 03/27/18at 08:15; Admin Dose 12.5 MG; Start 03/19/18 at 09:00 Miscellaneous Information 1 ea NOTE XX ; Start 03/18/18 at 18:30 Glucose (Glutose) 15 gm Q15M PRN PO DECREASED GLUCOSE; Start 03/18/18 at 18:30 Glucose (Glutose) 22.5 gm Q15M PRN PO DECREASED GLUCOSE; Start 03/18/18 at 18:30 Dextrose (D50w Syringe) 25 ml Q15M PRN IV DECREASED GLUCOSE; Start 03/18/18 at 18:30 Dextrose (D50w Syringe) 50 ml Q15M PRN IV DECREASED GLUCOSE; Start 03/18/18 at 18:30 Glucagon (Glucagen) 1 mg Q15M PRN IM DECREASED GLUCOSE; Start 03/18/18 at 18:30 Glucose (Glutose) 15 gm Q15M PRN BUCCAL DECREASED GLUCOSE Last administered on 03/20/18 06:14; Admin Dose 15 GM; Start 03/18/18 at 18:30 Insulin Glargine (Lantus) 18 units DAILY@0800 SC Last administered on 03/27/18 08:17; Admin Dose 18 UNITS; Start 03/19/18 at 08:00 Lorazepam (Ativan) 0.5 mg DAILY PRN IV AGITATION/ANXIETY Last administered on 03/26/18 16:50; Admin Dose 0.5 MG; Start 03/19/18 at 01:00 Atorvastatin Calcium (Lipitor) 60 mg QHS PO Last administered on 03/26/18 21:16; Admin Dose 60 MG; Start 03/19/18 at 21:00 Insulin Aspart (Novolog Insulin Pen) (Adult SC Insulin - Mild Algorithm)... AC MEALS AND BEDTIME SC Last administered on 03/27/18 11:45; Admin Dose 2 UNIT; Start 03/22/18 at 11:30 Loratadine (Claritin) 10 mg DAILY PO Last administered on 03/27/18 08:15; Admin Dose 10 MG; Start 03/22/18 at 14:00 Sodium Chloride (Deep Sea) 2 spray Q4H PRN NASAL congestion Last administered on 03/22/18 14:25; Admin Dose 2 SPRAY; Start 03/22/18 at 14:00 Furosemide (Lasix) 20 mg DAILY IV Last administered on 03/27/18 08:14; Admin Dose 20 MG; Start 03/24/18 at 09:00 Thiamine HCl (Vitamin B1) 100 mg DAILY PO Last administered on 03/27/18 08:15; Admin Dose 100 MG; Start 03/25/18 at 09:00 JANEEN KEENAN Mar 27, 2018 15:23
--- NOTE | 2018-03-27 16:18 | PN ---
Date/Time of Note Date/Time of Note DATE: 03/27/18 TIME: 16:17 Assessment/Plan VTE Prophylaxis Risk score (from [facility])>0 risk: 4 SCD applied (from [facility]): Yes Pharmacological prophylaxis: heparin Lines/Catheters IV Catheter Type (from Nrsg): Saline Lock Urinary Cath still in place: No Assessment/Plan Hospital Course 67 yo female with h/o systolic CHF, CAD who presented with CVA 1. Occipital and Right [employer]IAN strokes - Neurology on board and recommendations appreciated. Continue current treatment and limit sedating medications - CT head with chronic changes as well as central volume loss vs NPH. MRI/MRA brain results noted - Speech consulted and doing well on pureed diet. will continue trials to see if able to advance - hold off on all anticoagulation due to risk of conversion following recent stroke 2. Acute on chronic severe systolic heart failure- stable - Cardiology on board and appreciate recommendations. Continue current medical management - EKG negative for acute ST changes - ECHO results noted with EF 20% 3. CAD s/p PCI 09/2017 - continue all medications as tolerated 4. Uncontrolled DM - A1c noted - Diabetic education consultation placed - ISS and accuchecks 5. Expressive aphasia - speech on board Diarrhea: - C Diff assay pending Disposition - To SNF Result Diagram: 03/27/187 03/27/18 0417 Results 24hrs Laboratory Tests Test 03/26/18 17:25 03/26/18 21:13 03/27/18 04:17 03/27/18 08:11 Bedside Glucose 156 153 82 White Blood Count 5.5 # Red Blood Count 5.02 Hemoglobin 13.3 Hematocrit 42.9 Mean Corpuscular 85.5 Volume Mean Corpuscular 26.5 L Hemoglobin Mean Corpuscular 31.0 L Hemoglobin Concent Red Cell 14.3 Distribution Width Platelet Count 296 Mean Platelet Volume 10.7 H Immature 0.200 Granulocytes % Neutrophils % 39.5 Lymphocytes % 43.4 Monocytes % 11.0 Eosinophils % 4.6 Basophils % 1.3 Nucleated Red Blood 0.0 Cells % Immature 0.010 Granulocytes # Neutrophils # 2.2 Lymphocytes # 2.4 Monocytes # 0.6 Eosinophils # 0.3 Basophils # 0.1 Nucleated Red Blood 0.0 Cells # Prothrombin Time 12.8 Prothrombin Time 1.0 Ratio INR International 0.95 Normalized Ratio Activated 24.5 Partial Thromboplast Time Sodium Level 137 Potassium Level 4.4 Chloride Level 102 Carbon Dioxide Level 27 Anion Gap 8 Blood Urea Nitrogen 35 H Creatinine 1.09 H Est Glomerular 50 L Filtrat Rate mL/min Glucose Level 116 Calcium Level 9.1 Magnesium Level 1.8 Total Bilirubin 0.7 Direct Bilirubin 0.00 Indirect Bilirubin 0.7 Aspartate Amino 65 H Transf (AST/SGOT) Alanine 57 Aminotransferase (AL T/SGPT) Alkaline Phosphatase 137 H Total Protein 6.9 Albumin 3.4 Globulin 3.50 H Albumin/Globulin 0.97 Ratio Test 03/27/18 11:43 03/27/18 12:38 Bedside Glucose 209 190 Subjective 24 Hr Interval Summary Free Text/Dictation No change to clinical status Comfortable no complaints Awaiting placement Exam/Review of Systems Exam Vitals Vital Signs Date Temp Pulse Resp B/P (MAP) Pulse Ox O2 O2 Flow FiO2 Time Delivery Rate 03/27/18 98.1 68 18 98/5 (36) 96 14:00 03/27/18 Room Air 07:27 Intake and Output 03/26/18 03/26/18 03/27/18 1515:00 23:00 07:00 IntakeIntake Total 300 ml OutputOutput Total 1 ml BalanceBalance 300 ml -1 ml Constitutional: alert, oriented, well developed Psych: no complaints, nl mood/affect Head: normocephalic, atraumatic Eyes: nl conjunctiva, EOMI, nl lids, nl sclera, PERRL ENMT: nl external ears & nose, nl lips & teeth, nl nasal mucosa & septum Neck: supple, non-tender Respiratory: clear to auscultation, normal air movement Cardiovascular: regular rate and rhythm, nl pulses Gastrointestinal: soft, nl liver, spleen, non-tender Musculoskeletal: nl extremities to inspection, nl gait and stance Extremities: normal pulses 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: [employer] MANAGER II-XII intact, nl mental status, nl speech, nl strength Skin: nl turgor; No rash or lesions Lymph: nl lymph nodes Results Results 24hrs Laboratory Tests Test 03/26/18 17:25 03/26/18 21:13 03/27/18 04:17 03/27/18 08:11 Bedside Glucose 156 153 82 White Blood Count 5.5 # Red Blood Count 5.02 Hemoglobin 13.3 Hematocrit 42.9 Mean Corpuscular 85.5 Volume Mean Corpuscular 26.5 L Hemoglobin Mean Corpuscular 31.0 L Hemoglobin Concent Red Cell 14.3 Distribution Width Platelet Count 296 Mean Platelet Volume 10.7 H Immature 0.200 Granulocytes % Neutrophils % 39.5 Lymphocytes % 43.4 Monocytes % 11.0 Eosinophils % 4.6 Basophils % 1.3 Nucleated Red Blood 0.0 Cells % Immature 0.010 Granulocytes # Neutrophils # 2.2 Lymphocytes # 2.4 Monocytes # 0.6 Eosinophils # 0.3 Basophils # 0.1 Nucleated Red Blood 0.0 Cells # Prothrombin Time 12.8 Prothrombin Time 1.0 Ratio INR International 0.95 Normalized Ratio Activated 24.5 Partial Thromboplast Time Sodium Level 137 Potassium Level 4.4 Chloride Level 102 Carbon Dioxide Level 27 Anion Gap 8 Blood Urea Nitrogen 35 H Creatinine 1.09 H Est Glomerular 50 L Filtrat Rate mL/min Glucose Level 116 Calcium Level 9.1 Magnesium Level 1.8 Total Bilirubin 0.7 Direct Bilirubin 0.00 Indirect Bilirubin 0.7 Aspartate Amino 65 H Transf (AST/SGOT) Alanine 57 Aminotransferase (AL T/SGPT) Alkaline Phosphatase 137 H Total Protein 6.9 Albumin 3.4 Globulin 3.50 H Albumin/Globulin 0.97 Ratio Test 03/27/18 11:43 03/27/18 12:38 Bedside Glucose 209 190 Medications Medication Current Medications Aspirin (Aspirin) 81 mg DAILY PO Last administered on 03/27/18 08:15; Admin Dose 81 MG; Start 03/19/18 at 09:00 Carvedilol (Coreg) 3.125 mg BID PO Last administered on 03/27/18 08:15; Admin Dose 3.125 MG; Start 03/18/18 at 21:00 Clopidogrel Bisulfate (plaVIX) 75 mg DAILY PO Last administered on 03/27/18 08:15; Admin Dose 75 MG; Start 03/19/18 at 09:00 Isosorbide Dinitrate (Isordil) 5 mg BID PO Last administered on 03/27/18 08:15; Admin Dose 5 MG; Start 03/18/18 at 21:00 Lisinopril (Zestril) 5 mg DAILY PO Last administered on 03/27/18 08:16; Admin Dose 5 MG; Start 03/19/18 at 09:00 Nitroglycerin (Nitroglycerin (Sl Tab) 0.4 Mg) 1 tab [id number] PRN SL CHEST PAIN; Start 03/18/18 at 16:30 IV Flush (NS 3 ml) 3 ml PER PROTOCOL IV ; Start 03/18/18 at 17:00 Ondansetron HCl (Zofran Inj) 4 mg Q6H PRN IV NAUSEA/VOMITING; Start 03/18/18 at 17:00 Acetaminophen (Tylenol Tab) 650 mg Q6H PRN PO .PAIN 1-3 OR TEMP; Start 03/18/18 at 17:00 Docusate Sodium (Colace) 100 mg Q12H PRN PO .CONSTIPATION; Start 03/18/18 at 17:00 Magnesium Hydroxide (Milk Of Mag) 30 ml DAILY PRN PO .CONSTIPATION; Start 03/18/18 at 17:00 Spironolactone (Aldactone) 12.5 mg DAILY PO Last administered on 03/27/18at 08:15; Admin Dose 12.5 MG; Start 03/19/18 at 09:00 Miscellaneous Information 1 ea NOTE XX ; Start 03/18/18 at 18:30 Glucose (Glutose) 15 gm Q15M PRN PO DECREASED GLUCOSE; Start 03/18/18 at 18:30 Glucose (Glutose) 22.5 gm Q15M PRN PO DECREASED GLUCOSE; Start 03/18/18 at 18:30 Dextrose (D50w Syringe) 25 ml Q15M PRN IV DECREASED GLUCOSE; Start 03/18/18 at 18:30 Dextrose (D50w Syringe) 50 ml Q15M PRN IV DECREASED GLUCOSE; Start 03/18/18 at 18:30 Glucagon (Glucagen) 1 mg Q15M PRN IM DECREASED GLUCOSE; Start 03/18/18 at 18:30 Glucose (Glutose) 15 gm Q15M PRN BUCCAL DECREASED GLUCOSE Last administered on 03/20/18at 06:14; Admin Dose 15 GM; Start 03/18/18 at 18:30 Insulin Glargine (Lantus) 18 units DAILY@0800 SC Last administered on 03/27/18at 08:17; Admin Dose 18 UNITS; Start 03/19/18 at 08:00 Lorazepam (Ativan) 0.5 mg DAILY PRN IV AGITATION/ANXIETY Last administered on 03/26/18at 16:50; Admin Dose 0.5 MG; Start 03/19/18 at 01:00 Atorvastatin Calcium (Lipitor) 60 mg QHS PO Last administered on 03/26/18 21: 16; Admin Dose 60 MG; Start 03/19/18 at 21:00 Insulin Aspart (Novolog Insulin Pen) (Adult SC Insulin - Mild Algorithm)... AC MEALS AND BEDTIME SC Last administered on 03/27/18 11:45; Admin Dose 2 UNIT; Start 03/22/18 at 11:30 Loratadine (Claritin) 10 mg DAILY PO Last administered on 03/27/18 08:15; Admin Dose 10 MG; Start 03/22/18 at 14:00 Sodium Chloride (Deep Sea) 2 spray Q4H PRN NASAL congestion Last administered on 03/22/18 14:25; Admin Dose 2 SPRAY; Start 03/22/18 at 14:00 Furosemide (Lasix) 20 mg DAILY IV Last administered on 03/27/18 08:14; Admin Dose 20 MG; Start 03/24/18 at 09:00 Thiamine HCl (Vitamin B1) 100 mg DAILY PO Last administered on 03/27/18 08:15; Admin Dose 100 MG; Start 03/25/18 at 09:00 LOTUS VILLALPANDO MD Mar 27, 2018 16:18
[2018-03-27 20:00] VITALS: BP 102/70; PULSE 69; RESP 19
[2018-03-27] MEDS: ATORVASTATIN 20 MG TAB PO SCH (21:01)
[2018-03-28 02:00] VITALS: BP 115/86; PULSE 71; RESP 17
[2018-03-28] MEDS: Insulin NOVOLOG SS MILD Algorithm (SS with meals and bedtime) SC SCH ×4 (07:00→21:00)
[2018-03-28 08:00] VITALS: BP 119/68; RESP 18
[2018-03-28] MEDS: THIAMINE 100 MG TAB PO SCH (09:11)
[2018-03-28] MEDS: CLOPIDOGREL 75 MG TAB PO SCH (09:11)
[2018-03-28] MEDS: FUROSEMIDE 20 MG INJ IV SCH (09:11)
[2018-03-28] MEDS: ISOSORBIDE DINITRATE 5 MG TAB PO SCH ×2 (09:11→21:12)
[2018-03-28] MEDS: ASPIRIN 81 MG TAB PO SCH (09:11)
[2018-03-28] MEDS: LORATADINE 10 MG TAB PO SCH (09:12)
[2018-03-28] MEDS: LISINOPRIL 5 MG TAB PO SCH (09:12)
[2018-03-28] MEDS: SPIRONOLACTONE 25 MG TAB PO SCH (09:12)
[2018-03-28] MEDS: INSULIN GLARGINE [LANTus] (100 UNITS/ML) SYG SC SCH (09:17)
--- NOTE | 2018-03-28 10:59 | CONS ---
Assessment/Plan Assessment/Plan Hospital Course 67 yo F with hx of multiple cerebrovascular risk factors who presents with ams and other sx... for which neurology is consulted. MRI brain is most notable for 2 tiny acute R occipital infarcts.. A superimposed acute toxic-metabolic encephalopathy is additionally considered. MRA brain is most notable for a 50% L P2 segment stenosis EEG is without epileptiform activity. Echo is notable for EF 20% STACIE + B1 level was a little low P: Cont thiamine supplementation, orally.. Cont antiplatelet therapy/lipitor Cont medical management per primary Reorient as necessary Limit sedating medications where possible PT/OT/ST as necessary Will follow clinically Consultation Date/Type/Reason Admit Date/Time Mar 18, 2018 at 16:08 Type of Consult Neurology Requesting Provider: WARREN BUTLER MD Date/Time of Note DATE: 03/28/18 TIME: 10:58 24 HR Interval Summary Free Text/Dictation Continues acute care Exam Vital Signs Vitals Vital Signs Date Temp Pulse Resp B/P (MAP) Pulse Ox O2 O2 Flow FiO2 Time Delivery Rate 03/28/18 97.6 18 119/68 99 Room Air 08:00 (85) 03/28/18 71 02:00 Exam Comprehensive completed; stable from prior GARRY BURRELL Mar 28, 2018 10:59
--- NOTE | 2018-03-28 11:57 | PN ---
Date/Time of Note Date/Time of Note DATE: 03/28/18 TIME: 11:54 Assessment/Plan VTE Prophylaxis Risk score (from [facility])>0 risk: 4 SCD applied (from [facility]): Yes Pharmacological prophylaxis: heparin Lines/Catheters IV Catheter Type (from [facility]): Saline Lock Urinary Cath still in place: No Assessment/Plan Problems: (1) Delirium Status: Acute Comment: Pleasant but not fully oriented and lacks capacity at this time please see neurology consult (2) Dementia Status: Chronic Comment: Noted. Please note that the patient appears to have 2 recent CVAs. She is on aspirin and Plavix for those at this time. Qualifiers: Dementia type: vascular dementia Dementia behavioral disturbance: without behavioral disturbance Qualified Codes: F01.50 - Vascular dementia without behavioral disturbance (3) Grade IV diastolic dysfunction Status: Chronic Comment: Rate control and beta-blockade in combination with low-dose MYA inhibitor as much as the patient can tolerate. (4) Systolic heart failure, chronic Status: Chronic Comment: As above. Please see cardiology consult (5) Asymmetric septal hypertrophy Status: Chronic Comment: Noted in rate control. (6) Diabetes mellitus type 2 in nonobese Status: Chronic Comment: Adequate glycemic control at the present time although she had miserable outpatient control (7) Hyperlipidemia Status: Chronic Comment: Full dose statin therapy Qualifiers: Hyperlipidemia type: pure hypercholesterolemia Qualified Codes: E78.00 - Pure hypercholesterolemia, unspecified Result Diagram: 03/27/18 0417 03/27/18 0417 Results 24hrs Laboratory Tests Test 03/27/18 12:38 03/27/18 17:06 03/27/18 20:57 03/28/18 01:56 Bedside Glucose 190 178 190 96 Test 03/28/18 08:21 Bedside Glucose 92 Subjective 24 Hr Interval Summary Free Text/Dictation Patient is pleasant but not fully oriented. Appears to not have capacity Constitutional: no complaints Respiratory: no complaints Cardiovascular: no complaints Gastrointestinal: no complaints Exam/Review of Systems Exam Vitals Vital Signs Date Temp Pulse Resp B/P (MAP) Pulse Ox O2 O2 Flow FiO2 Time Delivery Rate 03/28/18 97.6 18 119/68 99 Room Air 08:00 (85) 03/28/18 71 02:00 Constitutional: alert, oriented Respiratory: clear to auscultation, normal air movement Cardiovascular: regular rate and rhythm, nl pulses, murmurs/extra sounds Gastrointestinal: soft, nl liver, spleen, non-tender Results Results 24hrs Laboratory Tests Test 03/27/18 12:38 03/27/18 17:06 03/27/18 20:57 03/28/18 01:56 Bedside Glucose 190 178 190 96 Test 03/28/18 08:21 Bedside Glucose 92 Medications Medication Current Medications Aspirin (Aspirin) 81 mg DAILY PO Last administered on 03/28/18 09:11; Admin Dose 81 MG; Start 03/19/18 at 09:00 Carvedilol (Coreg) 3.125 mg BID PO Last administered on 03/28/18 09:11; Admin Dose 3.125 MG; Start 03/18/18 at 21:00 Clopidogrel Bisulfate (plaVIX) 75 mg DAILY PO Last administered on 03/28/18 09:11; Admin Dose 75 MG; Start 03/19/18 at 09:00 Isosorbide Dinitrate (Isordil) 5 mg BID PO Last administered on 03/28/18 09:11; Admin Dose 5 MG; Start 03/18/18 at 21:00 Lisinopril (Zestril) 5 mg DAILY PO Last administered on 03/28/18 09:12; Admin Dose 5 MG; Start 03/19/18 at 09:00 Nitroglycerin (Nitroglycerin (Sl Tab) 0.4 Mg) 1 tab [id number] PRN SL CHEST PAIN; Start 03/18/18 at 16:30 IV Flush (NS 3 ml) 3 ml PER PROTOCOL IV ; Start 03/18/18 at 17:00 Ondansetron HCl (Zofran Inj) 4 mg Q6H PRN IV NAUSEA/VOMITING; Start 03/18/18 at 17:00 Acetaminophen (Tylenol Tab) 650 mg Q6H PRN PO .PAIN 1-3 OR TEMP; Start 03/18/18 at 17:00 Docusate Sodium (Colace) 100 mg Q12H PRN PO .CONSTIPATION; Start 03/18/18 at 17:00 Magnesium Hydroxide (Milk Of Mag) 30 ml DAILY PRN PO .CONSTIPATION; Start 03/18/18 at 17:00 Spironolactone (Aldactone) 12.5 mg DAILY PO Last administered on 03/28/18 09:12; Admin Dose 12.5 MG; Start 03/19/18 at 09:00 Miscellaneous Information 1 ea NOTE XX ; Start 03/18/18 at 18:30 Glucose (Glutose) 15 gm Q15M PRN PO DECREASED GLUCOSE; Start 03/18/18 at 18:30 Glucose (Glutose) 22.5 gm Q15M PRN PO DECREASED GLUCOSE; Start 03/18/18 at 18:30 Dextrose (D50w Syringe) 25 ml Q15M PRN IV DECREASED GLUCOSE; Start 03/18/18 at 18:30 Dextrose (D50w Syringe) 50 ml Q15M PRN IV DECREASED GLUCOSE; Start 03/18/18 at 18:30 Glucagon (Glucagen) 1 mg Q15M PRN IM DECREASED GLUCOSE; Start 03/18/18 at 18:30 Glucose (Glutose) 15 gm Q15M PRN BUCCAL DECREASED GLUCOSE Last administered on 03/20/18 06:14; Admin Dose 15 GM; Start 03/18/18 at 18:30 Insulin Glargine (Lantus) 18 units DAILY@0800 SC Last administered on 03/28/18 09:17; Admin Dose 18 UNITS; Start 03/19/18 at 08:00 Lorazepam (Ativan) 0.5 mg DAILY PRN IV AGITATION/ANXIETY Last administered on 03/26/18 16:50; Admin Dose 0.5 MG; Start 03/19/18 at 01:00 Insulin Aspart (Novolog Insulin Pen) (Adult SC Insulin - Mild Algorithm)... AC MEALS AND BEDTIME SC Last administered on 03/27/18 20:59; Admin Dose 1 UNIT; Start 03/22/18 at 11:30 Loratadine (Claritin) 10 mg DAILY PO Last administered on 03/28/18 09:12; Admin Dose 10 MG; Start 03/22/18 at 14:00 Sodium Chloride (Deep Sea) 2 spray Q4H PRN NASAL congestion Last administered on 03/22/18 14:25; Admin Dose 2 SPRAY; Start 03/22/18 at 14:00 Furosemide (Lasix) 20 mg DAILY IV Last administered on 03/28/18 09:11; Admin Dose 20 MG; Start 03/24/18 at 09:00 Thiamine HCl (Vitamin B1) 100 mg DAILY PO Last administered on 03/28/18 09:11; Admin Dose 100 MG; Start 03/25/18 at 09:00; Stop 04/24/18 at 08:59 Atorvastatin Calcium (Lipitor) 80 mg QHS PO ; Start 03/28/18 at 21:00 JULIO CESAR DENG MD Mar 28, 2018 11:57
[2018-03-28 14:00] VITALS: BP 102/69; PULSE 64; RESP 18
--- NOTE | 2018-03-28 15:48 | CONS ---
Consult Date/Type/Reason Admit Date/Time Mar 18, 2018 at 16:08 Initial Consult Date Requesting Provider: WARREN BUTLER MD Date/Time of Note DATE: 03/28/18 TIME: 15:46 Subjective NO acute events - pt stable - no CP - feels better now. ROS: No fever, no chills, no nausea, no vomiting, no diarrhea/constipation No recent weight changes No chest pain, no PND, no orthopnea - improved SOB. No dizziness, blurred vision No thirst, no heat or cold intolerance Objective Vitals Vital Signs Date Temp Pulse Resp B/P (MAP) Pulse Ox O2 O2 Flow FiO2 Time Delivery Rate 03/28/18 98.7 64 18 102/69 99 14:00 (80) 03/28/18 Room Air 08:00 Exam General: WN/WD/NAD, AOx 2-3 HEENT: Unicetric/atraumatic/EOMI ( follow commands) NECK: JVD elevated, no thyromegaly Lymph: no lymphadenopathy HEART: regular with no S3, II/ systolic murmur at apex LUNGS: Coarse sounds ABD: soft, NT, ND, +BS : Intact Neuro: non focal SKIN: chronic changes EXT: trace edema Results/Medications Result Diagram: 03/27/18 0417 03/27/18416 Results 24 hrs Laboratory Tests Test 03/27/18 17:06 03/27/18 20:57 03/28/18 01:56 03/28/18 08:21 Bedside Glucose 178 190 96 92 Test 03/28/18 12:35 Bedside Glucose 159 Home Meds Reported Medications Furosemide* (Furosemide*) 40 Mg Tablet, 40 MG PO BID, TAB 03/18/18 Nitroglycerin* (Nitroglycerin* SL) 0.4 Mg Tab.subl, 0.4 MG SL Q5MIN PRN for CHEST PAIN, BOTTLE 03/18/18 Spironolactone* (Aldactone*) 5 Mg/Ml (COMPOUNDED) Susp, 12.5 MG PO DAILY for 30 Days, ML (COMPOUNDED) 03/18/18 Lisinopril* (Lisinopril*) 5 Mg Tablet, 5 MG PO DAILY, #30 TAB 03/18/18 Clopidogrel Bisulfate (Clopidogrel) 75 Mg Tablet, 75 MG PO DAILY, #30 TAB 03/18/18 Atorvastatin* (Atorvastatin*) 40 Mg Tablet, 40 MG PO QHS, #30 TAB 03/18/18 Carvedilol* (Coreg*) 3.125 Mg Tablet, 3.125 MG PO BID, #60 TAB 03/18/18 Aspirin* (Aspirin* Chew) 81 Mg Tab.chew, 81 MG PO DAILY, TAB.CHEW 03/18/18 Isosorbide Dinitrate* (Isosorbide Dinitrate*) 5 Mg Tablet, 5 MG PO BID, TAB 03/18/18 Medications Current Medications Aspirin (Aspirin) 81 mg DAILY PO Last administered on 03/28/18at 09:11; Admin Dose 81 MG; Start 03/19/18 at 09:00 Carvedilol (Coreg) 3.125 mg BID PO Last administered on 03/28/18at 09:11; Admin Dose 3.125 MG; Start 03/18/18 at 21:00 Clopidogrel Bisulfate (plaVIX) 75 mg DAILY PO Last administered on 03/28/18at 09:11; Admin Dose 75 MG; Start 03/19/18 at 09:00 Isosorbide Dinitrate (Isordil) 5 mg BID PO Last administered on 03/28/18at 09:11; Admin Dose 5 MG; Start 03/18/18 at 21:00 Lisinopril (Zestril) 5 mg DAILY PO Last administered on 03/28/18at 09:12; Admin Dose 5 MG; Start 03/19/18 at 09:00 Nitroglycerin (Nitroglycerin (Sl Tab) 0.4 Mg) 1 tab [id number] PRN SL CHEST PAIN; Start 03/18/18 at 16:30 IV Flush (NS 3 ml) 3 ml PER PROTOCOL IV ; Start 03/18/18 at 17:00 Ondansetron HCl (Zofran Inj) 4 mg Q6H PRN IV NAUSEA/VOMITING; Start 03/18/18 at 17:00 Acetaminophen (Tylenol Tab) 650 mg Q6H PRN PO .PAIN 1-3 OR TEMP; Start 03/18/18 at 17:00 Docusate Sodium (Colace) 100 mg Q12H PRN PO .CONSTIPATION; Start 03/18/18 at 17:00 Magnesium Hydroxide (Milk Of Mag) 30 ml DAILY PRN PO .CONSTIPATION; Start 03/18/18 at 17:00 Spironolactone (Aldactone) 12.5 mg DAILY PO Last administered on 03/28/18 09:12; Admin Dose 12.5 MG; Start 03/19/18 at 09:00 Miscellaneous Information 1 ea NOTE XX ; Start 03/18/18 at 18:30 Glucose (Glutose) 15 gm Q15M PRN PO DECREASED GLUCOSE; Start 03/18/18 at 18:30 Glucose (Glutose) 22.5 gm Q15M PRN PO DECREASED GLUCOSE; Start 03/18/18 at 18:30 Dextrose (D50w Syringe) 25 ml Q15M PRN IV DECREASED GLUCOSE; Start 03/18/18 at 18:30 Dextrose (D50w Syringe) 50 ml Q15M PRN IV DECREASED GLUCOSE; Start 03/18/18 at 18:30 Glucagon (Glucagen) 1 mg Q15M PRN IM DECREASED GLUCOSE; Start 03/18/18 at 18:30 Glucose (Glutose) 15 gm Q15M PRN BUCCAL DECREASED GLUCOSE Last administered on 03/20/18 06:14; Admin Dose 15 GM; Start 03/18/18 at 18:30 Insulin Glargine (Lantus) 18 units DAILY@0800 SC Last administered on 03/28/18 09:17; Admin Dose 18 UNITS; Start 03/19/18 at 08:00 Lorazepam (Ativan) 0.5 mg DAILY PRN IV AGITATION/ANXIETY Last administered on 03/26/18 16:50; Admin Dose 0.5 MG; Start 03/19/18 at 01:00 Insulin Aspart (Novolog Insulin Pen) (Adult SC Insulin - Mild Algorithm)... AC MEALS AND BEDTIME SC Last administered on 03/28/18 12:37; Admin Dose 1 UNIT; Start 03/22/18 at 11:30 Loratadine (Claritin) 10 mg DAILY PO Last administered on 03/28/18 09:12; Admin Dose 10 MG; Start 03/22/18 at 14:00 Sodium Chloride (Deep Sea) 2 spray Q4H PRN NASAL congestion Last administered on 03/22/18 14:25; Admin Dose 2 SPRAY; Start 03/22/18 at 14:00 Furosemide (Lasix) 20 mg DAILY IV Last administered on 03/28/18 09:11; Admin Dose 20 MG; Start 2/12/19 at 09:00 Thiamine HCl (Vitamin B1) 100 mg DAILY PO Last administered on 03/28/18at 09:11; Admin Dose 100 MG; Start 03/25/18 at 09:00; Stop 04/24/18 at 08:59 Atorvastatin Calcium (Lipitor) 80 mg QHS PO ; Start 03/28/18 at 21:00 Assessment/Plan Hospital Course (Demo Recall) 1. Positive troponin, assess significance. Patient not able to comment on chest pain.- now downtrending and likely a marker of CV disease and not true Nstemi - no CP now, no intervention planned. 2. Abnormal electrocardiogram, nonspecific ST-T abnormalities, borderline intraventricular conduction delay. Offtele - no Sx. 3. Hypertension, uncontrolled. 4. History of stent placement 09/2017. 5. Encephalopathy. 6. Dyslipidemia-LDL 175 HDL 56 7. Cardiomyopathy-severely depressed LVEF 20% - outpt ICD eval. 8. CHF-systolic acute on chrnic - improved fluid status. KARENA PINEDO MD Mar 28, 2018 15:48
[2018-03-28] MEDS: LORAZEPAM 2 MG INJ IV PRN (16:58)
[2018-03-28 19:31] VITALS: BP 105/56; PULSE 73; RESP 18
[2018-03-28] MEDS: ATORVASTATIN 20 MG TAB PO SCH (21:13)
[2018-03-29 01:39] VITALS: BP 113/73; PULSE 65; RESP 18
[2018-03-29] MEDS: Insulin NOVOLOG SS MILD Algorithm (SS with meals and bedtime) SC SCH ×4 (07:00→21:00)
[2018-03-29 07:26] VITALS: BP 113/74; PULSE 64; RESP 16
[2018-03-29] MEDS: INSULIN GLARGINE [LANTus] (100 UNITS/ML) SYG SC SCH (08:32)
[2018-03-29] MEDS: CLOPIDOGREL 75 MG TAB PO SCH (08:33)
[2018-03-29] MEDS: ASPIRIN 81 MG TAB PO SCH (08:34)
[2018-03-29] MEDS: ISOSORBIDE DINITRATE 5 MG TAB PO SCH ×2 (08:34→21:04)
[2018-03-29] MEDS: LORATADINE 10 MG TAB PO SCH (08:34)
[2018-03-29] MEDS: THIAMINE 100 MG TAB PO SCH (08:34)
[2018-03-29] MEDS: LISINOPRIL 5 MG TAB PO SCH (08:34)
[2018-03-29] MEDS: FUROSEMIDE 20 MG INJ IV SCH (08:36)
[2018-03-29] MEDS: SPIRONOLACTONE 25 MG TAB PO SCH (08:36)
--- NOTE | 2018-03-29 11:54 | PN ---
Date/Time of Note Date/Time of Note DATE: 03/29/18 TIME: 11:51 Assessment/Plan VTE Prophylaxis Risk score (from Ns)>0 risk: 4 SCD applied (from Ns): Yes Pharmacological prophylaxis: heparin Lines/Catheters IV [facility]from [facility] Saline Lock Urinary Cath still in place: No Assessment/Plan Problems: (1) Dementia Status: Chronic Comment: This is certainly a significant issue. The patient's family at the present time is declined to have invasive enteral feeding. Please see the swallowing study and speech therapy notes. We will reassess this tomorrow. In the meantime consideration for a family conference to revisit CODE STATUS is a consideration Qualifiers: Dementia type: vascular dementia Dementia behavioral disturbance: without behavioral disturbance Qualified Codes: F01.50 - Vascular dementia without behavioral disturbance (2) At risk for aspiration Status: Acute Comment: Repeat speech therapy evaluation tomorrow (3) Diabetes mellitus type 2 in nonobese Status: Chronic Comment: Adequate glycemic control (4) Grade IV diastolic dysfunction Status: Chronic Comment: On medications and compensated (5) Asymmetric septal hypertrophy Status: Chronic Comment: On medications and compensated (6) Systolic heart failure, chronic Status: Chronic Comment: On medications and compensated (7) Hyperlipidemia Status: Chronic Comment: On statin therapy. Qualifiers: Hyperlipidemia type: pure hypercholesterolemia Qualified Codes: E78.00 - Pure hypercholesterolemia, unspecified Result Diagram: 03/29/1862203/29/1823 Results 24hrs Laboratory Tests Test 03/28/18 12:35 03/28/18 16:57 03/28/18 21:09 03/29/18 06:23 Bedside Glucose 159 141 171 White Blood Count 4.6 L Red Blood Count 5.11 Hemoglobin 13.5 Hematocrit 44.5 Mean Corpuscular 87.1 Volume Mean Corpuscular 26.4 L Hemoglobin Mean Corpuscular 30.3 L Hemoglobin Concent Red Cell 14.1 Distribution Width Platelet Count 282 Mean Platelet Volume 10.8 H Immature 0.200 Granulocytes % Neutrophils % 33.5 L Lymphocytes % 47.8 Monocytes % 12.3 H Eosinophils % 4.7 Basophils % 1.5 Nucleated Red Blood 0.0 Cells % Immature 0.010 Granulocytes # Neutrophils # 1.6 Lymphocytes # 2.2 Monocytes # 0.6 Eosinophils # 0.2 Basophils # 0.1 Nucleated Red Blood 0.0 Cells # Sodium Level 140 Potassium Level 4.2 Chloride Level 100 Carbon Dioxide Level 30 Anion Gap 10 Blood Urea Nitrogen 27 H Creatinine 1.02 H Est Glomerular 54 L Filtrat Rate mL/min Glucose Level 97 Calcium Level 9.2 Phosphorus Level 4.5 Magnesium Level 1.9 Total Bilirubin 0.8 Direct Bilirubin 0.00 Indirect Bilirubin 0.8 Aspartate Amino 66 H Transf (AST/SGOT) Alanine 73 H Aminotransferase (AL T/SGPT) Alkaline Phosphatase 120 Total Protein 7.5 Albumin 3.7 Globulin 3.80 H Albumin/Globulin 0.97 Ratio Test 03/29/18 08:31 Bedside Glucose 72 Subjective 24 Hr Interval Summary Free Text/Dictation Patient reports that something does not seem right to her. See detailed review of systems below Constitutional: no complaints (Denies fevers chills or sweats) ENT: no complaints Respiratory: no complaints (No cough no wheezing no shortness of breath) Cardiovascular: no complaints (No chest pain no palpitations no orthopnea no PND) Gastrointestinal: no complaints (Denies all symptoms) Genitourinary: no complaints Neurologic: no complaints Exam/Review of Systems Exam Vitals Vital Signs Date Temp Pulse Resp B/P (MAP) Pulse Ox O2 O2 Flow FiO2 Time Delivery Rate 03/29/18 98.0 64 16 113/74 97 07:26 (87) 03/28/18 Room Air 08:00 Intake and Output 03/28/18 03/28/18 03/29/18 1515:00 23:00 07:00 IntakeIntake Total 600 ml 118 ml 118 ml BalanceBalance 600 ml 118 ml 118 ml Exam Does not have capacity for decision-making Constitutional: alert Neck: supple, non-tender Respiratory: clear to auscultation, normal air movement Cardiovascular: regular rate and rhythm, nl pulses Results Results 24hrs Laboratory Tests Test 03/28/18 12:35 03/28/18 16:57 03/28/18 21:09 03/29/18 06:23 Bedside Glucose 159 141 171 White Blood Count 4.6 L Red Blood Count 5.11 Hemoglobin 13.5 Hematocrit 44.5 Mean Corpuscular 87.1 Volume Mean Corpuscular 26.4 L Hemoglobin Mean Corpuscular 30.3 L Hemoglobin Concent Red Cell 14.1 Distribution Width Platelet Count 282 Mean Platelet Volume 10.8 H Immature 0.200 Granulocytes % Neutrophils % 33.5 L Lymphocytes % 47.8 Monocytes % 12.3 H Eosinophils % 4.7 Basophils % 1.5 Nucleated Red Blood 0.0 Cells % Immature 0.010 Granulocytes # Neutrophils # 1.6 Lymphocytes # 2.2 Monocytes # 0.6 Eosinophils # 0.2 Basophils # 0.1 Nucleated Red Blood 0.0 Cells # Sodium Level 140 Potassium Level 4.2 Chloride Level 100 Carbon Dioxide Level 30 Anion Gap 10 Blood Urea Nitrogen 27 H Creatinine 1.02 H Est Glomerular 54 L Filtrat Rate mL/min Glucose Level 97 Calcium Level 9.2 Phosphorus Level 4.5 Magnesium Level 1.9 Total Bilirubin 0.8 Direct Bilirubin 0.00 Indirect Bilirubin 0.8 Aspartate Amino 66 H Transf (AST/SGOT) Alanine 73 H Aminotransferase (AL T/SGPT) Alkaline Phosphatase 120 Total Protein 7.5 Albumin 3.7 Globulin 3.80 H Albumin/Globulin 0.97 Ratio Test 03/29/18 08:31 Bedside Glucose 72 Medications Medication Current Medications Aspirin (Aspirin) 81 mg DAILY PO Last administered on 03/29/18 08:34; Admin Dose 81 MG; Start 03/19/18 at 09:00 Carvedilol (Coreg) 3.125 mg BID PO Last administered on 03/29/18at 08:35; Admin Dose 3.125 MG; Start 03/18/18 at 21:00 Clopidogrel Bisulfate (plaVIX) 75 mg DAILY PO Last administered on 03/29/18at 08:33; Admin Dose 75 MG; Start 03/19/18 at 09:00 Isosorbide Dinitrate (Isordil) 5 mg BID PO Last administered on 03/29/18at 08:34; Admin Dose 5 MG; Start 03/18/18 at 21:00 Lisinopril (Zestril) 5 mg DAILY PO Last administered on 03/29/18at 08:34; Admin Dose 5 MG; Start 03/19/18 at 09:00 Nitroglycerin (Nitroglycerin (Sl Tab) 0.4 Mg) 1 tab [id number] PRN SL CHEST PAIN; Start 03/18/18 at 16:30 IV Flush (NS 3 ml) 3 ml PER PROTOCOL IV ; Start 03/18/18 at 17:00 Ondansetron HCl (Zofran Inj) 4 mg Q6H PRN IV NAUSEA/VOMITING; Start 03/18/18 at 17:00 Acetaminophen (Tylenol Tab) 650 mg Q6H PRN PO .PAIN 1-3 OR TEMP; Start 03/18/18 at 17:00 Docusate Sodium (Colace) 100 mg Q12H PRN PO .CONSTIPATION; Start 03/18/18 at 17:00 Magnesium Hydroxide (Milk Of Mag) 30 ml DAILY PRN PO .CONSTIPATION; Start 03/18/18 at 17:00 Spironolactone (Aldactone) 12.5 mg DAILY PO Last administered on 03/29/18at 08:36; Admin Dose 12.5 MG; Start 03/19/18 at 09:00 Miscellaneous Information 1 ea NOTE XX ; Start 03/18/18 at 18:30 Glucose (Glutose) 15 gm Q15M PRN PO DECREASED GLUCOSE; Start 03/18/18 at 18:30 Glucose (Glutose) 22.5 gm Q15M PRN PO DECREASED GLUCOSE; Start 03/18/18 at 18:30 Dextrose (D50w Syringe) 25 ml Q15M PRN IV DECREASED GLUCOSE; Start 03/18/18 at 18:30 Dextrose (D50w Syringe) 50 ml Q15M PRN IV DECREASED GLUCOSE; Start 03/18/18 at 18:30 Glucagon (Glucagen) 1 mg Q15M PRN IM DECREASED GLUCOSE; Start 03/18/18 at 18:30 Glucose (Glutose) 15 gm Q15M PRN BUCCAL DECREASED GLUCOSE Last administered on 03/20/18at 06:14; Admin Dose 15 GM; Start 03/18/18 at 18:30 Insulin Glargine (Lantus) 18 units DAILY@0800 SC Last administered on 03/29/18at 08:32; Admin Dose 18 UNITS; Start 03/19/18 at 08:00 Lorazepam (Ativan) 0.5 mg DAILY PRN IV AGITATION/ANXIETY Last administered on 03/28/18at 16:58; Admin Dose 0.5 MG; Start 03/19/18 at 01:00 Insulin Aspart (Novolog Insulin Pen) (Adult SC Insulin - Mild Algorithm)... AC MEALS AND BEDTIME SC Last administered on 03/28/18at 12:37; Admin Dose 1 UNIT; Start 03/22/18 at 11:30 Loratadine (Claritin) 10 mg DAILY PO Last administered on 2/17/19at 08:34; Admin Dose 10 MG; Start 03/22/18 at 14:00 Sodium Chloride (Deep Sea) 2 spray Q4H PRN NASAL congestion Last administered on 03/22/18 14:25; Admin Dose 2 SPRAY; Start 03/22/18 at 14:00 Furosemide (Lasix) 20 mg DAILY IV Last administered on 03/29/18 08:36; Admin Dose 20 MG; Start 03/24/18 at 09:00 Thiamine HCl (Vitamin B1) 100 mg DAILY PO Last administered on 03/29/18 08:34; Admin Dose 100 MG; Start 03/25/18 at 09:00; Stop 04/24/18 at 08:59 Atorvastatin Calcium (Lipitor) 80 mg QHS PO Last administered on 03/28/18 21:13; Admin Dose 80 MG; Start 03/28/18 at 21:00 JULIO CESAR DENG MD Mar 29, 2018 11:54
--- NOTE | 2018-03-29 12:35 | CONS ---
Assessment/Plan Assessment/Plan Hospital Course 67 yo F with hx of multiple cerebrovascular risk factors who presents with ams and other sx... for which neurology is consulted. MRI brain is most notable for 2 tiny acute R occipital infarcts.. A superimposed acute toxic-metabolic encephalopathy is additionally considered. MRA brain is most notable for a 50% L P2 segment stenosis EEG is without epileptiform activity. Echo is notable for EF 20% STACIE + B1 level was a little low P: Cont thiamine supplementation, orally.. Cont antiplatelet therapy/lipitor Cont medical management per primary Reorient as necessary Limit sedating medications where possible PT/OT/ST as necessary Will follow clinically Consultation Date/Type/Reason Admit Date/Time Mar 18, 2018 at 16:08 Type of Consult Neurology Requesting Provider: WARREN BUTLER MD Date/Time of Note DATE: 03/29/18 TIME: 12:34 24 HR Interval Summary Free Text/Dictation Continues acute care Exam Vital Signs Vitals Vital Signs Date Temp Pulse Resp B/P (MAP) Pulse Ox O2 O2 Flow FiO2 Time Delivery Rate 03/29/18 98.0 64 16 113/74 97 07:26 (87) 03/28/18 Room Air 08:00 Intake and Output 03/28/18 03/28/18 03/29/18 1414:59 22:59 06:59 IntakeIntake Total 600 ml 118 ml 118 ml BalanceBalance 600 ml 118 ml 118 ml Exam Comprehensive: stable from prior GARRY BURRELL Mar 29, 2018 12:35
[2018-03-29 14:28] VITALS: BP 114/76; PULSE 59; RESP 18
--- NOTE | 2018-03-29 15:08 | CONS ---
Consult Date/Type/Reason Admit Date/Time Mar 18, 2018 at 16:08 Initial Consult Date Requesting Provider: WARREN BUTLER MD Date/Time of Note DATE: 03/29/18 TIME: 15:07 Subjective NO acute events - pt comfortable - plan for PT. ROS: No fever, no chills, no nausea, no vomiting, no diarrhea/constipation No recent weight changes No chest pain, no PND, no orthopnea No dizziness, blurred vision No thirst, no heat or cold intolerance Objective Vitals Vital Signs Date Temp Pulse Resp B/P (MAP) Pulse Ox O2 O2 Flow FiO2 Time Delivery Rate 03/29/18 98.2 59 18 114/76 98 14:28 (89) 03/28/18 Room Air 08:00 Intake and Output 03/28/18 03/28/18 03/29/18 1515:00 23:00 07:00 IntakeIntake Total 600 ml 118 ml 118 ml BalanceBalance 600 ml 118 ml 118 ml Exam General: WN/WD/NAD, AOx 2-3 HEENT: Unicetric/atraumatic/EOMI ( follow commands) NECK: JVD elevated, no thyromegaly Lymph: no lymphadenopathy HEART: regular with no S3, II/ systolic murmur at apex LUNGS: Coarse sounds ABD: soft, NT, ND, +BS : Intact Neuro: non focal SKIN: chronic changes EXT: trace edema Results/Medications Result Diagram: 03/29/1862203/29/18622 Results 24 hrs Laboratory Tests Test 03/28/18 16:57 03/28/18 21:09 03/29/18 06:23 03/29/18 08:31 Bedside Glucose 141 171 72 White Blood Count 4.6 L Red Blood Count 5.11 Hemoglobin 13.5 Hematocrit 44.5 Mean Corpuscular 87.1 Volume Mean Corpuscular 26.4 L Hemoglobin Mean Corpuscular 30.3 L Hemoglobin Concent Red Cell 14.1 Distribution Width Platelet Count 282 Mean Platelet Volume 10.8 H Immature 0.200 Granulocytes % Neutrophils % 33.5 L Lymphocytes % 47.8 Monocytes % 12.3 H Eosinophils % 4.7 Basophils % 1.5 Nucleated Red Blood 0.0 Cells % Immature 0.010 Granulocytes # Neutrophils # 1.6 Lymphocytes # 2.2 Monocytes # 0.6 Eosinophils # 0.2 Basophils # 0.1 Nucleated Red Blood 0.0 Cells # Sodium Level 140 Potassium Level 4.2 Chloride Level 100 Carbon Dioxide Level 30 Anion Gap 10 Blood Urea Nitrogen 27 H Creatinine 1.02 H Est Glomerular 54 L Filtrat Rate mL/min Glucose Level 97 Calcium Level 9.2 Phosphorus Level 4.5 Magnesium Level 1.9 Total Bilirubin 0.8 Direct Bilirubin 0.00 Indirect Bilirubin 0.8 Aspartate Amino 66 H Transf (AST/SGOT) Alanine 73 H Aminotransferase (AL T/SGPT) Alkaline Phosphatase 120 Total Protein 7.5 Albumin 3.7 Globulin 3.80 H Albumin/Globulin 0.97 Ratio Test 03/29/18 13:08 Bedside Glucose 95 Home Meds Reported Medications Furosemide* (Furosemide*) 40 Mg Tablet, 40 MG PO BID, TAB 03/18/18 Nitroglycerin* (Nitroglycerin* SL) 0.4 Mg Tab.subl, 0.4 MG SL Q5MIN PRN for CHEST PAIN, BOTTLE 03/18/18 Spironolactone* (Aldactone*) 5 Mg/Ml (COMPOUNDED) Susp, 12.5 MG PO DAILY for 30 Days, ML (COMPOUNDED) 03/18/18 Lisinopril* (Lisinopril*) 5 Mg Tablet, 5 MG PO DAILY, #30 TAB 03/18/18 Clopidogrel Bisulfate (Clopidogrel) 75 Mg Tablet, 75 MG PO DAILY, #30 TAB 03/18/18 Atorvastatin* (Atorvastatin*) 40 Mg Tablet, 40 MG PO QHS, #30 TAB 03/18/18 Carvedilol* (Coreg*) 3.125 Mg Tablet, 3.125 MG PO BID, #60 TAB 03/18/18 Aspirin* (Aspirin* Chew) 81 Mg Tab.chew, 81 MG PO DAILY, TAB.CHEW 03/18/18 Isosorbide Dinitrate* (Isosorbide Dinitrate*) 5 Mg Tablet, 5 MG PO BID, TAB 03/18/18 Medications Current Medications Aspirin (Aspirin) 81 mg DAILY PO Last administered on 03/29/18at 08:34; Admin Dose 81 MG; Start 03/19/18 at 09:00 Carvedilol (Coreg) 3.125 mg BID PO Last administered on 03/29/18at 08:35; Admin Dose 3.125 MG; Start 03/18/18 at 21:00 Clopidogrel Bisulfate (plaVIX) 75 mg DAILY PO Last administered on 03/29/18at 08:33; Admin Dose 75 MG; Start 03/19/18 at 09:00 Isosorbide Dinitrate (Isordil) 5 mg BID PO Last administered on 03/29/18at 08:34; Admin Dose 5 MG; Start 03/18/18 at 21:00 Lisinopril (Zestril) 5 mg DAILY PO Last administered on 03/29/18at 08:34; Admin Dose 5 MG; Start 03/19/18 at 09:00 Nitroglycerin (Nitroglycerin (Sl Tab) 0.4 Mg) 1 tab [id number] PRN SL CHEST PAIN; Start 03/18/18 at 16:30 IV Flush (NS 3 ml) 3 ml PER PROTOCOL IV ; Start 03/18/18 at 17:00 Ondansetron HCl (Zofran Inj) 4 mg Q6H PRN IV NAUSEA/VOMITING; Start 03/18/18 at 17:00 Acetaminophen (Tylenol Tab) 650 mg Q6H PRN PO .PAIN 1-3 OR TEMP; Start 03/18/18 at 17:00 Docusate Sodium (Colace) 100 mg Q12H PRN PO .CONSTIPATION; Start 03/18/18 at 17:00 Magnesium Hydroxide (Milk Of Mag) 30 ml DAILY PRN PO .CONSTIPATION; Start 03/18/18 at 17:00 Spironolactone (Aldactone) 12.5 mg DAILY PO Last administered on 03/29/18at 08:36; Admin Dose 12.5 MG; Start 03/19/18 at 09:00 Miscellaneous Information 1 ea NOTE XX ; Start 03/18/18 at 18:30 Glucose (Glutose) 15 gm Q15M PRN PO DECREASED GLUCOSE; Start 03/18/18 at 18:30 Glucose (Glutose) 22.5 gm Q15M PRN PO DECREASED GLUCOSE; Start 03/18/18 at 18:30 Dextrose (D50w Syringe) 25 ml Q15M PRN IV DECREASED GLUCOSE; Start 03/18/18 at 18:30 Dextrose (D50w Syringe) 50 ml Q15M PRN IV DECREASED GLUCOSE; Start 03/18/18 at 18:30 Glucagon (Glucagen) 1 mg Q15M PRN IM DECREASED GLUCOSE; Start 03/18/18 at 18:30 Glucose (Glutose) 15 gm Q15M PRN BUCCAL DECREASED GLUCOSE Last administered on 03/20/18 06:14; Admin Dose 15 GM; Start 03/18/18 at 18:30 Lorazepam (Ativan) 0.5 mg DAILY PRN IV AGITATION/ANXIETY Last administered on 03/28/18at 16:58; Admin Dose 0.5 MG; Start 03/19/18 at 01:00 Insulin Aspart (Novolog Insulin Pen) (Adult SC Insulin - Mild Algorithm)... AC MEALS AND BEDTIME SC Last administered on 03/28/18at 12:37; Admin Dose 1 UNIT; Start 03/22/18 at 11:30 Loratadine (Claritin) 10 mg DAILY PO Last administered on 03/29/18 08:34; Admin Dose 10 MG; Start 03/22/18 at 14:00 Sodium Chloride (Deep Sea) 2 spray Q4H PRN NASAL congestion Last administered on 03/22/18 14:25; Admin Dose 2 SPRAY; Start 03/22/18 at 14:00 Furosemide (Lasix) 20 mg DAILY IV Last administered on 03/29/18at 08:36; Admin Dose 20 MG; Start 03/24/18 at 09:00 Thiamine HCl (Vitamin B1) 100 mg DAILY PO Last administered on 03/29/18 08:34; Admin Dose 100 MG; Start 03/25/18 at 09:00; Stop 04/24/18 at 08:59 Atorvastatin Calcium (Lipitor) 80 mg QHS PO Last administered on 03/28/18at 21:13; Admin Dose 80 MG; Start 03/28/18 at 21:00 Insulin Glargine (Lantus) 17 units DAILY@0800 SC ; Start 03/30/18 at 08:00 Assessment/Plan Hospital Course (Demo Recall) 1. Positive troponin, assess significance. Patient not able to comment on chest pain.- now downtrending and likely a marker of CV disease and not true Nstemi - no CP now, no intervention planned. NNO active CP now. 2. Abnormal electrocardiogram, nonspecific ST-T abnormalities, borderline intraventricular conduction delay. Offtele - no Sx. Treated. 3. Hypertension - better now. 4. History of stent placement 09/2017. On therpy. 5. Encephalopathy. 6. Dyslipidemia-LDL 175 HDL 56 7. Cardiomyopathy-severely depressed LVEF 20% - outpt ICD eval. Stable fluid st atus. 8. CHF-systolic acute on chrnic - improved fluid status. KARENA PINEDO MD Mar 29, 2018 15:08
[2018-03-29 19:18] VITALS: BP 104/66; PULSE 66; RESP 18
[2018-03-29] MEDS: ATORVASTATIN 20 MG TAB PO SCH (21:04)
[2018-03-30 01:46] VITALS: BP 99/66; PULSE 68; RESP 18
[2018-03-30] MEDS: Insulin NOVOLOG SS MILD Algorithm (SS with meals and bedtime) SC SCH ×4 (07:00→20:58)
[2018-03-30 08:00] VITALS: BP 121/75; PULSE 70; RESP 18
[2018-03-30] MEDS ORDERED: INSULIN GLARGINE [LANTus] (100 UNITS/ML) SYG SC SCH (08:00)
[2018-03-30] MEDS: SPIRONOLACTONE 25 MG TAB PO SCH (08:41)
[2018-03-30] MEDS: CLOPIDOGREL 75 MG TAB PO SCH (08:42)
[2018-03-30] MEDS: ISOSORBIDE DINITRATE 5 MG TAB PO SCH ×2 (08:42→20:57)
[2018-03-30] MEDS: THIAMINE 100 MG TAB PO SCH (08:42)
[2018-03-30] MEDS: ASPIRIN 81 MG TAB PO SCH (08:43)
[2018-03-30] MEDS: LORATADINE 10 MG TAB PO SCH (08:43)
[2018-03-30] MEDS: LISINOPRIL 5 MG TAB PO SCH (08:43)
[2018-03-30] MEDS: FUROSEMIDE 20 MG INJ IV SCH (08:44)
--- NOTE | 2018-03-30 13:25 | PN ---
Date/Time of Note Date/Time of Note DATE: 03/30/18 TIME: 13:25 Assessment/Plan VTE Prophylaxis Risk score (from Nsg)>0 risk: 4 SCD applied (from Nsg): Yes Pharmacological prophylaxis: heparin Lines/Catheters IV Catheter Type (from Nrsg): Saline Lock Urinary Cath still in place: No Assessment/Plan Hospital Course 67 yo female with h/o systolic CHF, CAD who presented with CVA 1. Occipital and Right [employer]ATOR TRACK strokes - Neurology on board and recommendations appreciated. Continue current treatment and limit sedating medications - CT head with chronic changes as well as central volume loss vs NPH. MRI/MRA brain results noted - Speech consulted and doing well on pureed diet. will continue trials to see if able to advance - hold off on all anticoagulation due to risk of conversion following recent stroke 2. Acute on chronic severe systolic heart failure- stable - Cardiology on board and appreciate recommendations. Continue current medical management - EKG negative for acute ST changes - ECHO results noted with EF 20% 3. CAD s/p PCI 09/2017 - continue all medications as tolerated 4. Uncontrolled DM - A1c noted - Diabetic education consultation placed - ISS and accuchecks 5. Expressive aphasia - speech on board Diarrhea: - C Diff assay pending Disposition - To SNF Result Diagram: 03/29/18 0623 03/29/18 0623 Results 24hrs Laboratory Tests Test 03/29/18 17:07 03/29/18 21:02 03/30/18 08:40 03/30/18 12:41 Bedside Glucose 152 163 76 114 Subjective 24 Hr Interval Summary Free Text/Dictation Working with PT. No change to clinical status Exam/Review of Systems Exam Vitals Vital Signs Date Temp Pulse Resp B/P (MAP) Pulse Ox O2 O2 Flow FiO2 Time Delivery Rate 03/30/18 98.0 70 18 121/75 98 08:00 (90) 03/28/18 Room Air 08:00 Intake and Output 03/29/18 03/29/18 03/30/18 1515:00 23:00 07:00 IntakeIntake Total 320 ml 358 ml BalanceBalance 320 ml 358 ml Constitutional: alert, oriented, well developed Psych: no complaints, nl mood/affect Head: normocephalic, atraumatic Eyes: nl conjunctiva, EOMI, nl lids, nl sclera, PERRL ENMT: nl external ears & nose, nl lips & teeth, nl nasal mucosa & septum Neck: supple, non-tender Respiratory: clear to auscultation, normal air movement Cardiovascular: regular rate and rhythm, nl pulses Gastrointestinal: soft, nl liver, spleen, non-tender Musculoskeletal: nl extremities to inspection, nl gait and stance Extremities: normal pulses 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: 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 II-XII intact, nl mental status, nl speech, nl strength Skin: nl turgor; No rash or lesions Lymph: nl lymph nodes Results Results 24hrs Laboratory Tests Test 03/29/18 17:07 03/29/18 21:02 03/30/18 08:40 03/30/18 12:41 Bedside Glucose 152 163 76 114 Medications Medication Current Medications Aspirin (Aspirin) 81 mg DAILY PO Last administered on 03/30/18 08:43; Admin Dose 81 MG; Start 03/19/18 at 09:00 Carvedilol (Coreg) 3.125 mg BID PO Last administered on 03/30/18 08:42; Admin Dose 3.125 MG; Start 03/18/18 at 21:00 Clopidogrel Bisulfate (plaVIX) 75 mg DAILY PO Last administered on 03/30/18 08:42; Admin Dose 75 MG; Start 03/19/18 at 09:00 Isosorbide Dinitrate (Isordil) 5 mg BID PO Last administered on 03/30/18at 08:42; Admin Dose 5 MG; Start 03/18/18 at 21:00 Lisinopril (Zestril) 5 mg DAILY PO Last administered on 03/30/18 08:43; Admin Dose 5 MG; Start 03/19/18 at 09:00 Nitroglycerin (Nitroglycerin (Sl Tab) 0.4 Mg) 1 tab [id number] PRN SL CHEST PAIN; Start 03/18/18 at 16:30 IV Flush (NS 3 ml) 3 ml PER PROTOCOL IV ; Start 03/18/18 at 17:00 Ondansetron HCl (Zofran Inj) 4 mg Q6H PRN IV NAUSEA/VOMITING; Start 03/18/18 at 17:00 Acetaminophen (Tylenol Tab) 650 mg Q6H PRN PO .PAIN 1-3 OR TEMP; Start 03/18/18 at 17:00 Docusate Sodium (Colace) 100 mg Q12H PRN PO .CONSTIPATION; Start 03/18/18 at 17:00 Magnesium Hydroxide (Milk Of Mag) 30 ml DAILY PRN PO .CONSTIPATION; Start 03/18/18 at 17:00 Spironolactone (Aldactone) 12.5 mg DAILY PO Last administered on 03/30/18at 08:41; Admin Dose 12.5 MG; Start 03/19/18 at 09:00 Miscellaneous Information 1 ea NOTE XX ; Start 03/18/18 at 18:30 Glucose (Glutose) 15 gm Q15M PRN PO DECREASED GLUCOSE; Start 03/18/18 at 18:30 Glucose (Glutose) 22.5 gm Q15M PRN PO DECREASED GLUCOSE; Start 03/18/18 at 18:30 Dextrose (D50w Syringe) 25 ml Q15M PRN IV DECREASED GLUCOSE; Start 03/18/18 at 18:30 Dextrose (D50w Syringe) 50 ml Q15M PRN IV DECREASED GLUCOSE; Start 03/18/18 at 18:30 Glucagon (Glucagen) 1 mg Q15M PRN IM DECREASED GLUCOSE; Start 03/18/18 at 18:30 Glucose (Glutose) 15 gm Q15M PRN BUCCAL DECREASED GLUCOSE Last administered on 03/20/18at 06:14; Admin Dose 15 GM; Start 03/18/18 at 18:30 Lorazepam (Ativan) 0.5 mg DAILY PRN IV AGITATION/ANXIETY Last administered on 03/28/18at 16:58; Admin Dose 0.5 MG; Start 03/19/18 at 01:00 Insulin Aspart (Novolog Insulin Pen) (Adult SC Insulin - Mild Algorithm)... AC MEALS AND BEDTIME SC Last administered on 03/29/18at 17:09; Admin Dose 1 UNIT; Start 03/22/18 at 11:30 Loratadine (Claritin) 10 mg DAILY PO Last administered on 03/30/18 08:43; Admin Dose 10 MG; Start 03/22/18 at 14:00 Sodium Chloride (Deep Sea) 2 spray Q4H PRN NASAL congestion Last administered on 03/22/18 14:25; Admin Dose 2 SPRAY; Start 03/22/18 at 14:00 Furosemide (Lasix) 20 mg DAILY IV Last administered on 03/30/18 08:44; Admin Dose 20 MG; Start 03/24/18 at 09:00 Thiamine HCl (Vitamin B1) 100 mg DAILY PO Last administered on 03/30/18 08:42; Admin Dose 100 MG; Start 03/25/18 at 09:00; Stop 04/24/18 at 08:59 Atorvastatin Calcium (Lipitor) 80 mg QHS PO Last administered on 03/29/18 21:04; Admin Dose 80 MG; Start 03/28/18 at 21:00 Insulin Glargine (Lantus) 17 units DAILY@0800 SC Last administered on 03/30/18 08:49; Admin Dose 17 UNITS; Start 03/30/18 at 08:00 LOTUS VILLALPANDO MD Mar 30, 2018 13:25
[2018-03-30 14:00] VITALS: BP 113/57; PULSE 64; RESP 20
[2018-03-30] MEDS: LORAZEPAM 2 MG INJ IV PRN (15:46)
--- NOTE | 2018-03-30 15:58 | CONS ---
Assessment/Plan Assessment/Plan Hospital Course 67 yo F with hx of multiple cerebrovascular risk factors who presents with ams and other sx... for which neurology is consulted. MRI brain is most notable for 2 tiny acute R occipital infarcts.. A superimposed acute toxic-metabolic encephalopathy is additionally considered. MRA brain is most notable for a 50% L P2 segment stenosis EEG is without epileptiform activity. Echo is notable for EF 20% STACIE + B1 level was a little low P: Cont thiamine supplementation, orally.. Cont antiplatelet therapy/lipitor Cont medical management per primary Reorient as necessary Limit sedating medications where possible PT/OT/ST as necessary Will follow clinically Consultation Date/Type/Reason Admit Date/Time Mar 18, 2018 at 16:08 Type of Consult Neurology Reason for Consultation ams Requesting Provider: WARREN BUTLER MD Date/Time of Note DATE: 03/30/18 TIME: 15:58 24 HR Interval Summary Free Text/Dictation Continues medsurg monitoring. No acute events or changes in pt condition reported. Exam Vital Signs Vitals Vital Signs Date Temp Pulse Resp B/P (MAP) Pulse Ox O2 O2 Flow FiO2 Time Delivery Rate 03/30/18 98.4 64 20 113/57 96 14:00 (75) 03/28/18 Room Air 08:00 Intake and Output 03/29/18 03/29/18 03/30/18 1515:00 23:00 07:00 IntakeIntake Total 320 ml 358 ml BalanceBalance 320 ml 358 ml Exam PE: Gen Appearance: No Apparent Distress HEENT: Normocephalic Cardiovascular: Regular rate Lungs: Clear bilaterally Abdomen: Soft Extremities: Dry NE: The patient was alert though disoriented. Language was dysphasic, limited in fluency and comprehension.. Fund of knowledge was limited. Pupils were equal and reactive to light. There was no afferent pupillary defect. Visual linda were normal. Funduscopic examination was limited.. Extra-ocular movements were full. Ptosis was absent. There was no nystagmus. Facial sensation was normal. Face was symmetric with normal strength. Hearing was intact. Palate movements were normal. Neck strength was normal. There was normal tongue bulk and speed of movement. Tone was normal. Muscle bulk was normal. I did not see fasciculations. Arms and legs were symmetric. Vibration sensation was normal. Temperature and pinprick sensation was normal. Rapid alternating movements were normal. There was no dysmetria. There was no intention tremor. Gait was deferred due to bedrest. Arm and leg reflexes were symmetric. Powell's sign was absent. Plantar responses were flexor. SANDRA TORRES NP Mar 30, 2018 15:58
--- NOTE | 2018-03-30 16:16 | CONS ---
Assessment/Plan Cardiology NYHA: III Heart Failure Type: Acute on Chronic Heart Failure Type: Systolic Assessment/Plan Hospital Course (Demo Recall) IMPRESSION: 1. Positive troponin, assess significance. Patient not able to comment on chest pain.- now downtrending and likely a marker of CV disease and not true Nstemi. NO cp 2. Abnormal electrocardiogram, nonspecific ST-T abnormalities, borderline intraventricular conduction delay. 3. Hypertension, uncontrolled. 4. History of stent placement 09/2017. 5. Encephalopathy. 6. Dyslipidemia-LDL 175 HDL 56 7. Cardiomyopathy-severely depressed LVEF 20% 8. CHF-systolic acute on chrnic Recc: -Now on med-surg -serial ecg's -Continue asa/plavix -Continue coreg/zestril -continue isordil -Continue aldactone -Continue statin -Continue lasix diuresis and follow volume status closely -ongoing neuro eval with improving overall MS and more alert but aphasic -PT -lifevest eval Consultation Date/Type/Reason Admit Date/Time Mar 18, 2018 at 16:08 Initial Consult Date 03/18/17 Type of Consult Cardiology Reason for Consultation Positive troponin Requesting Provider: WARREN BUTLER MD Date/Time of Note DATE: 03/30/18 TIME: 16:14 Exam/Review of Systems Vital Signs Vitals Vital Signs Date Temp Pulse Resp B/P (MAP) Pulse Ox O2 O2 Flow FiO2 Time Delivery Rate 03/30/18 98.4 64 20 113/57 96 14:00 (75) 03/28/18 Room Air 08:00 Intake and Output 03/29/18 03/29/18 03/30/18 1515:00 23:00 07:00 IntakeIntake Total 320 ml 358 ml BalanceBalance 320 ml 358 ml Exam Exam Review of Systems: CONSTITUTIONAL: No fevers, chills. PULMONARY: No sob CARDIOVASCULAR: No chest pain/palpitations GASTROINTESTINAL: No nausea/vomiting. GENITOURINARY: No hematuria/dysuria. MUSCULOSKELETAL: No myagias/arthalgias. PSYCHIATRIC: The patient denies depression. NEUROLOGIC: No weakness Constitutional: alert Psych: no complaints Head: normocephalic ENMT: mucosa pink and moist Neck: supple, jvd (9 cm water) Respiratory: clear to auscultation Cardiovascular: regular rate and rhythm Gastrointestinal: soft, non-tender Musculoskeletal: muscle weakness (mild generalized) Extremities: edema (none) 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: other (aphasic) Labs Result Diagram: 03/29/18 0603/29/18 0623 Results 24hrs Laboratory Tests Test 03/29/18 17:07 03/29/18 21:02 03/30/18 08:40 03/30/18 12:41 Bedside Glucose 152 163 76 114 Medications Medications Current Medications Aspirin (Aspirin) 81 mg DAILY PO Last administered on 03/30/18 08:43; Admin Dose 81 MG; Start 03/19/18 at 09:00 Carvedilol (Coreg) 3.125 mg BID PO Last administered on 03/30/18 08:42; Admin Dose 3.125 MG; Start 03/18/18 at 21:00 Clopidogrel Bisulfate (plaVIX) 75 mg DAILY PO Last administered on 03/30/18 08:42; Admin Dose 75 MG; Start 03/19/18 at 09:00 Isosorbide Dinitrate (Isordil) 5 mg BID PO Last administered on 03/30/18 08:42; Admin Dose 5 MG; Start 03/18/18 at 21:00 Lisinopril (Zestril) 5 mg DAILY PO Last administered on 03/30/18 08:43; Admin Dose 5 MG; Start 03/19/18 at 09:00 Nitroglycerin (Nitroglycerin (Sl Tab) 0.4 Mg) 1 tab [id number] PRN SL CHEST PAIN; Start 03/18/18 at 16:30 IV Flush (NS 3 ml) 3 ml PER PROTOCOL IV ; Start 03/18/18 at 17:00 Ondansetron HCl (Zofran Inj) 4 mg Q6H PRN IV NAUSEA/VOMITING; Start 03/18/18 at 17:00 Acetaminophen (Tylenol Tab) 650 mg Q6H PRN PO .PAIN 1-3 OR TEMP; Start 03/18/18 at 17:00 Docusate Sodium (Colace) 100 mg Q12H PRN PO .CONSTIPATION; Start 03/18/18 at 17:00 Magnesium Hydroxide (Milk Of Mag) 30 ml DAILY PRN PO .CONSTIPATION; Start 03/18/18 at 17:00 Spironolactone (Aldactone) 12.5 mg DAILY PO Last administered on 03/30/18at 08:41; Admin Dose 12.5 MG; Start 03/19/18 at 09:00 Miscellaneous Information 1 ea NOTE XX ; Start 03/18/18 at 18:30 Glucose (Glutose) 15 gm Q15M PRN PO DECREASED GLUCOSE; Start 03/18/18 at 18:30 Glucose (Glutose) 22.5 gm Q15M PRN PO DECREASED GLUCOSE; Start 03/18/18 at 18:30 Dextrose (D50w Syringe) 25 ml Q15M PRN IV DECREASED GLUCOSE; Start 03/18/18 at 18:30 Dextrose (D50w Syringe) 50 ml Q15M PRN IV DECREASED GLUCOSE; Start 03/18/18 at 18:30 Glucagon (Glucagen) 1 mg Q15M PRN IM DECREASED GLUCOSE; Start 03/18/18 at 18:30 Glucose (Glutose) 15 gm Q15M PRN BUCCAL DECREASED GLUCOSE Last administered on 03/20/18 06:14; Admin Dose 15 GM; Start 03/18/18 at 18:30 Lorazepam (Ativan) 0.5 mg DAILY PRN IV AGITATION/ANXIETY Last administered on 03/30/18at 15:46; Admin Dose 0.5 MG; Start 03/19/18 at 01:00 Insulin Aspart (Novolog Insulin Pen) (Adult SC Insulin - Mild Algorithm)... AC MEALS AND BEDTIME SC Last administered on 03/29/18 17:09; Admin Dose 1 UNIT; Start 03/22/18 at 11:30 Loratadine (Claritin) 10 mg DAILY PO Last administered on 03/30/18 08:43; Admin Dose 10 MG; Start 03/22/18 at 14:00 Sodium Chloride (Deep Sea) 2 spray Q4H PRN NASAL congestion Last administered on 03/22/18 14:25; Admin Dose 2 SPRAY; Start 03/22/18 at 14:00 Furosemide (Lasix) 20 mg DAILY IV Last administered on 03/30/18 08:44; Admin Dose 20 MG; Start 03/24/18 at 09:00 Thiamine HCl (Vitamin B1) 100 mg DAILY PO Last administered on 03/30/18 08:42; Admin Dose 100 MG; Start 03/25/18 at 09:00; Stop 04/24/18 at 08:59 Atorvastatin Calcium (Lipitor) 80 mg QHS PO Last administered on 2/17/19at 21:04; Admin Dose 80 MG; Start 03/28/18 at 21:00 Insulin Glargine (Lantus) 17 units DAILY@0800 SC Last administered on 03/30/18at 08:49; Admin Dose 17 UNITS; Start 03/30/18 at 08:00 JANEEN KEENAN Mar 30, 2018 16:16
[2018-03-30 19:28] VITALS: BP 117/64; PULSE 68; RESP 16
[2018-03-30] MEDS: ATORVASTATIN 20 MG TAB PO SCH (20:57)
[2018-03-31 01:54] VITALS: BP 116/73; PULSE 68; RESP 16
[2018-03-31] MEDS: Insulin NOVOLOG SS MILD Algorithm (SS with meals and bedtime) SC SCH ×4 (07:00→20:35)
[2018-03-31 07:24] VITALS: BP 102/60; PULSE 67; RESP 16
[2018-03-31] MEDS: THIAMINE 100 MG TAB PO SCH (08:18)
[2018-03-31] MEDS: CLOPIDOGREL 75 MG TAB PO SCH (08:18)
[2018-03-31] MEDS: SPIRONOLACTONE 25 MG TAB PO SCH (08:18)
[2018-03-31] MEDS: LORATADINE 10 MG TAB PO SCH (08:18)
[2018-03-31] MEDS: ASPIRIN 81 MG TAB PO SCH (08:18)
[2018-03-31] MEDS: ISOSORBIDE DINITRATE 5 MG TAB PO SCH ×3 (08:19→20:40)
[2018-03-31] MEDS: LISINOPRIL 5 MG TAB PO SCH (08:19)
[2018-03-31] MEDS: FUROSEMIDE 20 MG INJ IV SCH (08:20)
--- NOTE | 2018-03-31 10:22 | PN ---
Date/Time of Note Date/Time of Note DATE: 03/31/18 TIME: 10:21 Assessment/Plan VTE Prophylaxis Risk score (from Ns)>0 risk: 3 SCD applied (from Ns): Yes Pharmacological prophylaxis: NA/contraindicated Pharm contraindication: other (risk for hemorrahic conversion) Lines/Catheters IV [facility] [place] [facility] Urinary Cath still in place: No Assessment/Plan Hospital Course SUBJECTIVE: Lying in bed comfortably. No acute distress. OBJECTIVE: Vital signs-see below PHYSICAL EXAM: Constitutional: Well-developed, adequately built, lying in bed comfortably. Psych: nl mood/affect, no complaints Head: atraumatic, normocephalic Eyes: nl conjunctiva, nl sclera ENMT: mucosa pink and moist, nl external ears & nose Neck: non-tender, supple Respiratory: clear to auscultation, normal air movement Cardiovascular: nl pulses, regular rate and rhythm Gastrointestinal: non-tender, soft, bowel sounds active in all 4 quadrants. Musculoskeletal/extremities: nl extremities to inspection, motor strength equal bilaterally, no focal deficit. Normal pulses,no cyanosis, no edema. 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: Alert oriented 3,nl speech, nl strength Skin: nl turgor ASSESSMENT/PLAN:67 yo female with h/o systolic CHF, CAD who presented with CVA 1. Occipital and Right PO[employer]ING[employer] strokes -Aphasic (expressive) -Continue statin/antiplatelet -Continue rehab 2. Acute on chronic severe systolic heart failure -Compensated -cont.diurtics/ACEi/BB/Aldactone 3. CAD s/p PCI 09/2017 - continue DAPT/statin/BB/nitrates 4. DMII -No with too tight control=>HYPOGLYCEMIC. De-escalate Lantus to 10 units and try oral transition on metformin 1000 mg twice daily. Continue Accu-Cheks and sliding scale. 5. Cardiomyopathy with severely depressed ejection fraction 20%. -Management per #2 6. Dyslipidemia -On statin 7. Toxic metabolic encephalopathy -Stable. Avoid sedating agents. 8. Essential hypertension -Continue antihypertensives DVT prophylaxis: SCDs/ambulation. PUD prophylaxis: Not indicated CODE STATUS: Full code Diet: Pured nectar thick Disposition -Stable to SNF Patient was seen in collaboration with Dr[facility] Indication/DC Plan: Pending retirement placement Result Diagram: 2/17/19 0623 2/17/19 0623 Results 24hrs Laboratory Tests Test 03/30/18 12:41 03/30/18 17:10 03/30/18 20:55 03/31/18 08:03 Bedside Glucose 114 98 176 59 L Test 03/31/18 08:25 Bedside Glucose 98 Exam/Review of Systems Exam Vitals Vital Signs Date Temp Pulse Resp B/P (MAP) Pulse Ox O2 O2 Flow FiO2 Time Delivery Rate 03/31/18 98.1 67 16 102/60 97 Room Air 07:24 (74) Intake and Output 03/30/18 03/30/18 03/31/18 1515:00 23:00 07:00 IntakeIntake Total 380 ml 290 ml 120 ml BalanceBalance 380 ml 290 ml 120 ml Results Results 24hrs Laboratory Tests Test 03/30/18 12:41 03/30/18 17:10 03/30/18 20:55 03/31/18 08:03 Bedside Glucose 114 98 176 59 L Test 03/31/18 08:25 Bedside Glucose 98 Medications Medication Current Medications Aspirin (Aspirin) 81 mg DAILY PO Last administered on 03/31/18 08:18; Admin Dose 81 MG; Start 03/19/18 at 09:00 Carvedilol (Coreg) 3.125 mg BID PO Last administered on 03/31/18 08:18; Admin Dose 3.125 MG; Start 03/18/18 at 21:00 Clopidogrel Bisulfate (plaVIX) 75 mg DAILY PO Last administered on 03/31/18 08:18; Admin Dose 75 MG; Start 03/19/18 at 09:00 Isosorbide Dinitrate (Isordil) 5 mg BID PO Last administered on 03/31/18 08:19; Admin Dose 5 MG; Start 03/18/18 at 21:00 Lisinopril (Zestril) 5 mg DAILY PO Last administered on 03/31/18 08:19; Admin Dose 5 MG; Start 03/19/18 at 09:00 Nitroglycerin (Nitroglycerin (Sl Tab) 0.4 Mg) 1 tab [id number] PRN SL CHEST PAIN; Start 03/18/18 at 16:30 IV Flush (NS 3 ml) 3 ml PER PROTOCOL IV ; Start 03/18/18 at 17:00 Ondansetron HCl (Zofran Inj) 4 mg Q6H PRN IV NAUSEA/VOMITING; Start 03/18/18 at 17:00 Acetaminophen (Tylenol Tab) 650 mg Q6H PRN PO .PAIN 1-3 OR TEMP; Start 03/18/18 at 17:00 Docusate Sodium (Colace) 100 mg Q12H PRN PO .CONSTIPATION; Start 03/18/18 at 17:00 Magnesium Hydroxide (Milk Of Mag) 30 ml DAILY PRN PO .CONSTIPATION; Start 03/18/18 at 17:00 Spironolactone (Aldactone) 12.5 mg DAILY PO Last administered on 03/31/18at 08:18; Admin Dose 12.5 MG; Start 03/19/18 at 09:00 Miscellaneous Information 1 ea NOTE XX ; Start 03/18/18 at 18:30 Glucose (Glutose) 15 gm Q15M PRN PO DECREASED GLUCOSE; Start 03/18/18 at 18:30 Glucose (Glutose) 22.5 gm Q15M PRN PO DECREASED GLUCOSE; Start 03/18/18 at 18:30 Dextrose (D50w Syringe) 25 ml Q15M PRN IV DECREASED GLUCOSE; Start 03/18/18 at 18:30 Dextrose (D50w Syringe) 50 ml Q15M PRN IV DECREASED GLUCOSE; Start 03/18/18 at 18:30 Glucagon (Glucagen) 1 mg Q15M PRN IM DECREASED GLUCOSE; Start 03/18/18 at 18:30 Glucose (Glutose) 15 gm Q15M PRN BUCCAL DECREASED GLUCOSE Last administered on 03/20/18at 06:14; Admin Dose 15 GM; Start 03/18/18 at 18:30 Lorazepam (Ativan) 0.5 mg DAILY PRN IV AGITATION/ANXIETY Last administered on 03/30/18at 15:46; Admin Dose 0.5 MG; Start 03/19/18 at 01:00 Insulin Aspart (Novolog Insulin Pen) (Adult SC Insulin - Mild Algorithm)... AC MEALS AND BEDTIME SC Last administered on 03/29/18at 17:09; Admin Dose 1 UNIT; Start 03/22/18 at 11:30 Loratadine (Claritin) 10 mg DAILY PO Last administered on 03/31/18at 08:18; Admin Dose 10 MG; Start 03/22/18 at 14:00 Sodium Chloride (Deep Sea) 2 spray Q4H PRN NASAL congestion Last administered on 03/22/18at 14:25; Admin Dose 2 SPRAY; Start 03/22/18 at 14:00 Furosemide (Lasix) 20 mg DAILY IV Last administered on 03/31/18at 08:20; Admin Dose 20 MG; Start 03/24/18 at 09:00 Thiamine HCl (Vitamin B1) 100 mg DAILY PO Last administered on 03/31/18at 08:18; Admin Dose 100 MG; Start 03/25/18 at 09:00; Stop 04/24/18 at 08:59 Atorvastatin Calcium (Lipitor) 80 mg QHS PO Last administered on 03/30/18at 20:57; Admin Dose 80 MG; Start 03/28/18 at 21:00 Insulin Glargine (Lantus) 10 units DAILY@0800 SC ; Start 04/01/18 at 08:00 Metformin HCl (Glucophage) 1,000 mg BID WITH MEALS PO ; Start 03/31/18 at 10:00 VEDA MENDIOLA NP Mar 31, 2018 10:22
--- NOTE | 2018-03-31 10:23 | PDOCDIS ---
Discharge Instructions CONDITION [id number] Patient Condition: [id number] Stable HOME CARE INSTRUCTIONS: [id number] Your diet recommendation is: [id number] Pured nectar thick FOLLOW UP/APPOINTMENTS Follow-up Plan Follow-up with primary care physician VEDA MENDIOLA NP Mar 31, 2018 10:23
[2018-03-31] MEDS ORDERED: THIA100T56 PO (10:25)
[2018-03-31] MEDS ORDERED: ATOR40TA68 PO (10:25)
[2018-03-31] MEDS ORDERED: Insulin Glargine SC (10:25)
[2018-03-31] MEDS: metFORMIN 500 MG TAB PO SCH ×2 (10:40→17:08)
--- NOTE | 2018-03-31 11:09 | CONS ---
Consult Date/Type/Reason Admit Date/Time Mar 18, 2018 at 16:08 Initial Consult Date Requesting Provider: WARREN BUTLER MD Date/Time of Note DATE: 03/31/18 TIME: 11:05 Subjective NO acute events - patient stable - con't medical Rx. NO CP now. Will monitor clinically. ROS: No fever, no chills, no nausea, no vomiting, no diarrhea/constipation No recent weight changes No chest pain, no PND, no orthopnea - mild SOB No dizziness, blurred vision No thirst, no heat or cold intolerance Objective Vitals Vital Signs Date Temp Pulse Resp B/P (MAP) Pulse Ox O2 O2 Flow FiO2 Time Delivery Rate 03/31/18 98.1 67 16 102/60 97 Room Air 07:24 (74) Intake and Output 03/30/18 03/30/18 03/31/18 1414:59 22:59 06:59 IntakeIntake Total 380 ml 290 ml 120 ml BalanceBalance 380 ml 290 ml 120 ml Exam General: WN/WD/NAD, AOx comfortable HEENT: Unicetric/atraumatic/EOMI (follows commands) NECK: JVD elevated, no thyromegaly Lymph: no lymphadenopathy HEART: regular with no S3, II/ systolic murmur at apex, 1/6 at base LUNGS: Coarse sounds ABD: soft, NT, ND, +BS : Intact Neuro: non focal SKIN: chronic changes EXT: trace edema Results/Medications Result Diagram: 03/29/18 0623 03/29/18 0623 Results 24 hrs Laboratory Tests Test 03/30/18 12:41 03/30/18 17:10 03/30/18 20:55 03/31/18 08:03 Bedside Glucose 114 98 176 59 L Test 03/31/18 08:25 Bedside Glucose 98 Home Meds Reported Medications Furosemide* (Furosemide*) 40 Mg Tablet, 40 MG PO BID, TAB 03/18/18 Nitroglycerin* (Nitroglycerin* SL) 0.4 Mg Tab.subl, 0.4 MG SL Q5MIN PRN for CHEST PAIN, BOTTLE 03/18/18 Spironolactone* (Aldactone*) 5 Mg/Ml (COMPOUNDED) Susp, 12.5 MG PO DAILY for 30 Days, ML (COMPOUNDED) 03/18/18 Lisinopril* (Lisinopril*) 5 Mg Tablet, 5 MG PO DAILY, #30 TAB 03/18/18 Clopidogrel Bisulfate (Clopidogrel) 75 Mg Tablet, 75 MG PO DAILY, #30 TAB 03/18/18 Atorvastatin* (Atorvastatin*) 40 Mg Tablet, 40 MG PO QHS, #30 TAB 03/18/18 Carvedilol* (Coreg*) 3.125 Mg Tablet, 3.125 MG PO BID, #60 TAB 03/18/18 Aspirin* (Aspirin* Chew) 81 Mg Tab.chew, 81 MG PO DAILY, TAB.CHEW 03/18/18 Isosorbide Dinitrate* (Isosorbide Dinitrate*) 5 Mg Tablet, 5 MG PO BID, TAB 03/18/18 Medications Current Medications Aspirin (Aspirin) 81 mg DAILY PO Last administered on 03/31/18at 08:18; Admin Dose 81 MG; Start 03/19/18 at 09:00 Carvedilol (Coreg) 3.125 mg BID PO Last administered on 03/31/18at 08:18; Admin Dose 3.125 MG; Start 03/18/18 at 21:00 Clopidogrel Bisulfate (plaVIX) 75 mg DAILY PO Last administered on 03/31/18at 08:18; Admin Dose 75 MG; Start 03/19/18 at 09:00 Isosorbide Dinitrate (Isordil) 5 mg BID PO Last administered on 03/31/18at 08:19; Admin Dose 5 MG; Start 03/18/18 at 21:00 Lisinopril (Zestril) 5 mg DAILY PO Last administered on 03/31/18at 08:19; Admin Dose 5 MG; Start 03/19/18 at 09:00 Nitroglycerin (Nitroglycerin (Sl Tab) 0.4 Mg) 1 tab [id number] PRN SL CHEST PAIN; Start 03/18/18 at 16:30 IV Flush (NS 3 ml) 3 ml PER PROTOCOL IV ; Start 03/18/18 at 17:00 Ondansetron HCl (Zofran Inj) 4 mg Q6H PRN IV NAUSEA/VOMITING; Start 03/18/18 at 17:00 Acetaminophen (Tylenol Tab) 650 mg Q6H PRN PO .PAIN 1-3 OR TEMP; Start 03/18/18 at 17:00 Docusate Sodium (Colace) 100 mg Q12H PRN PO .CONSTIPATION; Start 03/18/18 at 17:00 Magnesium Hydroxide (Milk Of Mag) 30 ml DAILY PRN PO .CONSTIPATION; Start 03/18/18 at 17:00 Spironolactone (Aldactone) 12.5 mg DAILY PO Last administered on 03/31/18 08:18; Admin Dose 12.5 MG; Start 03/19/18 at 09:00 Miscellaneous Information 1 ea NOTE XX ; Start 03/18/18 at 18:30 Glucose (Glutose) 15 gm Q15M PRN PO DECREASED GLUCOSE; Start 03/18/18 at 18:30 Glucose (Glutose) 22.5 gm Q15M PRN PO DECREASED GLUCOSE; Start 03/18/18 at 18:30 Dextrose (D50w Syringe) 25 ml Q15M PRN IV DECREASED GLUCOSE; Start 03/18/18 at 18:30 Dextrose (D50w Syringe) 50 ml Q15M PRN IV DECREASED GLUCOSE; Start 03/18/18 at 18:30 Glucagon (Glucagen) 1 mg Q15M PRN IM DECREASED GLUCOSE; Start 03/18/18 at 18:30 Glucose (Glutose) 15 gm Q15M PRN BUCCAL DECREASED GLUCOSE Last administered on 03/20/18at 06:14; Admin Dose 15 GM; Start 03/18/18 at 18:30 Lorazepam (Ativan) 0.5 mg DAILY PRN IV AGITATION/ANXIETY Last administered on 03/30/18at 15:46; Admin Dose 0.5 MG; Start 03/19/18 at 01:00 Insulin Aspart (Novolog Insulin Pen) (Adult SC Insulin - Mild Algorithm)... AC MEALS AND BEDTIME SC Last administered on 03/29/18at 17:09; Admin Dose 1 UNIT; Start 03/22/18 at 11:30 Loratadine (Claritin) 10 mg DAILY PO Last administered on 03/31/18 08:18; Admin Dose 10 MG; Start 03/22/18 at 14:00 Sodium Chloride (Deep Sea) 2 spray Q4H PRN NASAL congestion Last administered on 03/22/18 14:25; Admin Dose 2 SPRAY; Start 03/22/18 at 14:00 Furosemide (Lasix) 20 mg DAILY IV Last administered on 03/31/18at 08:20; Admin Dose 20 MG; Start 03/24/18 at 09:00 Thiamine HCl (Vitamin B1) 100 mg DAILY PO Last administered on 03/31/18at 08:18; Admin Dose 100 MG; Start 03/25/18 at 09:00; Stop 04/24/18 at 08:59 Atorvastatin Calcium (Lipitor) 80 mg QHS PO Last administered on 03/30/18at 20:57; Admin Dose 80 MG; Start 03/28/18 at 21:00 Insulin Glargine (Lantus) 10 units DAILY@0800 SC ; Start 04/01/18 at 08:00 Metformin HCl (Glucophage) 1,000 mg BID WITH MEALS PO Last administered on 03/31/18at 10:40; Admin Dose 1,000 MG; Start 03/31/18 at 10:00 Assessment/Plan Hospital Course (Demo Recall) 1. Positive troponin, assess significance. Patient not able to comment on chest pain.- now downtrending and likely a marker of CV disease and not true Nstemi - no CP now, no intervention planned. NO active CP now. Will adjust now. 2. Abnormal electrocardiogram, nonspecific ST-T abnormalities, borderline intraventricular conduction delay. Off tele - no Sx. EKG chronic. 3. Hypertension - better now. 4. History of stent placement 09/2017. On therpy. 5. Encephalopathy. 6. Dyslipidemia-LDL 175 HDL 56 7. Cardiomyopathy-severely depressed LVEF 20% - outpt ICD eval. Stable fluid status. 8. CHF-systolic acute on chronic - improved fluid status. Improved fluid status. KARENA PINEDO MD Mar 31, 2018 11:09
[2018-03-31 14:46] VITALS: BP 106/65; PULSE 72; RESP 16
--- NOTE | 2018-03-31 16:57 | CONS ---
Assessment/Plan Assessment/Plan Hospital Course 67 yo F with hx of multiple cerebrovascular risk factors who presents with ams and other sx... for which neurology is consulted. MRI brain is most notable for 2 tiny acute R occipital infarcts.. A superimposed acute toxic-metabolic encephalopathy is additionally considered. MRA brain is most notable for a 50% L P2 segment stenosis EEG is without epileptiform activity. Echo is notable for EF 20% STACIE + B1 level was a little low P: Cont thiamine supplementation, orally.. Cont antiplatelet therapy/lipitor Cont medical management per primary Reorient as necessary Limit sedating medications where possible PT/OT/ST as necessary Will follow clinically Consultation Date/Type/Reason Admit Date/Time Mar 18, 2018 at 16:08 Type of Consult Neurology Reason for Consultation ams Requesting Provider: WARREN BUTLER MD Date/Time of Note DATE: 03/31/18 TIME: 16:57 24 HR Interval Summary Free Text/Dictation Continues medsurg monitoring. No acute events or changes in pt condition reported. Exam Vital Signs Vitals Vital Signs Date Temp Pulse Resp B/P (MAP) Pulse Ox O2 O2 Flow FiO2 Time Delivery Rate 03/31/18 98.9 72 16 106/65 98 Room Air 14:46 (79) Intake and Output 03/30/18 03/30/18 03/31/18 1515:00 23:00 07:00 IntakeIntake Total 380 ml 290 ml 120 ml BalanceBalance 380 ml 290 ml 120 ml Exam PE: Gen Appearance: No Apparent Distress HEENT: Normocephalic Cardiovascular: Regular rate Lungs: Clear bilaterally Abdomen: Soft Extremities: Dry NE: The patient was alert though disoriented. Language was dysphasic, limited in fluency and comprehension.. Fund of knowledge was limited. Pupils were equal and reactive to light. There was no afferent pupillary defect. Visual linda were normal. Funduscopic examination was limited.. Extra-ocular movements were full. Ptosis was absent. There was no nystagmus. Facial sensation was normal. Face was symmetric with normal strength. Hearing was intact. Palate movements were normal. Neck strength was normal. There was normal tongue bulk and speed of movement. Tone was normal. Muscle bulk was normal. I did not see fasciculations. Arms and legs were symmetric. Vibration sensation was normal. Temperature and pinprick sensation was normal. Rapid alternating movements were normal. There was no dysmetria. There was no intention tremor. Gait was deferred due to bedrest. Arm and leg reflexes were symmetric. Powell's sign was absent. Plantar responses were flexor. SANDRA TORRES NP Mar 31, 2018 16:57
[2018-03-31 20:00] VITALS: BP 91/62; PULSE 77; RESP 18
[2018-03-31] MEDS: ATORVASTATIN 20 MG TAB PO SCH (20:38)
[2018-04-01 02:09] VITALS: BP 116/67; PULSE 73; RESP 17
[2018-04-01] MEDS: Insulin NOVOLOG SS MILD Algorithm (SS with meals and bedtime) SC SCH ×4 (07:00→20:12)
[2018-04-01 08:00] VITALS: BP 146/70; PULSE 77; RESP 18
[2018-04-01] MEDS: ASPIRIN 81 MG TAB PO SCH (08:24)
[2018-04-01] MEDS: ISOSORBIDE DINITRATE 5 MG TAB PO SCH ×2 (08:24→20:15)
[2018-04-01] MEDS: LISINOPRIL 5 MG TAB PO SCH (08:24)
[2018-04-01] MEDS: FUROSEMIDE 20 MG INJ IV SCH (08:25)
[2018-04-01] MEDS: CLOPIDOGREL 75 MG TAB PO SCH (08:25)
[2018-04-01] MEDS: metFORMIN 500 MG TAB PO SCH ×2 (08:25→17:10)
[2018-04-01] MEDS: THIAMINE 100 MG TAB PO SCH (08:25)
[2018-04-01] MEDS: SPIRONOLACTONE 25 MG TAB PO SCH (08:25)
[2018-04-01] MEDS: LORATADINE 10 MG TAB PO SCH (08:27)
[2018-04-01] MEDS: INSULIN GLARGINE [LANTus] (100 UNITS/ML) SYG SC SCH (08:31)
[2018-04-01] MEDS ORDERED: SODIUM POLYSTYRENE 15 GM KIT (POWDER + SORBITOL) PO ONE (10:30)
--- NOTE | 2018-04-01 12:40 | PN ---
Date/Time of Note Date/Time of Note DATE: 04/01/18 TIME: 12:33 Assessment/Plan VTE Prophylaxis Risk score (from Ns)>0 risk: 4 SCD applied (from [facility] [place]): Yes Pharmacological prophylaxis: NA/contraindicated Pharm contraindication: anticoag not tolerated, other (on asa/plavix) Lines/Catheters IV Catheter Type (from [facility]): Saline Lock Urinary Cath still in place: No Assessment/Plan Hospital Course SUBJECTIVE: Lying in bed comfortably. No acute distress. OBJECTIVE: Vital signs-see below PHYSICAL EXAM: Constitutional: Well-developed, adequately built, lying in bed comfortably. Psych: nl mood/affect, no complaints Head: atraumatic, normocephalic Eyes: nl conjunctiva, nl sclera ENMT: mucosa pink and moist, nl external ears & nose Neck: non-tender, supple Respiratory: clear to auscultation, normal air movement Cardiovascular: nl pulses, regular rate and rhythm Gastrointestinal: non-tender, soft, bowel sounds active in all 4 quadrants. Musculoskeletal/extremities: nl extremities to inspection, motor strength equal bilaterally, no focal deficit. Normal pulses,no cyanosis, no edema. 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: Alert oriented 3,nl speech, nl strength Skin: nl turgor ASSESSMENT/PLAN:67 yo female with h/o systolic CHF, CAD who presented with CVA 1. 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 Acute on chronic severe systolic heart failure -Compensated -cont.diuretics/ACEi/BB. DC Aldactone secondary to hyperkalemia 3. CAD s/p PCI 09/2017 - continue DAPT/statin/BB/nitrates 4. DMII -Now better. Continue Lantus/ metformin/Accu-Cheks and sliding scale. 5. Cardiomyopathy with severely depressed ejection fraction 20%. -Management per #2 6. Dyslipidemia -On statin 7. Toxic metabolic encephalopathy -Stable. Avoid sedating agents. 8. Essential hypertension -Continue antihypertensives 9. Acute kidney injury with hyperkalemia likely secondary to Aldactone -Stop Aldactone. Give 1 dose Kayexalate and monitor renal function. DVT prophylaxis: SCDs/ambulation. PUD prophylaxis: Not indicated CODE STATUS: Full code Diet: Pured nectar thick Disposition -Stable to SNF Patient was seen in collaboration with Dr.Ayesha Result Diagram: 04/01/18 0448 04/01/18 0448 Results 24hrs Laboratory Tests Test 03/31/18 17:10 03/31/18 20:35 04/01/18 04:48 04/01/18 08:11 Bedside Glucose 139 148 84 White Blood Count 6.3 # Red Blood Count 5.30 Hemoglobin 14.1 Hematocrit 44.6 Mean Corpuscular 84.2 Volume Mean Corpuscular 26.6 L Hemoglobin Mean Corpuscular 31.6 L Hemoglobin Concent Red Cell 13.9 Distribution Width Platelet Count 277 Mean Platelet Volume 11.0 H Immature 0.300 Granulocytes % Neutrophils % 52.3 Lymphocytes % 35.2 Monocytes % 8.4 Eosinophils % 3.0 Basophils % 0.8 Nucleated Red Blood 0.0 Cells % Immature 0.020 Granulocytes # Neutrophils # 3.3 Lymphocytes # 2.2 Monocytes # 0.5 Eosinophils # 0.2 Basophils # 0.1 Nucleated Red Blood 0.0 Cells # Sodium Level 139 Potassium Level 5.7 H Chloride Level 101 Carbon Dioxide Level 23 Anion Gap 15 H Blood Urea Nitrogen 41 H Creatinine 1.13 H Est Glomerular 48 L Filtrat Rate mL/min Glucose Level 100 Calcium Level 9.4 Magnesium Level 1.9 Exam/Review of Systems Exam Vitals Vital Signs Date Temp Pulse Resp B/P (MAP) Pulse Ox O2 O2 Flow FiO2 Time Delivery Rate 04/01/18 97.7 77 18 146/70 99 Room Air 08:00 (95) Intake and Output 03/31/18 03/31/18 04/01/18 1414:59 22:59 06:59 IntakeIntake Total 500 ml BalanceBalance 500 ml Results Results 24hrs Laboratory Tests Test 03/31/18 17:10 03/31/18 20:35 04/01/18 04:48 04/01/18 08:11 Bedside Glucose 139 148 84 White Blood Count 6.3 # Red Blood Count 5.30 Hemoglobin 14.1 Hematocrit 44.6 Mean Corpuscular 84.2 Volume Mean Corpuscular 26.6 L Hemoglobin Mean Corpuscular 31.6 L Hemoglobin Concent Red Cell 13.9 Distribution Width Platelet Count 277 Mean Platelet Volume 11.0 H Immature 0.300 Granulocytes % Neutrophils % 52.3 Lymphocytes % 35.2 Monocytes % 8.4 Eosinophils % 3.0 Basophils % 0.8 Nucleated Red Blood 0.0 Cells % Immature 0.020 Granulocytes # Neutrophils # 3.3 Lymphocytes # 2.2 Monocytes # 0.5 Eosinophils # 0.2 Basophils # 0.1 Nucleated Red Blood 0.0 Cells # Sodium Level 139 Potassium Level 5.7 H Chloride Level 101 Carbon Dioxide Level 23 Anion Gap 15 H Blood Urea Nitrogen 41 H Creatinine 1.13 H Est Glomerular 48 L Filtrat Rate mL/min Glucose Level 100 Calcium Level 9.4 Magnesium Level 1.9 Medications Medication Current Medications Aspirin (Aspirin) 81 mg DAILY PO Last administered on 04/01/18 08:24; Admin Dose 81 MG; Start 03/19/18 at 09:00 Carvedilol (Coreg) 3.125 mg BID PO Last administered on 04/01/18 08:25; Admin Dose 3.125 MG; Start 03/18/18 at 21:00 Clopidogrel Bisulfate (plaVIX) 75 mg DAILY PO Last administered on 04/01/18 08:25; Admin Dose 75 MG; Start 03/19/18 at 09:00 Isosorbide Dinitrate (Isordil) 5 mg BID PO Last administered on 04/01/18 08:24; Admin Dose 5 MG; Start 03/18/18 at 21:00 Lisinopril (Zestril) 5 mg DAILY PO Last administered on 04/01/18 08:24; Admin Dose 5 MG; Start 03/19/18 at 09:00 Nitroglycerin (Nitroglycerin (Sl Tab) 0.4 Mg) 1 tab [id number] PRN SL CHEST PAIN; Start 03/18/18 at 16:30 IV Flush (NS 3 ml) 3 ml PER PROTOCOL IV ; Start 03/18/18 at 17:00 Ondansetron HCl (Zofran Inj) 4 mg Q6H PRN IV NAUSEA/VOMITING; Start 03/18/18 at 17:00 Acetaminophen (Tylenol Tab) 650 mg Q6H PRN PO .PAIN 1-3 OR TEMP; Start 03/18/18 at 17:00 Docusate Sodium (Colace) 100 mg Q12H PRN PO .CONSTIPATION; Start 03/18/18 at 17:00 Magnesium Hydroxide (Milk Of Mag) 30 ml DAILY PRN PO .CONSTIPATION; Start 03/18/18 at 17:00 Miscellaneous Information 1 ea NOTE XX ; Start 03/18/18 at 18:30 Glucose (Glutose) 15 gm Q15M PRN PO DECREASED GLUCOSE; Start 03/18/18 at 18:30 Glucose (Glutose) 22.5 gm Q15M PRN PO DECREASED GLUCOSE; Start 03/18/18 at 18:30 Dextrose (D50w Syringe) 25 ml Q15M PRN IV DECREASED GLUCOSE; Start 03/18/18 at 18:30 Dextrose (D50w Syringe) 50 ml Q15M PRN IV DECREASED GLUCOSE; Start 03/18/18 at 18:30 Glucagon (Glucagen) 1 mg Q15M PRN IM DECREASED GLUCOSE; Start 03/18/18 at 18:30 Glucose (Glutose) 15 gm Q15M PRN BUCCAL DECREASED GLUCOSE Last administered on 03/20/18at 06:14; Admin Dose 15 GM; Start 03/18/18 at 18:30 Lorazepam (Ativan) 0.5 mg DAILY PRN IV AGITATION/ANXIETY Last administered on 03/30/18at 15:46; Admin Dose 0.5 MG; Start 03/19/18 at 01:00 Insulin Aspart (Novolog Insulin Pen) (Adult SC Insulin - Mild Algorithm)... AC MEALS AND BEDTIME SC Last administered on 03/29/18at 17:09; Admin Dose 1 UNIT; Start 03/22/18 at 11:30 Loratadine (Claritin) 10 mg DAILY PO Last administered on 04/01/18at 08:27; Admin Dose 10 MG; Start 03/22/18 at 14:00 Sodium Chloride (Deep Sea) 2 spray Q4H PRN NASAL congestion Last administered on 03/22/18at 14:25; Admin Dose 2 SPRAY; Start 03/22/18 at 14:00 Furosemide (Lasix) 20 mg DAILY IV Last administered on 04/01/18 08:25; Admin Dose 20 MG; Start 03/24/18 at 09:00 Thiamine HCl (Vitamin B1) 100 mg DAILY PO Last administered on 04/01/18at 08:25; Admin Dose 100 MG; Start 03/25/18 at 09:00; Stop 04/24/18 at 08:59 Atorvastatin Calcium (Lipitor) 80 mg QHS PO Last administered on 03/31/18at 20:38; Admin Dose 80 MG; Start 03/28/18 at 21:00 Insulin Glargine (Lantus) 10 units DAILY@0800 SC Last administered on 04/01/18at 08:31; Admin Dose 10 UNITS; Start 04/01/18 at 08:00 Metformin HCl (Glucophage) 1,000 mg BID WITH MEALS PO Last administered on 04/01/18at 08:25; Admin Dose 1,000 MG; Start 03/31/18 at 10:00 VEDA MENDIOLA NP Apr 01, 2018 12:40
[2018-04-01 13:44] VITALS: BP 100/68; PULSE 76; RESP 16
--- NOTE | 2018-04-01 14:35 | CONS ---
Assessment/Plan Cardiology NYHA: III Heart Failure Type: Acute on Chronic Heart Failure Type: Systolic Assessment/Plan Hospital Course (Demo Recall) IMPRESSION: 1. Positive troponin, assess significance. Patient not able to comment on chest pain.- now downtrending and likely a marker of CV disease and not true Nstemi. NO cp 2. Abnormal electrocardiogram, nonspecific ST-T abnormalities, borderline intraventricular conduction delay. 3. Hypertension, uncontrolled. 4. History of stent placement 09/2017. 5. Encephalopathy. 6. Dyslipidemia-LDL 175 HDL 56 7. Cardiomyopathy-severely depressed LVEF 20% 8. CHF-systolic acute on chrnic Recc: -Now on med-surg -serial ecg's -Continue asa/plavix -Continue coreg/zestril -continue isordil -Continue statin -Continue lasix diuresis and follow volume status closely -ongoing neuro eval with improving overall MS and more alert but aphasic -PT -lifevest eval -aldactone held due to hyperkalemia and s/p dose of kayexalate. F/U K with possible need to hold ACEI as well Consultation Date/Type/Reason Admit Date/Time Mar 18, 2018 at 16:08 Initial Consult Date 03/18/17 Type of Consult Cardiology Reason for Consultation cardiomyopathy Requesting Provider: WARREN BUTLER MD Date/Time of Note DATE: 04/01/18 TIME: 14:33 Exam/Review of Systems Vital Signs Vitals Vital Signs Date Temp Pulse Resp B/P (MAP) Pulse Ox O2 O2 Flow FiO2 Time Delivery Rate 04/01/18 97.7 76 16 100/68 97 Room Air 13:44 (79) Intake and Output 03/31/18 03/31/18 04/01/18 1515:00 23:00 07:00 IntakeIntake Total 500 ml BalanceBalance 500 ml Exam Exam Review of Systems: CONSTITUTIONAL: No fevers, chills. PULMONARY: No sob CARDIOVASCULAR: No chest pain/palpitations GASTROINTESTINAL: No nausea/vomiting. GENITOURINARY: No hematuria/dysuria. MUSCULOSKELETAL: No myagias/arthalgias. PSYCHIATRIC: The patient denies depression. NEUROLOGIC: aphasic Constitutional: alert Psych: no complaints Head: normocephalic ENMT: mucosa pink and moist Neck: supple, jvd (9 cm water) Respiratory: diminished breath sounds (at bases/B) Cardiovascular: regular rate and rhythm Gastrointestinal: soft, non-tender Musculoskeletal: muscle tone (normal) Extremities: edema (trace/B) 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: other (No focal deficts) Labs Result Diagram: 04/01/188 04/01/18 0448 Results 24hrs Laboratory Tests Test 03/31/18 17:10 03/31/18 20:35 04/01/18 04:48 04/01/18 08:11 Bedside Glucose 139 148 84 White Blood Count 6.3 # Red Blood Count 5.30 Hemoglobin 14.1 Hematocrit 44.6 Mean Corpuscular 84.2 Volume Mean Corpuscular 26.6 L Hemoglobin Mean Corpuscular 31.6 L Hemoglobin Concent Red Cell 13.9 Distribution Width Platelet Count 277 Mean Platelet Volume 11.0 H Immature 0.300 Granulocytes % Neutrophils % 52.3 Lymphocytes % 35.2 Monocytes % 8.4 Eosinophils % 3.0 Basophils % 0.8 Nucleated Red Blood 0.0 Cells % Immature 0.020 Granulocytes # Neutrophils # 3.3 Lymphocytes # 2.2 Monocytes # 0.5 Eosinophils # 0.2 Basophils # 0.1 Nucleated Red Blood 0.0 Cells # Sodium Level 139 Potassium Level 5.7 H Chloride Level 101 Carbon Dioxide Level 23 Anion Gap 15 H Blood Urea Nitrogen 41 H Creatinine 1.13 H Est Glomerular 48 L Filtrat Rate mL/min Glucose Level 100 Calcium Level 9.4 Magnesium Level 1.9 Test 04/01/18 12:31 Bedside Glucose 118 Medications Medications Current Medications Aspirin (Aspirin) 81 mg DAILY PO Last administered on 04/01/18 08:24; Admin Dose 81 MG; Start 03/19/18 at 09:00 Carvedilol (Coreg) 3.125 mg BID PO Last administered on 04/01/18 08:25; Admin Dose 3.125 MG; Start 03/18/18 at 21:00 Clopidogrel Bisulfate (plaVIX) 75 mg DAILY PO Last administered on 04/01/18 08:25; Admin Dose 75 MG; Start 03/19/18 at 09:00 Isosorbide Dinitrate (Isordil) 5 mg BID PO Last administered on 04/01/18 08:24; Admin Dose 5 MG; Start 03/18/18 at 21:00 Lisinopril (Zestril) 5 mg DAILY PO Last administered on 2/20/19at 08:24; Admin Dose 5 MG; Start 03/19/18 at 09:00 Nitroglycerin (Nitroglycerin (Sl Tab) 0.4 Mg) 1 tab [id number] PRN SL CHEST PAIN; Start 03/18/18 at 16:30 IV Flush (NS 3 ml) 3 ml PER PROTOCOL IV ; Start 03/18/18 at 17:00 Ondansetron HCl (Zofran Inj) 4 mg Q6H PRN IV NAUSEA/VOMITING; Start 03/18/18 at 17:00 Acetaminophen (Tylenol Tab) 650 mg Q6H PRN PO .PAIN 1-3 OR TEMP; Start 03/18/18 at 17:00 Docusate Sodium (Colace) 100 mg Q12H PRN PO .CONSTIPATION; Start 03/18/18 at 17:00 Magnesium Hydroxide (Milk Of Mag) 30 ml DAILY PRN PO .CONSTIPATION; Start 03/18/18 at 17:00 Miscellaneous Information 1 ea NOTE XX ; Start 03/18/18 at 18:30 Glucose (Glutose) 15 gm Q15M PRN PO DECREASED GLUCOSE; Start 03/18/18 at 18:30 Glucose (Glutose) 22.5 gm Q15M PRN PO DECREASED GLUCOSE; Start 03/18/18 at 18:30 Dextrose (D50w Syringe) 25 ml Q15M PRN IV DECREASED GLUCOSE; Start 03/18/18 at 18:30 Dextrose (D50w Syringe) 50 ml Q15M PRN IV DECREASED GLUCOSE; Start 03/18/18 at 1 8:30 Glucagon (Glucagen) 1 mg Q15M PRN IM DECREASED GLUCOSE; Start 03/18/18 at 18:30 Glucose (Glutose) 15 gm Q15M PRN BUCCAL DECREASED GLUCOSE Last administered on 03/20/18at 06:14; Admin Dose 15 GM; Start 03/18/18 at 18:30 Lorazepam (Ativan) 0.5 mg DAILY PRN IV AGITATION/ANXIETY Last administered on 03/30/18at 15:46; Admin Dose 0.5 MG; Start 03/19/18 at 01:00 Insulin Aspart (Novolog Insulin Pen) (Adult SC Insulin - Mild Algorithm)... AC MEALS AND BEDTIME SC Last administered on 03/29/18at 17:09; Admin Dose 1 UNIT; Start 03/22/18 at 11:30 Loratadine (Claritin) 10 mg DAILY PO Last administered on 04/01/18 08:27; Admin Dose 10 MG; Start 03/22/18 at 14:00 Sodium Chloride (Deep Sea) 2 spray Q4H PRN NASAL congestion Last administered on 03/22/18 14:25; Admin Dose 2 SPRAY; Start 03/22/18 at 14:00 Furosemide (Lasix) 20 mg DAILY IV Last administered on 04/01/18 08:25; Admin Dose 20 MG; Start 03/24/18 at 09:00 Thiamine HCl (Vitamin B1) 100 mg DAILY PO Last administered on 04/01/18 08:25; Admin Dose 100 MG; Start 03/25/18 at 09:00; Stop 04/24/18 at 08:59 Atorvastatin Calcium (Lipitor) 80 mg QHS PO Last administered on 03/31/18 20:38; Admin Dose 80 MG; Start 03/28/18 at 21:00 Insulin Glargine (Lantus) 10 units DAILY@0800 SC Last administered on 04/01/18 08:31; Admin Dose 10 UNITS; Start 04/01/18 at 08:00 Metformin HCl (Glucophage) 1,000 mg BID WITH MEALS PO Last administered on 04/01/18 08:25; Admin Dose 1,000 MG; Start 03/31/18 at 10:00 JANEEN KEENAN Apr 01, 2018 14:35
--- NOTE | 2018-04-01 15:15 | CONS ---
Assessment/Plan Assessment/Plan Hospital Course 67 yo F with hx of multiple cerebrovascular risk factors who presents with ams and other sx... for which neurology is consulted. MRI brain is most notable for 2 tiny acute R occipital infarcts.. A superimposed acute toxic-metabolic encephalopathy is additionally considered. MRA brain is most notable for a 50% L P2 segment stenosis EEG is without epileptiform activity. Echo is notable for EF 20% STACIE + B1 level was a little low P: Cont thiamine supplementation, orally.. Cont antiplatelet therapy/lipitor Cont medical management per primary Reorient as necessary Limit sedating medications where possible PT/OT/ST as necessary Will follow clinically Consultation Date/Type/Reason Admit Date/Time Mar 18, 2018 at 16:08 Type of Consult Neurology Reason for Consultation ams Requesting Provider: WARREN BUTLER MD Date/Time of Note DATE: 04/01/18 TIME: 15:13 24 HR Interval Summary Free Text/Dictation Continues acute care Exam Vital Signs Vitals Vital Signs Date Temp Pulse Resp B/P (MAP) Pulse Ox O2 O2 Flow FiO2 Time Delivery Rate 04/01/18 97.7 76 16 100/68 97 Room Air 13:44 (79) Intake and Output 03/31/18 03/31/18 04/01/18 1515:00 23:00 07:00 IntakeIntake Total 500 ml BalanceBalance 500 ml Exam PE: Gen Appearance: No Apparent Distress HEENT: Normocephalic Cardiovascular: Regular rate Abdomen: Soft Extremities: Dry NE: The patient was alert though disoriented. Language was dysphasic. Fund of knowledge was limited. Pupils were equal and reactive to light. There was no afferent pupillary defect. Visual linda were normal. Funduscopic examination was limited. Extra-ocular movements were full. Ptosis was absent. There was no nystagmus. Facial sensation was normal. Face was symmetric with normal strength. Hearing was intact. Palate movements were normal. Neck strength was normal. There was normal tongue bulk and speed of movement. Tone was normal. Muscle bulk was normal. I did not see fasciculations. Arms and legs were symmetric.. Vibration sensation was normal. Temperature and pinprick sensation was normal. Rapid alternating movements were normal. There was no dysmetria. There was no intention tremor. Gait was deferred due to bedrest. Arm and leg reflexes were symmetric. Powell's sign was absent. Plantar responses were flexor. GARRY BURRELL Apr 01, 2018 15:15
[2018-04-01 19:49] VITALS: BP 130/81; PULSE 76; RESP 20
[2018-04-01 20:00] VITALS: BP 137/98; PULSE 79; RESP 20
[2018-04-01] MEDS: ATORVASTATIN 20 MG TAB PO SCH (20:15)
[2018-04-02 01:37] VITALS: BP 124/74; PULSE 81; RESP 20
[2018-04-02] MEDS: Insulin NOVOLOG SS MILD Algorithm (SS with meals and bedtime) SC SCH ×4 (07:00→20:49)
[2018-04-02 08:00] VITALS: BP 120/79; PULSE 69; RESP 18
[2018-04-02] MEDS: CLOPIDOGREL 75 MG TAB PO SCH (08:21)
[2018-04-02] MEDS: metFORMIN 500 MG TAB PO SCH ×2 (08:21→17:21)
[2018-04-02] MEDS: ASPIRIN 81 MG TAB PO SCH (08:21)
[2018-04-02] MEDS: LORATADINE 10 MG TAB PO SCH (08:21)
[2018-04-02] MEDS: THIAMINE 100 MG TAB PO SCH (08:21)
[2018-04-02] MEDS: INSULIN GLARGINE [LANTus] (100 UNITS/ML) SYG SC SCH (08:25)
[2018-04-02] MEDS: LISINOPRIL 5 MG TAB PO SCH (08:26)
[2018-04-02] MEDS: ISOSORBIDE DINITRATE 5 MG TAB PO SCH ×2 (08:26→20:55)
[2018-04-02] MEDS: FUROSEMIDE 20 MG INJ IV SCH (08:27)
--- NOTE | 2018-04-02 11:27 | PN ---
Date/Time of Note Date/Time of Note DATE: 04/02/18 TIME: 11:25 Assessment/Plan VTE Prophylaxis Risk score (from N[facility])>0 risk: 4 SCD applied (from [facility] [place] Yes Pharmacological prophylaxis: NA/contraindicated Pharm contraindication: other (ON ASA/PLAVIX) Lines/Catheters IV Catheter Type (from [facility]): Saline Lock Urinary Cath still in place: No Assessment/Plan Hospital Course SUBJECTIVE: Sitting up in chair, no acute distress. OBJECTIVE: Vital signs-see below PHYSICAL EXAM: Constitutional: Well-developed, adequately built, lying in bed comfortably. Psych: nl mood/affect, no complaints Head: atraumatic, normocephalic Eyes: nl conjunctiva, nl sclera ENMT: mucosa pink and moist, nl external ears & nose Neck: non-tender, supple Respiratory: clear to auscultation, normal air movement Cardiovascular: nl pulses, regular rate and rhythm Gastrointestinal: non-tender, soft, bowel sounds active in all 4 quadrants. Musculoskeletal/extremities: nl extremities to inspection, motor strength equal bilaterally, no focal deficit. Normal pulses,no cyanosis, no edema. 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: Alert oriented 3,nl speech, nl strength Skin: nl turgor ASSESSMENT/PLAN:67 yo female with h/o systolic CHF, CAD who presented with CVA 1. Occipital and Right SENIOR CONSULTANT strokes -Aphasic (expressive)-IMPROVING -Continue statin/antiplatelet -Continue rehab 2. Acute on chronic severe systolic heart failure -Compensated -cont.diuretics/ACEi/BB. Unable to tolerate Aldactone secondary to hyperkalemia 3. CAD s/p PCI 09/2017 - continue DAPT/statin/BB/nitrates 4. DMII -Now better. Continue Lantus/ metformin/Accu-Cheks and sliding scale. 5. Cardiomyopathy with severely depressed ejection fraction 20%. -Management per #2 6. Dyslipidemia -On statin 7. Toxic metabolic encephalopathy -Stable. Avoid sedating agents. 8. Essential hypertension -Continue antihypertensives 9. Acute kidney injury -Rising creatinine. Nephrology consult -Avoid nephrotoxins and monitor renal function DVT prophylaxis: SCDs/ambulation. PUD prophylaxis: Not indicated CODE STATUS: Full code Diet: Pured nectar thick Disposition -Stable to SNF vs PT Patient was seen in collaboration with Result Diagram: 04/02/1834 04/02/18 0534 Results 24hrs Laboratory Tests Test 04/01/18 12:31 04/01/18 16:26 04/01/18 17:13 04/01/18 20:12 Bedside Glucose 118 172 174 Sodium Level 140 Potassium Level 4.9 Chloride Level 102 Carbon Dioxide Level 30 Anion Gap 8 Blood Urea Nitrogen 44 H Creatinine 1.25 H Est Glomerular 43 L Filtrat Rate mL/min Glucose Level 176 Calcium Level 9.9 Test 04/02/18 05:34 04/02/18 08:19 White Blood Count 5.5 Red Blood Count 5.10 Hemoglobin 13.4 Hematocrit 44.5 Mean Corpuscular 87.3 Volume Mean Corpuscular 26.3 L Hemoglobin Mean Corpuscular 30.1 L Hemoglobin Concent Red Cell 13.9 Distribution Width Platelet Count 266 Mean Platelet Volume 10.9 H Immature 0.200 Granulocytes % Neutrophils % 55.6 Lymphocytes % 31.0 Monocytes % 9.9 Eosinophils % 2.4 Basophils % 0.9 Nucleated Red Blood 0.0 Cells % Immature 0.010 Granulocytes # Neutrophils # 3.0 Lymphocytes # 1.7 Monocytes # 0.5 Eosinophils # 0.1 Basophils # 0.1 Nucleated Red Blood 0.0 Cells # Sodium Level 140 Potassium Level 4.3 Chloride Level 106 Carbon Dioxide Level 23 Anion Gap 11 Blood Urea Nitrogen 45 H Creatinine 1.44 H Est Glomerular 36 L Filtrat Rate mL/min Glucose Level 88 # Calcium Level 9.2 Bedside Glucose 82 Exam/Review of Systems Exam Vitals Vital Signs Date Temp Pulse Resp B/P (MAP) Pulse Ox O2 O2 Flow FiO2 Time Delivery Rate 04/02/18 98.1 69 18 120/79 99 Room Air 08:00 (93) Intake and Output 04/01/18 04/01/18 04/02/18 1515:00 23:00 07:00 IntakeIntake Total 400 ml BalanceBalance 400 ml Results Results 24hrs Laboratory Tests Test 04/01/18 12:31 04/01/18 16:26 04/01/18 17:13 04/01/18 20:12 Bedside Glucose 118 172 174 Sodium Level 140 Potassium Level 4.9 Chloride Level 102 Carbon Dioxide Level 30 Anion Gap 8 Blood Urea Nitrogen 44 H Creatinine 1.25 H Est Glomerular 43 L Filtrat Rate mL/min Glucose Level 176 Calcium Level 9.9 Test 04/02/18 05:34 04/02/18 08:19 White Blood Count 5.5 Red Blood Count 5.10 Hemoglobin 13.4 Hematocrit 44.5 Mean Corpuscular 87.3 Volume Mean Corpuscular 26.3 L Hemoglobin Mean Corpuscular 30.1 L Hemoglobin Concent Red Cell 13.9 Distribution Width Platelet Count 266 Mean Platelet Volume 10.9 H Immature 0.200 Granulocytes % Neutrophils % 55.6 Lymphocytes % 31.0 Monocytes % 9.9 Eosinophils % 2.4 Basophils % 0.9 Nucleated Red Blood 0.0 Cells % Immature 0.010 Granulocytes # Neutrophils # 3.0 Lymphocytes # 1.7 Monocytes # 0.5 Eosinophils # 0.1 Basophils # 0.1 Nucleated Red Blood 0.0 Cells # Sodium Level 140 Potassium Level 4.3 Chloride Level 106 Carbon Dioxide Level 23 Anion Gap 11 Blood Urea Nitrogen 45 H Creatinine 1.44 H Est Glomerular 36 L Filtrat Rate mL/min Glucose Level 88 # Calcium Level 9.2 Bedside Glucose 82 Medications Medication Current Medications Aspirin (Aspirin) 81 mg DAILY PO Last administered on 04/02/18 08:21; Admin Dose 81 MG; Start 03/19/18 at 09:00 Carvedilol (Coreg) 3.125 mg BID PO Last administered on 04/02/18 08:26; Admin Dose 3.125 MG; Start 03/18/18 at 21:00 Clopidogrel Bisulfate (plaVIX) 75 mg DAILY PO Last administered on 04/02/18 08:21; Admin Dose 75 MG; Start 03/19/18 at 09:00 Isosorbide Dinitrate (Isordil) 5 mg BID PO Last administered on 04/02/18 08:26; Admin Dose 5 MG; Start 03/18/18 at 21:00 Lisinopril (Zestril) 5 mg DAILY PO Last administered on 04/02/18 08:26; Admin Dose 5 MG; Start 03/19/18 at 09:00 Nitroglycerin (Nitroglycerin (Sl Tab) 0.4 Mg) 1 tab [id number] PRN SL CHEST PAIN; Start 03/18/18 at 16:30 IV Flush (NS 3 ml) 3 ml PER PROTOCOL IV ; Start 03/18/18 at 17:00 Ondansetron HCl (Zofran Inj) 4 mg Q6H PRN IV NAUSEA/VOMITING Last administered on 04/01/18at 17:10; Admin Dose 4 MG; Start 03/18/18 at 17:00 Acetaminophen (Tylenol Tab) 650 mg Q6H PRN PO .PAIN 1-3 OR TEMP; Start 03/18/18 at 17:00 Docusate Sodium (Colace) 100 mg Q12H PRN PO .CONSTIPATION; Start 03/18/18 at 17:00 Magnesium Hydroxide (Milk Of Mag) 30 ml DAILY PRN PO .CONSTIPATION; Start 03/18/18 at 17:00 Miscellaneous Information 1 ea NOTE XX ; Start 03/18/18 at 18:30 Glucose (Glutose) 15 gm Q15M PRN PO DECREASED GLUCOSE; Start 03/18/18 at 18:30 Glucose (Glutose) 22.5 gm Q15M PRN PO DECREASED GLUCOSE; Start 03/18/18 at 18:30 Dextrose (D50w Syringe) 25 ml Q15M PRN IV DECREASED GLUCOSE; Start 03/18/18 at 18:30 Dextrose (D50w Syringe) 50 ml Q15M PRN IV DECREASED GLUCOSE; Start 03/18/18 at 18:30 Glucagon (Glucagen) 1 mg Q15M PRN IM DECREASED GLUCOSE; Start 03/18/18 at 18:30 Glucose (Glutose) 15 gm Q15M PRN BUCCAL DECREASED GLUCOSE Last administered on 03/20/18at 06:14; Admin Dose 15 GM; Start 03/18/18 at 18:30 Lorazepam (Ativan) 0.5 mg DAILY PRN IV AGITATION/ANXIETY Last administered on 03/30/18at 15:46; Admin Dose 0.5 MG; Start 03/19/18 at 01:00 Insulin Aspart (Novolog Insulin Pen) (Adult SC Insulin - Mild Algorithm)... AC MEALS AND BEDTIME SC Last administered on 04/01/18at 17:14; Admin Dose 1 UNIT; Start 03/22/18 at 11:30 Loratadine (Claritin) 10 mg DAILY PO Last administered on 04/02/18at 08:21; Admin Dose 10 MG; Start 03/22/18 at 14:00 Sodium Chloride (Deep Sea) 2 spray Q4H PRN NASAL congestion Last administered on 03/22/18at 14:25; Admin Dose 2 SPRAY; Start 03/22/18 at 14:00 Furosemide (Lasix) 20 mg DAILY IV Last administered on 04/02/18 08:27; Admin Dose 20 MG; Start 03/24/18 at 09:00 Thiamine HCl (Vitamin B1) 100 mg DAILY PO Last administered on 04/02/18 08:21; Admin Dose 100 MG; Start 03/25/18 at 09:00; Stop 04/24/18 at 08:59 Atorvastatin Calcium (Lipitor) 80 mg QHS PO Last administered on 04/01/18 20:15; Admin Dose 80 MG; Start 03/28/18 at 21:00 Insulin Glargine (Lantus) 10 units DAILY@0800 SC Last administered on 04/02/18 08:25; Admin Dose 10 UNITS; Start 04/01/18 at 08:00 Metformin HCl (Glucophage) 1,000 mg BID WITH MEALS PO Last administered on 03/14 08:21; Admin Dose 1,000 MG; Start 03/31/18 at 10:00 VEDA MENDIOLA NP Apr 02, 2018 11:27
--- NOTE | 2018-04-02 13:33 | CONS ---
Assessment/Plan Cardiology NYHA: III Heart Failure Type: Acute on Chronic Heart Failure Type: Systolic Assessment/Plan Hospital Course (Demo Recall) IMPRESSION: 1. Positive troponin, assess significance. Patient not able to comment on chest pain.- now downtrending and likely a marker of CV disease and not true Nstemi. NO cp 2. Abnormal electrocardiogram, nonspecific ST-T abnormalities, borderline intraventricular conduction delay. 3. Hypertension, uncontrolled. 4. History of stent placement 09/2017. 5. Encephalopathy. 6. Dyslipidemia-LDL 175 HDL 56 7. Cardiomyopathy-severely depressed LVEF 20% 8. CHF-systolic acute on chrnic Recc: -Now on med-surg -serial ecg's -Continue asa/plavix -Continue coreg/zestril -continue isordil -Continue statin -Will hold lasix and follow creatnine -ongoing neuro eval with improving overall MS and more alert but aphasic -PT -lifevest eval pnding -aldactone held due to hyperkalemia and s/p dose of kayexalate with K improved today Consultation Date/Type/Reason Admit Date/Time Mar 18, 2018 at 16:08 Initial Consult Date 03/18/17 Type of Consult Cardiology Reason for Consultation CHF Requesting Provider: WARREN BUTLER MD Date/Time of Note DATE: 04/02/18 TIME: 13:31 Exam/Review of Systems Vital Signs Vitals Vital Signs Date Temp Pulse Resp B/P (MAP) Pulse Ox O2 O2 Flow FiO2 Time Delivery Rate 04/02/18 98.1 69 18 120/79 99 Room Air 08:00 (93) Intake and Output 04/01/18 04/01/18 04/02/18 1414:59 22:59 06:59 IntakeIntake Total 400 ml BalanceBalance 400 ml Exam Exam Review of Systems: CONSTITUTIONAL: No fevers, chills. PULMONARY: No sob CARDIOVASCULAR: No chest pain/palpitations GASTROINTESTINAL: No nausea/vomiting. GENITOURINARY: No hematuria/dysuria. MUSCULOSKELETAL: No myagias/arthalgias. PSYCHIATRIC: The patient denies depression. NEUROLOGIC: aphasic Constitutional: alert, oriented Psych: no complaints Head: normocephalic ENMT: mucosa pink and moist Neck: supple, jvd (8 cm water) Respiratory: clear to auscultation Cardiovascular: regular rate and rhythm Gastrointestinal: soft, non-tender Musculoskeletal: muscle tone (normal) Extremities: edema (none) 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: other (aphasic) Labs Result Diagram: 04/02/18 0534 04/02/18 0534 Results 24hrs Laboratory Tests Test 04/01/18 16:26 04/01/18 17:13 04/01/18 20:12 04/02/18 05:34 Sodium Level 140 140 Potassium Level 4.9 4.3 Chloride Level 102 106 Carbon Dioxide Level 30 23 Anion Gap 8 11 Blood Urea Nitrogen 44 H 45 H Creatinine 1.25 H 1.44 H Est Glomerular 43 L 36 L Filtrat Rate mL/min Glucose Level 176 88 # Calcium Level 9.9 9.2 Bedside Glucose 172 174 White Blood Count 5.5 Red Blood Count 5.10 Hemoglobin 13.4 Hematocrit 44.5 Mean Corpuscular 87.3 Volume Mean Corpuscular 26.3 L Hemoglobin Mean Corpuscular 30.1 L Hemoglobin Concent Red Cell 13.9 Distribution Width Platelet Count 266 Mean Platelet Volume 10.9 H Immature 0.200 Granulocytes % Neutrophils % 55.6 Lymphocytes % 31.0 Monocytes % 9.9 Eosinophils % 2.4 Basophils % 0.9 Nucleated Red Blood 0.0 Cells % Immature 0.010 Granulocytes # Neutrophils # 3.0 Lymphocytes # 1.7 Monocytes # 0.5 Eosinophils # 0.1 Basophils # 0.1 Nucleated Red Blood 0.0 Cells # Test 04/02/18 08:19 04/02/18 12:13 Bedside Glucose 82 132 Medications Medications Current Medications Aspirin (Aspirin) 81 mg DAILY PO Last administered on 04/02/18at 08:21; Admin Dose 81 MG; Start 03/19/18 at 09:00 Carvedilol (Coreg) 3.125 mg BID PO Last administered on 04/02/18 08:26; Admin Dose 3.125 MG; Start 03/18/18 at 21:00 Clopidogrel Bisulfate (plaVIX) 75 mg DAILY PO Last administered on 04/02/18at 08:21; Admin Dose 75 MG; Start 03/19/18 at 09:00 Isosorbide Dinitrate (Isordil) 5 mg BID PO Last administered on 04/02/18at 08:26 ; Admin Dose 5 MG; Start 03/18/18 at 21:00 Lisinopril (Zestril) 5 mg DAILY PO Last administered on 04/02/18at 08:26; Admin Dose 5 MG; Start 03/19/18 at 09:00 Nitroglycerin (Nitroglycerin (Sl Tab) 0.4 Mg) 1 tab [id number] PRN SL CHEST PAIN; Start 03/18/18 at 16:30 IV Flush (NS 3 ml) 3 ml PER PROTOCOL IV ; Start 03/18/18 at 17:00 Ondansetron HCl (Zofran Inj) 4 mg Q6H PRN IV NAUSEA/VOMITING Last administered on 04/01/18at 17:10; Admin Dose 4 MG; Start 03/18/18 at 17:00 Acetaminophen (Tylenol Tab) 650 mg Q6H PRN PO .PAIN 1-3 OR TEMP; Start 03/18/18 at 17:00 Docusate Sodium (Colace) 100 mg Q12H PRN PO .CONSTIPATION; Start 03/18/18 at 17:00 Magnesium Hydroxide (Milk Of Mag) 30 ml DAILY PRN PO .CONSTIPATION; Start 03/18/18 at 17:00 Miscellaneous Information 1 ea NOTE XX ; Start 03/18/18 at 18:30 Glucose (Glutose) 15 gm Q15M PRN PO DECREASED GLUCOSE; Start 03/18/18 at 18:30 Glucose (Glutose) 22.5 gm Q15M PRN PO DECREASED GLUCOSE; Start 03/18/18 at 18:30 Dextrose (D50w Syringe) 25 ml Q15M PRN IV DECREASED GLUCOSE; Start 03/18/18 at 18:30 Dextrose (D50w Syringe) 50 ml Q15M PRN IV DECREASED GLUCOSE; Start 03/18/18 at 18:30 Glucagon (Glucagen) 1 mg Q15M PRN IM DECREASED GLUCOSE; Start 03/18/18 at 18:30 Glucose (Glutose) 15 gm Q15M PRN BUCCAL DECREASED GLUCOSE Last administered on 03/20/18at 06:14; Admin Dose 15 GM; Start 03/18/18 at 18:30 Lorazepam (Ativan) 0.5 mg DAILY PRN IV AGITATION/ANXIETY Last administered on 03/30/18at 15:46; Admin Dose 0.5 MG; Start 03/19/18 at 01:00 Insulin Aspart (Novolog Insulin Pen) (Adult SC Insulin - Mild Algorithm)... AC MEALS AND BEDTIME SC Last administered on 04/01/18 17:14; Admin Dose 1 UNIT; Start 03/22/18 at 11:30 Loratadine (Claritin) 10 mg DAILY PO Last administered on 04/02/18 08:21; Admin Dose 10 MG; Start 03/22/18 at 14:00 Sodium Chloride (Deep Sea) 2 spray Q4H PRN NASAL congestion Last administered on 03/22/18 14:25; Admin Dose 2 SPRAY; Start 03/22/18 at 14:00 Furosemide (Lasix) 20 mg DAILY IV Last administered on 04/02/18 08:27; Admin Dose 20 MG; Start 03/24/18 at 09:00 Thiamine HCl (Vitamin B1) 100 mg DAILY PO Last administered on 04/02/18 08:21; Admin Dose 100 MG; Start 03/25/18 at 09:00; Stop 04/24/18 at 08:59 Atorvastatin Calcium (Lipitor) 80 mg QHS PO Last administered on 04/01/18 20:15; Admin Dose 80 MG; Start 03/28/18 at 21:00 Insulin Glargine (Lantus) 10 units DAILY@0800 SC Last administered on 04/02/18 08:25; Admin Dose 10 UNITS; Start 04/01/18 at 08:00 Metformin HCl (Glucophage) 1,000 mg BID WITH MEALS PO Last administered on 04/02/18 08:21; Admin Dose 1,000 MG; Start 03/31/18 at 10:00 JANEEN KEENAN Apr 02, 2018 13:33
[2018-04-02 14:00] VITALS: BP 91/64; PULSE 73; RESP 18
--- NOTE | 2018-04-02 14:35 | CONS ---
Assessment/Plan Assessment/Plan Hospital Course 67 yo F with hx of multiple cerebrovascular risk factors who presents with ams and other sx... for which neurology is consulted. MRI brain is most notable for 2 tiny acute R occipital infarcts.. A superimposed acute toxic-metabolic encephalopathy is additionally considered. MRA brain is most notable for a 50% L P2 segment stenosis EEG is without epileptiform activity. Echo is notable for EF 20% STACIE + B1 level was a little low P: Cont thiamine supplementation, orally.. Cont antiplatelet therapy/lipitor Cont medical management per primary Reorient as necessary Limit sedating medications where possible PT/OT/ST as necessary Will follow clinically Consultation Date/Type/Reason Admit Date/Time Mar 18, 2018 at 16:08 Type of Consult Neurology Reason for Consultation ams Requesting Provider: WARREN BUTLER MD Date/Time of Note DATE: 04/02/18 TIME: 14:35 24 HR Interval Summary Free Text/Dictation Continues medsurg monitoring. No acute events reported. Pt is without complaints at this time. Exam Vital Signs Vitals Vital Signs Date Temp Pulse Resp B/P (MAP) Pulse Ox O2 O2 Flow FiO2 Time Delivery Rate 04/02/18 98.1 69 18 120/79 99 Room Air 08:00 (93) Intake and Output 04/01/18 04/01/18 04/02/18 1515:00 23:00 07:00 IntakeIntake Total 400 ml BalanceBalance 400 ml Exam PE: Gen Appearance: No Apparent Distress HEENT: Normocephalic Cardiovascular: Regular rate Abdomen: Soft Extremities: Dry NE: The patient was alert though disoriented. Language was dysphasic. Thought process more linear today. Fund of knowledge was limited. Pupils were equal and reactive to light. There was no afferent pupillary defect. Visual linda were normal. Funduscopic examination was limited. Extra-ocular movements were full. Ptosis was absent. There was no nystagmus. Facial sensation was normal. Face was symmetric with normal strength. Hearing was intact. Palate movements were normal. Neck strength was normal. There was normal tongue bulk and speed of movement. Tone was normal. Muscle bulk was normal. I did not see fasciculations. Arms and legs were symmetric.. Vibration sensation was normal. Temperature and pinprick sensation was normal. Rapid alternating movements were normal. There was no dysmetria. There was no intention tremor. Gait was deferred due to bedrest. Arm and leg reflexes were symmetric. Powell's sign was absent. Plantar responses were flexor. SANDRA TORRES NP Apr 02, 2018 14:35
--- NOTE | 2018-04-02 15:48 | CONS ---
DATE OF ADMISSION: 03/18/2018 DATE OF CONSULTATION: TYPE OF CONSULTATION: Nephrology. REASON FOR CONSULTATION: Acute kidney injury. PHYSICIAN REQUESTING CONSULT: Maria Luz Ceron NP HISTORY OF PRESENT ILLNESS: This is a 67-year-old female with a past medical history of diabetes, hi story of coronary artery disease, status post PCI, history of dementia and CHF, who presented to the ED for evaluation of chest pain and altered mental status. The patient came to emergency room with w orsening shortness of breath. She was subsequently admitted for CHF exacerbation. The patient was s een by turkish line attendant, Dr. Rowan. The patient, for her CHF, was placed on diuretic therapy with clin ical improvement. The patient also on admission had elevated troponin which was felt to be secondary to NSTEMI type 2. The patient during the hospital course also was noted to be aphasic and had MRI o f the brain which showed findings of possible acute CVA and the patient was seen by neurologist and d iagnosed with right occipital infarct. The patient has been medically managed and has been clinicall y stable. The patient was also noted to be encephalopathic during hospital course which has been slo wly improving. In terms of patient's renal history, on admission the patient was noted to have a creatinine of 0.85 mg/dL which has increased over the course of several days to 1.4 mg/dL. During this time, the patien t has been on diuretic therapy, has been on MYA inhibitor and has had hemodynamic fluctuations. Ther e were no reports of any hemoptysis, hematemesis or hematochezia. PAST MEDICAL HISTORY: As stated above, history of coronary artery disease, history of CHF, history o f diabetes. PAST SURGICAL HISTORY: Status post cholecystectomy, status post cardiac catheterization. FAMILY HISTORY: No family history of kidney disease. SOCIAL HISTORY: Does not drink, smoke or do drugs. MEDICATIONS: Have been reviewed. ALLERGIES: NO KNOWN DRUG ALLERGIES. REVIEW OF SYSTEMS: The patient is nonverbal. Review of systems was unable to be obtained. Pertinen t positives as obtained by reviewing medical records, speaking to hospital staff and stated in HPI. PHYSICAL EXAMINATION: VITAL SIGNS: Blood pressure is 120/79, respiration 18, pulse 69, temperature 98.1. HEENT: Head is normocephalic. NECK: Supple. HEART: Regular rate. LUNGS: Show diminished breath sounds at the base. ABDOMEN: Soft, nontender to palpation without rebound or guarding. EXTREMITIES: Negative for clubbing, cyanosis. No edema. DERMATOLOGIC: No rashes. MUSCULOSKELETAL: No joint effusions. NEUROLOGIC: No change in exam. LABORATORY DATA: Show sodium 140, potassium 4.3, BUN 45, creatinine 1.44. White count 5.5, hemoglob in 13.4, platelet count is 266. ASSESSMENT AND PLAN: This is a 67-year-old female who presents with: 1. Nonoliguric acute kidney injury with previous baseline creatinine of 0.85 mg/dL. Etiology of acu te kidney injury is likely secondary to hemodynamics, diuretics, MYA inhibitor effect. Lower suspici on for acute glomerulonephritis or vasculitis. Possible tubular injury is a consideration. Recommen dation at this point is to hold diuretic therapy as the patient appears euvolemic. We would consider holding MYA inhibitor. We would check UA with microanalysis, check urine electrolytes. Otherwise, continue supportive care, renally dose meds, avoid nephrotoxins. 2. Mineral bone disorder. Monitor calcium and phosphorus levels. 3. Hypertension. Continue current blood pressure regimen. Monitor closely on MYA inhibitor. 4. Cardiomyopathy, acute congestive heart failure exacerbation. The patient currently appears euvol emic. We will hold diuretic therapy in the setting of acute kidney injury. 5. Acute cerebrovascular accident. Continue medical management. Follow up with neurology. 6. Coronary artery disease. Continue current treatment plan. 7. Diabetes. Continue current insulin regimen. 8. Dyslipidemia. Continue statin therapy. 9. Acute encephalopathy. Etiology is possibly due to acute cerebrovascular accident. Continue to m onitor. Thank you, Maria Luz, for this interesting consult. It will be a pleasure to follow the patient with you throughout the hospital course. Dictated By: FINESSE ROD DO NR/NTS Conf#: [id number] DID#: [id number] CC: WARREN BUTLER MD; JANEEN ROWAN MD; LOTUS VILLALPANDO MD;*EndCC*
[2018-04-02 19:45] VITALS: BP 95/73; PULSE 76; RESP 18
[2018-04-02] MEDS: ATORVASTATIN 20 MG TAB PO SCH (20:50)
[2018-04-03 02:00] VITALS: BP 104/63; PULSE 70; RESP 18
[2018-04-03] MEDS: Insulin NOVOLOG SS MILD Algorithm (SS with meals and bedtime) SC SCH ×4 (07:00→20:44)
[2018-04-03 08:00] VITALS: BP 97/53; PULSE 61; RESP 18
[2018-04-03] MEDS: INSULIN GLARGINE [LANTus] (100 UNITS/ML) SYG SC SCH (08:00)
[2018-04-03] MEDS: metFORMIN 500 MG TAB PO SCH ×2 (08:00→17:09)
[2018-04-03] MEDS: LISINOPRIL 5 MG TAB PO SCH (08:44)
[2018-04-03] MEDS: LORATADINE 10 MG TAB PO SCH (08:45)
[2018-04-03] MEDS: CLOPIDOGREL 75 MG TAB PO SCH (08:46)
[2018-04-03] MEDS: ISOSORBIDE DINITRATE 5 MG TAB PO SCH ×2 (08:46→20:40)
[2018-04-03] MEDS: ASPIRIN 81 MG TAB PO SCH (08:46)
[2018-04-03] MEDS: THIAMINE 100 MG TAB PO SCH (08:46)
--- NOTE | 2018-04-03 09:02 | PN ---
DATE: 04/03/2018 SUBJECTIVE: The patient is stable, no events overnight. No fevers, chills, nausea, or vomiting. OBJECTIVE: VITAL SIGNS: Blood pressure is 104/63, respirations 18, pulse 70, temperature 97.7. HEENT: Head is normocephalic. NECK: Supple. HEART: Regular rate. LUNGS: Show diminished breath sounds at the base. ABDOMEN: Soft, nontender to palpation without rebound or guarding. EXTREMITIES: Negative for clubbing, cyanosis, no edema. DERMATOLOGIC: No rashes. MUSCULOSKELETAL: No joint effusion. NEUROLOGIC: No change in exam. MEDICATIONS: Reviewed. LABORATORY DATA: Shows BUN 51, creatinine 1.25. CBC is within normal limits. Urinalysis shows a pr otein/creatinine ratio of approximately 100 mg per gram of creatinine. Repeat urinalysis does show e vidence of hyaline casts. ASSESSMENT AND PLAN: 1. Nonoliguric acute kidney injury with previous baseline creatinine of 0.5 mg/dL. Etiology of acut e kidney injury is secondary to hemodynamics, diuretics, possible MYA inhibitor effect. The patient' s urinalysis was reviewed, no active sediment. The patient's renal function has improved with de-esc alation of diuretic therapy. At this point, we will continue to hold diuretic therapy. Continue cur rent treatment plans, supportive care, renally dose all medicines. 2. Mineral bone disorder, monitor calcium and phosphorus levels. 3. Hypertension. Continue current blood pressure regimen. Monitor closely on MYA inhibitor. 4. Cardiomyopathy with acute heart failure. The patient is currently compensated. Continue medical management, holding diuretic therapy in setting of worsening renal function. 5. Acute cerebrovascular accident. Continue current treatment plan. 6. Coronary artery disease. Continue current treatment plan. 7. Diabetes. Continue current insulin regimen. 8. Dyslipidemia. Continue statin therapy. 9. Acute encephalopathy. Etiology may be secondary to acute cerebrovascular accident. Continue to monitor. Dictated By: FINESSE ROD DO NR/NTS Conf#: [id number] DID#: [id number] CC: JANEEN KEENAN MD; LOTUS VILLALPANDO MD; WARREN BUTLER MD;*EndCC*
--- NOTE | 2018-04-03 11:49 | PN ---
Date/Time of Note Date/Time of Note DATE: 04/03/18 TIME: 11:45 Assessment/Plan VTE Prophylaxis Risk score (from Ns)>0 risk: 3 SCD applied (from Ns): Yes Pharmacological prophylaxis: NA/contraindicated Pharm contraindication: low risk/ambulating, other (on DAPT) Lines/Catheters IV C[facility]ter Type (from [facility] Saline Lock Urinary Cath still in place: No Assessment/Plan Hospital Course SUBJECTIVE:no acute distress. OBJECTIVE: Vital signs-see below PHYSICAL EXAM: Constitutional: Well-developed, adequately built, lying in bed comfortably. Psych: nl mood/affect, no complaints Head: atraumatic, normocephalic Eyes: nl conjunctiva, nl sclera ENMT: mucosa pink and moist, nl external ears & nose Neck: non-tender, supple Respiratory: clear to auscultation, normal air movement Cardiovascular: nl pulses, regular rate and rhythm Gastrointestinal: non-tender, soft, bowel sounds active in all 4 quadrants. Musculoskeletal/extremities: nl extremities to inspection, motor strength equal bilaterally, no focal deficit. Normal pulses,no cyanosis, no edema. 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: Alert oriented 3,+EXPRESSIVE APHASIA. nl strength Skin: nl turgor ASSESSMENT/PLAN:67 yo female with h/o systolic CHF, CAD who presented with CVA 1. 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 Acute on chronic severe systolic heart failure -Compensated -cont. ACEi/BB. Unable to tolerate Aldactone secondary to hyperkalemia -Diuretics held secondary to renal function 3. Acute kidney injury likely secondary to diuretics versus mya inhibitors. -Today creatinine improved. We will continue to monitor while patient is receiving MYA inhibitors. -Avoid nephrotoxins -Decrease metformin to 500 mg daily 4. DMII -Patient with hypoglycemic episodes. At this time, she would need only metformin for glycemic control. -Continue Accu-Cheks/sliding scale insulin 5. Cardiomyopathy with severely depressed ejection fraction 20%. -Management per #2 6. Dyslipidemia -On statin 7. Toxic metabolic encephalopathy -Stable. Avoid sedating agents. 8. Essential hypertension -Continue antihypertensives 9. CAD s/p PCI 09/2017 - continue DAPT/statin/BB/nitrates DVT prophylaxis: SCDs/ambulation. PUD prophylaxis: Not indicated CODE STATUS: Full code Diet: Pured nectar thick Disposition -Stable to SNF vs PT Patient was seen in collaboration with Result Diagram: 04/03/18 0617 04/03/18 0617 Results 24hrs Laboratory Tests Test 04/02/18 12:13 04/02/18 15:20 04/02/18 17:15 04/02/18 20:48 Bedside Glucose 132 164 121 Urine Color YELLOW Urine Clarity SLIGHTLY CLOUDY A Urine pH 5.0 Urine Specific 1.015 Melvin Urine Ketones NEGATIVE Urine Nitrite NEGATIVE Urine Bilirubin NEGATIVE Urine 1+ H Urobilinogen Urine Leukocyte TRACE A Esterase Urine Microscopic 3 RBC Urine Microscopic 4 WBC Urine Squamous FEW Epithelial Cells Urine Bacteria MODERATE Urine Hyaline FEW A Casts Urine Mucus FEW A Urine Hemoglobin NEGATIVE Urine Random 164.01 Creatinine Urine Random 63 Sodium Urine Glucose NEGATIVE Urine Total 34.0 H Protein Test 04/03/18 06:17 04/03/18 07:48 04/03/18 08:36 04/03/18 09:06 White Blood Count 7.1 # Red Blood Count 5.22 Hemoglobin 13.8 Hematocrit 44.1 Mean Corpuscular 84.5 Volume Mean Corpuscular 26.4 L Hemoglobin Mean Corpuscular 31.3 L Hemoglobin Concen t Red Cell 13.6 Distribution Width Platelet Count 238 Mean Platelet 11.0 H Volume Immature 0.300 Granulocytes % Neutrophils % 48.9 Lymphocytes % 35.1 Monocytes % 11.3 H Eosinophils % 3.4 Basophils % 1.0 Nucleated Red 0.0 Blood Cells % Immature 0.020 Granulocytes # Neutrophils # 3.5 Lymphocytes # 2.5 Monocytes # 0.8 Eosinophils # 0.2 Basophils # 0.1 Nucleated Red 0.0 Blood Cells # Sodium Level 138 Potassium Level 4.2 Chloride Level 105 Carbon Dioxide 26 Level Anion Gap 7 Blood Urea 51 H Nitrogen Creatinine 1.25 H Est Glomerular 43 L Filtrat Rate mL/min Glucose Level 65 #L Calcium Level 9.4 Phosphorus Level 4.2 Magnesium Level 1.8 Bedside Glucose 66 L 67 L 67 L Test 04/03/18 09:51 Bedside Glucose 96 Exam/Review of Systems Exam Vitals Vital Signs Date Temp Pulse Resp B/P (MAP) Pulse Ox O2 O2 Flow FiO2 Time Delivery Rate 04/03/18 97.9 61 18 97/53 (68) 96 08:00 04/02/18 Room Air 08:00 Intake and Output 04/02/18 04/02/18 04/03/18 1414:59 22:59 06:59 IntakeIntake Total 360 ml 478 ml BalanceBalance 360 ml 478 ml Results Results 24hrs Laboratory Tests Test 04/02/18 12:13 04/02/18 15:20 04/02/18 17:15 04/02/18 20:48 Bedside Glucose 132 164 121 Urine Color YELLOW Urine Clarity SLIGHTLY CLOUDY A Urine pH 5.0 Urine Specific 1.015 Melvin Urine Ketones NEGATIVE Urine Nitrite NEGATIVE Urine Bilirubin NEGATIVE Urine 1+ H Urobilinogen Urine Leukocyte TRACE A Esterase Urine Microscopic 3 RBC Urine Microscopic 4 WBC Urine Squamous FEW Epithelial Cells Urine Bacteria MODERATE Urine Hyaline FEW A Casts Urine Mucus FEW A Urine Hemoglobin NEGATIVE Urine Random 164.01 Creatinine Urine Random 63 Sodium Urine Glucose NEGATIVE Urine Total 34.0 H Protein Test 04/03/18 06:17 04/03/18 07:48 04/03/18 08:36 04/03/18 09:06 White Blood Count 7.1 # Red Blood Count 5.22 Hemoglobin 13.8 Hematocrit 44.1 Mean Corpuscular 84.5 Volume Mean Corpuscular 26.4 L Hemoglobin Mean Corpuscular 31.3 L Hemoglobin Concen t Red Cell 13.6 Distribution Width Platelet Count 238 Mean Platelet 11.0 H Volume Immature 0.300 Granulocytes % Neutrophils % 48.9 Lymphocytes % 35.1 Monocytes % 11.3 H Eosinophils % 3.4 Basophils % 1.0 Nucleated Red 0.0 Blood Cells % Immature 0.020 Granulocytes # Neutrophils # 3.5 Lymphocytes # 2.5 Monocytes # 0.8 Eosinophils # 0.2 Basophils # 0.1 Nucleated Red 0.0 Blood Cells # Sodium Level 138 Potassium Level 4.2 Chloride Level 105 Carbon Dioxide 26 Level Anion Gap 7 Blood Urea 51 H Nitrogen Creatinine 1.25 H Est Glomerular 43 L Filtrat Rate mL/min Glucose Level 65 #L Calcium Level 9.4 Phosphorus Level 4.2 Magnesium Level 1.8 Bedside Glucose 66 L 67 L 67 L Test 04/03/18 09:51 Bedside Glucose 96 Medications Medication Current Medications Aspirin (Aspirin) 81 mg DAILY PO Last administered on 04/03/18at 08:46; Admin Dose 81 MG; Start 03/19/18 at 09:00 Carvedilol (Coreg) 3.125 mg BID PO Last administered on 04/02/18at 08:26; Admin Dose 3.125 MG; Start 03/18/18 at 21:00 Clopidogrel Bisulfate (plaVIX) 75 mg DAILY PO Last administered on 04/03/18at 08:46; Admin Dose 75 MG; Start 03/19/18 at 09:00 Isosorbide Dinitrate (Isordil) 5 mg BID PO Last administered on 04/02/18at 08:26; Admin Dose 5 MG; Start 03/18/18 at 21:00 Lisinopril (Zestril) 5 mg DAILY PO Last administered on 04/02/18at 08:26; Admin Dose 5 MG; Start 03/19/18 at 09:00 Nitroglycerin (Nitroglycerin (Sl Tab) 0.4 Mg) 1 tab [id number] PRN SL CHEST PAIN; Start 03/18/18 at 16:30 IV Flush (NS 3 ml) 3 ml PER PROTOCOL IV ; Start 03/18/18 at 17:00 Ondansetron HCl (Zofran Inj) 4 mg Q6H PRN IV NAUSEA/VOMITING Last administered on 04/01/18at 17:10; Admin Dose 4 MG; Start 03/18/18 at 17:00 Acetaminophen (Tylenol Tab) 650 mg Q6H PRN PO .PAIN 1-3 OR TEMP; Start 03/18/18 at 17:00 Docusate Sodium (Colace) 100 mg Q12H PRN PO .CONSTIPATION; Start 03/18/18 at 17:00 Magnesium Hydroxide (Milk Of Mag) 30 ml DAILY PRN PO .CONSTIPATION; Start 03/18/18 at 17:00 Miscellaneous Information 1 ea NOTE XX ; Start 03/18/18 at 18:30 Glucose (Glutose) 15 gm Q15M PRN PO DECREASED GLUCOSE; Start 03/18/18 at 18:30 Glucose (Glutose) 22.5 gm Q15M PRN PO DECREASED GLUCOSE; Start 03/18/18 at 18:30 Dextrose (D50w Syringe) 25 ml Q15M PRN IV DECREASED GLUCOSE; Start 03/18/18 at 18:30 Dextrose (D50w Syringe) 50 ml Q15M PRN IV DECREASED GLUCOSE; Start 03/18/18 at 18:30 Glucagon (Glucagen) 1 mg Q15M PRN IM DECREASED GLUCOSE; Start 03/18/18 at 18:30 Glucose (Glutose) 15 gm Q15M PRN BUCCAL DECREASED GLUCOSE Last administered on 03/20/18 06:14; Admin Dose 15 GM; Start 03/18/18 at 18:30 Lorazepam (Ativan) 0.5 mg DAILY PRN IV AGITATION/ANXIETY Last administered on 03/30/18 15:46; Admin Dose 0.5 MG; Start 03/19/18 at 01:00 Insulin Aspart (Novolog Insulin Pen) (Adult SC Insulin - Mild Algorithm)... AC MEALS AND BEDTIME SC Last administered on 04/02/18 17:20; Admin Dose 1 UNIT; Start 03/22/18 at 11:30 Loratadine (Claritin) 10 mg DAILY PO Last administered on 04/03/18 08:45; Admin Dose 10 MG; Start 03/22/18 at 14:00 Sodium Chloride (Deep Sea) 2 spray Q4H PRN NASAL congestion Last administered on 03/22/18 14:25; Admin Dose 2 SPRAY; Start 03/22/18 at 14:00 Furosemide (Lasix) 20 mg DAILY IV Last administered on 04/02/18 08:27; Admin Dose 20 MG; Start 03/24/18 at 09:00; Status Hold Thiamine HCl (Vitamin B1) 100 mg DAILY PO Last administered on 04/03/18 08:46; Admin Dose 100 MG; Start 03/25/18 at 09:00; Stop 04/24/18 at 08:59 Atorvastatin Calcium (Lipitor) 80 mg QHS PO Last administered on 04/02/18 20:50; Admin Dose 80 MG; Start 03/28/18 at 21:00 Insulin Glargine (Lantus) 10 units DAILY@0800 SC Last administered on 04/02/18 08:25; Admin Dose 10 UNITS; Start 04/01/18 at 08:00 Metformin HCl (Glucophage) 1,000 mg BID WITH MEALS PO Last administered on 04/02/18 17:21; Admin Dose 1,000 MG; Start 03/31/18 at 10:00 VEDA MENDIOLA NP Apr 03, 2018 11:49
[2018-04-03] MEDS ORDERED: METF-849 PO (11:59)
[2018-04-03] MEDS ORDERED: FURO20TA3 PO (12:40)
[2018-04-03] MEDS ORDERED: LORAZEPAM 0.5 MG TAB PO PRN (13:30)
--- NOTE | 2018-04-03 13:40 | CONS ---
Assessment/Plan Assessment/Plan Hospital Course 67 yo F with hx of multiple cerebrovascular risk factors who presents with ams and other sx... for which neurology is consulted. MRI brain is most notable for 2 tiny acute R occipital infarcts.. A superimposed acute toxic-metabolic encephalopathy is additionally considered. MRA brain is most notable for a 50% L P2 segment stenosis EEG is without epileptiform activity. Echo is notable for EF 20% STACIE + B1 level was a little low P: Cont thiamine supplementation, orally.. Cont antiplatelet therapy/lipitor Cont medical management per primary Reorient as necessary Limit sedating medications where possible PT/OT/ST as necessary Will follow clinically Consultation Date/Type/Reason Admit Date/Time Mar 18, 2018 at 16:08 Type of Consult Neurology Reason for Consultation ams Requesting Provider: WARREN BUTLER MD Date/Time of Note DATE: 04/03/18 TIME: 13:40 24 HR Interval Summary Free Text/Dictation Continues medsurg monitoring. No acute events reported. Pt is without complaints today. Exam Vital Signs Vitals Vital Signs Date Temp Pulse Resp B/P (MAP) Pulse Ox O2 O2 Flow FiO2 Time Delivery Rate 04/03/18 97.9 61 18 97/53 (68) 96 08:00 04/02/18 Room Air 08:00 Intake and Output 04/02/18 04/02/18 04/03/18 1515:00 23:00 07:00 IntakeIntake Total 360 ml 478 ml BalanceBalance 360 ml 478 ml Exam PE: Gen Appearance: No Apparent Distress HEENT: Normocephalic Cardiovascular: Regular rate Abdomen: Soft Extremities: Dry NE: The patient was alert though disoriented. Language was dysphasic. Fund of knowledge was limited. Pupils were equal and reactive to light. There was no afferent pupillary defect. Visual linda were normal. Funduscopic examination was limited. Extra-ocular movements were full. Ptosis was absent. There was no nystagmus. Facial sensation was normal. Face was symmetric with normal strength. Hearing was intact. Palate movements were normal. Neck strength was normal. There was normal tongue bulk and speed of movement. Tone was normal. Muscle bulk was normal. I did not see fasciculations. Arms and legs were symmetric.. Vibration sensation was normal. Temperature and pinprick sensation was normal. Rapid alternating movements were normal. There was no dysmetria. There was no intention tremor. Gait was deferred due to bedrest. Arm and leg reflexes were symmetric. Powell's sign was absent. Plantar responses were flexor. SANDRA TORRES NP Apr 03, 2018 13:40 GARRY BURRELL Apr 03, 2018 15:55
--- NOTE | 2018-04-03 14:23 | CONS ---
Assessment/Plan Cardiology NYHA: III Heart Failure Type: Acute on Chronic Heart Failure Type: Systolic Assessment/Plan Hospital Course (Demo Recall) IMPRESSION: 1. Positive troponin, assess significance. Patient not able to comment on chest pain.- now downtrending and likely a marker of CV disease and not true Nstemi. NO cp 2. Abnormal electrocardiogram, nonspecific ST-T abnormalities, borderline intraventricular conduction delay. 3. Hypertension, uncontrolled. 4. History of stent placement 09/2017. 5. Encephalopathy. 6. Dyslipidemia-LDL 175 HDL 56 7. Cardiomyopathy-severely depressed LVEF 20% 8. CHF-systolic acute on chrnic Recc: -Now on med-surg -serial ecg's -Continue asa/plavix -Continue coreg/zestril as tolerated only and thus may need to reduce dose of z estril -continue isordil -Continue statin -Continue holding lasix and follow creatnine and resume in few days PO -ongoing neuro f/u and eval -PT -aldactone held due to hyperkalemia and s/p dose of kayexalate with now improved K Consultation Date/Type/Reason Admit Date/Time Mar 18, 2018 at 16:08 Initial Consult Date 03/18/17 Type of Consult Cardiology Reason for Consultation cardiomyopathy Requesting Provider: WARREN BUTLER MD Date/Time of Note DATE: 04/03/18 TIME: 14:21 Exam/Review of Systems Vital Signs Vitals Vital Signs Date Temp Pulse Resp B/P (MAP) Pulse Ox O2 O2 Flow FiO2 Time Delivery Rate 04/03/18 97.9 61 18 97/53 (68) 96 08:00 04/02/18 Room Air 08:00 Intake and Output 04/02/18 04/02/18 04/03/18 1515:00 23:00 07:00 IntakeIntake Total 360 ml 478 ml BalanceBalance 360 ml 478 ml Exam Exam Review of Systems: CONSTITUTIONAL: No fevers, chills. PULMONARY: No sob CARDIOVASCULAR: No chest pain/palpitations GASTROINTESTINAL: No nausea/vomiting. GENITOURINARY: No hematuria/dysuria. MUSCULOSKELETAL: No myagias/arthalgias. PSYCHIATRIC: The patient denies depression. NEUROLOGIC: aphasic Constitutional: alert Psych: no complaints Head: normocephalic ENMT: mucosa pink and moist Neck: supple, jvd (8 cm water) Respiratory: clear to auscultation Cardiovascular: regular rate and rhythm Gastrointestinal: soft, non-tender Musculoskeletal: muscle tone (normal) Extremities: edema (none) 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: other (aphasic) Labs Result Diagram: 04/03/1817 04/03/18 0617 Results 24hrs Laboratory Tests Test 04/02/18 15:20 04/02/18 17:15 04/02/18 20:48 04/03/18 06:17 Urine Color YELLOW Urine Clarity SLIGHTLY CLOUDY A Urine pH 5.0 Urine Specific 1.015 Golden Urine Ketones NEGATIVE Urine Nitrite NEGATIVE Urine Bilirubin NEGATIVE Urine 1+ H Urobilinogen Urine Leukocyte TRACE A Esterase Urine Microscopic 3 RBC Urine Microscopic 4 WBC Urine Squamous FEW Epithelial Cells Urine Bacteria MODERATE Urine Hyaline FEW A Casts Urine Mucus FEW A Urine Hemoglobin NEGATIVE Urine Random 164.01 Creatinine Urine Random 63 Sodium Urine Glucose NEGATIVE Urine Total 34.0 H Protein Bedside Glucose 164 121 White Blood Count 7.1 # Red Blood Count 5.22 Hemoglobin 13.8 Hematocrit 44.1 Mean Corpuscular 84.5 Volume Mean Corpuscular 26.4 L Hemoglobin Mean Corpuscular 31.3 L Hemoglobin Concen t Red Cell 13.6 Distribution Width Platelet Count 238 Mean Platelet 11.0 H Volume Immature 0.300 Granulocytes % Neutrophils % 48.9 Lymphocytes % 35.1 Monocytes % 11.3 H Eosinophils % 3.4 Basophils % 1.0 Nucleated Red 0.0 Blood Cells % Immature 0.020 Granulocytes # Neutrophils # 3.5 Lymphocytes # 2.5 Monocytes # 0.8 Eosinophils # 0.2 Basophils # 0.1 Nucleated Red 0.0 Blood Cells # Sodium Level 138 Potassium Level 4.2 Chloride Level 105 Carbon Dioxide 26 Level Anion Gap 7 Blood Urea 51 H Nitrogen Creatinine 1.25 H Est Glomerular 43 L Filtrat Rate mL/min Glucose Level 65 #L Calcium Level 9.4 Phosphorus Level 4.2 Magnesium Level 1.8 Test 04/03/18 07:48 04/03/18 08:36 04/03/18 09:06 04/03/18 09:51 Bedside Glucose 66 L 67 L 67 L 96 Test 04/03/18 11:44 Bedside Glucose 173 Medications Medications Current Medications Aspirin (Aspirin) 81 mg DAILY PO Last administered on 04/03/18at 08:46; Admin Dose 81 MG; Start 03/19/18 at 09:00 Carvedilol (Coreg) 3.125 mg BID PO Last administered on 04/02/18at 08:26; Admin Dose 3.125 MG; Start 03/18/18 at 21:00 Clopidogrel Bisulfate (plaVIX) 75 mg DAILY PO Last administered on 04/03/18at 08:46; Admin Dose 75 MG; Start 03/19/18 at 09:00 Isosorbide Dinitrate (Isordil) 5 mg BID PO Last administered on 04/02/18at 08:26; Admin Dose 5 MG; Start 03/18/18 at 21:00 Lisinopril (Zestril) 5 mg DAILY PO Last administered on 04/02/18at 08:26; Admin Dose 5 MG; Start 03/19/18 at 09:00 Nitroglycerin (Nitroglycerin (Sl Tab) 0.4 Mg) 1 tab [id number] PRN SL CHEST PAIN; Start 03/18/18 at 16:30 IV Flush (NS 3 ml) 3 ml PER PROTOCOL IV ; Start 03/18/18 at 17:00 Ondansetron HCl (Zofran Inj) 4 mg Q6H PRN IV NAUSEA/VOMITING Last administered on 04/01/18at 17:10; Admin Dose 4 MG; Start 03/18/18 at 17:00 Acetaminophen (Tylenol Tab) 650 mg Q6H PRN PO .PAIN 1-3 OR TEMP; Start 03/18/18 at 17:00 Docusate Sodium (Colace) 100 mg Q12H PRN PO .CONSTIPATION; Start 03/18/18 at 17:00 Magnesium Hydroxide (Milk Of Mag) 30 ml DAILY PRN PO .CONSTIPATION; Start 03/18/18 at 17:00 Miscellaneous Information 1 ea NOTE XX ; Start 03/18/18 at 18:30 Glucose (Glutose) 15 gm Q15M PRN PO DECREASED GLUCOSE; Start 03/18/18 at 18:30 Glucose (Glutose) 22.5 gm Q15M PRN PO DECREASED GLUCOSE; Start 03/18/18 at 18:30 Dextrose (D50w Syringe) 25 ml Q15M PRN IV DECREASED GLUCOSE; Start 03/18/18 at 18:30 Dextrose (D50w Syringe) 50 ml Q15M PRN IV DECREASED GLUCOSE; Start 03/18/18 at 18:30 Glucagon (Glucagen) 1 mg Q15M PRN IM DECREASED GLUCOSE; Start 03/18/18 at 18:30 Glucose (Glutose) 15 gm Q15M PRN BUCCAL DECREASED GLUCOSE Last administered on 03/20/18 06:14; Admin Dose 15 GM; Start 03/18/18 at 18:30 Insulin Aspart (Novolog Insulin Pen) (Adult SC Insulin - Mild Algorithm)... AC MEALS AND BEDTIME SC Last administered on 04/02/18 17:20; Admin Dose 1 UNIT; Start 03/22/18 at 11:30 Loratadine (Claritin) 10 mg DAILY PO Last administered on 04/03/18 08:45; Admin Dose 10 MG; Start 03/22/18 at 14:00 Sodium Chloride (Deep Sea) 2 spray Q4H PRN NASAL congestion Last administered on 03/22/18 14:25; Admin Dose 2 SPRAY; Start 03/22/18 at 14:00 Furosemide (Lasix) 20 mg DAILY IV Last administered on 04/02/18 08:27; Admin Dose 20 MG; Start 03/24/18 at 09:00; Status Hold Thiamine HCl (Vitamin B1) 100 mg DAILY PO Last administered on 04/03/18 08:46; Admin Dose 100 MG; Start 03/25/18 at 09:00; Stop 04/24/18 at 08:59 Atorvastatin Calcium (Lipitor) 80 mg QHS PO Last administered on 04/02/18 20:50; Admin Dose 80 MG; Start 03/28/18 at 21:00 Metformin HCl (Glucophage) 1,000 mg BID WITH MEALS PO Last administered on 04/02/18 17:21; Admin Dose 1,000 MG; Start 03/31/18 at 10:00 Lorazepam (Ativan) 0.5 mg QHS PRN PO ANXIETY Last administered on 04/03/18 14:15; Admin Dose 0.5 MG; Start 04/03/18 at 13:30 JANEEN KEENAN Apr 03, 2018 14:23
[2018-04-03 19:40] VITALS: BP 127/72; PULSE 83; RESP 20
[2018-04-03] MEDS: ATORVASTATIN 20 MG TAB PO SCH (20:39)
[2018-04-04 02:20] VITALS: BP 117/73; PULSE 63; RESP 18
[2018-04-04 07:51] VITALS: BP 121/65; PULSE 66; RESP 20
[2018-04-04] MEDS: CLOPIDOGREL 75 MG TAB PO SCH (08:41)
[2018-04-04] MEDS: metFORMIN 500 MG TAB PO SCH ×2 (08:42→17:59)
[2018-04-04] MEDS: ASPIRIN 81 MG TAB PO SCH (08:42)
[2018-04-04] MEDS: ISOSORBIDE DINITRATE 5 MG TAB PO SCH ×2 (08:43→20:35)
[2018-04-04] MEDS: Insulin NOVOLOG SS MILD Algorithm (SS with meals and bedtime) SC SCH ×4 (08:43→20:31)
[2018-04-04] MEDS: LORATADINE 10 MG TAB PO SCH (08:44)
[2018-04-04] MEDS: THIAMINE 100 MG TAB PO SCH (08:44)
[2018-04-04] MEDS: LISINOPRIL 5 MG TAB PO SCH (08:44)
--- NOTE | 2018-04-04 09:21 | CONS ---
Consult Date/Type/Reason Admit Date/Time Mar 18, 2018 at 16:08 Initial Consult Date Requesting Provider: WARREN BUTLER MD Date/Time of Note DATE: 04/04/18 TIME: 09:19 Subjective The patient is stable, no events overnight. No fevers, chills, nausea, or vomiting. wants to go home. awaiting dispo to snf. OBJECTIVE: HEENT: Head is normocephalic. NECK: Supple. HEART: Regular rate. LUNGS: Show diminished breath sounds at the base. ABDOMEN: Soft, nontender to palpation without rebound or guarding. EXTREMITIES: Negative for clubbing, cyanosis, no edema. DERMATOLOGIC: No rashes. MUSCULOSKELETAL: No joint effusion. NEUROLOGIC: No change in exam. Objective Vitals Vital Signs Date Temp Pulse Resp B/P (MAP) Pulse Ox O2 O2 Flow FiO2 Time Delivery Rate 04/04/18 98.1 66 20 121/65 98 Room Air 07:51 (83) Intake and Output 04/03/18 04/03/18 04/04/18 1515:00 23:00 07:00 IntakeIntake Total 800 ml 280 ml BalanceBalance 800 ml 280 ml Results/Medications Result Diagram: 04/04/18 0609 04/04/18 0609 Results 24 hrs Laboratory Tests Test 04/03/18 09:51 04/03/18 11:44 04/03/18 17:07 04/03/18 20:43 Bedside Glucose 96 173 283 H 115 Test 04/04/18 06:09 04/04/18 08:39 White Blood Count 5.5 # Red Blood Count 5.23 Hemoglobin 13.8 Hematocrit 44.7 Mean Corpuscular 85.5 Volume Mean Corpuscular 26.4 L Hemoglobin Mean Corpuscular 30.9 L Hemoglobin Concent Red Cell 13.8 Distribution Width Platelet Count 293 # Mean Platelet Volume 11.0 H Immature 0.400 Granulocytes % Neutrophils % 48.3 Lymphocytes % 38.3 Monocytes % 7.9 Eosinophils % 4.0 Basophils % 1.1 Nucleated Red Blood 0.0 Cells % Immature 0.020 Granulocytes # Neutrophils # 2.7 Lymphocytes # 2.1 Monocytes # 0.4 Eosinophils # 0.2 Basophils # 0.1 Nucleated Red Blood 0.0 Cells # Sodium Level 138 Potassium Level 4.6 Chloride Level 101 Carbon Dioxide Level 29 Anion Gap 8 Blood Urea Nitrogen 43 H Creatinine 1.09 H Est Glomerular 50 L Filtrat Rate mL/min Glucose Level 95 Calcium Level 9.5 Phosphorus Level 3.4 Magnesium Level 1.7 Bedside Glucose 189 Home Meds Reported Medications Furosemide* (Furosemide*) 40 Mg Tablet, 40 MG PO BID, TAB 03/18/18 Nitroglycerin* (Nitroglycerin* SL) 0.4 Mg Tab.subl, 0.4 MG SL Q5MIN PRN for CHEST PAIN, BOTTLE 03/18/18 Spironolactone* (Aldactone*) 5 Mg/Ml (COMPOUNDED) Susp, 12.5 MG PO DAILY for 30 Days, ML (COMPOUNDED) 03/18/18 Lisinopril* (Lisinopril*) 5 Mg Tablet, 5 MG PO DAILY, #30 TAB 03/18/18 Clopidogrel Bisulfate (Clopidogrel) 75 Mg Tablet, 75 MG PO DAILY, #30 TAB 03/18/18 Atorvastatin* (Atorvastatin*) 40 Mg Tablet, 40 MG PO QHS, #30 TAB 03/18/18 Carvedilol* (Coreg*) 3.125 Mg Tablet, 3.125 MG PO BID, #60 TAB 03/18/18 Aspirin* (Aspirin* Chew) 81 Mg Tab.chew, 81 MG PO DAILY, TAB.CHEW 03/18/18 Isosorbide Dinitrate* (Isosorbide Dinitrate*) 5 Mg Tablet, 5 MG PO BID, TAB 03/18/18 Medications Current Medications Aspirin (Aspirin) 81 mg DAILY PO Last administered on 04/04/18at 08:42; Admin Dose 81 MG; Start 03/19/18 at 09:00 Carvedilol (Coreg) 3.125 mg BID PO Last administered on 04/04/18at 08:44; Admin Dose 3.125 MG; Start 03/18/18 at 21:00 Clopidogrel Bisulfate (plaVIX) 75 mg DAILY PO Last administered on 04/04/18at 08:41; Admin Dose 75 MG; Start 03/19/18 at 09:00 Isosorbide Dinitrate (Isordil) 5 mg BID PO Last administered on 04/04/18at 08:43; Admin Dose 5 MG; Start 03/18/18 at 21:00 Nitroglycerin (Nitroglycerin (Sl Tab) 0.4 Mg) 1 tab [id number] PRN SL CHEST PAIN; Start 03/18/18 at 16:30 IV Flush (NS 3 ml) 3 ml PER PROTOCOL IV ; Start 03/18/18 at 17:00 Ondansetron HCl (Zofran Inj) 4 mg Q6H PRN IV NAUSEA/VOMITING Last administered on 04/01/18at 17:10; Admin Dose 4 MG; Start 03/18/18 at 17:00 Acetaminophen (Tylenol Tab) 650 mg Q6H PRN PO .PAIN 1-3 OR TEMP; Start 03/18/18 at 17:00 Docusate Sodium (Colace) 100 mg Q12H PRN PO .CONSTIPATION; Start 03/18/18 at 17:00 Magnesium Hydroxide (Milk Of Mag) 30 ml DAILY PRN PO .CONSTIPATION; Start 03/18/18 at 17:00 Miscellaneous Information 1 ea NOTE XX ; Start 03/18/18 at 18:30 Glucose (Glutose) 15 gm Q15M PRN PO DECREASED GLUCOSE; Start 03/18/18 at 18:30 Glucose (Glutose) 22.5 gm Q15M PRN PO DECREASED GLUCOSE; Start 03/18/18 at 18:30 Dextrose (D50w Syringe) 25 ml Q15M PRN IV DECREASED GLUCOSE; Start 03/18/18 at 18:30 Dextrose (D50w Syringe) 50 ml Q15M PRN IV DECREASED GLUCOSE; Start 03/18/18 at 18:30 Glucagon (Glucagen) 1 mg Q15M PRN IM DECREASED GLUCOSE; Start 03/18/18 at 18:30 Glucose (Glutose) 15 gm Q15M PRN BUCCAL DECREASED GLUCOSE Last administered on 03/20/18at 06:14; Admin Dose 15 GM; Start 03/18/18 at 18:30 Insulin Aspart (Novolog Insulin Pen) (Adult SC Insulin - Mild Algorithm)... AC MEALS AND BEDTIME SC Last administered on 04/04/18at 08:43; Admin Dose 2 UNIT; Start 03/22/18 at 11:30 Loratadine (Claritin) 10 mg DAILY PO Last administered on 04/04/18 08:44; Admi n Dose 10 MG; Start 03/22/18 at 14:00 Sodium Chloride (Deep Sea) 2 spray Q4H PRN NASAL congestion Last administered on 03/22/18at 14:25; Admin Dose 2 SPRAY; Start 03/22/18 at 14:00 Furosemide (Lasix) 20 mg DAILY IV Last administered on 04/02/18 08:27; Admin Dose 20 MG; Start 03/24/18 at 09:00; Status Hold Thiamine HCl (Vitamin B1) 100 mg DAILY PO Last administered on 04/04/18 08:44; Admin Dose 100 MG; Start 03/25/18 at 09:00; Stop 04/24/18 at 08:59 Atorvastatin Calcium (Lipitor) 80 mg QHS PO Last administered on 04/03/18 20:39; Admin Dose 80 MG; Start 03/28/18 at 21:00 Metformin HCl (Glucophage) 1,000 mg BID WITH MEALS PO Last administered on 04/04/18 08:42; Admin Dose 1,000 MG; Start 03/31/18 at 10:00 Lorazepam (Ativan) 0.5 mg QHS PRN PO ANXIETY Last administered on 04/03/18at 1 4:15; Admin Dose 0.5 MG; Start 04/03/18 at 13:30 Lisinopril (Zestril) 2.5 mg DAILY PO Last administered on 04/04/18 08:44; Admin Dose 2.5 MG; Start 04/04/18 at 09:00 Assessment/Plan Hospital Course (Demo Recall) 1. Nonoliguric acute kidney injury with previous baseline creatinine of 0.5 mg/dL. Etiology of acute kidney injury is secondary to hemodynamics, diuretics, possible MYA inhibitor effect. The patient's urinalysis was reviewed, no active sediment. The patient's renal function has improved with de-escalation of diuretic therapy. At this point, we will continue to hold diuretic therapy. Continue current treatment plans, supportive care, renally dose all medicines. 2. Mineral bone disorder, monitor calcium and phosphorus levels. 3. Hypertension. Continue current blood pressure regimen. Monitor closely on MYA inhibitor. 4. Cardiomyopathy with acute heart failure. The patient is currently compensated. Continue medical management, holding diuretic therapy in setting of worsening renal function. 5. Acute cerebrovascular accident. Continue current treatment plan. discharge planning for further pt/ot. 6. Coronary artery disease. Continue current treatment plan. 7. Diabetes. Continue current insulin regimen. 8. Dyslipidemia. Continue statin therapy. 9. Acute encephalopathy. Etiology may be secondary to acute cerebrovascular accident. Continue to monitor. BLANCA HATFIELD MD Apr 04, 2018 09:21
--- NOTE | 2018-04-04 10:47 | CONS ---
Assessment/Plan Assessment/Plan Hospital Course 67 yo F with hx of multiple cerebrovascular risk factors who presents with ams and other sx... for which neurology is consulted. MRI brain is most notable for 2 tiny acute R occipital infarcts.. A superimposed acute toxic-metabolic encephalopathy is additionally considered. MRA brain is most notable for a 50% L P2 segment stenosis EEG is without epileptiform activity. Echo is notable for EF 20% STACIE + B1 level was a little low P: Cont thiamine supplementation, orally.. Cont antiplatelet therapy/lipitor Cont medical management per primary Reorient as necessary Limit sedating medications where possible PT/OT/ST as necessary Will follow clinically Consultation Date/Type/Reason Admit Date/Time Mar 18, 2018 at 16:08 Type of Consult Neurology Reason for Consultation ams Requesting Provider: WARREN BUTLER MD Date/Time of Note DATE: 04/04/18 TIME: 10:47 24 HR Interval Summary Free Text/Dictation Continues medsurg. Exam Vital Signs Vitals Vital Signs Date Temp Pulse Resp B/P (MAP) Pulse Ox O2 O2 Flow FiO2 Time Delivery Rate 04/04/18 98.1 66 20 121/65 98 Room Air 07:51 (83) Intake and Output 04/03/18 04/03/18 04/04/18 1515:00 23:00 07:00 IntakeIntake Total 800 ml 280 ml BalanceBalance 800 ml 280 ml Exam PE: Gen Appearance: No Apparent Distress HEENT: Normocephalic Cardiovascular: Regular rate Abdomen: Soft Extremities: Dry NE: The patient was alert though disoriented. Language was dysphasic. Fund of knowledge was limited. Pupils were equal and reactive to light. There was no afferent pupillary defect. Visual linda were normal. Funduscopic examination was limited. Extra-ocular movements were full. Ptosis was absent. There was no nystagmus. Facial sensation was normal. Face was symmetric with normal strength. Hearing was intact. Palate movements were normal. Neck strength was normal. There was normal tongue bulk and speed of movement. Tone was normal. Muscle bulk was normal. I did not see fasciculations. Arms and legs were symmetric.. Vibration sensation was normal. Temperature and pinprick sensation was normal. Rapid alternating movements were normal. There was no dysmetria. There was no intention tremor. Gait was deferred due to bedrest. Arm and leg reflexes were symmetric. Powell's sign was absent. Plantar responses were flexor. SANDRA TORRES NP Apr 04, 2018 10:47 GARRY BURRELL Apr 04, 2018 11:42
--- NOTE | 2018-04-04 12:42 | PN ---
Date/Time of Note Date/Time of Note DATE: 04/04/18 TIME: 12:37 Assessment/Plan VTE Prophylaxis Risk score (from Ns)>0 risk: 2 SCD applied (from Ns): Yes Pharmacological prophylaxis: NA/contraindicated Pharm contraindication: low risk/ambulating Lines/Catheters IV Catheter Type (from Rust): Saline Lock Urinary Cath still in place: No Assessment/Plan Hospital Course SUBJECTIVE:no acute distress. OBJECTIVE: Vital signs-see below PHYSICAL EXAM: Constitutional: Well-developed, adequately built, lying in bed comfortably. Psych: nl mood/affect, no complaints Head: atraumatic, normocephalic Eyes: nl conjunctiva, nl sclera ENMT: mucosa pink and moist, nl external ears & nose Neck: non-tender, supple Respiratory: clear to auscultation, normal air movement Cardiovascular: nl pulses, regular rate and rhythm Gastrointestinal: non-tender, soft, bowel sounds active in all 4 quadrants. Musculoskeletal/extremities: nl extremities to inspection, motor strength equal bilaterally, no focal deficit. Normal pulses,no cyanosis, no edema. 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: Alert oriented 3,+EXPRESSIVE APHASIA. nl strength Skin: nl turgor ASSESSMENT/PLAN:67 yo female with h/o systolic CHF, CAD who presented with CVA 1. 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 Acute on chronic severe systolic heart failure -Compensated -cont. ACEi/BB. -Diuretics held secondary to renal function=>Will restart 20mg daily every other day starting Friday per cards 3. Acute kidney injury likely secondary to diuretics -Resolving.. -Avoid nephrotoxins -Tolerates ACEi 4. DMII -Cont.metformin. Add Prandin -Continue Accu-Cheks/sliding scale insulin 5. Cardiomyopathy with severely depressed ejection fraction 20%. -Management per #2 6. Dyslipidemia -On statin 7. Toxic metabolic encephalopathy -Stable. Avoid sedating agents. 8. Essential hypertension -Continue antihypertensives 9. CAD s/p PCI 09/2017 - continue DAPT/statin/BB/nitrates DVT prophylaxis: SCDs/ambulation. PUD prophylaxis: Not indicated CODE STATUS: Full code Diet: Pured nectar thick Disposition -Stable to SNF Patient was seen in collaboration with Dr.[facility] Indication/DC Plan: pending SNF Placement Result Diagram: 04/04/18 0609 04/04/18 0609 Results 24hrs Laboratory Tests Test 04/03/18 17:07 04/03/18 20:43 04/04/18 06:09 04/04/18 08:39 Bedside Glucose 283 H 115 189 White Blood Count 5.5 # Red Blood Count 5.23 Hemoglobin 13.8 Hematocrit 44.7 Mean Corpuscular 85.5 Volume Mean Corpuscular 26.4 L Hemoglobin Mean Corpuscular 30.9 L Hemoglobin Concent Red Cell 13.8 Distribution Width Platelet Count 293 # Mean Platelet Volume 11.0 H Immature 0.400 Granulocytes % Neutrophils % 48.3 Lymphocytes % 38.3 Monocytes % 7.9 Eosinophils % 4.0 Basophils % 1.1 Nucleated Red Blood 0.0 Cells % Immature 0.020 Granulocytes # Neutrophils # 2.7 Lymphocytes # 2.1 Monocytes # 0.4 Eosinophils # 0.2 Basophils # 0.1 Nucleated Red Blood 0.0 Cells # Sodium Level 138 Potassium Level 4.6 Chloride Level 101 Carbon Dioxide Level 29 Anion Gap 8 Blood Urea Nitrogen 43 H Creatinine 1.09 H Est Glomerular 50 L Filtrat Rate mL/min Glucose Level 95 Calcium Level 9.5 Phosphorus Level 3.4 Magnesium Level 1.7 Test 04/04/18 12:25 Bedside Glucose 134 Exam/Review of Systems Exam Vitals Vital Signs Date Temp Pulse Resp B/P (MAP) Pulse Ox O2 O2 Flow FiO2 Time Delivery Rate 04/04/18 98.1 66 20 121/65 98 Room Air 07:51 (83) Intake and Output 04/03/18 04/03/18 04/04/18 1515:00 23:00 07:00 IntakeIntake Total 800 ml 280 ml BalanceBalance 800 ml 280 ml Results Results 24hrs Laboratory Tests Test 04/03/18 17:07 04/03/18 20:43 04/04/18 06:09 04/04/18 08:39 Bedside Glucose 283 H 115 189 White Blood Count 5.5 # Red Blood Count 5.23 Hemoglobin 13.8 Hematocrit 44.7 Mean Corpuscular 85.5 Volume Mean Corpuscular 26.4 L Hemoglobin Mean Corpuscular 30.9 L Hemoglobin Concent Red Cell 13.8 Distribution Width Platelet Count 293 # Mean Platelet Volume 11.0 H Immature 0.400 Granulocytes % Neutrophils % 48.3 Lymphocytes % 38.3 Monocytes % 7.9 Eosinophils % 4.0 Basophils % 1.1 Nucleated Red Blood 0.0 Cells % Immature 0.020 Granulocytes # Neutrophils # 2.7 Lymphocytes # 2.1 Monocytes # 0.4 Eosinophils # 0.2 Basophils # 0.1 Nucleated Red Blood 0.0 Cells # Sodium Level 138 Potassium Level 4.6 Chloride Level 101 Carbon Dioxide Level 29 Anion Gap 8 Blood Urea Nitrogen 43 H Creatinine 1.09 H Est Glomerular 50 L Filtrat Rate mL/min Glucose Level 95 Calcium Level 9.5 Phosphorus Level 3.4 Magnesium Level 1.7 Test 04/04/18 12:25 Bedside Glucose 134 Medications Medication Current Medications Aspirin (Aspirin) 81 mg DAILY PO Last administered on 04/04/18 08:42; Admin Dose 81 MG; Start 03/19/18 at 09:00 Carvedilol (Coreg) 3.125 mg BID PO Last administered on 04/04/18 08:44; Admin Dose 3.125 MG; Start 03/18/18 at 21:00 Clopidogrel Bisulfate (plaVIX) 75 mg DAILY PO Last administered on 04/04/18 08:41; Admin Dose 75 MG; Start 03/19/18 at 09:00 Isosorbide Dinitrate (Isordil) 5 mg BID PO Last administered on 04/04/18 08:43; Admin Dose 5 MG; Start 03/18/18 at 21:00 Nitroglycerin (Nitroglycerin (Sl Tab) 0.4 Mg) 1 tab [id number] PRN SL CHEST PAIN; Start 03/18/18 at 16:30 IV Flush (NS 3 ml) 3 ml PER PROTOCOL IV ; Start 03/18/18 at 17:00 Ondansetron HCl (Zofran Inj) 4 mg Q6H PRN IV NAUSEA/VOMITING Last administered on 04/01/18at 17:10; Admin Dose 4 MG; Start 03/18/18 at 17:00 Acetaminophen (Tylenol Tab) 650 mg Q6H PRN PO .PAIN 1-3 OR TEMP; Start 03/18/18 at 17:00 Docusate Sodium (Colace) 100 mg Q12H PRN PO .CONSTIPATION; Start 03/18/18 at 17:00 Magnesium Hydroxide (Milk Of Mag) 30 ml DAILY PRN PO .CONSTIPATION; Start 03/18/18 at 17:00 Miscellaneous Information 1 ea NOTE XX ; Start 03/18/18 at 18:30 Glucose (Glutose) 15 gm Q15M PRN PO DECREASED GLUCOSE; Start 03/18/18 at 18:30 Glucose (Glutose) 22.5 gm Q15M PRN PO DECREASED GLUCOSE; Start 03/18/18 at 18:30 Dextrose (D50w Syringe) 25 ml Q15M PRN IV DECREASED GLUCOSE; Start 03/18/18 at 18:30 Dextrose (D50w Syringe) 50 ml Q15M PRN IV DECREASED GLUCOSE; Start 03/18/18 at 18:30 Glucagon (Glucagen) 1 mg Q15M PRN IM DECREASED GLUCOSE; Start 03/18/18 at 18:30 Glucose (Glutose) 15 gm Q15M PRN BUCCAL DECREASED GLUCOSE Last administered on 03/20/18 06:14; Admin Dose 15 GM; Start 03/18/18 at 18:30 Insulin Aspart (Novolog Insulin Pen) (Adult SC Insulin - Mild Algorithm)... AC MEALS AND BEDTIME SC Last administered on 04/04/18 08:43; Admin Dose 2 UNIT; Start 03/22/18 at 11:30 Loratadine (Claritin) 10 mg DAILY PO Last administered on 04/04/18 08:44; Admin Dose 10 MG; Start 03/22/18 at 14:00 Sodium Chloride (Deep Sea) 2 spray Q4H PRN NASAL congestion Last administered on 03/22/18 14:25; Admin Dose 2 SPRAY; Start 03/22/18 at 14:00 Furosemide (Lasix) 20 mg DAILY IV Last administered on 04/02/18 08:27; Admin Dose 20 MG; Start 03/24/18 at 09:00; Status Hold Thiamine HCl (Vitamin B1) 100 mg DAILY PO Last administered on 04/04/18 08:44; Admin Dose 100 MG; Start 03/25/18 at 09:00; Stop 04/24/18 at 08:59 Atorvastatin Calcium (Lipitor) 80 mg QHS PO Last administered on 04/03/18 20:39; Admin Dose 80 MG; Start 03/28/18 at 21:00 Metformin HCl (Glucophage) 1,000 mg BID WITH MEALS PO Last administered on 04/04/18 08:42; Admin Dose 1,000 MG; Start 03/31/18 at 10:00 Lorazepam (Ativan) 0.5 mg QHS PRN PO ANXIETY Last administered on 04/03/18at 14 :15; Admin Dose 0.5 MG; Start 04/03/18 at 13:30 Lisinopril (Zestril) 2.5 mg DAILY PO Last administered on 04/04/18at 08:44; Admin Dose 2.5 MG; Start 04/04/18 at 09:00 VEDA MENDIOLA NP Apr 04, 2018 12:42
[2018-04-04] MEDS: REPAGLINIDE 1 MG TAB PO SCH ×2 (13:00→17:59)
--- NOTE | 2018-04-04 13:20 | CONS ---
Assessment/Plan Cardiology NYHA: III Heart Failure Type: Acute on Chronic Heart Failure Type: Systolic Assessment/Plan Hospital Course (Demo Recall) IMPRESSION: 1. Positive troponin, assess significance. Patient not able to comment on chest pain.- now downtrending and likely a marker of CV disease and not true Nstemi. NO cp 2. Abnormal electrocardiogram, nonspecific ST-T abnormalities, borderline intraventricular conduction delay. 3. Hypertension, uncontrolled. 4. History of stent placement 09/2017. 5. Encephalopathy. 6. Dyslipidemia-LDL 175 HDL 56 7. Cardiomyopathy-severely depressed LVEF 20% 8. CHF-systolic acute on chrnic Recc: -Now on med-surg -serial ecg's -Continue asa/plavix -Continue coreg/zestril as tolerated only and thus may need to reduce dose of z estril -continue isordil -Continue statin -Continue holding lasix and follow creatnine and resume in few days PO -ongoing neuro f/u and eval -PT -aldactone held due to hyperkalemia and s/p dose of kayexalate with now improved K Consultation Date/Type/Reason Admit Date/Time Mar 18, 2018 at 16:08 Initial Consult Date 03/18/17 Type of Consult Cardiology Reason for Consultation positive troponin Requesting Provider: WARREN BUTLER MD Date/Time of Note DATE: 04/04/18 TIME: 13:19 Exam/Review of Systems Vital Signs Vitals Vital Signs Date Temp Pulse Resp B/P (MAP) Pulse Ox O2 O2 Flow FiO2 Time Delivery Rate 04/04/18 98.1 66 20 121/65 98 Room Air 07:51 (83) Intake and Output 04/03/18 04/03/18 04/04/18 1414:59 22:59 06:59 IntakeIntake Total 800 ml 280 ml BalanceBalance 800 ml 280 ml Exam Exam Review of Systems: CONSTITUTIONAL: No fevers, chills. PULMONARY: No sob CARDIOVASCULAR: No chest pain/palpitations GASTROINTESTINAL: No nausea/vomiting. GENITOURINARY: No hematuria/dysuria. MUSCULOSKELETAL: No myagias/arthalgias. PSYCHIATRIC: The patient denies depression. NEUROLOGIC: aphasic Constitutional: alert Psych: no complaints Head: normocephalic ENMT: mucosa pink and moist Neck: supple, jvd (9 cm water) Respiratory: diminished breath sounds (at bases/B) Cardiovascular: regular rate and rhythm Gastrointestinal: soft, non-tender Musculoskeletal: muscle tone (normal) Extremities: edema (none) 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: other (No focal deficits) Labs Result Diagram: 04/04/18 0609 04/04/18 0609 Results 24hrs Laboratory Tests Test 04/03/18 17:07 04/03/18 20:43 04/04/18 06:09 04/04/18 08:39 Bedside Glucose 283 H 115 189 White Blood Count 5.5 # Red Blood Count 5.23 Hemoglobin 13.8 Hematocrit 44.7 Mean Corpuscular 85.5 Volume Mean Corpuscular 26.4 L Hemoglobin Mean Corpuscular 30.9 L Hemoglobin Concent Red Cell 13.8 Distribution Width Platelet Count 293 # Mean Platelet Volume 11.0 H Immature 0.400 Granulocytes % Neutrophils % 48.3 Lymphocytes % 38.3 Monocytes % 7.9 Eosinophils % 4.0 Basophils % 1.1 Nucleated Red Blood 0.0 Cells % Immature 0.020 Granulocytes # Neutrophils # 2.7 Lymphocytes # 2.1 Monocytes # 0.4 Eosinophils # 0.2 Basophils # 0.1 Nucleated Red Blood 0.0 Cells # Sodium Level 138 Potassium Level 4.6 Chloride Level 101 Carbon Dioxide Level 29 Anion Gap 8 Blood Urea Nitrogen 43 H Creatinine 1.09 H Est Glomerular 50 L Filtrat Rate mL/min Glucose Level 95 Calcium Level 9.5 Phosphorus Level 3.4 Magnesium Level 1.7 Test 04/04/18 12:25 Bedside Glucose 134 Medications Medications Current Medications Aspirin (Aspirin) 81 mg DAILY PO Last administered on 04/04/18 08:42; Admin Dose 81 MG; Start 03/19/18 at 09:00 Carvedilol (Coreg) 3.125 mg BID PO Last administered on 04/04/18 08:44; Admin Dose 3.125 MG; Start 03/18/18 at 21:00 Clopidogrel Bisulfate (plaVIX) 75 mg DAILY PO Last administered on 04/04/18 08:41; Admin Dose 75 MG; Start 03/19/18 at 09:00 Isosorbide Dinitrate (Isordil) 5 mg BID PO Last administered on 04/04/18 08:43; Admin Dose 5 MG; Start 03/18/18 at 21:00 Nitroglycerin (Nitroglycerin (Sl Tab) 0.4 Mg) 1 tab [id number] PRN SL CHEST PAIN; Start 03/18/18 at 16:30 IV Flush (NS 3 ml) 3 ml PER PROTOCOL IV ; Start 03/18/18 at 17:00 Ondansetron HCl (Zofran Inj) 4 mg Q6H PRN IV NAUSEA/VOMITING Last administered on 04/01/18at 17:10; Admin Dose 4 MG; Start 03/18/18 at 17:00 Acetaminophen (Tylenol Tab) 650 mg Q6H PRN PO .PAIN 1-3 OR TEMP; Start 03/18/18 at 17:00 Docusate Sodium (Colace) 100 mg Q12H PRN PO .CONSTIPATION; Start 03/18/18 at 17:00 Magnesium Hydroxide (Milk Of Mag) 30 ml DAILY PRN PO .CONSTIPATION; Start 03/18/18 at 17:00 Miscellaneous Information 1 ea NOTE XX ; Start 03/18/18 at 18:30 Glucose (Glutose) 15 gm Q15M PRN PO DECREASED GLUCOSE; Start 03/18/18 at 18:30 Glucose (Glutose) 22.5 gm Q15M PRN PO DECREASED GLUCOSE; Start 03/18/18 at 18:30 Dextrose (D50w Syringe) 25 ml Q15M PRN IV DECREASED GLUCOSE; Start 03/18/18 at 18:30 Dextrose (D50w Syringe) 50 ml Q15M PRN IV DECREASED GLUCOSE; Start 03/18/18 at 18:30 Glucagon (Glucagen) 1 mg Q15M PRN IM DECREASED GLUCOSE; Start 03/18/18 at 18:30 Glucose (Glutose) 15 gm Q15M PRN BUCCAL DECREASED GLUCOSE Last administered on 03/20/18at 06:14; Admin Dose 15 GM; Start 03/18/18 at 18:30 Insulin Aspart (Novolog Insulin Pen) (Adult SC Insulin - Mild Algorithm)... AC MEALS AND BEDTIME SC Last administered on 04/04/18at 08:43; Admin Dose 2 UNIT; Start 03/22/18 at 11:30 Loratadine (Claritin) 10 mg DAILY PO Last administered on 04/04/18 08:44; Admin Dose 10 MG; Start 03/22/18 at 14:00 Sodium Chloride (Deep Sea) 2 spray Q4H PRN NASAL congestion Last administered on 03/22/18at 14:25; Admin Dose 2 SPRAY; Start 03/22/18 at 14:00 Furosemide (Lasix) 20 mg DAILY IV Last administered on 04/02/18 08:27; Admin Dose 20 MG; Start 03/24/18 at 09:00; Status Hold Thiamine HCl (Vitamin B1) 100 mg DAILY PO Last administered on 04/04/18 08:44; Admin Dose 100 MG; Start 03/25/18 at 09:00; Stop 04/24/18 at 08:59 Atorvastatin Calcium (Lipitor) 80 mg QHS PO Last administered on 04/03/18 20:39; Admin Dose 80 MG; Start 03/28/18 at 21:00 Metformin HCl (Glucophage) 1,000 mg BID WITH MEALS PO Last administered on 04/04/18 08:42; Admin Dose 1,000 MG; Start 03/31/18 at 10:00 Lorazepam (Ativan) 0.5 mg QHS PRN PO ANXIETY Last administered on 04/03/18 14:15; Admin Dose 0.5 MG; Start 04/03/18 at 13:30 Lisinopril (Zestril) 2.5 mg DAILY PO Last administered on 04/04/18 08:44; Admin Dose 2.5 MG; Start 04/04/18 at 09:00 Repaglinide (Prandin) 1 mg WITH MEALS PO ; Start 04/04/18 at 13:00 JANEEN KEENAN Apr 04, 2018 13:20
[2018-04-04 14:02] VITALS: BP 127/72; PULSE 71; RESP 18
[2018-04-04] MEDS: ATORVASTATIN 20 MG TAB PO SCH (20:35)
[2018-04-04 20:36] VITALS: BP 118/67; PULSE 73; RESP 18
[2018-04-05 01:46] VITALS: BP 92/58; PULSE 74; RESP 20
[2018-04-05] MEDS: Insulin NOVOLOG SS MILD Algorithm (SS with meals and bedtime) SC SCH ×4 (07:00→20:17)
[2018-04-05 07:30] VITALS: BP 113/70; PULSE 71; RESP 18
[2018-04-05] MEDS: REPAGLINIDE 1 MG TAB PO SCH ×3 (08:00→12:00)
--- NOTE | 2018-04-05 08:11 | CONS ---
Consult Date/Type/Reason Admit Date/Time Mar 18, 2018 at 16:08 Initial Consult Date Requesting Provider: WARREN BUTLER MD Date/Time of Note DATE: 04/05/18 TIME: 08:08 Subjective The patient is stable, no events overnight. No fevers, chills, nausea, or vomiting. continues good uo OBJECTIVE: HEENT: Head is normocephalic. NECK: Supple. HEART: Regular rate. LUNGS: Show diminished breath sounds at the base. ABDOMEN: Soft, nontender to palpation without rebound or guarding. EXTREMITIES: Negative for clubbing, cyanosis, no edema. DERMATOLOGIC: No rashes. MUSCULOSKELETAL: No joint effusion. NEUROLOGIC: No change in exam. Objective Vitals Vital Signs Date Temp Pulse Resp B/P (MAP) Pulse Ox O2 O2 Flow FiO2 Time Delivery Rate 04/05/18 98.0 74 20 92/58 (69) 95 Room Air 01:46 Intake and Output 04/04/18 04/04/18 04/05/18 1515:00 23:00 07:00 IntakeIntake Total 240 ml BalanceBalance 240 ml Results/Medications Result Diagram: 04/04/18 0609 04/05/18 0550 Results 24 hrs Laboratory Tests Test 04/04/18 08:39 04/04/18 12:25 04/04/18 17:58 04/04/18 20:31 Bedside Glucose 189 134 108 140 Test 04/05/18 05:50 Sodium Level 138 Potassium Level 4.7 Chloride Level 103 Carbon Dioxide Level 29 Anion Gap 6 Blood Urea Nitrogen 37 H Creatinine 1.12 H Est Glomerular 48 L Filtrat Rate mL/min Glucose Level 62 #L Calcium Level 9.3 Home Meds Reported Medications Furosemide* (Furosemide*) 40 Mg Tablet, 40 MG PO BID, TAB 03/18/18 Nitroglycerin* (Nitroglycerin* SL) 0.4 Mg Tab.subl, 0.4 MG SL Q5MIN PRN for CH EST PAIN, BOTTLE 03/18/18 Spironolactone* (Aldactone*) 5 Mg/Ml (COMPOUNDED) Susp, 12.5 MG PO DAILY for 30 Days, ML (COMPOUNDED) 03/18/18 Lisinopril* (Lisinopril*) 5 Mg Tablet, 5 MG PO DAILY, #30 TAB 03/18/18 Clopidogrel Bisulfate (Clopidogrel) 75 Mg Tablet, 75 MG PO DAILY, #30 TAB 03/18/18 Atorvastatin* (Atorvastatin*) 40 Mg Tablet, 40 MG PO QHS, #30 TAB 03/18/18 Carvedilol* (Coreg*) 3.125 Mg Tablet, 3.125 MG PO BID, #60 TAB 03/18/18 Aspirin* (Aspirin* Chew) 81 Mg Tab.chew, 81 MG PO DAILY, TAB.CHEW 03/18/18 Isosorbide Dinitrate* (Isosorbide Dinitrate*) 5 Mg Tablet, 5 MG PO BID, TAB 03/18/18 Medications Current Medications Aspirin (Aspirin) 81 mg DAILY PO Last administered on 04/04/18at 08:42; Admin Dose 81 MG; Start 03/19/18 at 09:00 Carvedilol (Coreg) 3.125 mg BID PO Last administered on 04/04/18at 20:35; Admin Dose 3.125 MG; Start 03/18/18 at 21:00 Clopidogrel Bisulfate (plaVIX) 75 mg DAILY PO Last administered on 04/04/18at 08:41; Admin Dose 75 MG; Start 03/19/18 at 09:00 Isosorbide Dinitrate (Isordil) 5 mg BID PO Last administered on 04/04/18at 20:35; Admin Dose 5 MG; Start 03/18/18 at 21:00 Nitroglycerin (Nitroglycerin (Sl Tab) 0.4 Mg) 1 tab [id number] PRN SL CHEST PAIN; Start 03/18/18 at 16:30 IV Flush (NS 3 ml) 3 ml PER PROTOCOL IV ; Start 03/18/18 at 17:00 Ondansetron HCl (Zofran Inj) 4 mg Q6H PRN IV NAUSEA/VOMITING Last administered on 04/01/18at 17:10; Admin Dose 4 MG; Start 03/18/18 at 17:00 Acetaminophen (Tylenol Tab) 650 mg Q6H PRN PO .PAIN 1-3 OR TEMP; Start 03/18/18 at 17:00 Docusate Sodium (Colace) 100 mg Q12H PRN PO .CONSTIPATION; Start 03/18/18 at 17:00 Magnesium Hydroxide (Milk Of Mag) 30 ml DAILY PRN PO .CONSTIPATION; Start 03/18/18 at 17:00 Miscellaneous Information 1 ea NOTE XX ; Start 03/18/18 at 18:30 Glucose (Glutose) 15 gm Q15M PRN PO DECREASED GLUCOSE; Start 03/18/18 at 18:30 Glucose (Glutose) 22.5 gm Q15M PRN PO DECREASED GLUCOSE; Start 03/18/18 at 18:30 Dextrose (D50w Syringe) 25 ml Q15M PRN IV DECREASED GLUCOSE; Start 03/18/18 at 18:30 Dextrose (D50w Syringe) 50 ml Q15M PRN IV DECREASED GLUCOSE; Start 03/18/18 at 18:30 Glucagon (Glucagen) 1 mg Q15M PRN IM DECREASED GLUCOSE; Start 03/18/18 at 18:30 Glucose (Glutose) 15 gm Q15M PRN BUCCAL DECREASED GLUCOSE Last administered on 03/20/18 06:14; Admin Dose 15 GM; Start 03/18/18 at 18:30 Insulin Aspart (Novolog Insulin Pen) (Adult SC Insulin - Mild Algorithm)... AC MEALS AND BEDTIME SC Last administered on 04/04/18 08:43; Admin Dose 2 UNIT; Start 03/22/18 at 11:30 Loratadine (Claritin) 10 mg DAILY PO Last administered on 04/04/18 08:44; Admin Dose 10 MG; Start 03/22/18 at 14:00 Sodium Chloride (Deep Sea) 2 spray Q4H PRN NASAL congestion Last administered on 03/22/18 14:25; Admin Dose 2 SPRAY; Start 03/22/18 at 14:00 Furosemide (Lasix) 20 mg DAILY IV Last administered on 04/02/18 08:27; Admin D ose 20 MG; Start 03/24/18 at 09:00; Status Hold Thiamine HCl (Vitamin B1) 100 mg DAILY PO Last administered on 04/04/18 08:44; Admin Dose 100 MG; Start 03/25/18 at 09:00; Stop 04/24/18 at 08:59 Atorvastatin Calcium (Lipitor) 80 mg QHS PO Last administered on 04/04/18 20:35; Admin Dose 80 MG; Start 03/28/18 at 21:00 Metformin HCl (Glucophage) 1,000 mg BID WITH MEALS PO Last administered on 17:59; Admin Dose 1,000 MG; Start 2/19/19 at 10:00 Lorazepam (Ativan) 0.5 mg QHS PRN PO ANXIETY Last administered on 04/03/18at 14:15; Admin Dose 0.5 MG; Start 04/03/18 at 13:30 Lisinopril (Zestril) 2.5 mg DAILY PO Last administered on 04/04/18at 08:44; Admin Dose 2.5 MG; Start 04/04/18 at 09:00 Repaglinide (Prandin) 1 mg WITH MEALS PO Last administered on 04/04/18at 17:59; Admin Dose 1 MG; Start 04/04/18 at 13:00 Assessment/Plan Hospital Course (Demo Recall) 1. Nonoliguric acute kidney injury with previous baseline creatinine of 0.5 mg/dL. Etiology of acute kidney injury is secondary to hemodynamics, diuretics, possible MYA inhibitor effect. The patient's urinalysis was reviewed, no active sediment. The patient's renal function has improved with de-escalation of diuretic therapy. plan to resume lasix 20mg qod. appears euvolemic. Continue current treatment plans, supportive care, renally dose all medicines. 2. Mineral bone disorder, monitor calcium and phosphorus levels. 3. Hypertension. Continue current blood pressure regimen. Monitor closely on MYA inhibitor. 4. Cardiomyopathy with acute heart failure. The patient is currently compensated. Continue medical management, holding diuretic therapy in setting of worsening renal function. 5. Acute cerebrovascular accident. Continue current treatment plan. discharge planning for further pt/ot. 6. Coronary artery disease. Continue current treatment plan. 7. Diabetes. Continue current insulin regimen. 8. Dyslipidemia. Continue statin therapy. 9. Acute encephalopathy. Etiology may be secondary to acute cerebrovascular accident. Continue to monitor. BLANCA HATFIELD MD Apr 05, 2018 08:11
[2018-04-05] MEDS: ISOSORBIDE DINITRATE 5 MG TAB PO SCH ×2 (08:31→20:17)
[2018-04-05] MEDS: ASPIRIN 81 MG TAB PO SCH (08:31)
[2018-04-05] MEDS: LORATADINE 10 MG TAB PO SCH (08:31)
[2018-04-05] MEDS: LISINOPRIL 5 MG TAB PO SCH (08:31)
[2018-04-05] MEDS: CLOPIDOGREL 75 MG TAB PO SCH (08:31)
[2018-04-05] MEDS: THIAMINE 100 MG TAB PO SCH (08:32)
[2018-04-05] MEDS: metFORMIN 500 MG TAB PO SCH ×2 (08:56→17:17)
--- NOTE | 2018-04-05 10:25 | PN ---
Date/Time of Note Date/Time of Note DATE: 04/05/18 TIME: 10:22 Assessment/Plan VTE Prophylaxis Risk score (from Ns)>0 risk: 4 SCD applied (from Ns): Yes Pharmacological prophylaxis: NA/contraindicated Pharm contraindication: low risk/ambulating, other (ON dapt) Lines/Catheters IV [facility]ter [facility]from [facility] [place] [facility] Urinary Cath still in place: No Assessment/Plan Hospital Course SUBJECTIVE:no acute distress. OBJECTIVE: Vital signs-see below PHYSICAL EXAM: Constitutional: Well-developed, adequately built, lying in bed comfortably. Psych: nl mood/affect, no complaints Head: atraumatic, normocephalic Eyes: nl conjunctiva, nl sclera ENMT: mucosa pink and moist, nl external ears & nose Neck: non-tender, supple Respiratory: clear to auscultation, normal air movement Cardiovascular: nl pulses, regular rate and rhythm Gastrointestinal: non-tender, soft, bowel sounds active in all 4 quadrants. Musculoskeletal/extremities: nl extremities to inspection, motor strength equal bilaterally, no focal deficit. Normal pulses,no cyanosis, no edema. 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: Alert oriented 3,+EXPRESSIVE APHASIA. nl strength Skin: nl turgor ASSESSMENT/PLAN:67 yo female with h/o systolic CHF, CAD who presented with CVA 1. Occipital and Right WATER HAULER strokes -Aphasic (expressive)-IMPROVED -Continue statin/antiplatelet -Continue rehab 2. Acute on chronic severe systolic heart failure -Compensated -cont. ACEi/BB. -Diuretics held secondary to renal function=>plan is to restart 20mg QOD starting Friday per cards 3. Acute kidney injury likely secondary to diuretics -Improved -Avoid nephrotoxins -Tolerates ACEi 4. DMII -Cont.metformin.Sugars dropped w/prandin=> DC Prandin -Continue Accu-Cheks/sliding scale insulin -Metformin (dose decreased per renal fxn) and add Tradjenta and this will be sufficient enough 5. Cardiomyopathy with severely depressed ejection fraction 20%. -Management per #2 6. Dyslipidemia -On statin 7. Toxic metabolic encephalopathy -Stable. Avoid sedating agents. 8. Essential hypertension -Continue antihypertensives 9. CAD s/p PCI 09/2017 - continue DAPT/statin/BB/nitrates DVT prophylaxis: SCDs/ambulation. PUD prophylaxis: Not indicated CODE STATUS: Full code Diet: Pured nectar thick Disposition -Stable to SNF-Pending [facility] Patient was seen in collaboration with Dr.[facility] Indication/DC Plan: PLACEMENT Result Diagram: 04/04/18 0609 04/05/18 0550 Results 24hrs Laboratory Tests Test 04/04/18 12:25 04/04/18 17:58 04/04/18 20:31 04/05/18 05:50 Bedside Glucose 134 108 140 Sodium Level 138 Potassium Level 4.7 Chloride Level 103 Carbon Dioxide Level 29 Anion Gap 6 Blood Urea Nitrogen 37 H Creatinine 1.12 H Est Glomerular 48 L Filtrat Rate mL/min Glucose Level 62 #L Calcium Level 9.3 Test 04/05/18 08:52 Bedside Glucose 117 Exam/Review of Systems Exam Vitals Vital Signs Date Temp Pulse Resp B/P (MAP) Pulse Ox O2 O2 Flow FiO2 Time Delivery Rate 04/05/18 97.6 71 18 113/70 98 Room Air 07:30 (84) Intake and Output 04/04/18 04/04/18 04/05/18 1515:00 23:00 07:00 IntakeIntake Total 240 ml BalanceBalance 240 ml Results Results 24hrs Laboratory Tests Test 04/04/18 12:25 04/04/18 17:58 04/04/18 20:31 04/05/18 05:50 Bedside Glucose 134 108 140 Sodium Level 138 Potassium Level 4.7 Chloride Level 103 Carbon Dioxide Level 29 Anion Gap 6 Blood Urea Nitrogen 37 H Creatinine 1.12 H Est Glomerular 48 L Filtrat Rate mL/min Glucose Level 62 #L Calcium Level 9.3 Test 04/05/18 08:52 Bedside Glucose 117 Medications Medication Current Medications Aspirin (Aspirin) 81 mg DAILY PO Last administered on 04/05/18 08:31; Admin Dose 81 MG; Start 03/19/18 at 09:00 Carvedilol (Coreg) 3.125 mg BID PO Last administered on 04/05/18 08:32; Admin Dose 3.125 MG; Start 03/18/18 at 21:00 Clopidogrel Bisulfate (plaVIX) 75 mg DAILY PO Last administered on 04/05/18 08:31; Admin Dose 75 MG; Start 03/19/18 at 09:00 Isosorbide Dinitrate (Isordil) 5 mg BID PO Last administered on 2/24/19at 08:31; Admin Dose 5 MG; Start 03/18/18 at 21:00 Nitroglycerin (Nitroglycerin (Sl Tab) 0.4 Mg) 1 tab [id number] PRN SL CHEST PAIN; Start 03/18/18 at 16:30 IV Flush (NS 3 ml) 3 ml PER PROTOCOL IV ; Start 03/18/18 at 17:00 Ondansetron HCl (Zofran Inj) 4 mg Q6H PRN IV NAUSEA/VOMITING Last administered on 04/01/18at 17:10; Admin Dose 4 MG; Start 03/18/18 at 17:00 Acetaminophen (Tylenol Tab) 650 mg Q6H PRN PO .PAIN 1-3 OR TEMP; Start 03/18/18 at 17:00 Docusate Sodium (Colace) 100 mg Q12H PRN PO .CONSTIPATION; Start 03/18/18 at 17:00 Magnesium Hydroxide (Milk Of Mag) 30 ml DAILY PRN PO .CONSTIPATION; Start 03/18/18 at 17:00 Miscellaneous Information 1 ea NOTE XX ; Start 03/18/18 at 18:30 Glucose (Glutose) 15 gm Q15M PRN PO DECREASED GLUCOSE; Start 03/18/18 at 18:30 Glucose (Glutose) 22.5 gm Q15M PRN PO DECREASED GLUCOSE; Start 03/18/18 at 18:30 Dextrose (D50w Syringe) 25 ml Q15M PRN IV DECREASED GLUCOSE; Start 03/18/18 at 18:30 Dextrose (D50w Syringe) 50 ml Q15M PRN IV DECREASED GLUCOSE; Start 03/18/18 at 18:30 Glucagon (Glucagen) 1 mg Q15M PRN IM DECREASED GLUCOSE; Start 03/18/18 at 18:30 Glucose (Glutose) 15 gm Q15M PRN BUCCAL DECREASED GLUCOSE Last administered on 03/20/18at 06:14; Admin Dose 15 GM; Start 03/18/18 at 18:30 Insulin Aspart (Novolog Insulin Pen) (Adult SC Insulin - Mild Algorithm)... AC MEALS AND BEDTIME SC Last administered on 04/04/18at 08:43; Admin Dose 2 UNIT; Start 03/22/18 at 11:30 Loratadine (Claritin) 10 mg DAILY PO Last administered on 04/05/18at 08:31; Admin Dose 10 MG; Start 03/22/18 at 14:00 Sodium Chloride (Deep Sea) 2 spray Q4H PRN NASAL congestion Last administered on 03/22/18 14:25; Admin Dose 2 SPRAY; Start 03/22/18 at 14:00 Furosemide (Lasix) 20 mg DAILY IV Last administered on 04/02/18 08:27; Admin Dose 20 MG; Start 03/24/18 at 09:00; Status Hold Thiamine HCl (Vitamin B1) 100 mg DAILY PO Last administered on 04/05/18 08:32; Admin Dose 100 MG; Start 03/25/18 at 09:00; Stop 04/24/18 at 08:59 Atorvastatin Calcium (Lipitor) 80 mg QHS PO Last administered on 04/04/18 20:35; Admin Dose 80 MG; Start 03/28/18 at 21:00 Metformin HCl (Glucophage) 1,000 mg BID WITH MEALS PO Last administered on 08:56; Admin Dose 1,000 MG; Start 03/31/18 at 10:00 Lorazepam (Ativan) 0.5 mg QHS PRN PO ANXIETY Last administered on 04/03/18 14:15; Admin Dose 0.5 MG; Start 04/03/18 at 13:30 Lisinopril (Zestril) 2.5 mg DAILY PO Last administered on 04/05/18 08:31; Admin Dose 2.5 MG; Start 04/04/18 at 09:00 Repaglinide (Prandin) 1 mg WITH MEALS PO Last administered on 04/05/18 08:56; Admin Dose 1 MG; Start 04/04/18 at 13:00 VEDA MENDIOLA NP Apr 05, 2018 10:25
[2018-04-05] MEDS: LINAGLIPTIN 5 MG TABLET PO SCH (13:00)
--- NOTE | 2018-04-05 13:06 | CONS ---
Assessment/Plan Cardiology NYHA: III Heart Failure Type: Acute on Chronic Heart Failure Type: Systolic Assessment/Plan Hospital Course (Demo Recall) IMPRESSION: 1. Positive troponin, assess significance. Patient not able to comment on chest pain.- now downtrending and likely a marker of CV disease and not true Nstemi. NO cp 2. Abnormal electrocardiogram, nonspecific ST-T abnormalities, borderline intraventricular conduction delay. 3. Hypertension, uncontrolled. 4. History of stent placement 09/2017. 5. Encephalopathy. 6. Dyslipidemia-LDL 175 HDL 56 7. Cardiomyopathy-severely depressed LVEF 20% 8. CHF-systolic acute on chrnic Recc: -Now on med-surg -serial ecg's -Continue asa/plavix -Continue coreg/zestril as tolerated only -continue isordil -Continue statin -Continue holding lasix and follow creatnine and likely resume in few days PO -ongoing neuro f/u and eval -PT -aldactone held due to hyperkalemia and s/p dose of kayexalate with now improved K but would remain off aldactone Consultation Date/Type/Reason Admit Date/Time Mar 18, 2018 at 16:08 Initial Consult Date 03/18/17 Type of Consult Cardiology Reason for Consultation Cardiomyopathy Requesting Provider: WARREN BUTLER MD Date/Time of Note DATE: 04/05/18 TIME: 13:04 Exam/Review of Systems Vital Signs Vitals Vital Signs Date Temp Pulse Resp B/P (MAP) Pulse Ox O2 O2 Flow FiO2 Time Delivery Rate 04/05/18 97.6 71 18 113/70 98 Room Air 07:30 (84) Intake and Output 04/04/18 04/04/18 04/05/18 1515:00 23:00 07:00 IntakeIntake Total 240 ml BalanceBalance 240 ml Exam Exam Review of Systems: CONSTITUTIONAL: No fevers, chills. PULMONARY: No sob CARDIOVASCULAR: No chest pain/palpitations GASTROINTESTINAL: No nausea/vomiting. GENITOURINARY: No hematuria/dysuria. MUSCULOSKELETAL: No myagias/arthalgias. PSYCHIATRIC: The patient denies depression. NEUROLOGIC: No weakness Constitutional: alert Psych: no complaints Head: normocephalic ENMT: mucosa pink and moist Neck: supple, jvd (9 cm water) Respiratory: clear to auscultation Cardiovascular: regular rate and rhythm Gastrointestinal: soft, non-tender Musculoskeletal: muscle weakness (mild generalized) Extremities: edema (none) 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: other (No focal deficits) Labs Result Diagram: 04/04/18 0609 04/05/18 0550 Results 24hrs Laboratory Tests Test 04/04/18 17:58 04/04/18 20:31 04/05/18 05:50 04/05/18 08:52 Bedside Glucose 108 140 117 Sodium Level 138 Potassium Level 4.7 Chloride Level 103 Carbon Dioxide Level 29 Anion Gap 6 Blood Urea Nitrogen 37 H Creatinine 1.12 H Est Glomerular 48 L Filtrat Rate mL/min Glucose Level 62 #L Calcium Level 9.3 Test 04/05/18 12:14 Bedside Glucose 73 Medications Medications Current Medications Aspirin (Aspirin) 81 mg DAILY PO Last administered on 04/05/18 08:31; Admin Dose 81 MG; Start 03/19/18 at 09:00 Carvedilol (Coreg) 3.125 mg BID PO Last administered on 04/05/18 08:32; Admin Dose 3.125 MG; Start 03/18/18 at 21:00 Clopidogrel Bisulfate (plaVIX) 75 mg DAILY PO Last administered on 04/05/18 08:31; Admin Dose 75 MG; Start 03/19/18 at 09:00 Isosorbide Dinitrate (Isordil) 5 mg BID PO Last administered on 04/05/18 08:31; Admin Dose 5 MG; Start 03/18/18 at 21:00 Nitroglycerin (Nitroglycerin (Sl Tab) 0.4 Mg) 1 tab [id number] PRN SL CHEST PAIN; Start 03/18/18 at 16:30 IV Flush (NS 3 ml) 3 ml PER PROTOCOL IV ; Start 03/18/18 at 17:00 Ondansetron HCl (Zofran Inj) 4 mg Q6H PRN IV NAUSEA/VOMITING Last administered on 04/01/18at 17:10; Admin Dose 4 MG; Start 03/18/18 at 17:00 Acetaminophen (Tylenol Tab) 650 mg Q6H PRN PO .PAIN 1-3 OR TEMP; Start 03/18/18 at 17:00 Docusate Sodium (Colace) 100 mg Q12H PRN PO .CONSTIPATION; Start 03/18/18 at 17:00 Magnesium Hydroxide (Milk Of Mag) 30 ml DAILY PRN PO .CONSTIPATION; Start 03/18/18 at 17:00 Miscellaneous Information 1 ea NOTE XX ; Start 03/18/18 at 18:30 Glucose (Glutose) 15 gm Q15M PRN PO DECREASED GLUCOSE; Start 03/18/18 at 18:30 Glucose (Glutose) 22.5 gm Q15M PRN PO DECREASED GLUCOSE; Start 03/18/18 at 18:30 Dextrose (D50w Syringe) 25 ml Q15M PRN IV DECREASED GLUCOSE; Start 03/18/18 at 18:30 Dextrose (D50w Syringe) 50 ml Q15M PRN IV DECREASED GLUCOSE; Start 03/18/18 at 18:30 Glucagon (Glucagen) 1 mg Q15M PRN IM DECREASED GLUCOSE; Start 03/18/18 at 18:30 Glucose (Glutose) 15 gm Q15M PRN BUCCAL DECREASED GLUCOSE Last administered on 03/20/18 06:14; Admin Dose 15 GM; Start 03/18/18 at 18:30 Insulin Aspart (Novolog Insulin Pen) (Adult SC Insulin - Mild Algorithm)... AC MEALS AND BEDTIME SC Last administered on 04/04/18 08:43; Admin Dose 2 UNIT; Start 03/22/18 at 11:30 Loratadine (Claritin) 10 mg DAILY PO Last administered on 04/05/18 08:31; Admin Dose 10 MG; Start 03/22/18 at 14:00 Sodium Chloride (Deep Sea) 2 spray Q4H PRN NASAL congestion Last administered on 03/22/18 14:25; Admin Dose 2 SPRAY; Start 03/22/18 at 14:00 Furosemide (Lasix) 20 mg DAILY IV Last administered on 04/02/18 08:27; Admin Dose 20 MG; Start 03/24/18 at 09:00; Status Hold Thiamine HCl (Vitamin B1) 100 mg DAILY PO Last administered on 04/05/18 08:32; Admin Dose 100 MG; Start 03/25/18 at 09:00; Stop 04/24/18 at 08:59 Atorvastatin Calcium (Lipitor) 80 mg QHS PO Last administered on 04/04/18 20:35; Admin Dose 80 MG; Start 03/28/18 at 21:00 Lorazepam (Ativan) 0.5 mg QHS PRN PO ANXIETY Last administered on 2/22/19at 14:15; Admin Dose 0.5 MG; Start 04/03/18 at 13:30 Lisinopril (Zestril) 2.5 mg DAILY PO Last administered on 04/05/18at 08:31; Admin Dose 2.5 MG; Start 04/04/18 at 09:00 Metformin HCl (Glucophage) 500 mg BID WITH MEALS PO ; Start 04/05/18 at 18:00 Linagliptin (Tradjenta) 5 mg DAILY PO Last administered on 04/05/18at 13:00; Admin Dose 5 MG; Start 04/05/18 at 12:30 JANEEN KEENAN Apr 05, 2018 13:06
[2018-04-05 14:00] VITALS: BP 98/56; PULSE 65; RESP 18
[2018-04-05] MEDS: GLUCOSE GEL 15 GRAM TUBE BUCCAL PRN ×2 (17:12→17:32)
[2018-04-05 20:00] VITALS: BP 101/60; PULSE 68; RESP 19
[2018-04-05] MEDS: ATORVASTATIN 20 MG TAB PO SCH (20:16)
[2018-04-06 02:00] VITALS: BP 108/66; PULSE 76; RESP 18
[2018-04-06] MEDS: Insulin NOVOLOG SS MILD Algorithm (SS with meals and bedtime) SC SCH ×4 (07:00→20:52)
[2018-04-06 07:15] VITALS: BP 113/68; PULSE 74; RESP 18
[2018-04-06] MEDS: CLOPIDOGREL 75 MG TAB PO SCH (08:26)
[2018-04-06] MEDS: metFORMIN 500 MG TAB PO SCH ×2 (08:26→17:25)
[2018-04-06] MEDS: ASPIRIN 81 MG TAB PO SCH (08:26)
[2018-04-06] MEDS: THIAMINE 100 MG TAB PO SCH (08:26)
[2018-04-06] MEDS: LISINOPRIL 5 MG TAB PO SCH (08:27)
[2018-04-06] MEDS: ISOSORBIDE DINITRATE 5 MG TAB PO SCH ×2 (08:27→20:51)
[2018-04-06] MEDS: LINAGLIPTIN 5 MG TABLET PO SCH (08:27)
[2018-04-06] MEDS: LORATADINE 10 MG TAB PO SCH (08:27)
[2018-04-06] MEDS ORDERED: FUROSEMIDE 20 MG TAB PO SCH (09:00)
--- NOTE | 2018-04-06 11:11 | PN ---
Date/Time of Note Date/Time of Note DATE: 04/06/18 TIME: 11:02 Assessment/Plan VTE Prophylaxis Risk score (from Ns)>0 risk: 4 SCD applied (from Ns): Yes Pharmacological prophylaxis: NA/contraindicated Pharm contraindication: other (on DAPT) Lines/Catheters IV C[facility]from [facility] Urinary Cath still in place: No Assessment/Plan Hospital Course SUBJECTIVE: Patient with hypoglycemic episodes. OBJECTIVE: Vital signs-see below PHYSICAL EXAM: Constitutional: Well-developed, adequately built, lying in bed comfortably. Psych: nl mood/affect, no complaints Head: atraumatic, normocephalic Eyes: nl conjunctiva, nl sclera ENMT: mucosa pink and moist, nl external ears & nose Neck: non-tender, supple Respiratory: clear to auscultation, normal air movement Cardiovascular: nl pulses, regular rate and rhythm Gastrointestinal: non-tender, soft, bowel sounds active in all 4 quadrants. Musculoskeletal/extremities: nl extremities to inspection, motor strength equal bilaterally, no focal deficit. Normal pulses,no cyanosis, no edema. 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: Alert oriented 3,+EXPRESSIVE APHASIA. nl strength Skin: nl turgor ASSESSMENT/PLAN:67 yo female with h/o systolic CHF, CAD who presented with CVA 1. 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 Acute on chronic severe systolic heart failure -Compensated -cont. ACEi/BB. -Diuretics held secondary to renal function=>plan is to restart 20mg QOD starting today per cards 3. Acute kidney injury likely secondary to diuretics -Improved -Avoid nephrotoxins -MONITOR 4. DMII -Patient with recurrent episodes of hypoglycemia, treated with protocol and avoid any insulins. -Stop Tradjenta and continue with Metformin. 5. Cardiomyopathy with severely depressed ejection fraction 20%. -Management per #2 6. Dyslipidemia -On statin 7. Toxic metabolic encephalopathy -Stable. Avoid sedating agents. 8. Essential hypertension -Continue antihypertensives 9. CAD s/p PCI 09/2017 - continue DAPT/statin/BB/nitrates DVT prophylaxis: SCDs/ambulation. PUD prophylaxis: Not indicated CODE STATUS: Full code Diet: Pured nectar thick Disposition -Advised keeping patient another 24 hours to monitor blood glucose and then discharge planning to SNF-Pending [facility] Patient was seen in collaboration with Result Diagram: 04/04/18 0609 04/05/18 1753 Results 24hrs Laboratory Tests Test 04/05/18 12:14 04/05/18 17:09 04/05/18 17:29 04/05/18 17:31 Bedside Glucose 73 46 *L 43 *L 49 *L Test 04/05/18 17:51 04/05/18 17:53 04/05/18 18:06 04/05/18 18:25 Bedside Glucose 55 L 82 81 Glucose Level 52 #L Test 04/05/18 20:14 04/06/18 08:23 Bedside Glucose 93 71 Exam/Review of Systems Exam Vitals Vital Signs Date Temp Pulse Resp B/P (MAP) Pulse Ox O2 O2 Flow FiO2 Time Delivery Rate 04/06/18 98.3 74 18 113/68 98 07:15 (83) 04/05/18 Room Air 14:00 Intake and Output 04/05/18 04/05/18 04/06/18 1515:00 23:00 07:00 IntakeIntake Total 640 ml 240 ml BalanceBalance 640 ml 240 ml Results Results 24hrs Laboratory Tests Test 04/05/18 12:14 04/05/18 17:09 04/05/18 17:29 04/05/18 17:31 Bedside Glucose 73 46 *L 43 *L 49 *L Test 04/05/18 17:51 04/05/18 17:53 04/05/18 18:06 04/05/18 18:25 Bedside Glucose 55 L 82 81 Glucose Level 52 #L Test 04/05/18 20:14 04/06/18 08:23 Bedside Glucose 93 71 Medications Medication Current Medications Aspirin (Aspirin) 81 mg DAILY PO Last administered on 04/06/18 08:26; Admin Dose 81 MG; Start 03/19/18 at 09:00 Carvedilol (Coreg) 3.125 mg BID PO Last administered on 04/06/18 08:28; Admin Dose 3.125 MG; Start 03/18/18 at 21:00 Clopidogrel Bisulfate (plaVIX) 75 mg DAILY PO Last administered on 04/06/18 08:26; Admin Dose 75 MG; Start 03/19/18 at 09:00 Isosorbide Dinitrate (Isordil) 5 mg BID PO Last administered on 04/06/18 08:27; Admin Dose 5 MG; Start 03/18/18 at 21:00 Nitroglycerin (Nitroglycerin (Sl Tab) 0.4 Mg) 1 tab [id number] PRN SL CHEST PAIN; Start 03/18/18 at 16:30 IV Flush (NS 3 ml) 3 ml PER PROTOCOL IV ; Start 03/18/18 at 17:00 Ondansetron HCl (Zofran Inj) 4 mg Q6H PRN IV NAUSEA/VOMITING Last administered on 04/01/18at 17:10; Admin Dose 4 MG; Start 03/18/18 at 17:00 Acetaminophen (Tylenol Tab) 650 mg Q6H PRN PO .PAIN 1-3 OR TEMP; Start 03/18/18 at 17:00 Docusate Sodium (Colace) 100 mg Q12H PRN PO .CONSTIPATION; Start 03/18/18 at 17:00 Magnesium Hydroxide (Milk Of Mag) 30 ml DAILY PRN PO .CONSTIPATION; Start 03/18/18 at 17:00 Miscellaneous Information 1 ea NOTE XX ; Start 03/18/18 at 18:30 Glucose (Glutose) 15 gm Q15M PRN PO DECREASED GLUCOSE; Start 03/18/18 at 18:30 Glucose (Glutose) 22.5 gm Q15M PRN PO DECREASED GLUCOSE; Start 03/18/18 at 18:30 Dextrose (D50w Syringe) 25 ml Q15M PRN IV DECREASED GLUCOSE; Start 03/18/18 at 18:30 Dextrose (D50w Syringe) 50 ml Q15M PRN IV DECREASED GLUCOSE; Start 03/18/18 at 18:30 Glucagon (Glucagen) 1 mg Q15M PRN IM DECREASED GLUCOSE; Start 03/18/18 at 18:30 Glucose (Glutose) 15 gm Q15M PRN BUCCAL DECREASED GLUCOSE Last administered on 04/05/18at 17:32; Admin Dose 15 GM; Start 03/18/18 at 18:30 Insulin Aspart (Novolog Insulin Pen) (Adult SC Insulin - Mild Algorithm)... AC MEALS AND BEDTIME SC Last administered on 04/04/18 08:43; Admin Dose 2 UNIT; Start 03/22/18 at 11:30 Loratadine (Claritin) 10 mg DAILY PO Last administered on 04/06/18 08:27; Admin Dose 10 MG; Start 03/22/18 at 14:00 Sodium Chloride (Deep Sea) 2 spray Q4H PRN NASAL congestion Last administered on 03/22/18 14:25; Admin Dose 2 SPRAY; Start 03/22/18 at 14:00 Thiamine HCl (Vitamin B1) 100 mg DAILY PO Last administered on 04/06/18 08:26; Admin Dose 100 MG; Start 03/25/18 at 09:00; Stop 04/24/18 at 08:59 Atorvastatin Calcium (Lipitor) 80 mg QHS PO Last administered on 04/05/18 20:16; Admin Dose 80 MG; Start 03/28/18 at 21:00 Lorazepam (Ativan) 0.5 mg QHS PRN PO ANXIETY Last administered on 04/03/18 14:15; Admin Dose 0.5 MG; Start 04/03/18 at 13:30 Lisinopril (Zestril) 2.5 mg DAILY PO Last administered on 04/06/18 08:27; Admin Dose 2.5 MG; Start 04/04/18 at 09:00 Metformin HCl (Glucophage) 500 mg BID WITH MEALS PO Last administered on 04/06/18 08:26; Admin Dose 500 MG; Start 04/05/18 at 18:00 Linagliptin (Tradjenta) 5 mg DAILY PO Last administered on 04/06/18 08:27; Admin Dose 5 MG; Start 04/05/18 at 12:30 Furosemide (Lasix) 20 mg DAILY PO Last administered on 04/06/18 09:36; Admin Dose 20 MG; Start 04/06/18 at 09:00 VEDA MENDIOLA NP Apr 06, 2018 11:11
--- NOTE | 2018-04-06 13:58 | CONS ---
Assessment/Plan Cardiology NYHA: III Heart Failure Type: Acute on Chronic Heart Failure Type: Systolic Assessment/Plan Hospital Course (Demo Recall) IMPRESSION: 1. Positive troponin, assess significance. Patient not able to comment on chest pain.- now downtrending and likely a marker of CV disease and not true Nstemi. NO cp 2. Abnormal electrocardiogram, nonspecific ST-T abnormalities, borderline intraventricular conduction delay. 3. Hypertension, uncontrolled. 4. History of stent placement 09/2017. 5. Encephalopathy. 6. Dyslipidemia-LDL 175 HDL 56 7. Cardiomyopathy-severely depressed LVEF 20% 8. CHF-systolic acute on chrnic Recc: -Now on med-surg -serial ecg's -Continue asa/plavix -Continue coreg/zestril as tolerated only -continue isordil -Continue statin -Continue holding lasix and follow creatnine and likely resume in few days PO -ongoing neuro f/u and eval -PT -aldactone held due to hyperkalemia and s/p dose of kayexalate with now improved K and would remain off aldactone Consultation Date/Type/Reason Admit Date/Time Mar 18, 2018 at 16:08 Initial Consult Date 03/18/17 Type of Consult Cardiology Reason for Consultation positive troponin Requesting Provider: WARREN BUTLER MD Date/Time of Note DATE: 04/06/18 TIME: 13:57 Exam/Review of Systems Vital Signs Vitals Vital Signs Date Temp Pulse Resp B/P (MAP) Pulse Ox O2 O2 Flow FiO2 Time Delivery Rate 04/06/18 98.3 74 18 113/68 98 07:15 (83) 04/05/18 Room Air 14:00 Intake and Output 04/05/18 04/05/18 04/06/18 1515:00 23:00 07:00 IntakeIntake Total 640 ml 240 ml BalanceBalance 640 ml 240 ml Exam Exam Review of Systems: CONSTITUTIONAL: No fevers, chills. PULMONARY: No sob CARDIOVASCULAR: No chest pain/palpitations GASTROINTESTINAL: No nausea/vomiting. GENITOURINARY: No hematuria/dysuria. MUSCULOSKELETAL: No myagias/arthalgias. PSYCHIATRIC: The patient denies depression. NEUROLOGIC: No weakness Constitutional: alert Psych: no complaints Head: normocephalic ENMT: mucosa pink and moist Neck: supple, jvd (98 cm water) Respiratory: clear to auscultation Cardiovascular: regular rate and rhythm Gastrointestinal: soft, non-tender Musculoskeletal: muscle tone (normal) Extremities: edema (trace/B) 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: other (No focal deficits) Labs Result Diagram: 04/06/18 1209 04/06/18 1209 Results 24hrs Laboratory Tests Test 04/05/18 17:09 04/05/18 17:29 04/05/18 17:31 04/05/18 17:51 Bedside Glucose 46 *L 43 *L 49 *L 55 L Test 04/05/18 17:53 04/05/18 18:06 04/05/18 18:25 04/05/18 20:14 Glucose Level 52 #L Bedside Glucose 82 81 93 Test 04/06/18 08:23 04/06/18 12:09 04/06/18 12:19 Bedside Glucose 71 131 White Blood Count 4.2 #L Red Blood Count 4.93 Hemoglobin 13.0 Hematocrit 42.2 Mean Corpuscular 85.6 Volume Mean Corpuscular 26.4 L Hemoglobin Mean Corpuscular 30.8 L Hemoglobin Concent Red Cell 13.7 Distribution Width Platelet Count 258 Mean Platelet Volume 9.7 Immature 0.200 Granulocytes % Neutrophils % 59.2 Lymphocytes % 30.3 Monocytes % 6.7 Eosinophils % 2.6 Basophils % 1.0 Nucleated Red Blood 0.0 Cells % Immature 0.010 Granulocytes # Neutrophils # 2.5 Lymphocytes # 1.3 Monocytes # 0.3 Eosinophils # 0.1 Basophils # 0.0 Nucleated Red Blood 0.0 Cells # Sodium Level 139 Potassium Level 4.9 Chloride Level 102 Carbon Dioxide Level 31 Anion Gap 6 Blood Urea Nitrogen 29 H Creatinine 1.00 Est Glomerular 55 L Filtrat Rate mL/min Glucose Level 153 # Calcium Level 9.3 Medications Medications Current Medications Aspirin (Aspirin) 81 mg DAILY PO Last administered on 04/06/18at 08:26; Admin Dose 81 MG; Start 03/19/18 at 09:00 Carvedilol (Coreg) 3.125 mg BID PO Last administered on 04/06/18at 08:28; Admin Dose 3.125 MG; Start 03/18/18 at 21:00 Clopidogrel Bisulfate (plaVIX) 75 mg DAILY PO Last administered on 04/06/18at 08:26; Admin Dose 75 MG; Start 03/19/18 at 09:00 Isosorbide Dinitrate (Isordil) 5 mg BID PO Last administered on 04/06/18at 08:27; Admin Dose 5 MG; Start 03/18/18 at 21:00 Nitroglycerin (Nitroglycerin (Sl Tab) 0.4 Mg) 1 tab [id number] PRN SL CHEST PAIN; Start 03/18/18 at 16:30 IV Flush (NS 3 ml) 3 ml PER PROTOCOL IV ; Start 03/18/18 at 17:00 Ondansetron HCl (Zofran Inj) 4 mg Q6H PRN IV NAUSEA/VOMITING Last administered on 04/01/18at 17:10; Admin Dose 4 MG; Start 03/18/18 at 17:00 Acetaminophen (Tylenol Tab) 650 mg Q6H PRN PO .PAIN 1-3 OR TEMP; Start 03/18/18 at 17:00 Docusate Sodium (Colace) 100 mg Q12H PRN PO .CONSTIPATION; Start 03/18/18 at 17:00 Magnesium Hydroxide (Milk Of Mag) 30 ml DAILY PRN PO .CONSTIPATION; Start 03/18/18 at 17:00 Miscellaneous Information 1 ea NOTE XX ; Start 03/18/18 at 18:30 Glucose (Glutose) 15 gm Q15M PRN PO DECREASED GLUCOSE; Start 03/18/18 at 18:30 Glucose (Glutose) 22.5 gm Q15M PRN PO DECREASED GLUCOSE; Start 03/18/18 at 18:30 Dextrose (D50w Syringe) 25 ml Q15M PRN IV DECREASED GLUCOSE; Start 03/18/18 at 18:30 Dextrose (D50w Syringe) 50 ml Q15M PRN IV DECREASED GLUCOSE; Start 03/18/18 at 18:30 Glucagon (Glucagen) 1 mg Q15M PRN IM DECREASED GLUCOSE; Start 03/18/18 at 18:30 Glucose (Glutose) 15 gm Q15M PRN BUCCAL DECREASED GLUCOSE Last administered on 04/05/18at 17:32; Admin Dose 15 GM; Start 03/18/18 at 18:30 Insulin Aspart (Novolog Insulin Pen) (Adult SC Insulin - Mild Algorithm)... AC MEALS AND BEDTIME SC Last administered on 04/04/18at 08:43; Admin Dose 2 UNIT; Start 03/22/18 at 11:30 Loratadine (Claritin) 10 mg DAILY PO Last administered on 04/06/18 08:27; Admin Dose 10 MG; Start 03/22/18 at 14:00 Sodium Chloride (Deep Sea) 2 spray Q4H PRN NASAL congestion Last administered on 03/22/18 14:25; Admin Dose 2 SPRAY; Start 03/22/18 at 14:00 Thiamine HCl (Vitamin B1) 100 mg DAILY PO Last administered on 04/06/18 08:26; Admin Dose 100 MG; Start 03/25/18 at 09:00; Stop 04/24/18 at 08:59 Atorvastatin Calcium (Lipitor) 80 mg QHS PO Last administered on 04/05/18 20:16; Admin Dose 80 MG; Start 03/28/18 at 21:00 Lorazepam (Ativan) 0.5 mg QHS PRN PO ANXIETY Last administered on 04/03/18 1 4:15; Admin Dose 0.5 MG; Start 04/03/18 at 13:30 Lisinopril (Zestril) 2.5 mg DAILY PO Last administered on 04/06/18 08:27; Admin Dose 2.5 MG; Start 04/04/18 at 09:00 Metformin HCl (Glucophage) 500 mg BID WITH MEALS PO Last administered on 04/06/18 08:26; Admin Dose 500 MG; Start 04/05/18 at 18:00 Furosemide (Lasix) 20 mg Q48H PO ; Start 04/08/18 at 09:00 JANEEN KEENAN Apr 06, 2018 13:58
[2018-04-06 14:10] VITALS: BP 107/62; PULSE 71; RESP 18
--- NOTE | 2018-04-06 15:33 | PN ---
DATE: 04/06/2018 SUBJECTIVE: The patient is stable, no events overnight. OBJECTIVE: VITAL SIGNS: Blood pressure is 113/68, pulse 74, respiration 18, temperature 98.3. HEENT: Head is normocephalic. NECK: Supple. HEART: Regular rate. LUNGS: Show diminished breath sounds at the base. ABDOMEN: Soft, nontender to palpation without rebound or guarding. EXTREMITIES: Negative for clubbing, cyanosis, no edema. DERMATOLOGIC: No rashes. MUSCULOSKELETAL: No joint effusions. NEUROLOGIC: No change in exam. MEDICATIONS: The patient's medications have been reviewed. LABORATORY DATA: Has been reviewed. ASSESSMENT AND PLAN: 1. Nonoliguric acute kidney injury with previous baseline creatinine of 0.5 mg/dL. Etiology of acut e kidney injury is secondary to hemodynamics, diuretic therapy. Renal function has improved after de escalating diuretic therapy. Continue current treatment plans, supportive care, renally dose all med s. 2. Mineral bone disorder, monitor calcium and phosphorus levels. 3. Hypertension. Continue current blood pressure regimen and monitor closely on MYA inhibitor. 4. Cardiomyopathy with heart failure. Continue current medical management. 5. Acute cerebrovascular accident. Continue current treatment plan. 6. Coronary artery disease. Continue medical management. 7. Diabetes. Continue current insulin regimen. 8. Dyslipidemia. Continue statin therapy. 9. Encephalopathy, etiology is toxic metabolic. Dictated By: FNIESSE DIALLO/NTS Conf#: [id number] DID#: [id number] CC: WARREN BUTLER MD;*EndCC*
[2018-04-06] MEDS: ATORVASTATIN 20 MG TAB PO SCH (20:51)
[2018-04-07 02:32] VITALS: BP 102/71; PULSE 61
[2018-04-07] MEDS: Insulin NOVOLOG SS MILD Algorithm (SS with meals and bedtime) SC SCH ×4 (08:27→20:18)
[2018-04-07] MEDS ORDERED: MAGNESIUM SULFATE 2 GM/50 ML 50 ML IVPB ONE ×2 (08:30)
[2018-04-07] MEDS: CLOPIDOGREL 75 MG TAB PO SCH (08:32)
[2018-04-07] MEDS: LISINOPRIL 5 MG TAB PO SCH (08:33)
[2018-04-07] MEDS: ASPIRIN 81 MG TAB PO SCH (08:33)
[2018-04-07] MEDS: metFORMIN 500 MG TAB PO SCH ×2 (08:33→17:34)
[2018-04-07] MEDS: ISOSORBIDE DINITRATE 5 MG TAB PO SCH ×2 (08:34→21:00)
[2018-04-07] MEDS: LORATADINE 10 MG TAB PO SCH (08:35)
[2018-04-07] MEDS: THIAMINE 100 MG TAB PO SCH (08:37)
[2018-04-07 08:40] VITALS: BP 97/56; PULSE 60; RESP 18
--- NOTE | 2018-04-07 08:42 | PN ---
DATE: 04/07/2018 SUBJECTIVE: The patient is stable, no events overnight. OBJECTIVE: VITAL SIGNS: Blood pressure 102/71, respirations 18, pulse 71, temperature 98.5. HEENT: Head is normocephalic. NECK: Supple. HEART: Regular rate. LUNGS: Show diminished breath sounds at the base. ABDOMEN: Soft, nontender to palpation. No rebound or guarding. EXTREMITIES: Negative for clubbing, cyanosis, no edema. DERMATOLOGIC: No rashes. MUSCULOSKELETAL: No joint effusion. NEUROLOGIC: No change in exam. MEDICATIONS: Reviewed. LABORATORY DATA: From 04/07/18 shows BUN 33, creatinine 1.12. ASSESSMENT AND PLAN: 1. Nonoliguric acute kidney injury with previous baseline creatinine of 0.5 mg/dL. Etiology of acut e kidney injury is secondary to hemodynamics, diuretics. The patient's renal function has been fluct uating, but overall improved. Continue to monitor closely on diuretic therapy. 2. Mineral bone disorder. Continue to monitor calcium and phosphorus levels. 3. Hypertension. Continue current blood pressure regimen and monitor closely on MYA inhibitor. 4. Cardiomyopathy with heart failure. The patient is currently compensated, low dose diuretic thera pies were reintroduced. Monitor closely. 5. Acute cerebrovascular accident. Continue current treatment plan. 6. Coronary artery disease. Continue medical management. 7. Diabetes. Continue current insulin regimen. 8. Dyslipidemia. Continue statin therapy. 9. Encephalopathy, etiology is toxic metabolic. Continue to monitor. Dictated By: FINESSE ROD DO NR/NTS Conf#: [id number] DID#: [id number] CC: WARREN BUTLER MD; LOTUS VILLALPANDO MD; JANEEN KEENAN MD;*EndCC*
--- NOTE | 2018-04-07 09:41 | CONS ---
Consult Date/Type/Reason Admit Date/Time Mar 18, 2018 at 16:08 Initial Consult Date Requesting Provider: WARERN BUTLER MD Date/Time of Note DATE: 04/07/18 TIME: 09:41 Subjective VS reviewed - stable Objective Vitals Vital Signs Date Temp Pulse Resp B/P (MAP) Pulse Ox O2 O2 Flow FiO2 Time Delivery Rate 04/07/18 98.1 60 18 97/56 (70) 95 Room Air 08:40 Intake and Output 04/06/18 04/06/18 04/07/18 1515:00 23:00 07:00 IntakeIntake Total 500 ml BalanceBalance 500 ml Results/Medications Result Diagram: 04/07/18 0520 04/07/18 0520 Results 24 hrs Laboratory Tests Test 04/06/18 12:09 04/06/18 12:19 04/06/18 17:13 04/06/18 20:49 White Blood Count 4.2 #L Red Blood Count 4.93 Hemoglobin 13.0 Hematocrit 42.2 Mean Corpuscular 85.6 Volume Mean Corpuscular 26.4 L Hemoglobin Mean Corpuscular 30.8 L Hemoglobin Concent Red Cell 13.7 Distribution Width Platelet Count 258 Mean Platelet Volume 9.7 Immature 0.200 Granulocytes % Neutrophils % 59.2 Lymphocytes % 30.3 Monocytes % 6.7 Eosinophils % 2.6 Basophils % 1.0 Nucleated Red Blood 0.0 Cells % Immature 0.010 Granulocytes # Neutrophils # 2.5 Lymphocytes # 1.3 Monocytes # 0.3 Eosinophils # 0.1 Basophils # 0.0 Nucleated Red Blood 0.0 Cells # Sodium Level 139 Potassium Level 4.9 Chloride Level 102 Carbon Dioxide Level 31 Anion Gap 6 Blood Urea Nitrogen 29 H Creatinine 1.00 Est Glomerular 55 L Filtrat Rate mL/min Glucose Level 153 # Calcium Level 9.3 Bedside Glucose 131 145 146 Test 04/07/18 05:20 04/07/18 08:05 White Blood Count 4.9 Red Blood Count 4.54 Hemoglobin 11.8 L Hematocrit 38.9 Mean Corpuscular 85.7 Volume Mean Corpuscular 26.0 L Hemoglobin Mean Corpuscular 30.3 L Hemoglobin Concent Red Cell 13.7 Distribution Width Platelet Count 229 Mean Platelet Volume 11.0 H Immature 0.400 Granulocytes % Neutrophils % 46.4 Lymphocytes % 38.9 Monocytes % 9.0 Eosinophils % 4.5 Basophils % 0.8 Nucleated Red Blood 0.0 Cells % Immature 0.020 Granulocytes # Neutrophils # 2.3 Lymphocytes # 1.9 Monocytes # 0.4 Eosinophils # 0.2 Basophils # 0.0 Nucleated Red Blood 0.0 Cells # Sodium Level 138 Potassium Level 4.6 Chloride Level 103 Carbon Dioxide Level 26 Anion Gap 9 Blood Urea Nitrogen 33 H Creatinine 1.12 H Est Glomerular 48 L Filtrat Rate mL/min Glucose Level 108 # Calcium Level 9.1 Phosphorus Level 4.1 Magnesium Level 1.6 L Bedside Glucose 100 Home Meds Reported Medications Furosemide* (Furosemide*) 40 Mg Tablet, 40 MG PO BID, TAB 03/18/18 Nitroglycerin* (Nitroglycerin* SL) 0.4 Mg Tab.subl, 0.4 MG SL Q5MIN PRN for CHES T PAIN, BOTTLE 03/18/18 Spironolactone* (Aldactone*) 5 Mg/Ml (COMPOUNDED) Susp, 12.5 MG PO DAILY for 30 Days, ML (COMPOUNDED) 03/18/18 Lisinopril* (Lisinopril*) 5 Mg Tablet, 5 MG PO DAILY, #30 TAB 03/18/18 Clopidogrel Bisulfate (Clopidogrel) 75 Mg Tablet, 75 MG PO DAILY, #30 TAB 03/18/18 Atorvastatin* (Atorvastatin*) 40 Mg Tablet, 40 MG PO QHS, #30 TAB 03/18/18 Carvedilol* (Coreg*) 3.125 Mg Tablet, 3.125 MG PO BID, #60 TAB 03/18/18 Aspirin* (Aspirin* Chew) 81 Mg Tab.chew, 81 MG PO DAILY, TAB.CHEW 03/18/18 Isosorbide Dinitrate* (Isosorbide Dinitrate*) 5 Mg Tablet, 5 MG PO BID, TAB 03/18/18 Medications Current Medications Aspirin (Aspirin) 81 mg DAILY PO Last administered on 04/07/18at 08:33; Admin Dose 81 MG; Start 03/19/18 at 09:00 Carvedilol (Coreg) 3.125 mg BID PO Last administered on 04/06/18at 20:52; Admin Dose 3.125 MG; Start 03/18/18 at 21:00 Clopidogrel Bisulfate (plaVIX) 75 mg DAILY PO Last administered on 04/07/18at 08:32; Admin Dose 75 MG; Start 03/19/18 at 09:00 Isosorbide Dinitrate (Isordil) 5 mg BID PO Last administered on 04/06/18at 20:51; Admin Dose 5 MG; Start 03/18/18 at 21:00 Nitroglycerin (Nitroglycerin (Sl Tab) 0.4 Mg) 1 tab [id number] PRN SL CHEST PAIN; Start 03/18/18 at 16:30 IV Flush (NS 3 ml) 3 ml PER PROTOCOL IV ; Start 03/18/18 at 17:00 Ondansetron HCl (Zofran Inj) 4 mg Q6H PRN IV NAUSEA/VOMITING Last administered on 04/01/18at 17:10; Admin Dose 4 MG; Start 03/18/18 at 17:00 Acetaminophen (Tylenol Tab) 650 mg Q6H PRN PO .PAIN 1-3 OR TEMP; Start 03/18/18 at 17:00 Docusate Sodium (Colace) 100 mg Q12H PRN PO .CONSTIPATION; Start 03/18/18 at 17:00 Magnesium Hydroxide (Milk Of Mag) 30 ml DAILY PRN PO .CONSTIPATION; Start 03/18/18 at 17:00 Miscellaneous Information 1 ea NOTE XX ; Start 03/18/18 at 18:30 Glucose (Glutose) 15 gm Q15M PRN PO DECREASED GLUCOSE; Start 03/18/18 at 18:30 Glucose (Glutose) 22.5 gm Q15M PRN PO DECREASED GLUCOSE; Start 03/18/18 at 18:30 Dextrose (D50w Syringe) 25 ml Q15M PRN IV DECREASED GLUCOSE; Start 03/18/18 at 18:30 Dextrose (D50w Syringe) 50 ml Q15M PRN IV DECREASED GLUCOSE; Start 03/18/18 at 18:30 Glucagon (Glucagen) 1 mg Q15M PRN IM DECREASED GLUCOSE; Start 03/18/18 at 18:30 Glucose (Glutose) 15 gm Q15M PRN BUCCAL DECREASED GLUCOSE Last administered on 04/05/18at 17:32; Admin Dose 15 GM; Start 03/18/18 at 18:30 Insulin Aspart (Novolog Insulin Pen) (Adult SC Insulin - Mild Algorithm)... AC MEALS AND BEDTIME SC Last administered on 04/06/18at 17:16; Admin Dose 1 UNIT; Start 03/22/18 at 11:30 Loratadine (Claritin) 10 mg DAILY PO Last administered on 04/07/18 08:35; Admin Dose 10 MG; Start 03/22/18 at 14:00 Sodium Chloride (Deep Sea) 2 spray Q4H PRN NASAL congestion Last administered on 03/22/18 14:25; Admin Dose 2 SPRAY; Start 03/22/18 at 14:00 Thiamine HCl (Vitamin B1) 100 mg DAILY PO Last administered on 04/07/18 08:37; Admin Dose 100 MG; Start 03/25/18 at 09:00; Stop 04/24/18 at 08:59 Atorvastatin Calcium (Lipitor) 80 mg QHS PO Last administered on 04/06/18 20:51; Admin Dose 80 MG; Start 03/28/18 at 21:00 Lorazepam (Ativan) 0.5 mg QHS PRN PO ANXIETY Last administered on 04/03/18 14:15; Admin Dose 0.5 MG; Start 04/03/18 at 13:30 Lisinopril (Zestril) 2.5 mg DAILY PO Last administered on 04/06/18 08:27; Admin Dose 2.5 MG; Start 04/04/18 at 09:00 Metformin HCl (Glucophage) 500 mg BID WITH MEALS PO Last administered on 04/07/18 08:33; Admin Dose 500 MG; Start 04/05/18 at 18:00 Furosemide (Lasix) 20 mg Q48H PO ; Start 04/08/18 at 09:00 Magnesium Sulfate 50 ml @ 25 mls/hr ONCE ONCE IVPB ; Start 04/07/18 at 08:30; Stop 04/07/18 at 10:29 Assessment/Plan Hospital Course (Demo Recall) 1. Positive troponin, assess significance. Patient not able to comment on chest pain.- now downtrending and likely a marker of CV disease and not true Nstemi - no CP now, no intervention planned. NO active CP now. Will adjust now. 2. Abnormal electrocardiogram, nonspecific ST-T abnormalities, borderline intraventricular conduction delay. Off tele - no Sx. EKG chronic. 3. Hypertension - better now. 4. History of stent placement 09/2017. On therpy. 5. Encephalopathy. 6. Dyslipidemia-LDL 175 HDL 56 7. Cardiomyopathy-severely depressed LVEF 20% - outpt ICD eval. Stable fluid status. 8. CHF-systolic acute on chronic - improved fluid status. Improved fluid status. KARENA PINEDO MD Apr 07, 2018 09:41
[2018-04-07 14:17] VITALS: BP 110/71; PULSE 64; RESP 18
--- NOTE | 2018-04-07 14:17 | PN ---
Date/Time of Note Date/Time of Note DATE: 04/07/18 TIME: 14:15 Assessment/Plan VTE Prophylaxis Risk score (from Ns)>0 risk: 2 SCD applied (from Ns): Yes Pharmacological prophylaxis: NA/contraindicated Pharm contraindication: low risk/ambulating, other (DAPT) Lines/Catheters IV Catheter Type (from [facility] NO IV ACCESS Urinary Cath still in place: No Assessment/Plan Hospital Course SUBJECTIVE: No acute overnight episodes OBJECTIVE: Vital signs-see below PHYSICAL EXAM: Constitutional: Well-developed, adequately built, lying in bed comfortably. Psych: nl mood/affect, no complaints Head: atraumatic, normocephalic Eyes: nl conjunctiva, nl sclera ENMT: mucosa pink and moist, nl external ears & nose Neck: non-tender, supple Respiratory: clear to auscultation, normal air movement Cardiovascular: nl pulses, regular rate and rhythm Gastrointestinal: non-tender, soft, bowel sounds active in all 4 quadrants. Musculoskeletal/extremities: nl extremities to inspection, motor strength equal bilaterally, no focal deficit. Normal pulses,no cyanosis, no edema. 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: Alert oriented 3,+EXPRESSIVE APHASIA. nl strength Skin: nl turgor ASSESSMENT/PLAN:67 yo female with h/o systolic CHF, CAD who presented with CVA 1. 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 Acute on chronic severe systolic heart failure -Compensated -cont. ACEi/BB. -Diuretics held secondary to renal function=>plan is to restart 20mg QOD starting today per cards 3. Acute kidney injury likely secondary to diuretics -Improved -Avoid nephrotoxins -MONITOR 4. DMII -Now stable only on metformin. -Continue to monitor. 5. Cardiomyopathy with severely depressed ejection fraction 20%. -Management per #2 6. Dyslipidemia -On statin 7. Toxic metabolic encephalopathy -Stable. Avoid sedating agents. 8. Essential hypertension -Continue antihypertensives 9. CAD s/p PCI 09/2017 - continue DAPT/statin/BB/nitrates DVT prophylaxis: SCDs/ambulation. PUD prophylaxis: Not indicated CODE STATUS: Full code Diet: Pured nectar thick Disposition -Medically stable for discharge to SNF-Pending DARIEN Patient was seen in collaboration with Result Diagram: 04/07/1851904/07/18 0520 Results 24hrs Laboratory Tests Test 04/06/18 17:13 04/06/18 20:49 04/07/18 05:20 04/07/18 08:05 Bedside Glucose 145 146 100 White Blood Count 4.9 Red Blood Count 4.54 Hemoglobin 11.8 L Hematocrit 38.9 Mean Corpuscular 85.7 Volume Mean Corpuscular 26.0 L Hemoglobin Mean Corpuscular 30.3 L Hemoglobin Concent Red Cell 13.7 Distribution Width Platelet Count 229 Mean Platelet Volume 11.0 H Immature 0.400 Granulocytes % Neutrophils % 46.4 Lymphocytes % 38.9 Monocytes % 9.0 Eosinophils % 4.5 Basophils % 0.8 Nucleated Red Blood 0.0 Cells % Immature 0.020 Granulocytes # Neutrophils # 2.3 Lymphocytes # 1.9 Monocytes # 0.4 Eosinophils # 0.2 Basophils # 0.0 Nucleated Red Blood 0.0 Cells # Sodium Level 138 Potassium Level 4.6 Chloride Level 103 Carbon Dioxide Level 26 Anion Gap 9 Blood Urea Nitrogen 33 H Creatinine 1.12 H Est Glomerular 48 L Filtrat Rate mL/min Glucose Level 108 # Calcium Level 9.1 Phosphorus Level 4.1 Magnesium Level 1.6 L Test 04/07/18 12:43 Bedside Glucose 102 Exam/Review of Systems Exam Vitals Vital Signs Date Temp Pulse Resp B/P (MAP) Pulse Ox O2 O2 Flow FiO2 Time Delivery Rate 04/07/18 98.1 60 18 97/56 (70) 95 Room Air 08:40 Intake and Output 04/06/18 04/06/18 04/07/18 1515:00 23:00 07:00 IntakeIntake Total 500 ml BalanceBalance 500 ml Results Results 24hrs Laboratory Tests Test 04/06/18 17:13 04/06/18 20:49 04/07/18 05:20 04/07/18 08:05 Bedside Glucose 145 146 100 White Blood Count 4.9 Red Blood Count 4.54 Hemoglobin 11.8 L Hematocrit 38.9 Mean Corpuscular 85.7 Volume Mean Corpuscular 26.0 L Hemoglobin Mean Corpuscular 30.3 L Hemoglobin Concent Red Cell 13.7 Distribution Width Platelet Count 229 Mean Platelet Volume 11.0 H Immature 0.400 Granulocytes % Neutrophils % 46.4 Lymphocytes % 38.9 Monocytes % 9.0 Eosinophils % 4.5 Basophils % 0.8 Nucleated Red Blood 0.0 Cells % Immature 0.020 Granulocytes # Neutrophils # 2.3 Lymphocytes # 1.9 Monocytes # 0.4 Eosinophils # 0.2 Basophils # 0.0 Nucleated Red Blood 0.0 Cells # Sodium Level 138 Potassium Level 4.6 Chloride Level 103 Carbon Dioxide Level 26 Anion Gap 9 Blood Urea Nitrogen 33 H Creatinine 1.12 H Est Glomerular 48 L Filtrat Rate mL/min Glucose Level 108 # Calcium Level 9.1 Phosphorus Level 4.1 Magnesium Level 1.6 L Test 04/07/18 12:43 Bedside Glucose 102 Medications Medication Current Medications Aspirin (Aspirin) 81 mg DAILY PO Last administered on 04/07/18 08:33; Admin Dose 81 MG; Start 03/19/18 at 09:00 Carvedilol (Coreg) 3.125 mg BID PO Last administered on 04/06/18at 20:52; Admin Dose 3.125 MG; Start 03/18/18 at 21:00 Clopidogrel Bisulfate (plaVIX) 75 mg DAILY PO Last administered on 04/07/18at 08:32; Admin Dose 75 MG; Start 03/19/18 at 09:00 Isosorbide Dinitrate (Isordil) 5 mg BID PO Last administered on 04/06/18at 20:51; Admin Dose 5 MG; Start 03/18/18 at 21:00 Nitroglycerin (Nitroglycerin (Sl Tab) 0.4 Mg) 1 tab [id number] PRN SL CHEST PAIN; Start 03/18/18 at 16:30 IV Flush (NS 3 ml) 3 ml PER PROTOCOL IV ; Start 03/18/18 at 17:00 Ondansetron HCl (Zofran Inj) 4 mg Q6H PRN IV NAUSEA/VOMITING Last administered on 04/01/18at 17:10; Admin Dose 4 MG; Start 03/18/18 at 17:00 Acetaminophen (Tylenol Tab) 650 mg Q6H PRN PO .PAIN 1-3 OR TEMP; Start 03/18/18 at 17:00 Docusate Sodium (Colace) 100 mg Q12H PRN PO .CONSTIPATION; Start 03/18/18 at 17:00 Magnesium Hydroxide (Milk Of Mag) 30 ml DAILY PRN PO .CONSTIPATION; Start 03/18/18 at 17:00 Miscellaneous Information 1 ea NOTE XX ; Start 03/18/18 at 18:30 Glucose (Glutose) 15 gm Q15M PRN PO DECREASED GLUCOSE; Start 03/18/18 at 18:30 Glucose (Glutose) 22.5 gm Q15M PRN PO DECREASED GLUCOSE; Start 03/18/18 at 18:30 Dextrose (D50w Syringe) 25 ml Q15M PRN IV DECREASED GLUCOSE; Start 03/18/18 at 18:30 Dextrose (D50w Syringe) 50 ml Q15M PRN IV DECREASED GLUCOSE; Start 03/18/18 at 18:30 Glucagon (Glucagen) 1 mg Q15M PRN IM DECREASED GLUCOSE; Start 03/18/18 at 18:30 Glucose (Glutose) 15 gm Q15M PRN BUCCAL DECREASED GLUCOSE Last administered on 04/05/18 17:32; Admin Dose 15 GM; Start 03/18/18 at 18:30 Insulin Aspart (Novolog Insulin Pen) (Adult SC Insulin - Mild Algorithm)... AC MEALS AND BEDTIME SC Last administered on 04/06/18 17:16; Admin Dose 1 UNIT; Start 03/22/18 at 11:30 Loratadine (Claritin) 10 mg DAILY PO Last administered on 04/07/18 08:35; Admin Dose 10 MG; Start 03/22/18 at 14:00 Sodium Chloride (Deep Sea) 2 spray Q4H PRN NASAL congestion Last administered on 03/22/18 14:25; Admin Dose 2 SPRAY; Start 03/22/18 at 14:00 Thiamine HCl (Vitamin B1) 100 mg DAILY PO Last administered on 04/07/18 08:37; Admin Dose 100 MG; Start 03/25/18 at 09:00; Stop 04/24/18 at 08:59 Atorvastatin Calcium (Lipitor) 80 mg QHS PO Last administered on 04/06/18 20:51; Admin Dose 80 MG; Start 03/28/18 at 21:00 Lorazepam (Ativan) 0.5 mg QHS PRN PO ANXIETY Last administered on 04/03/18 14:15; Admin Dose 0.5 MG; Start 04/03/18 at 13:30 Lisinopril (Zestril) 2.5 mg DAILY PO Last administered on 04/06/18 08:27; Admin Dose 2.5 MG; Start 04/04/18 at 09:00 Metformin HCl (Glucophage) 500 mg BID WITH MEALS PO Last administered on 04/07/18at 08:33; Admin Dose 500 MG; Start 04/05/18 at 18:00 Furosemide (Lasix) 20 mg Q48H PO ; Start 04/08/18 at 09:00 VEDA MENDIOLA NP Apr 07, 2018 14:17
--- NOTE | 2018-04-07 14:18 | CONS ---
Assessment/Plan Assessment/Plan Hospital Course 67 yo F with hx of multiple cerebrovascular risk factors who presents with ams and other sx... for which neurology is consulted. MRI brain is most notable for 2 tiny acute R occipital infarcts.. A superimposed acute toxic-metabolic encephalopathy is additionally considered. MRA brain is most notable for a 50% L P2 segment stenosis EEG is without epileptiform activity. Echo is notable for EF 20% STACIE + B1 level was a little low P: Cont thiamine supplementation, orally.. Cont antiplatelet therapy/lipitor Cont medical management per primary Reorient as necessary Limit sedating medications where possible PT/OT/ST as necessary Will follow clinically Consultation Date/Type/Reason Admit Date/Time Mar 18, 2018 at 16:08 Type of Consult Neurology Reason for Consultation ams Requesting Provider: WARREN BUTLER MD Date/Time of Note DATE: 04/07/18 TIME: 14:18 Exam Vital Signs Vitals Vital Signs Date Temp Pulse Resp B/P (MAP) Pulse Ox O2 O2 Flow FiO2 Time Delivery Rate 04/07/18 98.1 60 18 97/56 (70) 95 Room Air 08:40 Intake and Output 04/06/18 04/06/18 04/07/18 1515:00 23:00 07:00 IntakeIntake Total 500 ml BalanceBalance 500 ml Exam PE: Gen Appearance: No Apparent Distress HEENT: Normocephalic Cardiovascular: Regular rate Abdomen: Soft Extremities: Dry NE: The patient was alert though disoriented. Language was dysphasic. Fund of knowledge was limited. Pupils were equal and reactive to light. There was no afferent pupillary defect. Visual linda were normal. Funduscopic examination was limited. Extra-ocular movements were full. Ptosis was absent. There was no nystagmus. Facial sensation was normal. Face was symmetric with normal strength. Hearing was intact. Palate movements were normal. Neck strength was normal. There was normal tongue bulk and speed of movement. Tone was normal. Muscle bulk was normal. I did not see fasciculations. Arms and legs were symmetric.. Vibration sensation was normal. Temperature and pinprick sensation was normal. Rapid alternating movements were normal. There was no dysmetria. There was no intention tremor. Gait was deferred due to bedrest. Arm and leg reflexes were symmetric. Powell's sign was absent. Plantar responses were flexor. SANDRA TORRES NP Apr 07, 2018 14:18
[2018-04-07 19:54] VITALS: BP 115/71; PULSE 75; RESP 20
[2018-04-07] MEDS: ATORVASTATIN 20 MG TAB PO SCH (20:18)
[2018-04-08 01:30] VITALS: BP 122/74; PULSE 68; RESP 20
[2018-04-08] MEDS: Insulin NOVOLOG SS MILD Algorithm (SS with meals and bedtime) SC SCH ×4 (07:00→21:00)
[2018-04-08 08:00] VITALS: BP 122/72; PULSE 62; RESP 18
[2018-04-08] MEDS: ISOSORBIDE DINITRATE 5 MG TAB PO SCH ×2 (09:13→21:01)
[2018-04-08] MEDS: CLOPIDOGREL 75 MG TAB PO SCH (09:13)
[2018-04-08] MEDS: metFORMIN 500 MG TAB PO SCH ×2 (09:13→17:47)
[2018-04-08] MEDS: LISINOPRIL 5 MG TAB PO SCH (09:13)
[2018-04-08] MEDS: THIAMINE 100 MG TAB PO SCH (09:13)
[2018-04-08] MEDS: LORATADINE 10 MG TAB PO SCH (09:14)
[2018-04-08] MEDS: ASPIRIN 81 MG TAB PO SCH (09:14)
[2018-04-08] MEDS: FUROSEMIDE 20 MG TAB PO SCH (09:14)
--- NOTE | 2018-04-08 09:23 | PN ---
DATE: 04/08/2018 SUBJECTIVE: The patient is stable. No events overnight. OBJECTIVE: VITAL SIGNS: Blood pressure is 122/72, pulse 62, respirations 18, temperature 98.5. HEENT: Head is normocephalic. NECK: Supple. HEART: Regular rate. LUNGS: Show diminished breath sounds at the base. ABDOMEN: Soft, nontender to palpation without rebound or guarding. EXTREMITIES: Negative for clubbing, cyanosis, no edema. DERMATOLOGIC: No rashes. MUSCULOSKELETAL: No joint effusion. NEUROLOGIC: No change in exam. MEDICATIONS: Reviewed. LABORATORY DATA: From 04/08/2018 was reviewed. ASSESSMENT AND PLAN: 1. Nonoliguric acute kidney injury with previous baseline creatinine of 0.5 mg/dL. Etiology of acut e kidney injury is secondary to hemodynamics, diuretics. Renal function is improved. Continue curre nt medical management. Continue to monitor on diuretic therapy. 2. Mineral bone disorder, monitor calcium and phosphorus levels. 3. Hypertension. Continue current blood pressure regimen. 4. Cardiomyopathy, congestive heart failure. Continue current medical management. 5. Acute cerebrovascular accident. Continue current treatment plan. 6. Coronary artery disease. Continue medical management. 7. Diabetes. Continue current insulin regimen. 8. Dyslipidemia. Continue statin therapy. 9. Encephalopathy, improving. Continue to monitor. Dictated By: FINESSE ROD DO NR/NTS Conf#: [id number] DID#: [id number] CC: LOTUS VILLALPANDO MD; JANEEN KEENAN MD; WARREN BUTLER MD; FINESSE ROD DO;*EndCC*
--- NOTE | 2018-04-08 11:22 | DS ---
Date/Time of Note Date/Time of Note DATE: 04/08/18 TIME: 11:17 Discharge Summary Admission/Discharge Info Admit Date/Time Mar 18, 2018 at 16:08 Discharge Date/Time Discharge Diagnosis 1. 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 Acute on chronic severe systolic heart failure 3. Acute kidney injury likely secondary to diuretics .stable 4. DMII 5. Cardiomyopathy with severely depressed ejection fraction 20%. 6. Dyslipidemia 7. Toxic metabolic encephalopathy 8. Essential hypertension 9. CAD s/p PCI 09/2017 10. expressive aphasia Patient Condition: Stable Consults ,Neurology ,cards jeanine NAM,nephro Procedures 03/19/2018. MRI brain with and without contrast IMPRESSION: 1. Artifact versus hemodynamically significant narrowing of the proximal supraclinoid left and right internal carotid arteries. 2. Short segmental greater than 50% stenosis proximal left P2 segment. 3. Consider CT angiography of the head if further diagnostic imaging is desired. 03/19/2018. Brain MRI IMPRESSION: 1. Motion degraded study. 2. Atrophy of the cerebral hemispheres, and cerebellar hemispheres and brain stem, greater than expected for age. Findings are suggestive of a nonspecific neuro degenerative process. 3. Confluent leukoencephalopathy involving the subcortical, periventricular and deep white matter of the frontal and parietal lobes. 4. Altered signal in the cerebral peduncles and contour of the cephalic junction. Findings may be due to small cavitary lesions or dilated perivascular spaces. No significant T2 FLAIR signal change at this location. 03/18/2018. CT brain. IMPRESSION: 1. No evidence of acute intracranial hemorrhage, infarcts, or acute intracranial pathology. 2. Mild to moderate chronic microvascular ischemic disease and diffuse volume loss. 3. Mild to moderate ventriculomegaly. While this most likely represent central volume loss normal pressure hydrocephalus is a consideration . 4. Moderate atherosclerotic vascular disease 03/18/2018 2D echocardiogram. Conclusions: Normal left ventricular cavity size. Severe asymmetric septal hypertrophy. Severe global left ventricular systolic dysfunction. Ejection fraction is visually estimated at 20 %. Tissue Doppler/Mitral Doppler indices are consistent with restrictive physiology with markedly elevated left atrial pressure (Stage III-IV diastolic dysfunction). Normal right ventricular size. Moderate right ventricular systolic dysfunction. Mitral valve leaflets appear mildly thickened. Mild mitral annular calcification. Mild mitral valve regurgitation. No significant aortic stenosis or insufficiency. Aortic cusps appear mildly calcified. Mild aortic valve regurgitation. Normal appearance of the tricuspid valve. Estimated peak PA systolic pressure 59 mmHg. There is mild tricuspid regurgitation. Normal pulmonic valve appearance. There is trace pulmonic regurgitation. Electronically Signed By: Isiah Rowan 2018-03-19 20:56:52 [facility] Hospital Course 67 yo female with h/o systolic CHF, CAD, aphasic who was admitted with chest pain and altered mental status on 03/18/2018. Patient was noted with occipital/right CHARGEBACK SPECIALIST strokes. Patient has toxic metabolic encephalopathy as well. She was continued on aspirin, Plavix and statin. P atient was being followed by neurology. Hospital course was also noted for acute on chronic severe systolic congestive heart failure, acute kidney injury secondary to diuretics, cardiomyopathy with a severely depressed ejection fraction 20%. Patient was also being followed by cardiology and nephrology and she was continued on conservative medical management with appropriate dosing of beta-blockers, MYA inhibitors and diuretics. Patient's renal function remained stable on every other day diuretic, low-dose MYA inhibitors. The patient was also noted with fluctuating hypoglycemic events with her diabetes. Patient only needed metformin and her blood sugar remained controlled on single metformin therapy. Patient's mental status back to baseline. She continued to have expressive aphasia but was able to communicate minimally. Patient had physical therapy/speech therapy/Occupational Therapy follow-up and deemed a candidate for senior living facility for further rehabilitation. She was then accepted to a senior living facility on 04/08/2018. Overall, patient had a lengthy hospitalization secondary to worsening kidney function requiring appropriate dosing of diuretics as well as to find appropriate senior living facility. Approximately 60 minutes was spent on coordinating the discharge on this patient. [facility] Furosemide* (Furosemide*) 20 Mg Tablet, 20 MG PO every other day for 30 Days First dose to be taken starting next 04/06/2018 Prov:MENDIOLA,VEDA V. ENDING MACHINE OPERATOR 04/03/18 Metformin* (Glucophage*) 500 Mg Tab, 500 MG PO BID WITH MEALS, #60 TAB Prov:MENDIOLA,VEDA V. ENDING MACHINE OPERATOR 04/03/18 Thiamine* (Vitamin B-1*) 100 Mg Tablet, 100 MG PO DAILY, #30 TAB Prov:MENDIOLA,VEDA V. ENDING MACHINE OPERATOR 03/31/18 Atorvastatin* (Atorvastatin*) 40 Mg Tablet, 80 MG PO QHS, #30 TAB Prov:MENDIOLAVEDA V. ENDING MACHINE OPERATOR 03/31/18 Reported Medications Nitroglycerin* (Nitroglycerin* SL) 0.4 Mg Tab.subl, 0.4 MG SL Q5MIN PRN for CHEST PAIN, BOTTLE 03/18/18 Lisinopril* (Lisinopril*) 5 Mg Tablet, 5 MG PO DAILY, #30 TAB 03/18/18 Clopidogrel Bisulfate (Clopidogrel) 75 Mg Tablet, 75 MG PO DAILY, #30 TAB 03/18/18 Carvedilol* (Coreg*) 3.125 Mg Tablet, 3.125 MG PO BID, #60 TAB 03/18/18 Aspirin* (Aspirin* Chew) 81 Mg Tab.chew, 81 MG PO DAILY, TAB.CHEW 03/18/18 Isosorbide Dinitrate* (Isosorbide Dinitrate*) 5 Mg Tablet, 5 MG PO BID, TAB 03/18/18 Discontinued Reported Medications Furosemide* (Furosemide*) 40 Mg Tablet, 40 MG PO BID, TAB 03/18/18 Spironolactone* (Aldactone*) 5 Mg/Ml (COMPOUNDED) Susp, 12.5 MG PO DAILY for 30 Days, ML (COMPOUNDED) 03/18/18 Follow-up Plan Follow-up with primary care physician Primary Care Provider Care Physician No Primary Pending Labs Laboratory Tests Test 04/07/18 12:43 04/07/18 17:15 04/07/18 20:17 04/08/18 06:39 Bedside 102 107 153 Glucose mg/dL (70-220) mg/dL (70-220) mg/dL (70-220) White Blood 5.1 Count 10^3/ul (4.8-1 0.8) Red Blood 4.72 Count 10^6/ul (4.20- 5.40) Hemoglobin 12.3 g/dl (12.0-16. 0) Hematocrit 40.1 % (37.0-47.0) Mean 85.0 Corpuscular fl (82.0-101.0 Volume ) Mean 26.1 Corpuscular pg (29.0-33.0) Hemoglobin Mean 30.7 Corpuscular g/dl (32.0-37. Hemoglobin Conc 0) ent Red Cell 13.6 Distribution % (11.5-14.5) Width Platelet Count 244 10^3/UL (140-4 15) Mean Platelet 10.5 Volume fl (7.4-10.4) Immature 0.000 Granulocytes % % (0.001-0.429 ) Neutrophils % 43.3 % (39.0-77.0) Lymphocytes % 44.2 % (15.0-51.0) Monocytes % 7.7 % (0.0-11.0) Eosinophils % 4.2 % (0.0-7.0) Basophils % 0.6 % (0.0-2.0) Nucleated Red 0.0 Blood Cells % /100WBC (0.0-0 .0) Immature 0.000 Granulocytes # 10^3/ul (0.0-0 .031) Neutrophils # 2.2 10^3/ul (1.6-7 .5) Lymphocytes # 2.2 10^3/ul (0.8-2 .9) Monocytes # 0.4 10^3/ul (0.3-0 .9) Eosinophils # 0.2 10^3/ul (0.0-0 .5) Basophils # 0.0 10^3/ul (0.0-0 .1) Nucleated Red 0.0 Blood Cells # 10^3/ul (0.0-0 .0) Sodium Level 138 mmol/L (135-14 4) Potassium 4.8 Level mmol/L (3.5-5. 1) Chloride Level 102 mmol/L (97-110 ) Carbon Dioxide 27 Level mmol/L (21-31) Anion Gap 9 (5-13) Blood Urea 33 Nitrogen mg/dl (7-20) Creatinine 1.08 mg/dl (0.44-1. 00) Est Glomerular 50 Filtrat mL/min (>60) Rate mL/min Glucose Level 101 mg/dl (70-220) Calcium Level 9.6 mg/dl (8.4-10. 2) Phosphorus 3.6 Level mg/dl (2.5-4.9 ) Magnesium 1.8 Level mg/dl (1.7-2.5 ) Test 04/08/18 08:25 Bedside 98 Glucose mg/dL (70-220) VEDA MENDIOLA NP Apr 08, 2018 11:22
--- NOTE | 2018-04-08 11:25 | PN ---
Date/Time of Note Date/Time of Note DATE: 04/08/18 TIME: 11:24 Assessment/Plan VTE Prophylaxis Risk score (from Ns)>0 risk: 3 SCD applied (from Ns): Yes Pharmacological prophylaxis: NA/contraindicated Pharm contraindication: low risk/ambulating, other (on dapt) Lines/Catheters IV [facility] Saline Lock Urinary Cath still in place: No Assessment/Plan Hospital Course SUBJECTIVE: No acute overnight episodes OBJECTIVE: Vital signs-see below PHYSICAL EXAM: Constitutional: Well-developed, adequately built, lying in bed comfortably. Psych: nl mood/affect, no complaints Head: atraumatic, normocephalic Eyes: nl conjunctiva, nl sclera ENMT: mucosa pink and moist, nl external ears & nose Neck: non-tender, supple Respiratory: clear to auscultation, normal air movement Cardiovascular: nl pulses, regular rate and rhythm Gastrointestinal: non-tender, soft, bowel sounds active in all 4 quadrants. Musculoskeletal/extremities: nl extremities to inspection, motor strength equal bilaterally, no focal deficit. Normal pulses,no cyanosis, no edema. 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: Alert oriented 3,+EXPRESSIVE APHASIA. nl strength Skin: nl turgor ASSESSMENT/PLAN:67 yo female with h/o systolic CHF, CAD who presented with CVA 1. Occipital and Right JUNIOR ARCHITECT strokes -Aphasic (expressive)-IMPROVED -Continue statin/antiplatelet -Continue rehab 2. Acute on chronic severe systolic heart failure -Compensated -cont. ACEi/BB. -Diuretics held secondary to renal function=>plan is to restart 20mg QOD starting today per cards 3. Acute kidney injury likely secondary to diuretics -Improved -Avoid nephrotoxins -MONITOR -Tolerates every other day diuretics 4. DMII -Now stable only on metformin. -Continue to monitor. 5. Cardiomyopathy with severely depressed ejection fraction 20%. -Management per #2 6. Dyslipidemia -On statin 7. Toxic metabolic encephalopathy -Stable. Avoid sedating agents. 8. Essential hypertension -Continue antihypertensives 9. CAD s/p PCI 09/2017 - continue DAPT/statin/BB/nitrates DVT prophylaxis: SCDs/ambulation. PUD prophylaxis: Not indicated CODE STATUS: Full code Diet: Pured nectar thick Disposition -Medically stable for discharge to SNF-Pending DARIEN Patient was seen in collaboration with Result Diagram: 04/08/18 0639 04/08/18 0639 Results 24hrs Laboratory Tests Test 04/07/18 12:43 04/07/18 17:15 04/07/18 20:17 04/08/18 06:39 Bedside Glucose 102 107 153 White Blood Count 5.1 Red Blood Count 4.72 Hemoglobin 12.3 Hematocrit 40.1 Mean Corpuscular 85.0 Volume Mean Corpuscular 26.1 L Hemoglobin Mean Corpuscular 30.7 L Hemoglobin Concent Red Cell 13.6 Distribution Width Platelet Count 244 Mean Platelet Volume 10.5 H Immature 0.000 L Granulocytes % Neutrophils % 43.3 Lymphocytes % 44.2 Monocytes % 7.7 Eosinophils % 4.2 Basophils % 0.6 Nucleated Red Blood 0.0 Cells % Immature 0.000 Granulocytes # Neutrophils # 2.2 Lymphocytes # 2.2 Monocytes # 0.4 Eosinophils # 0.2 Basophils # 0.0 Nucleated Red Blood 0.0 Cells # Sodium Level 138 Potassium Level 4.8 Chloride Level 102 Carbon Dioxide Level 27 Anion Gap 9 Blood Urea Nitrogen 33 H Creatinine 1.08 H Est Glomerular 50 L Filtrat Rate mL/min Glucose Level 101 Calcium Level 9.6 Phosphorus Level 3.6 Magnesium Level 1.8 Test 04/08/18 08:25 Bedside Glucose 98 Exam/Review of Systems Exam Vitals Vital Signs Date Temp Pulse Resp B/P (MAP) Pulse Ox O2 O2 Flow FiO2 Time Delivery Rate 04/08/18 98.5 62 18 122/72 100 Room Air 08:00 (89) Intake and Output 04/07/18 04/07/18 04/08/18 1515:00 23:00 07:00 IntakeIntake Total 300 ml 250 ml BalanceBalance 300 ml 250 ml Results Results 24hrs Laboratory Tests Test 04/07/18 12:43 04/07/18 17:15 04/07/18 20:17 04/08/18 06:39 Bedside Glucose 102 107 153 White Blood Count 5.1 Red Blood Count 4.72 Hemoglobin 12.3 Hematocrit 40.1 Mean Corpuscular 85.0 Volume Mean Corpuscular 26.1 L Hemoglobin Mean Corpuscular 30.7 L Hemoglobin Concent Red Cell 13.6 Distribution Width Platelet Count 244 Mean Platelet Volume 10.5 H Immature 0.000 L Granulocytes % Neutrophils % 43.3 Lymphocytes % 44.2 Monocytes % 7.7 Eosinophils % 4.2 Basophils % 0.6 Nucleated Red Blood 0.0 Cells % Immature 0.000 Granulocytes # Neutrophils # 2.2 Lymphocytes # 2.2 Monocytes # 0.4 Eosinophils # 0.2 Basophils # 0.0 Nucleated Red Blood 0.0 Cells # Sodium Level 138 Potassium Level 4.8 Chloride Level 102 Carbon Dioxide Level 27 Anion Gap 9 Blood Urea Nitrogen 33 H Creatinine 1.08 H Est Glomerular 50 L Filtrat Rate mL/min Glucose Level 101 Calcium Level 9.6 Phosphorus Level 3.6 Magnesium Level 1.8 Test 04/08/18 08:25 Bedside Glucose 98 Medications Medication Current Medications Aspirin (Aspirin) 81 mg DAILY PO Last administered on 04/08/18 09:14; Admin Dose 81 MG; Start 03/19/18 at 09:00 Carvedilol (Coreg) 3.125 mg BID PO Last administered on 04/08/18 09:13; Admin Dose 3.125 MG; Start 03/18/18 at 21:00 Clopidogrel Bisulfate (plaVIX) 75 mg DAILY PO Last administered on 04/08/18at 09:13; Admin Dose 75 MG; Start 03/19/18 at 09:00 Isosorbide Dinitrate (Isordil) 5 mg BID PO Last administered on 04/08/18 09:13; Admin Dose 5 MG; Start 03/18/18 at 21:00 Nitroglycerin (Nitroglycerin (Sl Tab) 0.4 Mg) 1 tab [id number] PRN SL CHEST PAIN; Start 03/18/18 at 16:30 IV Flush (NS 3 ml) 3 ml PER PROTOCOL IV ; Start 03/18/18 at 17:00 Ondansetron HCl (Zofran Inj) 4 mg Q6H PRN IV NAUSEA/VOMITING Last administered on 04/01/18at 17:10; Admin Dose 4 MG; Start 03/18/18 at 17:00 Acetaminophen (Tylenol Tab) 650 mg Q6H PRN PO .PAIN 1-3 OR TEMP; Start 03/18/18 at 17:00 Docusate Sodium (Colace) 100 mg Q12H PRN PO .CONSTIPATION; Start 03/18/18 at 17:00 Magnesium Hydroxide (Milk Of Mag) 30 ml DAILY PRN PO .CONSTIPATION; Start 03/18/18 at 17:00 Miscellaneous Information 1 ea NOTE XX ; Start 03/18/18 at 18:30 Glucose (Glutose) 15 gm Q15M PRN PO DECREASED GLUCOSE; Start 03/18/18 at 18:30 Glucose (Glutose) 22.5 gm Q15M PRN PO DECREASED GLUCOSE; Start 03/18/18 at 18:30 Dextrose (D50w Syringe) 25 ml Q15M PRN IV DECREASED GLUCOSE; Start 03/18/18 at 18:30 Dextrose (D50w Syringe) 50 ml Q15M PRN IV DECREASED GLUCOSE; Start 03/18/18 at 18:30 Glucagon (Glucagen) 1 mg Q15M PRN IM DECREASED GLUCOSE; Start 03/18/18 at 18:30 Glucose (Glutose) 15 gm Q15M PRN BUCCAL DECREASED GLUCOSE Last administered on 04/05/18 17:32; Admin Dose 15 GM; Start 03/18/18 at 18:30 Insulin Aspart (Novolog Insulin Pen) (Adult SC Insulin - Mild Algorithm)... AC MEALS AND BEDTIME SC Last administered on 04/06/18 17:16; Admin Dose 1 UNIT; Start 03/22/18 at 11:30 Loratadine (Claritin) 10 mg DAILY PO Last administered on 04/08/18 09:14; Admin Dose 10 MG; Start 03/22/18 at 14:00 Sodium Chloride (Deep Sea) 2 spray Q4H PRN NASAL congestion Last administered on 03/22/18 14:25; Admin Dose 2 SPRAY; Start 03/22/18 at 14:00 Thiamine HCl (Vitamin B1) 100 mg DAILY PO Last administered on 04/08/18 09:13; Admin Dose 100 MG; Start 03/25/18 at 09:00; Stop 04/24/18 at 08:59 Atorvastatin Calcium (Lipitor) 80 mg QHS PO Last administered on 04/07/18 20:18; Admin Dose 80 MG; Start 03/28/18 at 21:00 Lorazepam (Ativan) 0.5 mg QHS PRN PO ANXIETY Last administered on 04/03/18 14:15; Admin Dose 0.5 MG; Start 04/03/18 at 13:30 Lisinopril (Zestril) 2.5 mg DAILY PO Last administered on 04/08/18 09:13; Admin Dose 2.5 MG; Start 04/04/18 at 09:00 Metformin HCl (Glucophage) 500 mg BID WITH MEALS PO Last administered on 04/08/18at 09:13; Admin Dose 500 MG; Start 04/05/18 at 18:00 Furosemide (Lasix) 20 mg Q48H PO Last administered on 04/08/18at 09:14; Admin Dose 20 MG; Start 04/08/18 at 09:00 VEDA MENDIOLA NP Apr 08, 2018 11:25
[2018-04-08 14:00] VITALS: BP 116/66; PULSE 64; RESP 18
--- NOTE | 2018-04-08 17:25 | CONS ---
Assessment/Plan Cardiology NYHA: III Heart Failure Type: Acute on Chronic Heart Failure Type: Systolic Assessment/Plan Hospital Course (Demo Recall) IMPRESSION: 1. Positive troponin, assess significance. Patient not able to comment on chest pain.- now downtrending and likely a marker of CV disease and not true Nstemi. NO cp 2. Abnormal electrocardiogram, nonspecific ST-T abnormalities, borderline intraventricular conduction delay. 3. Hypertension, uncontrolled. 4. History of stent placement 09/2017. 5. Encephalopathy. 6. Dyslipidemia-LDL 175 HDL 56 7. Cardiomyopathy-severely depressed LVEF 20% 8. CHF-systolic acute on chrnic Recc: -Now on med-surg -serial ecg's -Continue asa/plavix -Continue coreg/zestril as tolerated only -continue isordil -Continue statin -ongoing neuro f/u and eval -PT -aldactone held due to hyperkalemia and s/p dose of kayexalate with now improved K and would remain off aldactone -Lasix now resumed Consultation Date/Type/Reason Admit Date/Time Mar 18, 2018 at 16:08 Initial Consult Date 03/18/17 Type of Consult Cardiology Reason for Consultation Positive troponin Requesting Provider: WARREN BUTLER MD Date/Time of Note DATE: 04/08/18 TIME: 17:21 Exam/Review of Systems Vital Signs Vitals Vital Signs Date Temp Pulse Resp B/P (MAP) Pulse Ox O2 O2 Flow FiO2 Time Delivery Rate 04/08/18 97.9 64 18 116/66 98 Room Air 14:00 (83) Intake and Output 04/07/18 04/07/18 04/08/18 1515:00 23:00 07:00 IntakeIntake Total 300 ml 250 ml BalanceBalance 300 ml 250 ml Exam Exam Review of Systems: CONSTITUTIONAL: No fevers, chills. PULMONARY: No sob CARDIOVASCULAR: No chest pain/palpitations GASTROINTESTINAL: No nausea/vomiting. GENITOURINARY: No hematuria/dysuria. MUSCULOSKELETAL: No myagias/arthalgias. PSYCHIATRIC: The patient denies depression. NEUROLOGIC: No weakness Constitutional: alert Psych: no complaints Head: normocephalic ENMT: mucosa pink and moist Neck: supple, jvd (9 cm water) Respiratory: diminished breath sounds Cardiovascular: regular rate and rhythm Gastrointestinal: soft, non-tender Musculoskeletal: muscle tone Extremities: edema (none) 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: other Labs Result Diagram: 04/08/18 0639 04/08/18 0639 Results 24hrs Laboratory Tests Test 04/07/18 20:17 04/08/18 06:39 04/08/18 08:25 04/08/18 12:06 Bedside Glucose 153 98 105 White Blood Count 5.1 Red Blood Count 4.72 Hemoglobin 12.3 Hematocrit 40.1 Mean Corpuscular 85.0 Volume Mean Corpuscular 26.1 L Hemoglobin Mean Corpuscular 30.7 L Hemoglobin Concent Red Cell 13.6 Distribution Width Platelet Count 244 Mean Platelet Volume 10.5 H Immature 0.000 L Granulocytes % Neutrophils % 43.3 Lymphocytes % 44.2 Monocytes % 7.7 Eosinophils % 4.2 Basophils % 0.6 Nucleated Red Blood 0.0 Cells % Immature 0.000 Granulocytes # Neutrophils # 2.2 Lymphocytes # 2.2 Monocytes # 0.4 Eosinophils # 0.2 Basophils # 0.0 Nucleated Red Blood 0.0 Cells # Sodium Level 138 Potassium Level 4.8 Chloride Level 102 Carbon Dioxide Level 27 Anion Gap 9 Blood Urea Nitrogen 33 H Creatinine 1.08 H Est Glomerular 50 L Filtrat Rate mL/min Glucose Level 101 Calcium Level 9.6 Phosphorus Level 3.6 Magnesium Level 1.8 Medications Medications Current Medications Aspirin (Aspirin) 81 mg DAILY PO Last administered on 04/08/18at 09:14; Admin Dose 81 MG; Start 03/19/18 at 09:00 Carvedilol (Coreg) 3.125 mg BID PO Last administered on 04/08/18at 09:13; Admin Dose 3.125 MG; Start 03/18/18 at 21:00 Clopidogrel Bisulfate (plaVIX) 75 mg DAILY PO Last administered on 04/08/18 09:13; Admin Dose 75 MG; Start 03/19/18 at 09:00 Isosorbide Dinitrate (Isordil) 5 mg BID PO Last administered on 04/08/18 09:13; Admin Dose 5 MG; Start 03/18/18 at 21:00 Nitroglycerin (Nitroglycerin (Sl Tab) 0.4 Mg) 1 tab [id number] PRN SL CHEST PAIN; Start 03/18/18 at 16:30 IV Flush (NS 3 ml) 3 ml PER PROTOCOL IV ; Start 03/18/18 at 17:00 Ondansetron HCl (Zofran Inj) 4 mg Q6H PRN IV NAUSEA/VOMITING Last administered on 04/01/18at 17:10; Admin Dose 4 MG; Start 03/18/18 at 17:00 Acetaminophen (Tylenol Tab) 650 mg Q6H PRN PO .PAIN 1-3 OR TEMP; Start 03/18/18 at 17:00 Docusate Sodium (Colace) 100 mg Q12H PRN PO .CONSTIPATION; Start 03/18/18 at 17:00 Magnesium Hydroxide (Milk Of Mag) 30 ml DAILY PRN PO .CONSTIPATION; Start 03/18/18 at 17:00 Miscellaneous Information 1 ea NOTE XX ; Start 03/18/18 at 18:30 Glucose (Glutose) 15 gm Q15M PRN PO DECREASED GLUCOSE; Start 03/18/18 at 18:30 Glucose (Glutose) 22.5 gm Q15M PRN PO DECREASED GLUCOSE; Start 03/18/18 at 18:30 Dextrose (D50w Syringe) 25 ml Q15M PRN IV DECREASED GLUCOSE; Start 03/18/18 at 18:30 Dextrose (D50w Syringe) 50 ml Q15M PRN IV DECREASED GLUCOSE; Start 03/18/18 at 18:30 Glucagon (Glucagen) 1 mg Q15M PRN IM DECREASED GLUCOSE; Start 03/18/18 at 18:30 Glucose (Glutose) 15 gm Q15M PRN BUCCAL DECREASED GLUCOSE Last administered on 04/05/18at 17:32; Admin Dose 15 GM; Start 03/18/18 at 18:30 Insulin Aspart (Novolog Insulin Pen) (Adult SC Insulin - Mild Algorithm)... AC MEALS AND BEDTIME SC Last administered on 04/06/18at 17:16; Admin Dose 1 UNIT; Start 03/22/18 at 11:30 Loratadine (Claritin) 10 mg DAILY PO Last administered on 04/08/18 09:14; Admin Dose 10 MG; Start 03/22/18 at 14:00 Sodium Chloride (Deep Sea) 2 spray Q4H PRN NASAL congestion Last administered on 03/22/18 14:25; Admin Dose 2 SPRAY; Start 03/22/18 at 14:00 Thiamine HCl (Vitamin B1) 100 mg DAILY PO Last administered on 04/08/18at 09:13; Admin Dose 100 MG; Start 03/25/18 at 09:00; Stop 04/24/18 at 08:59 Atorvastatin Calcium (Lipitor) 80 mg QHS PO Last administered on 04/07/18 20:18; Admin Dose 80 MG; Start 03/28/18 at 21:00 Lorazepam (Ativan) 0.5 mg QHS PRN PO ANXIETY Last administered on 04/03/18 14:15; Admin Dose 0.5 MG; Start 04/03/18 at 13:30 Lisinopril (Zestril) 2.5 mg DAILY PO Last administered on 04/08/18 09:13; Admin Dose 2.5 MG; Start 04/04/18 at 09:00 Metformin HCl (Glucophage) 500 mg BID WITH MEALS PO Last administered on 04/08/18 09:13; Admin Dose 500 MG; Start 04/05/18 at 18:00 Furosemide (Lasix) 20 mg Q48H PO Last administered on 04/08/18 09:14; Admin Dose 20 MG; Start 04/08/18 at 09:00 JANEEN KEENAN Apr 08, 2018 17:25
[2018-04-08 20:00] VITALS: BP 95/58; PULSE 61; RESP 19
[2018-04-08] MEDS: ATORVASTATIN 20 MG TAB PO SCH (20:59)
[2018-04-09 02:35] VITALS: BP 120/72; PULSE 68; RESP 17
[2018-04-09] MEDS: Insulin NOVOLOG SS MILD Algorithm (SS with meals and bedtime) SC SCH ×4 (07:00→20:29)
[2018-04-09 08:00] VITALS: BP 104/59; PULSE 63; RESP 18
--- NOTE | 2018-04-09 08:44 | PN ---
DATE: 04/09/2018 SUBJECTIVE: The patient is stable, no events overnight. OBJECTIVE: VITAL SIGNS: Blood pressure is 120/72, respirations 17, pulse 68, temperature 97.8. HEENT: Head is normocephalic. NECK: Supple. HEART: Regular rate. LUNGS: Show diminished breath sounds at the base. ABDOMEN: Soft, nontender to palpation without rebound or guarding. EXTREMITIES: Negative for clubbing, cyanosis, no edema. DERMATOLOGIC: No rashes. MUSCULOSKELETAL: No joint effusion. NEUROLOGIC: No change in exam. MEDICATIONS: The patient's medications have been reviewed. LABORATORY DATA: From 04/08/2018 was reviewed. ASSESSMENT AND PLAN: 1. Nonoliguric acute kidney injury with previous baseline creatinine of 0.5 mg/dL. Etiology of acut e kidney injury is secondary to hemodynamics, diuretics. Renal function is improved. Continue curre nt medical management. 2. Mineral bone disorder, monitor calcium and phosphorus levels. 3. Hypertension. Continue current blood pressure regimen. 4. Cardiomyopathy, congestive heart failure. The patient is currently stable. Continue current med ical management. 5. Acute cerebrovascular accident. Continue current treatment plan. 6. Coronary artery disease. Continue current medical management. 7. Diabetes. Continue current insulin regimen. 8. Dyslipidemia. Continue statin therapy. Dictated By: FINESSE ROD DO NR/NTS Conf#: [id number] DID#: [id number] CC: LOTUS VILLALPANDO MD; JANEEN KEENAN MD; WARREN BUTLER MD;*EndCC*
[2018-04-09] MEDS: ISOSORBIDE DINITRATE 5 MG TAB PO SCH ×2 (08:56→20:25)
[2018-04-09] MEDS: LORATADINE 10 MG TAB PO SCH (08:56)
[2018-04-09] MEDS: LISINOPRIL 5 MG TAB PO SCH (08:56)
[2018-04-09] MEDS: THIAMINE 100 MG TAB PO SCH (08:56)
[2018-04-09] MEDS: metFORMIN 500 MG TAB PO SCH ×2 (08:57→17:11)
[2018-04-09] MEDS: ASPIRIN 81 MG TAB PO SCH (08:57)
[2018-04-09] MEDS: CLOPIDOGREL 75 MG TAB PO SCH (08:57)
--- NOTE | 2018-04-09 12:31 | PN ---
Date/Time of Note Date/Time of Note DATE: 04/09/18 TIME: 12:19 Assessment/Plan VTE Prophylaxis Risk score (from Ns)>0 risk: 2 SCD applied (from Ns): Yes Pharmacological prophylaxis: NA/contraindicated Pharm contraindication: low risk/ambulating Lines/Catheters [facility] Peripheral IV Urinary Cath still in place: No Assessment/Plan Hospital Course SUBJECTIVE: No acute overnight episodes OBJECTIVE: Vital signs-see below PHYSICAL EXAM: Constitutional: Well-developed, adequately built, lying in bed comfortably. Psych: nl mood/affect, no complaints Head: atraumatic, normocephalic Eyes: nl conjunctiva, nl sclera ENMT: mucosa pink and moist, nl external ears & nose Neck: non-tender, supple Respiratory: clear to auscultation, normal air movement Cardiovascular: nl pulses, regular rate and rhythm Gastrointestinal: non-tender, soft, bowel sounds active in all 4 quadrants. Musculoskeletal/extremities: nl extremities to inspection, motor strength equal bilaterally, no focal deficit. Normal pulses,no cyanosis, no edema. 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: Alert oriented 3,+EXPRESSIVE APHASIA. nl strength Skin: nl turgor ASSESSMENT/PLAN:67 yo female with h/o systolic CHF, CAD who presented with CVA 1. Occipital and Right COMPTROLLER strokes -Aphasic (expressive)-IMPROVED -Continue statin/antiplatelet -Continue rehab 2. Acute on chronic severe systolic heart failure -Compensated -cont. ACEi/BB. -Diuretics held secondary to renal function=>plan is to restart 20mg QOD starting today per cards 3. Acute kidney injury likely secondary to diuretics -Improved -Avoid nephrotoxins -MONITOR -Tolerates every other day diuretics 4. DMII -Now stable only on metformin. -Continue to monitor. 5. Cardiomyopathy with severely depressed ejection fraction 20%. -Management per #2 6. Dyslipidemia -On statin 7. Toxic metabolic encephalopathy -Stable. Avoid sedating agents. 8. Essential hypertension -Continue antihypertensives 9. CAD s/p PCI 09/2017 - continue DAPT/statin/BB/nitrates DVT prophylaxis: SCDs/ambulation. PUD prophylaxis: Not indicated CODE STATUS: Full code Diet: Pured nectar thick Disposition -Medically stable for discharge to SNF-Pending DARIEN, hopefully tomorrow.. Patient was seen in collaboration with Result Diagram: 04/08/18 0639 04/08/18 0639 Results 24hrs Laboratory Tests Test 04/08/18 17:45 04/08/18 20:55 04/09/18 07:54 04/09/18 12:14 Bedside Glucose 119 155 97 128 Exam/Review of Systems Exam Vitals Vital Signs Date Temp Pulse Resp B/P (MAP) Pulse Ox O2 O2 Flow FiO2 Time Delivery Rate 04/09/18 97.8 63 18 104/59 100 08:00 (74) 04/08/18 Room Air 14:00 Intake and Output 04/08/18 04/08/18 04/09/18 1515:00 23:00 07:00 IntakeIntake Total 820 ml BalanceBalance 820 ml Results Results 24hrs Laboratory Tests Test 04/08/18 17:45 04/08/18 20:55 04/09/18 07:54 04/09/18 12:14 Bedside Glucose 119 155 97 128 Medications Medication Current Medications Aspirin (Aspirin) 81 mg DAILY PO Last administered on 04/09/18at 08:57; Admin Dose 81 MG; Start 03/19/18 at 09:00 Carvedilol (Coreg) 3.125 mg BID PO Last administered on 04/09/18at 08:56; Admin Dose 3.125 MG; Start 03/18/18 at 21:00 Clopidogrel Bisulfate (plaVIX) 75 mg DAILY PO Last administered on 04/09/18at 08:57; Admin Dose 75 MG; Start 03/19/18 at 09:00 Isosorbide Dinitrate (Isordil) 5 mg BID PO Last administered on 04/09/18at 08:56; Admin Dose 5 MG; Start 03/18/18 at 21:00 Nitroglycerin (Nitroglycerin (Sl Tab) 0.4 Mg) 1 tab [id number] PRN SL CHEST PAIN; Start 03/18/18 at 16:30 IV Flush (NS 3 ml) 3 ml PER PROTOCOL IV ; Start 03/18/18 at 17:00 Ondansetron HCl (Zofran Inj) 4 mg Q6H PRN IV NAUSEA/VOMITING Last administered on 04/01/18at 17:10; Admin Dose 4 MG; Start 03/18/18 at 17:00 Acetaminophen (Tylenol Tab) 650 mg Q6H PRN PO .PAIN 1-3 OR TEMP; Start 03/18/18 at 17:00 Docusate Sodium (Colace) 100 mg Q12H PRN PO .CONSTIPATION; Start 03/18/18 at 17:00 Magnesium Hydroxide (Milk Of Mag) 30 ml DAILY PRN PO .CONSTIPATION; Start 03/18/18 at 17:00 Miscellaneous Information 1 ea NOTE XX ; Start 03/18/18 at 18:30 Glucose (Glutose) 15 gm Q15M PRN PO DECREASED GLUCOSE; Start 03/18/18 at 18:30 Glucose (Glutose) 22.5 gm Q15M PRN PO DECREASED GLUCOSE; Start 03/18/18 at 18:30 Dextrose (D50w Syringe) 25 ml Q15M PRN IV DECREASED GLUCOSE; Start 03/18/18 at 18:30 Dextrose (D50w Syringe) 50 ml Q15M PRN IV DECREASED GLUCOSE; Start 03/18/18 at 18:30 Glucagon (Glucagen) 1 mg Q15M PRN IM DECREASED GLUCOSE; Start 03/18/18 at 18:30 Glucose (Glutose) 15 gm Q15M PRN BUCCAL DECREASED GLUCOSE Last administered on 04/05/18 17:32; Admin Dose 15 GM; Start 03/18/18 at 18:30 Insulin Aspart (Novolog Insulin Pen) (Adult SC Insulin - Mild Algorithm)... AC MEALS AND BEDTIME SC Last administered on 04/06/18 17:16; Admin Dose 1 UNIT; Start 03/22/18 at 11:30 Loratadine (Claritin) 10 mg DAILY PO Last administered on 04/09/18 08:56; Admin Dose 10 MG; Start 03/22/18 at 14:00 Sodium Chloride (Deep Sea) 2 spray Q4H PRN NASAL congestion Last administered on 03/22/18 14:25; Admin Dose 2 SPRAY; Start 03/22/18 at 14:00 Thiamine HCl (Vitamin B1) 100 mg DAILY PO Last administered on 04/09/18 08:56; Admin Dose 100 MG; Start 03/25/18 at 09:00; Stop 04/24/18 at 08:59 Atorvastatin Calcium (Lipitor) 80 mg QHS PO Last administered on 04/08/18at 20:59; Admin Dose 80 MG; Start 03/28/18 at 21:00 Lorazepam (Ativan) 0.5 mg QHS PRN PO ANXIETY Last administered on 04/03/18 14:15; Admin Dose 0.5 MG; Start 04/03/18 at 13:30 Lisinopril (Zestril) 2.5 mg DAILY PO Last administered on 04/09/18 08:56; Admin Dose 2.5 MG; Start 04/04/18 at 09:00 Metformin HCl (Glucophage) 500 mg BID WITH MEALS PO Last administered on 04/09/18 08:57; Admin Dose 500 MG; Start 04/05/18 at 18:00 Furosemide (Lasix) 20 mg Q48H PO Last administered on 04/08/18 09:14; Admin Dose 20 MG; Start 04/08/18 at 09:00 VEDA MENDIOLA NP Apr 09, 2018 12:31
[2018-04-09 14:00] VITALS: BP 108/66; PULSE 75; RESP 18
--- NOTE | 2018-04-09 19:29 | CONS ---
Assessment/Plan Cardiology NYHA: III Heart Failure Type: Acute on Chronic Heart Failure Type: Systolic Assessment/Plan Hospital Course (Demo Recall) IMPRESSION: 1. Positive troponin, assess significance. Patient not able to comment on chest pain.- now downtrending and likely a marker of CV disease and not true Nstemi. NO cp 2. Abnormal electrocardiogram, nonspecific ST-T abnormalities, borderline intraventricular conduction delay. 3. Hypertension, uncontrolled. 4. History of stent placement 09/2017. 5. Encephalopathy. 6. Dyslipidemia-LDL 175 HDL 56 7. Cardiomyopathy-severely depressed LVEF 20% 8. CHF-systolic acute on chrnic Recc: -Now on med-surg -serial ecg's -Continue asa/plavix -Continue coreg/zestril as tolerated only -continue isordil -Continue statin -ongoing neuro f/u and eval -PT -aldactone held due to hyperkalemia and s/p dose of kayexalate with now improved K and would remain off aldactone -Lasix now resumed follow renal function Consultation Date/Type/Reason Admit Date/Time Mar 18, 2018 at 16:08 Initial Consult Date 03/18/17 Type of Consult Cardiology Reason for Consultation Cardiomyopathy Requesting Provider: WARREN BUTLRE MD Date/Time of Note DATE: 04/09/18 TIME: 19:27 Exam/Review of Systems Vital Signs Vitals Vital Signs Date Temp Pulse Resp B/P (MAP) Pulse Ox O2 O2 Flow FiO2 Time Delivery Rate 04/09/18 98.2 75 18 108/66 100 14:00 (80) 04/08/18 Room Air 14:00 Intake and Output 04/08/18 04/08/18 04/09/18 1414:59 22:59 06:59 IntakeIntake Total 820 ml BalanceBalance 820 ml Exam Exam Review of Systems: CONSTITUTIONAL: No fevers, chills. PULMONARY: No sob CARDIOVASCULAR: No chest pain/palpitations GASTROINTESTINAL: No nausea/vomiting. GENITOURINARY: No hematuria/dysuria. MUSCULOSKELETAL: No myagias/arthalgias. PSYCHIATRIC: The patient denies depression. NEUROLOGIC:APHASIC Constitutional: alert Psych: no complaints Head: normocephalic ENMT: mucosa pink and moist Neck: supple, jvd (9 CM WATER) Respiratory: diminished breath sounds Cardiovascular: regular rate and rhythm Gastrointestinal: soft, non-tender Musculoskeletal: muscle weakness (GENERalized) Extremities: edema (none) 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: other (aphasic) Labs Result Diagram: 04/08/18 0639 04/08/18 0639 Results 24hrs Laboratory Tests Test 04/08/18 20:55 04/09/18 07:54 04/09/18 12:14 04/09/18 17:13 Bedside Glucose 155 97 128 194 Medications Medications Current Medications Aspirin (Aspirin) 81 mg DAILY PO Last administered on 04/09/18 08:57; Admin Dose 81 MG; Start 03/19/18 at 09:00 Carvedilol (Coreg) 3.125 mg BID PO Last administered on 04/09/18 08:56; Admin Dose 3.125 MG; Start 03/18/18 at 21:00 Clopidogrel Bisulfate (plaVIX) 75 mg DAILY PO Last administered on 04/09/18 08:57; Admin Dose 75 MG; Start 03/19/18 at 09:00 Isosorbide Dinitrate (Isordil) 5 mg BID PO Last administered on 04/09/18at 08:56; Admin Dose 5 MG; Start 03/18/18 at 21:00 Nitroglycerin (Nitroglycerin (Sl Tab) 0.4 Mg) 1 tab [id number] PRN SL CHEST PAIN; Start 03/18/18 at 16:30 IV Flush (NS 3 ml) 3 ml PER PROTOCOL IV ; Start 03/18/18 at 17:00 Ondansetron HCl (Zofran Inj) 4 mg Q6H PRN IV NAUSEA/VOMITING Last administered on 04/01/18at 17:10; Admin Dose 4 MG; Start 03/18/18 at 17:00 Acetaminophen (Tylenol Tab) 650 mg Q6H PRN PO .PAIN 1-3 OR TEMP; Start 03/18/18 at 17:00 Docusate Sodium (Colace) 100 mg Q12H PRN PO .CONSTIPATION; Start 03/18/18 at 17:00 Magnesium Hydroxide (Milk Of Mag) 30 ml DAILY PRN PO .CONSTIPATION; Start 03/18/18 at 17:00 Miscellaneous Information 1 ea NOTE XX ; Start 03/18/18 at 18:30 Glucose (Glutose) 15 gm Q15M PRN PO DECREASED GLUCOSE; Start 03/18/18 at 18:30 Glucose (Glutose) 22.5 gm Q15M PRN PO DECREASED GLUCOSE; Start 03/18/18 at 18:30 Dextrose (D50w Syringe) 25 ml Q15M PRN IV DECREASED GLUCOSE; Start 03/18/18 at 18:30 Dextrose (D50w Syringe) 50 ml Q15M PRN IV DECREASED GLUCOSE; Start 03/18/18 at 1 8:30 Glucagon (Glucagen) 1 mg Q15M PRN IM DECREASED GLUCOSE; Start 03/18/18 at 18:30 Glucose (Glutose) 15 gm Q15M PRN BUCCAL DECREASED GLUCOSE Last administered on 04/05/18 17:32; Admin Dose 15 GM; Start 03/18/18 at 18:30 Insulin Aspart (Novolog Insulin Pen) (Adult SC Insulin - Mild Algorithm)... AC MEALS AND BEDTIME SC Last administered on 04/09/18 17:18; Admin Dose 2 UNIT; Start 03/22/18 at 11:30 Loratadine (Claritin) 10 mg DAILY PO Last administered on 04/09/18 08:56; Admin Dose 10 MG; Start 03/22/18 at 14:00 Sodium Chloride (Deep Sea) 2 spray Q4H PRN NASAL congestion Last administered on 03/22/18 14:25; Admin Dose 2 SPRAY; Start 03/22/18 at 14:00 Thiamine HCl (Vitamin B1) 100 mg DAILY PO Last administered on 04/09/18 08:56; Admin Dose 100 MG; Start 03/25/18 at 09:00; Stop 04/24/18 at 08:59 Atorvastatin Calcium (Lipitor) 80 mg QHS PO Last administered on 04/08/18 20:59; Admin Dose 80 MG; Start 03/28/18 at 21:00 Lorazepam (Ativan) 0.5 mg QHS PRN PO ANXIETY Last administered on 04/03/18 14:15; Admin Dose 0.5 MG; Start 04/03/18 at 13:30 Lisinopril (Zestril) 2.5 mg DAILY PO Last administered on 04/09/18 08:56; Admin Dose 2.5 MG; Start 04/04/18 at 09:00 Metformin HCl (Glucophage) 500 mg BID WITH MEALS PO Last administered on 04/09/18 17:11; Admin Dose 500 MG; Start 04/05/18 at 18:00 Furosemide (Lasix) 20 mg Q48H PO Last administered on 04/08/18at 09:14; Admin D ose 20 MG; Start 04/08/18 at 09:00 JANEEN KEENAN Apr 09, 2018 19:29
[2018-04-09 19:35] VITALS: BP 114/71; PULSE 69; RESP 18
[2018-04-09] MEDS: ATORVASTATIN 20 MG TAB PO SCH (20:25)
[2018-04-10 02:00] VITALS: BP 118/72; PULSE 66; RESP 18
[2018-04-10 07:36] VITALS: BP 124/71; PULSE 64; RESP 18
[2018-04-10] MEDS: Insulin NOVOLOG SS MILD Algorithm (SS with meals and bedtime) SC SCH ×2 (08:21→11:30)
[2018-04-10] MEDS: metFORMIN 500 MG TAB PO SCH (08:42)
[2018-04-10] MEDS: CLOPIDOGREL 75 MG TAB PO SCH (08:43)
[2018-04-10] MEDS: LISINOPRIL 5 MG TAB PO SCH (08:43)
[2018-04-10] MEDS: ASPIRIN 81 MG TAB PO SCH (08:43)
[2018-04-10] MEDS: THIAMINE 100 MG TAB PO SCH (08:44)
[2018-04-10] MEDS: ISOSORBIDE DINITRATE 5 MG TAB PO SCH (08:44)
[2018-04-10] MEDS: LORATADINE 10 MG TAB PO SCH (08:44)
[2018-04-10] MEDS: FUROSEMIDE 20 MG TAB PO SCH (08:44)
--- NOTE | 2018-04-10 08:56 | PN ---
DATE: 04/10/2018 SUBJECTIVE: The patient is stable, no events overnight. No fevers, chills, nausea, vomiting. OBJECTIVE: VITAL SIGNS: Blood pressure is 124/71, pulse 64, respiration 18, temperature 98.5. HEENT: Head is normocephalic. NECK: Supple. HEART: Regular rate. LUNGS: Show diminished breath sounds at the base. ABDOMEN: Soft, nontender to palpation without rebound or guarding. EXTREMITIES: Negative for clubbing, cyanosis, no edema. DERMATOLOGIC: No rashes. MUSCULOSKELETAL: No joint effusion. NEUROLOGIC: No change in exam. MEDICATIONS: Reviewed. LABORATORY DATA: Has been reviewed. ASSESSMENT AND PLAN: 1. Nonoliguric acute kidney injury with previous baseline creatinine of 0.5 mg/dL. Etiology of acut e kidney injury is secondary to hemodynamics, diuretics. Renal function is improving. Continue curr ent treatment plan, supportive care, renally dose all meds. 2. Mineral bone disorder, monitor calcium and phosphorus levels. 3. Hypertension. Continue current blood pressure regimen. 4. Acute congestive heart failure exacerbation. The patient is currently euvolemic. Continue medic al management. 5. Acute cerebrovascular accident. Continue current treatment plan. 6. Coronary artery disease. Continue medical management. 7. Diabetes. Continue current insulin regimen. 8. Dyslipidemia. Continue statin therapy. Dictated By: FINESSE ROD DO NR/NTS Conf#: [id number] DID#: [id number] CC: WARREN BUTLER MD;*EndCC*
--- NOTE | 2018-04-10 10:03 | PN ---
Date/Time of Note Date/Time of Note DATE: 04/10/18 TIME: 10:01 Assessment/Plan VTE Prophylaxis Risk score (from Ns)>0 risk: 3 SCD applied (from Ns): Yes Pharmacological prophylaxis: NA/contraindicated Pharm contraindication: low risk/ambulating, other (dapt) Lines/Catheters IV C[facility]ter Type [facility]from [facility] Saline Lock Urinary Cath still in place: No Assessment/Plan Hospital Course SUBJECTIVE: No acute overnight episodes OBJECTIVE: Vital signs-see below PHYSICAL EXAM: Constitutional: Well-developed, adequately built, lying in bed comfortably. Psych: nl mood/affect, no complaints Head: atraumatic, normocephalic Eyes: nl conjunctiva, nl sclera ENMT: mucosa pink and moist, nl external ears & nose Neck: non-tender, supple Respiratory: clear to auscultation, normal air movement Cardiovascular: nl pulses, regular rate and rhythm Gastrointestinal: non-tender, soft, bowel sounds active in all 4 quadrants. Musculoskeletal/extremities: nl extremities to inspection, motor strength equal bilaterally, no focal deficit. Normal pulses,no cyanosis, no edema. 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: Alert oriented 3,+EXPRESSIVE APHASIA. nl strength Skin: nl turgor ASSESSMENT/PLAN:67 yo female with h/o systolic CHF, CAD who presented with CVA 1. 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 Acute on chronic severe systolic heart failure -Compensated -cont. ACEi/BB,qOD Lasix 3. Acute kidney injury likely secondary to diuretics -Improved -Avoid nephrotoxins -MONITOR -Tolerates acei, every other day diuretics 4. DMII -Now stable only on metformin. -Continue to monitor. 5. Cardiomyopathy with severely depressed ejection fraction 20%. -Management per #2 6. Dyslipidemia -On statin 7. Toxic metabolic encephalopathy -Stable. Avoid sedating agents. 8. Essential hypertension -Continue antihypertensives 9. CAD s/p PCI 09/2017 - continue DAPT/statin/BB/nitrates DVT prophylaxis: SCDs/ambulation. PUD prophylaxis: Not indicated CODE STATUS: Full code Diet: Pured nectar thick Disposition -Medically stable for discharge to SNF-CM to f/u status Patient was seen in collaboration with Cont Hosp Indication/DC Plan: placement Result Diagram: 04/08/1839 04/08/18638 Results 24hrs Laboratory Tests Test 04/09/18 12:14 04/09/18 17:13 04/09/18 20:22 04/10/18 08:19 Bedside Glucose 128 194 124 91 Exam/Review of Systems Exam Vitals Vital Signs Date Temp Pulse Resp B/P (MAP) Pulse Ox O2 O2 Flow FiO2 Time Delivery Rate 04/10/18 98.5 64 18 124/71 99 07:36 (88) 04/08/18 Room Air 14:00 Intake and Output 04/09/18 04/09/18 04/10/18 1515:00 23:00 07:00 IntakeIntake Total 600 ml 360 ml 118 ml BalanceBalance 600 ml 360 ml 118 ml Results Results 24hrs Laboratory Tests Test 04/09/18 12:14 04/09/18 17:13 04/09/18 20:22 04/10/18 08:19 Bedside Glucose 128 194 124 91 Medications Medication Current Medications Aspirin (Aspirin) 81 mg DAILY PO Last administered on 04/10/18at 08:43; Admin Dose 81 MG; Start 03/19/18 at 09:00 Carvedilol (Coreg) 3.125 mg BID PO Last administered on 04/10/18at 08:43; Admin Dose 3.125 MG; Start 03/18/18 at 21:00 Clopidogrel Bisulfate (plaVIX) 75 mg DAILY PO Last administered on 04/10/18at 08:43; Admin Dose 75 MG; Start 03/19/18 at 09:00 Isosorbide Dinitrate (Isordil) 5 mg BID PO Last administered on 04/10/18at 08:44; Admin Dose 5 MG; Start 03/18/18 at 21:00 Nitroglycerin (Nitroglycerin (Sl Tab) 0.4 Mg) 1 tab [id number] PRN SL CHEST PAIN; Start 03/18/18 at 16:30 IV Flush (NS 3 ml) 3 ml PER PROTOCOL IV ; Start 03/18/18 at 17:00 Ondansetron HCl (Zofran Inj) 4 mg Q6H PRN IV NAUSEA/VOMITING Last administered on 04/01/18at 17:10; Admin Dose 4 MG; Start 03/18/18 at 17:00 Acetaminophen (Tylenol Tab) 650 mg Q6H PRN PO .PAIN 1-3 OR TEMP; Start 03/18/18 at 17:00 Docusate Sodium (Colace) 100 mg Q12H PRN PO .CONSTIPATION; Start 03/18/18 at 17:00 Magnesium Hydroxide (Milk Of Mag) 30 ml DAILY PRN PO .CONSTIPATION; Start 03/18/18 at 17:00 Miscellaneous Information 1 ea NOTE XX ; Start 03/18/18 at 18:30 Glucose (Glutose) 15 gm Q15M PRN PO DECREASED GLUCOSE; Start 03/18/18 at 18:30 Glucose (Glutose) 22.5 gm Q15M PRN PO DECREASED GLUCOSE; Start 03/18/18 at 18:30 Dextrose (D50w Syringe) 25 ml Q15M PRN IV DECREASED GLUCOSE; Start 03/18/18 at 18:30 Dextrose (D50w Syringe) 50 ml Q15M PRN IV DECREASED GLUCOSE; Start 03/18/18 at 18:30 Glucagon (Glucagen) 1 mg Q15M PRN IM DECREASED GLUCOSE; Start 03/18/18 at 18:30 Glucose (Glutose) 15 gm Q15M PRN BUCCAL DECREASED GLUCOSE Last administered on 04/05/18at 17:32; Admin Dose 15 GM; Start 03/18/18 at 18:30 Insulin Aspart (Novolog Insulin Pen) (Adult SC Insulin - Mild Algorithm)... AC MEALS AND BEDTIME SC Last administered on 04/09/18at 17:18; Admin Dose 2 UNIT; Start 03/22/18 at 11:30 Loratadine (Claritin) 10 mg DAILY PO Last administered on 04/10/18 08:44; Admin Dose 10 MG; Start 03/22/18 at 14:00 Sodium Chloride (Deep Sea) 2 spray Q4H PRN NASAL congestion Last administered on 03/22/18 14:25; Admin Dose 2 SPRAY; Start 03/22/18 at 14:00 Thiamine HCl (Vitamin B1) 100 mg DAILY PO Last administered on 04/10/18 08:44; Admin Dose 100 MG; Start 03/25/18 at 09:00; Stop 04/24/18 at 08:59 Atorvastatin Calcium (Lipitor) 80 mg QHS PO Last administered on 04/09/18at 20:25; Admin Dose 80 MG; Start 03/28/18 at 21:00 Lorazepam (Ativan) 0.5 mg QHS PRN PO ANXIETY Last administered on 04/03/18 14:15; Admin Dose 0.5 MG; Start 04/03/18 at 13:30 Lisinopril (Zestril) 2.5 mg DAILY PO Last administered on 04/10/18 08:43; Admin Dose 2.5 MG; Start 04/04/18 at 09:00 Metformin HCl (Glucophage) 500 mg BID WITH MEALS PO Last administered on 04/10/18 08:42; Admin Dose 500 MG; Start 04/05/18 at 18:00 Furosemide (Lasix) 20 mg Q48H PO Last administered on 04/10/18 08:44; Admin Dose 20 MG; Start 04/08/18 at 09:00 VEDA MENDIOLA NP Apr 10, 2018 10:03
--- NOTE | 2018-04-10 13:26 | DS ---
Date/Time of Note Date/Time of Note DATE: 04/10/18 TIME: 13:24 Discharge Summary Admission/Discharge Info Admit Date/Time Mar 18, 2018 at 16:08 Discharge Date/Time Discharge Diagnosis 1. 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 Acute on chronic severe systolic heart failure 3. Acute kidney injury likely secondary to diuretics .stable 4. DMII 5. Cardiomyopathy with severely depressed ejection fraction 20%. 6. Dyslipidemia 7. Toxic metabolic encephalopathy 8. Essential hypertension 9. CAD s/p PCI 09/2017 10. Expressive aphasia Patient Condition: Stable Consults ,Neurology ,cards jeanine NAM,nephro Procedures 03/19/2018. MRI brain with and without contrast IMPRESSION: 1. Artifact versus hemodynamically significant narrowing of the proximal supraclinoid left and right internal carotid arteries. 2. Short segmental greater than 50% stenosis proximal left P2 segment. 3. Consider CT angiography of the head if further diagnostic imaging is desired. 03/19/2018. Brain MRI IMPRESSION: 1. Motion degraded study. 2. Atrophy of the cerebral hemispheres, and cerebellar hemispheres and brain stem, greater than expected for age. Findings are suggestive of a nonspecific neuro degenerative process. 3. Confluent leukoencephalopathy involving the subcortical, periventricular and deep white matter of the frontal and parietal lobes. 4. Altered signal in the cerebral peduncles and contour of the cephalic junction. Findings may be due to small cavitary lesions or dilated perivascular spaces. No significant T2 FLAIR signal change at this location. 03/18/2018. CT brain. IMPRESSION: 1. No evidence of acute intracranial hemorrhage, infarcts, or acute intracranial pathology. 2. Mild to moderate chronic microvascular ischemic disease and diffuse volume loss. 3. Mild to moderate ventriculomegaly. While this most likely represent central volume loss normal pressure hydrocephalus is a consideration . 4. Moderate atherosclerotic vascular disease 03/18/2018 2D echocardiogram. Conclusions: Normal left ventricular cavity size. Severe asymmetric septal hypertrophy. Severe global left ventricular systolic dysfunction. Ejection fraction is visually estimated at 20 %. Tissue Doppler/Mitral Doppler indices are consistent with restrictive physiology with markedly elevated left atrial pressure (Stage III-IV diastolic dysfunction). Normal right ventricular size. Moderate right ventricular systolic dysfunction. Mitral valve leaflets appear mildly thickened. Mild mitral annular calcification. Mild mitral valve regurgitation. No significant aortic stenosis or insufficiency. Aortic cusps appear mildly calcified. Mild aortic valve regurgitation. Normal appearance of the tricuspid valve. Estimated peak PA systolic pressure 59 mmHg. There is mild tricuspid regurgitation. Normal pulmonic valve appearance. There is trace pulmonic regurgitation. Electronically Signed By: Isiah Rowan 2018-03-19 20:56:52 [facility] Hospital Course 67 yo female with h/o systolic CHF, CAD, aphasic who was admitted with chest pain and altered mental status on 03/18/2018. Patient was noted with occipital/right JIG BUILDER strokes. Patient has toxic metabolic encephalopathy as well. She was continued on aspirin, Plavix and statin. Patient was being followed by neurology. Hospital course was also noted for acute on chronic severe systolic congestive heart failure, acute kidney injury secondary to diuretics, cardiomyopathy with a severely depressed ejection fraction 20%. Patient was also being followed by cardiology and nephrology and she was continued on conservative medical management with appropriate dosing of beta-blockers, MYA inhibitors and every other day diuretics. Patient's renal function remained stable on every other day diuretic, low-dose MYA inhibitors. The patient was also noted with fluctuating hypoglycemic events with her diabetes. Patient only needed metformin and her blood sugar remained controlled on single metformin therapy. Patient's mental status back to baseline. She continued to have expressive aphasia but was able to communicate minimally. Patient had physical therapy/speech therapy/Occupational Therapy follow-up and deemed a candidate for correction facility for further rehabilitation. She was then accepted to a correction facility on 04/10/2018. Overall, patient had a lengthy hospitalization and most of it was secondary to placement issues with her insurance status. Approximately 60 minutes was spent on coordinating the discharge on this [facility]. Patient was seen in collaboration with Dr.Abe Doug Damico Active Scripts Furosemide* (Furosemide*) 20 Mg Tablet, 20 MG PO every other day for 30 Days First dose to be taken starting next 04/06/2018 Prov:MENDIOLA,VEDA V. SHEETER OPERATOR 04/03/18 Metformin* (Glucophage*) 500 Mg Tab, 500 MG PO BID WITH MEALS, #60 TAB Prov:MENDIOLA,VEDA V. SHEETER OPERATOR 04/03/18 Thiamine* (Vitamin B-1*) 100 Mg Tablet, 100 MG PO DAILY, #30 TAB Prov:MENDIOLA,VEDA V. SHEETER OPERATOR 03/31/18 Atorvastatin* (Atorvastatin*) 40 Mg Tablet, 80 MG PO QHS, #30 TAB Prov:MENDIOLAVEDA V. SHEETER OPERATOR 03/31/18 Reported Medications Nitroglycerin* (Nitroglycerin* SL) 0.4 Mg Tab.subl, 0.4 MG SL Q5MIN PRN for CHEST PAIN, BOTTLE 03/18/18 Lisinopril* (Lisinopril*) 5 Mg Tablet, 5 MG PO DAILY, #30 TAB 03/18/18 Clopidogrel Bisulfate (Clopidogrel) 75 Mg Tablet, 75 MG PO DAILY, #30 TAB 03/18/18 Carvedilol* (Coreg*) 3.125 Mg Tablet, 3.125 MG PO BID, #60 TAB 03/18/18 Aspirin* (Aspirin* Chew) 81 Mg Tab.chew, 81 MG PO DAILY, TAB.CHEW 03/18/18 Isosorbide Dinitrate* (Isosorbide Dinitrate*) 5 Mg Tablet, 5 MG PO BID, TAB 03/18/18 Discontinued Reported Medications Furosemide* (Furosemide*) 40 Mg Tablet, 40 MG PO BID, TAB 03/18/18 Spironolactone* (Aldactone*) 5 Mg/Ml (COMPOUNDED) Susp, 12.5 MG PO DAILY for 30 Days, ML (COMPOUNDED) 03/18/18 Follow-up Plan Follow-up with primary care physician Primary Care Provider Care Physician No Primary Pending Labs Laboratory Tests Test 04/09/18 17:13 04/09/18 20:22 04/10/18 08:19 04/10/18 12:10 Bedside 194 124 91 132 Glucose mg/dL (70-220) mg/dL (70-220) mg/dL (70-220) mg/dL (70-220) VEDA MENDIOLA NP Apr 10, 2018 13:26
[2018-04-10 13:28] VITALS: BP 104/76; PULSE 67; RESP 18
--- NOTE | 2018-04-10 13:58 | CONS ---
Assessment/Plan Cardiology NYHA: III Heart Failure Type: Acute on Chronic Heart Failure Type: Systolic Assessment/Plan Hospital Course (Demo Recall) IMPRESSION: 1. Positive troponin, assess significance. Patient not able to comment on chest pain.- now downtrending and likely a marker of CV disease and not true Nstemi. NO cp 2. Abnormal electrocardiogram, nonspecific ST-T abnormalities, borderline intraventricular conduction delay. 3. Hypertension, uncontrolled. 4. History of stent placement 09/2017. 5. Encephalopathy. 6. Dyslipidemia-LDL 175 HDL 56 7. Cardiomyopathy-severely depressed LVEF 20% 8. CHF-systolic acute on chronic Recc: -Now on med-surg -serial ecg's -Continue asa/plavix -Continue coreg/zestril as tolerated only -continue isordil -Continue statin -ongoing neuro f/u and eval -PT -aldactone held due to hyperkalemia and s/p dose of kayexalate with now improved K and would remain off aldactone -Lasix now resumed QOD follow renal function -outpatient f/u Consultation Date/Type/Reason Admit Date/Time Mar 18, 2018 at 16:08 Initial Consult Date 03/18/17 Type of Consult Cardiology Reason for Consultation cardiomyopathy Requesting Provider: WARREN BUTLER MD Date/Time of Note DATE: 04/10/18 TIME: 13:56 Exam/Review of Systems Vital Signs Vitals Vital Signs Date Temp Pulse Resp B/P (MAP) Pulse Ox O2 O2 Flow FiO2 Time Delivery Rate 04/10/18 98.5 67 18 104/76 99 13:28 (85) 04/08/18 Room Air 14:00 Intake and Output 04/09/18 04/09/18 04/10/18 1515:00 23:00 07:00 IntakeIntake Total 600 ml 360 ml 118 ml BalanceBalance 600 ml 360 ml 118 ml Exam Exam Review of Systems: CONSTITUTIONAL: No fevers, chills. PULMONARY: No sob CARDIOVASCULAR: No chest pain/palpitations GASTROINTESTINAL: No nausea/vomiting. GENITOURINARY: No hematuria/dysuria. MUSCULOSKELETAL: No myagias/arthalgias. PSYCHIATRIC: The patient denies depression. NEUROLOGIC: aphasia-improving Constitutional: alert Psych: no complaints Head: normocephalic ENMT: mucosa pink and moist Neck: supple, jvd (9 cm water) Respiratory: clear to auscultation Cardiovascular: regular rate and rhythm Gastrointestinal: soft, non-tender Musculoskeletal: muscle tone (normal) Extremities: edema (none) 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: other (aphasia-improving) Labs Result Diagram: 04/08/18 0639 04/08/18 0639 Results 24hrs Laboratory Tests Test 04/09/18 17:13 04/09/18 20:22 04/10/18 08:19 04/10/18 12:10 Bedside Glucose 194 124 91 132 Medications Medications Current Medications Aspirin (Aspirin) 81 mg DAILY PO Last administered on 04/10/18 08:43; Admin Dose 81 MG; Start 03/19/18 at 09:00 Carvedilol (Coreg) 3.125 mg BID PO Last administered on 04/10/18 08:43; Admin Dose 3.125 MG; Start 03/18/18 at 21:00 Clopidogrel Bisulfate (plaVIX) 75 mg DAILY PO Last administered on 04/10/18 08:43; Admin Dose 75 MG; Start 03/19/18 at 09:00 Isosorbide Dinitrate (Isordil) 5 mg BID PO Last administered on 04/10/18at 08:44; Admin Dose 5 MG; Start 03/18/18 at 21:00 Nitroglycerin (Nitroglycerin (Sl Tab) 0.4 Mg) 1 tab [id number] PRN SL CHEST PAIN; Start 03/18/18 at 16:30 IV Flush (NS 3 ml) 3 ml PER PROTOCOL IV ; Start 03/18/18 at 17:00 Ondansetron HCl (Zofran Inj) 4 mg Q6H PRN IV NAUSEA/VOMITING Last administered on 04/01/18at 17:10; Admin Dose 4 MG; Start 03/18/18 at 17:00 Acetaminophen (Tylenol Tab) 650 mg Q6H PRN PO .PAIN 1-3 OR TEMP; Start 03/18/18 at 17:00 Docusate Sodium (Colace) 100 mg Q12H PRN PO .CONSTIPATION; Start 03/18/18 at 17:00 Magnesium Hydroxide (Milk Of Mag) 30 ml DAILY PRN PO .CONSTIPATION; Start 03/18/18 at 17:00 Miscellaneous Information 1 ea NOTE XX ; Start 03/18/18 at 18:30 Glucose (Glutose) 15 gm Q15M PRN PO DECREASED GLUCOSE; Start 03/18/18 at 18:30 Glucose (Glutose) 22.5 gm Q15M PRN PO DECREASED GLUCOSE; Start 03/18/18 at 18:30 Dextrose (D50w Syringe) 25 ml Q15M PRN IV DECREASED GLUCOSE; Start 03/18/18 at 18:30 Dextrose (D50w Syringe) 50 ml Q15M PRN IV DECREASED GLUCOSE; Start 03/18/18 at 18:30 Glucagon (Glucagen) 1 mg Q15M PRN IM DECREASED GLUCOSE; Start 03/18/18 at 18:30 Glucose (Glutose) 15 gm Q15M PRN BUCCAL DECREASED GLUCOSE Last administered on 04/05/18 17:32; Admin Dose 15 GM; Start 03/18/18 at 18:30 Insulin Aspart (Novolog Insulin Pen) (Adult SC Insulin - Mild Algorithm)... AC MEALS AND BEDTIME SC Last administered on 04/09/18 17:18; Admin Dose 2 UNIT; Start 03/22/18 at 11:30 Loratadine (Claritin) 10 mg DAILY PO Last administered on 04/10/18 08:44; Admin Dose 10 MG; Start 03/22/18 at 14:00 Sodium Chloride (Deep Sea) 2 spray Q4H PRN NASAL congestion Last administered on 03/22/18 14:25; Admin Dose 2 SPRAY; Start 03/22/18 at 14:00 Thiamine HCl (Vitamin B1) 100 mg DAILY PO Last administered on 04/10/18 08:44; Admin Dose 100 MG; Start 03/25/18 at 09:00; Stop 04/24/18 at 08:59 Atorvastatin Calcium (Lipitor) 80 mg QHS PO Last administered on 04/09/18 20:25; Admin Dose 80 MG; Start 03/28/18 at 21:00 Lorazepam (Ativan) 0.5 mg QHS PRN PO ANXIETY Last administered on 04/03/18 14:15; Admin Dose 0.5 MG; Start 04/03/18 at 13:30 Lisinopril (Zestril) 2.5 mg DAILY PO Last administered on 04/10/18 08:43; Admin Dose 2.5 MG; Start 04/04/18 at 09:00 Metformin HCl (Glucophage) 500 mg BID WITH MEALS PO Last administered on 3/1/19at 08:42; Admin Dose 500 MG; Start 04/05/18 at 18:00 Furosemide (Lasix) 20 mg Q48H PO Last administered on 04/10/18at 08:44; Admin Dose 20 MG; Start 04/08/18 at 09:00 JANEEN KEENAN Apr 10, 2018 13:58
== END 2018-04-10 15:12 | DRG 64 ==
LOC: E/R 13:23 → EDBD 16:08 → TEL 16:08 → 5EC 03-20 15:25
PROVIDERS: ADMIT Internal Medicine; ATTEND Internal Medicine
DX: I63.9 Cerebral infarction, unspecified (principal); G92 Toxic encephalopathy; I50.23 Acute on chronic systolic (congestive) heart failure; N17.9 Acute kidney failure, unspecified; I42.9 Cardiomyopathy, unspecified; E11.65 Type 2 diabetes mellitus with hyperglycemia; I11.0 Hypertensive heart disease with heart failure; E78.5 Hyperlipidemia, unspecified; R47.01 Aphasia; Z95.5 Presence of coronary angioplasty implant and graft; I25.10 Atherosclerotic heart disease of native coronary artery without angina pectoris; R13.10 Dysphagia, unspecified; E87.6 Hypokalemia
CPT/HCPCS: 36415; 70450; 70545; 70552; 71045; 74230; 80048; 80053; 80061; 80069; 80076; 81001; 81003; 82043; 82140; 82550; 82553; 82607; 82947; 82962; 83036; 83605; 83735; 83880; 84100; 84132; 84155; 84300; 84425; 84443; 84484; 85025; 85610; 85651; 85730; 86592; 86703; 87040; 87075; 87086; 92526; 92610; 92611; 93005; 93306; 95819; 96374; 97110; 97116; 97162; 97165; 97530; 97535; J0692; J0696; J1650; J1815; J1940; J2060; J2405; J3475; J3480; J7030; J7042

== ENCOUNTER 2018-08-22 18:40 | Emergency (ER) | payer MEDICARE, OTHER ==
[~2018-08-22] VITALS: Ht 172.7 cm; Wt 79.0 kg
[~2018-08-22 18:40] MED LIST: ASPI-903 PO; ATOR40TA68 PO; CARV3.12 PO; CLOP75TA27 PO; FURO20TA3 PO; ISOS5TAB2 PO; LISI-313 PO; METF-849 PO; NITR0.4T32 SL; THIA100T56 PO
[2018-08-22 18:47] VITALS: BP 115/78; PULSE 44; RESP 20; Ht 172.7 cm; Wt 79.0 kg
[2018-08-22] MEDS ORDERED: DEXTROSE 50% 50 ML SYRINGE IV STA (20:18)
--- NOTE | 2018-08-22 22:02 | ERD ---
ER Documentation Chief Complaint Chief Complaint bib ra from home for hypoglycemia, given d10 en route, HPI Patient is a 68-year-old female with dementia, diabetes, and coronary disease who presents with low blood sugar. Please note the history and physical exam is limited secondary to the patient's dementia. The patient was brought in by ambulance. She had a blood sugar of 29. The daughter gave insulin but did not know what insulin it was or how much she gave and the patient had not eaten prior. The patient does not have a glucometer at home and therefore her daughter was unable to check the sugar before giving insulin. Upon review of old medical record the patient one previous visit in March 2018. The daughter is requesting education on how to check blood sugar and administer insulin. ROS All systems reviewed and are negative except as per history of present illness. Medications Home Meds Active Scripts Furosemide* (Furosemide*) 20 Mg Tablet, 20 MG PO every other day for 30 Days First dose to be taken starting next 04/06/2018 Prov:VEDA MENDIOLA [employer] 04/03/18 Metformin* (Glucophage*) 500 Mg Tab, 500 MG PO BID WITH MEALS, #60 TAB Prov:MENDIOLASONAA [employer] 04/03/18 Thiamine* (Vitamin B-1*) 100 Mg Tablet, 100 MG PO DAILY, #30 TAB Prov:VEDA MENDIOLA [employer] 03/31/18 Atorvastatin* (Atorvastatin*) 40 Mg Tablet, 80 MG PO QHS, #30 TAB Prov:SONA MENDIOLAA [employer] 03/31/18 Reported Medications Nitroglycerin* (Nitroglycerin* SL) 0.4 Mg Tab.subl, 0.4 MG SL Q5MIN PRN for C HEST PAIN, BOTTLE 03/18/18 Lisinopril* (Lisinopril*) 5 Mg Tablet, 5 MG PO DAILY, #30 TAB 03/18/18 Clopidogrel Bisulfate (Clopidogrel) 75 Mg Tablet, 75 MG PO DAILY, #30 TAB 03/18/18 Carvedilol* (Coreg*) 3.125 Mg Tablet, 3.125 MG PO BID, #60 TAB 03/18/18 Aspirin* (Aspirin* Chew) 81 Mg Tab.chew, 81 MG PO DAILY, TAB.CHEW 03/18/18 Isosorbide Dinitrate* (Isosorbide Dinitrate*) 5 Mg Tablet, 5 MG PO BID, TAB 03/18/18 Allergies Allergies: Coded Allergies: No Known Allergy (Unverified , 03/18/18) PMhx/Soc History of Surgery: No Hx 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 Disorder: No Hx Respiratory Disorders: No Hx Cardiac Disorders: Yes (CHF) Hx Psychiatric Problems: Yes (DEMENTIA) Hx Miscellaneous Medical Probl: No Smoking Status: Never smoker FmHx Family History: diabetes Physical Exam Vitals Vital Signs Date Temp Pulse Resp B/P (MAP) Pulse Ox O2 O2 Flow FiO2 Time Delivery Rate 08/22/18 98.4 49 19 110/70 99 18:47 (83) 08/22/18 98.4 44 20 115/78 99 Room Air 18:47 (90) Physical Exam Const: No acute distress Head: Atraumatic Eyes: Normal Conjunctiva ENT: Normal External Ears, Nose and Mouth. Neck: Full range of motion. No meningismus. Resp: Clear to auscultation bilaterally Cardio: Regular rate and rhythm, no murmurs Abd: Soft, non tender, non distended. Normal bowel sounds Skin: No petechiae or rashes Back: No midline or flank tenderness Ext: No cyanosis, or edema Neur: Awake but demented at baseline Result Diagram: 08/22/187 08/22/181856 Results 24 hrs Laboratory Tests Test 08/22/18 18:46 08/22/18 18:57 08/22/18 20:17 08/22/18 21:13 Bedside Glucose 108 mg/dL 47 mg/dL 112 mg/dL White Blood Count 5.2 10^3/ul Red Blood Count 4.19 10^6/ul Hemoglobin 11.6 g/dl Hematocrit 37.5 % Mean Corpuscular 89.5 fl Volume Mean Corpuscular 27.7 pg Hemoglobin Mean Corpuscular 30.9 g/dl Hemoglobin Concent Red Cell 13.8 % Distribution Width Platelet Count 217 10^3/UL Mean Platelet 10.4 fl Volume Immature 0.400 % Granulocytes % Neutrophils % 46.7 % Lymphocytes % 39.1 % Monocytes % 9.9 % Eosinophils % 3.1 % Basophils % 0.8 % Nucleated Red Blood 0.0 /100WBC Cells % Immature 0.020 10^3/ul Granulocytes # Neutrophils # 2.4 10^3/ul Lymphocytes # 2.0 10^3/ul Monocytes # 0.5 10^3/ul Eosinophils # 0.2 10^3/ul Basophils # 0.0 10^3/ul Nucleated Red Blood 0.0 10^3/ul Cells # Sodium Level 144 mmol/L Potassium Level 3.9 mmol/L Chloride Level 109 mmol/L Carbon Dioxide 30 mmol/L Level Anion Gap 5 Blood Urea Nitrogen 13 mg/dl Creatinine 0.91 mg/dl Est Glomerular > 60 mL/min Filtrat Rate mL/min Glucose Level 97 mg/dl Calcium Level 8.3 mg/dl Current Medications Medications Dose Sig/Chivo Start Time Status Last (Trade) Ordered Route PRN Stop Time Admin Dose Reason Admin Dextrose 50 ml ONCE STAT 08/22/18 DC 08/22/18 (D50w IV 20:18 20:21 Syringe) 08/22/18 20:19 Procedures/MDM Patient is a 68-year-old female who presents with acute hypoglycemia. The patient was given insulin by her daughter which likely caused the sugar to drop. The patient was given D10 by paramedics and sugar is improved. She was given food in the emergency department and D50. The patient will not be discharged. She can return for any worsening symptoms. Nursing did educate the daughter on how to check her blood sugar and how to administer insulin appropriately. Departure Diagnosis: Primary Impression: Hypoglycemia Condition: Fair Patient Instructions: Hypoglycemia (Low Blood Sugar) Referrals: Your doctor Additional Instructions: Call your primary care doctor TOMORROW for an appointment during the next 1-2 days.See the doctor sooner or return here if your condition worsens before your appointment time. FATEMEH RUBIN MD Aug 22, 2018 22:02
== END 2018-08-22 22:23 | disposition home or self-care (01) ==
LOC: E/R 18:40
DX: E11.65 Type 2 diabetes mellitus with hyperglycemia (principal); I50.9 Heart failure, unspecified; Z79.84 Long term (current) use of oral hypoglycemic drugs; Z79.82 Long term (current) use of aspirin
CPT/HCPCS: 36415; 80048; 82962; 85025; 96374